=== PATIENT | female | born 1935 | race Caucasian/White ===

== ENCOUNTER → 2017-10-28 11:06 | Outpatient (CLI) | payer MEDICARE, SELFPAY ==
[2017-10-28 13:05] LABS: Anion Gap 12.5 mEq/L (5-15); Blood Urea Nitrogen 23 mg/dL (7-18); Carbon Dioxide 29 mmol/L (21.0-32.0); Chloride 105 mmol/L (98-107); Creatinine,Serum 1.14 mg/dL (0.55-1.02); Estimated Glomerular Filt Rate 46 ml/min (>60); GFR (African American) 55 ML/MIN (>60); Glucose 153 mg/dL (74-106); Potassium 4.5 mmoL/L (3.5-5.1); Sodium 142 mmol/L (136-145)
== END ==
PROVIDERS: Visit Provider Internal Medicine
DX: I25.10 Atherosclerotic heart disease of native coronary artery without angina pectoris (principal); I27.20 Pulmonary hypertension, unspecified
CPT/HCPCS: 36415; 80048

== ENCOUNTER → 2017-11-17 11:21 | Outpatient (CLI) | payer MEDICARE, SELFPAY ==
[2017-11-17 13:46] LABS: Anion Gap 11.2 mEq/L (5-15); Blood Urea Nitrogen 32 mg/dL (7-18); Carbon Dioxide 32 mmol/L (21.0-32.0); Chloride 103 mmol/L (98-107); Creatinine,Serum 1.28 mg/dL (0.55-1.02); Estimated Glomerular Filt Rate 40 ml/min (>60); GFR (African American) 48 ML/MIN (>60); Glucose 107 mg/dL (74-106); Potassium 4.2 mmoL/L (3.5-5.1); Sodium 142 mmol/L (136-145)
== END ==
PROVIDERS: PCP Family Medicine; Visit Provider Internal Medicine Cardiovascular Disease
DX: R06.00 Dyspnea, unspecified (principal); I51.9 Heart disease, unspecified; I11.9 Hypertensive heart disease without heart failure; I27.20 Pulmonary hypertension, unspecified; I25.10 Atherosclerotic heart disease of native coronary artery without angina pectoris
CPT/HCPCS: 80048; 83880

== ENCOUNTER → 2017-12-08 06:19 | Outpatient (CLI) | payer MEDICARE, SELFPAY ==
--- NOTE | 2017-12-08 | CA_ITS ---
NM linda perf SPECT rest str CLINICAL INDICATION: Chest pain and shortness of breath and fatigue, hypertension, diabetes, hypercholesterolemia, positive family history, coronary artery disease ORDERING PHYSICIAN: Dewayne Ramos MD PATIENT AGE: 82 years COMPARISON: 08/18/2017 DOSE: 10.74 mCi technetium Myoview intravenously at rest followed by 32.7 mCi technetium Myoview following the intravenous ministration of 0.4 mg of Lexiscan. Resting blood pressure is 166/66. Stress blood pressure 133/70. FINDINGS: Ejection fraction is calculated to be 66%.. There is dyskinesia involving the inferior wall at the base of the heart consistent with an aneurysm of the left ventricle. SPECT and polar map images reviewed. No fixed defects are evident. There is some decrease activity involving the inferolateral wall towards the apex becomes normal on the delayed images suggesting a small area of ischemia IMPRESSION: 1. Normal ejection fraction of 66%. 2. Dyskinetic segment involving the inferior wall at the base of the heart consistent with an aneurysm of the left ventricle. 3. Reversible region in the inferolateral wall toward the apex consistent with an area of ischemia
--- NOTE | 2017-12-08 08:06 | HMH.ITSHM ---
ATORVASTATIN FISH OIL DIABETIC MED BLOOD PRESSURE MED
--- NOTE | 2017-12-08 08:50 | HMH.ITSHM ---
atorvastatin, fish oil, diabetic med, blood ressure med
== END ==
PROVIDERS: PCP Family Medicine; Visit Provider Internal Medicine
DX: R06.00 Dyspnea, unspecified (principal); R06.01 Orthopnea; R06.02 Shortness of breath
CPT/HCPCS: 78452; 93017; A9502; J2785

== ENCOUNTER → 2017-12-29 12:53 | Outpatient (CLI) | payer MEDICARE, SELFPAY ==
--- NOTE | 2017-12-29 13:00 | MR_ITS ---
MR lumbar spine wo con, MR 3-d myelogram/MRCP HISTORY: Low back pain and lt leg pain x1 year. Pain has been constant in leg for a year. ORDERING PHYSICIAN: Fermín Gamble PATIENT AGE: 82 years COMPARISON: None TECHNIQUE: Standard multiplanar multiecho sequences are performed without contrast. 3-D MIP and myelographic images are also rendered and reviewed FINDINGS: There is mild lumbar scoliosis convex left. There is multilevel degenerative disc disease with bulging disc, endplate hypertrophy, and facet and ligamentum flavum hypertrophy as well as be outlined below. The spinal cord ends at the L1-L2 level. T11-T12: Mild degenerative disc disease. The disc is bulging anteriorly. A hemangioma involves the T12 vertebral body measuring approximately 15 mm. T12-L1: Mild degenerative disc disease with mild facet and ligamentum hypertrophy. L1-L2: Moderate to severe degenerative disc disease with mild bulging disc. Severe facet hypertrophic changes on the right with prominent right-sided marginal osteophytes. There is severe right lateral recess narrowing and severe right-sided foraminal narrowing impinging upon the exiting right L1 nerve root. Transverse narrowing of the canal at 12 mm. L2-L3: Moderate to severe degenerative disc disease with mild bulging disc and prominent right-sided marginal osteophytes along with facet hypertrophic change with moderate to severe right-sided foraminal narrowing and right lateral recess narrowing. There is transverse narrowing of the canal at 10 mm. L3-L4: Severe degenerative disc disease with bulging disc. There is a millimeters left lateral translation of L3 on L4. Small disc protrusion/disc osteophyte complex is present in the left paracentral region impinging upon the left L4 nerve root with severe left lateral recess narrowing and moderate bilateral foraminal narrowing. Transverse narrowing of the canal at 10 mm. L4-5: Moderate to severe degenerative disc disease with a small left paracentral disc protrusion/herniation impinging upon the left L5 nerve root causing left lateral recess narrowing with moderate to severe left-sided foraminal narrowing. L5-S1: 6 mm anterolisthesis of L5 with degenerative disc disease with concentric bulging disc eccentric towards the left along with moderate facet and ligamentum flavum hypertrophy with severe bilateral foraminal narrowing left greater than right. IMPRESSION: Abnormal MRI of the lumbar spine with multilevel degenerative disc disease along with facet and ligamentum hypertrophy and with endplate osteophytes and scoliosis resulting in multilevel spinal canal narrowing with severe lateral recess and foraminal narrowing. Please see above for detailed description age level. Small left paracentral disc osteophyte complex at L3-L4 and small left paracentral disc protrusion versus herniation at L4-L5
[2017-12-29 23:59] LABS: Anion Gap 13.2 mEq/L (5-15); Blood Urea Nitrogen 27 mg/dL (7-18); Carbon Dioxide 29 mmol/L (21.0-32.0); Chloride 105 mmol/L (98-107); Creatinine,Serum 1.29 mg/dL (0.55-1.02); Estimated Glomerular Filt Rate 40 ml/min (>60); GFR (African American) 48 ML/MIN (>60); Glucose 103 mg/dL (74-106); Potassium 4.2 mmoL/L (3.5-5.1); Sodium 143 mmol/L (136-145)
== END ==
PROVIDERS: Internal Medicine Cardiovascular Disease; PCP Family Medicine; Visit Provider Orthopaedic Surgery
DX: E11.9 Type 2 diabetes mellitus without complications (principal); I65.29 Occlusion and stenosis of unspecified carotid artery; R06.02 Shortness of breath; E78.4 Other hyperlipidemia; I11.9 Hypertensive heart disease without heart failure; I25.10 Atherosclerotic heart disease of native coronary artery without angina pectoris; I27.20 Pulmonary hypertension, unspecified; M54.16 Radiculopathy, lumbar region
CPT/HCPCS: 36415; 72148; 76376; 80048

== ENCOUNTER → 2018-07-07 07:44 | Outpatient (CLI) | payer MEDICARE, SELFPAY ==
--- NOTE | 2018-07-07 07:47 | CA_ITS ---
PROCEDURE: 2-D M-mode and color Doppler study INDICATIONS FOR THE TEST: Chest pain COPD Heart Murmur+ Tobacco SmokingEX Palpitations Fatigue+ Syncope Edema+ Hypertension+Diabetes Mellitus+ Rheumatic Fever SOB [place]+Obesity+Hyperlipidemia+ Family History HD+ Additional History CAD, 2 stents PATIENT INFORMATION HEIGHT: 62 WEIGHT: 200 GENDER: Female B/P: 119/67 2-D/M-MODE INTERPRETATION: 2-D MEASUREMENTS OBSERVED VALUES IN CMS Right Ventricular Dimension (RVDd) 2.5 Interventricular Septum (Thickness)(IVsd) 1.0 Left Ventricular Internal Dimensions(LVIDd) 4.3 Left Ventricular Posterior Wall (Thickness)(LVPWd) 1.0 Aortic Root 2.4 Aortic Cusp Separation 1.5 Left Atrial Dimensions (LAD) 3.0 2D 1. Left atrium is mildly enlarged, left ventricle is normal size, mild concentric left ventricular hypertrophy, visually estimated ejection fraction 55% with no regional wall motion abnormality. 2. The right atrium and right ventricle are normal size and contractility. 3. The aortic valve is thickened and calcified leaflet continue to display mobility. 4. The mitral and tricuspid valve leaflets are minimally thickened. 5. The pulmonic valve is poorly visualized. 6. No significant pericardial effusion noted. DOPPLER INTERROGATION: Doppler interrogation of the aortic, mitral and tricuspid valvular presence of mild aortic, mild mitral and tricuspid regurgitation, mean gradient across aortic valve is 9 mmHg represents mild aortic stenosis, there is mild aortic insufficiency present. Calculated right ventricular systolic pressure is 38 mmHg. CONCLUSION: 1. Mildly enlarged left atrium, normal left ventricular size, mild concentric left ventricular hypertrophy, visually estimated ejection fraction 55% with no regional wall motion abnormality, grade 1 diastolic dysfunction seen with tissue Doppler evidence of raised left atrial pressure. 2. Thickened and calcified aortic valve with mean gradient across valve of 9 mmHg is mild aortic stenosis, there is mild aortic insufficiency present. 3. Mild mitral and tricuspid regurgitation, calculated right ventricular systolic pressure is 38 mmHg consistent with mild pulmonary hypertension. 4. No significant pericardial effusion noted.
== END ==
PROVIDERS: PCP Family Medicine; Visit Provider Internal Medicine
DX: R06.02 Shortness of breath (principal)
CPT/HCPCS: 93306

== ENCOUNTER → 2018-07-08 10:58 | Outpatient (CLI) | payer MEDICARE, SELFPAY | PROVIDERS: PCP Family Medicine; Visit Provider Internal Medicine | DX: E11.9 Type 2 diabetes mellitus without complications (principal); E78.5 Hyperlipidemia, unspecified; I25.10 Atherosclerotic heart disease of native coronary artery without angina pectoris; I27.20 Pulmonary hypertension, unspecified; I34.0 Nonrheumatic mitral (valve) insufficiency; I65.29 Occlusion and stenosis of unspecified carotid artery; R00.1 Bradycardia, unspecified; R06.00 Dyspnea, unspecified; R42 Dizziness and giddiness | CPT/HCPCS: 93225 ==

== ENCOUNTER → 2018-10-25 09:54 | Outpatient (CLI) | payer MEDICARE, SELFPAY ==
--- NOTE | 2018-10-25 10:07 | MM_ITS ---
MM Dig screening mamm BI w/CAD ORDERING PHYSICIAN : Dinesh Lopez MD PATIENT AGE: 83 years GENDER: Female COMPARISON: Prior studies not available. The technologist check for prior mammograms but none available INDICATION: ITS.REASON: SCREENING Previous excisional biopsy of both right and left breast. TECHNIQUE: Standard CC and MLO images were obtained. R2 CAD reviewed. FINDINGS: Low-density breast with generalized fatty replacement. No dominant mass nor suspicious densities. In either breast. RIGHT BREAST: Small grouping dash- like linear calcifications deep right breast just slightly towards 3 o'clock position from mid point of breast. By far most Likely benign calcifications but would benefit from additional magnification spot views to better evaluate and provide a baseline. . These are not evident on the December 2016 CT LEFT BREAST: . Minimal vascular calcifications anterior left breast. ---------IMPRESSION: Right breast . A small grouping by far most likely benign calcifications but would benefit from additional magnification views Left breast: . Unremarkable. Follow-up in one year. BI-RADS Category: 0 Need Additional Imaging Evaluation RECOMMENDED FOLLOW-UP: IMM - IMMEDIATE FOLLOW-UP RECOMMENDED Magnification spot views right breast calcifications (A letter has been sent to the patient regarding results of the study.)
== END ==
PROVIDERS: PCP Family Medicine; Visit Provider Family Medicine
DX: Z12.31 Encounter for screening mammogram for malignant neoplasm of breast (principal)
CPT/HCPCS: 77067

== ENCOUNTER → 2018-11-01 11:05 | Outpatient (CLI) | payer MEDICARE, SELFPAY ==
--- NOTE | 2018-11-01 11:10 | XR_ITS ---
XR chest 2V HISTORY: ITS.REASON: CHEST WALL PAIN ORDERING PHYSICIAN: Dinesh Lopez MD PATIENT AGE: 83 years COMPARISON: 12/04/2016 FINDINGS: There is mild cardiomegaly without failure. Coronary artery calcifications are present. No lobar consolidation or collapse. There is mild wedging at T9 which has developed in the interval with loss of height anteriorly of approximately 30%. IMPRESSION: 1. Cardiomegaly with coronary artery calcification or stent. 2. Mild wedging of T9
== END ==
PROVIDERS: PCP Family Medicine; Visit Provider Family Medicine
DX: R07.89 Other chest pain (principal)
CPT/HCPCS: 71046

== ENCOUNTER → 2018-11-07 13:48 | Outpatient (CLI) | payer MEDICARE, SELFPAY ==
--- NOTE | 2018-11-07 13:53 | CT_ITS ---
CT thoracic spine wo con INDICATION: Thoracic back pain ITS.REASON: COLLAPSED [facility] THORAC[facility] ORDERING PHYSICIAN: Dinesh Lopez MD PATIENT AGE: 83 years COMPARISON: . 11/01/2018 CXR. & CT chest 01/11/2017 TECHNIQUE: Axial images obtained with sagittal and coronal reformats. All CT scans at the facility use one or more dose reduction, viz: automated exposure control, ma/kV adjustment per patient size (including targeted exams where dose is matched to indication, i.e. head), or iterative reconstruction technique. FINDINGS: Superior endplate compression fracture at T8. Mild Superior endplate concavity with mild loss of height and mild wedging seen at T8. Just over 20% loss of height mild sclerosis at the superior endplate reflects the recent compression. No significant retropulsion or complicating features. Adequate volume thoracic spinal canal to this region.. . I would note suggestion of some subtle hazy appearance in appearance spinal fat surrounding this superior aspect of T8 which supports that this may indeed be a recent compression fracture. Also there is a slightly abrupt appearance at the superior anterior right corner of the T8 vertebral body on sagittal views which also suspect for acute feature. Otherwise a would note degenerative changes in the thoracic spine.: . Mild disc space narrowing T6/7 noted. .Facet arthropathy and hypertrophy most evident at the lower T-spine... Facet hypertrophy Most evident to the left at T11/12 facet. Mild bilateral facet arthropathy at T10-11. Generous facet hypertrophy arthropathy to the at L 1/2 right facet greater than left also noted At the lower C-spine there is disc space narrowing and spondylosis. Minimal posterior disc/osteophyte at c 6/7 C5/6. Likely slightly indenting anterior aspect of thecal sac. Limited views of the lungs show no prominent findings. A partially calcified granuloma measuring up to 4 mm at the posterior right lower lobe. Calcified hilar nodes. Coronary artery calcification. -----IMPRESSION 1. T8 Compression Fracture.... Favor recent fracture but correlation with onset pain required .... Mild superior endplate compression-with mild superior endplate concavity and mild wedging at T8 . Approximately 20% loss of height .. No complicating features .... Subtle Hazy appearance paraspinal fat about this level in the subtle abrupt contour anterior superior corner T8 support most likely recent... 2. Mild degenerative changes elsewhere T spine as detailed in text.: ... Facet arthropathy/hypertrophy most evident lower T-spine & upper L-spine. ... Lower cervical spine spondylosis
== END ==
PROVIDERS: PCP Family Medicine; Visit Provider Family Medicine
DX: M48.54XA Collapsed vertebra, not elsewhere classified, thoracic region, initial encounter for fracture (principal)
CPT/HCPCS: 72128

== ENCOUNTER → 2018-11-08 13:25 | Outpatient (CLI) | payer MEDICARE, SELFPAY ==
--- NOTE | 2018-11-08 13:28 | MM_ITS ---
MM Dig mamm DX unilat RT CAD INDICATION: Follow-up abnormal mammogram ORDERING PHYSICIAN: Dinesh Lopez MD PATIENT AGE: 83 years COMPARISON: 10/25/2018 TECHNIQUE: Mag views of the right breast FINDINGS: There is a cluster of benign-appearing right like calcifications in the medial aspect of the right breast. These have a benign appearance. No malignant appearing microcalcifications evident IMPRESSION: Benign appearing calcifications noted on spot compression mag views BI-RADS Category: 2 Benign Finding(s) RECOMMENDED FOLLOW-UP: 1YR - 1 YEAR FOLLOW-UP (A letter has been sent to the patient regarding results of the study.)
== END ==
PROVIDERS: PCP Family Medicine; Visit Provider Family Medicine
DX: R92.8 Other abnormal and inconclusive findings on diagnostic imaging of breast (principal)
CPT/HCPCS: 77065

== ENCOUNTER 2019-08-25 15:30 | Inpatient (IN) ==
--- NOTE | 2019-08-25 15:37 | Emergency Department Note ---
ED Disposition Clinical Impression: Fracture dislocation of right ankle Qualifiers: Encounter type: initial encounter Fracture type: closed Qualified Code(s): S82.891A - Other fracture of right lower leg, initial encounter for closed fracture Disposition: Admitted as Observation Condition on Discharge: Fair - Critical Care Critical Care Time: No Attestation: On 08/25/19, the high probability of a clinically significant, sudden or life threatening deterioration of the following system(s) required my full and direct attention, intervention and personal management. The time I documented below is in addition to time spent performing reported procedures but includes the following listed in this critical care notation. Medical Decision Making - Jak Inquiry Pt receiving controlled substance: Yes Jak was queried for this patient: No Reason not queried -: Emergent pt cond-no time Risks and benefits of using a controlled substance: were not discussed with pt by me Vital Signs: 08/25/19 15:31 08/25/19 16:03 08/25/19 16:40 Temperature 97.9 F Temperature Source Oral Pulse Rate [Left Radial] 67 56 L 61 Respiratory Rate 18 18 Blood Pressure [Left Arm] 136/74 136/74 126/54 L Blood Pressure Mean [Left Arm] 94 94 78 Blood Pressure Source [Left Arm] Automatic Cuff Automatic Cuff Blood Pressure Position [Left Arm] Sitting Sitting Sitting 02 Sat by Pulse Oximetry 100 95 95 Oxygen Delivery Method Room Air Room Air Nasal Cannula Oxygen Flow Rate (LPM) 2 08/25/19 16:45 08/25/19 16:50 08/25/19 16:55 Temperature Temperature Source Pulse Rate [Left Radial] 74 75 61 Respiratory Rate 16 16 16 Blood Pressure [Left Arm] 129/74 136/64 136/61 Blood Pressure Mean [Left Arm] 92 88 86 Blood Pressure Source [Left Arm] Blood Pressure Position [Left Arm] Sitting Sitting 02 Sat by Pulse Oximetry 93 L 96 98 Oxygen Delivery Method Nasal Cannula Nasal Cannula Nasal Cannula Oxygen Flow Rate (LPM) 2 3 3 08/25/19 17:00 08/25/19 17:15 08/25/19 18:24 Temperature Temperature Source Pulse Rate [Left Radial] 63 65 63 Respiratory Rate 16 16 16 Blood Pressure [Left Arm] 133/61 131/74 111/73 Blood Pressure Mean [Left Arm] 85 93 85 Blood Pressure Source [Left Arm] Blood Pressure Position [Left Arm] Sitting Sitting Sitting 02 Sat by Pulse Oximetry 98 97 96 Oxygen Delivery Method Nasal Cannula Nasal Cannula Nasal Cannula Oxygen Flow Rate (LPM) 3 3 2 - Lab Data Lab Results 08/25/19 15:55: Sodium 139, Potassium 3.9, Chloride 101, Carbon Dioxide 27, Anion Gap 14.9, BUN 32 H, Creatinine 1.73 H, Estimated Creat Clear 36, Estimated GFR 28 L, Est GFR ( Amer) 34 L, Glucose 147 H, Calcium 9.3, Total Bilirubin 0.4, AST 17, ALT 19, Alkaline Phosphatase 92, Total Protein 6.8, Albumin 3.5, Globulin 3.3 H, Albumin/Globulin Ratio 1.1 08/25/19 16:00: WBC 8.6, RBC 4.50, Hgb 14.2, Hct 42.5, MCV 94.4, MCH 31.5 H, MCHC 33.4, RDW 12.8, Plt Count 220, MPV 10.9 H, Neut % (Auto) 77.8, Lymph % (Auto) 13.5, [place] % (Auto) 6.4, Eos % (Auto) 2.0, Baso % (Auto) 0.3, Neut # (Auto) 6.7, Lymph # (Auto) 1.2, [place] # (Auto) 0.6, Eos # (Auto) 0.2, Baso # (Auto) 0.0 Result diagrams: 08/25/19 16:00 08/25/19 15:55 Orders (Tests/Meds): ED MEDICATIONS Generic Name Dose Route Start Last Admin Trade Name Freq PRN Reason Stop Dose Admin Ketamine HCl 12.5 mg 08/25/19 17:15 08/25/19 16:41 Ketamine 500mg/10ml Vial IV 09/24/19 17:14 12.5 mg TITR HANK Administration Ketamine HCl 12.5 mg 08/25/19 17:15 08/25/19 16:43 Ketamine 500mg/10ml Vial IV 09/24/19 17:14 12.5 mg TITR HANK Administration Ketamine HCl 12.5 mg 08/25/19 17:15 08/25/19 16:46 Ketamine 500mg/10ml Vial IV 09/24/19 17:14 12.5 mg TITR HANK Administration Discontinued Medications Generic Name Dose Route Start Last Admin Trade Name Freq PRN Reason Stop Dose Admin Hydromorphone HCl 0.5 mg 08/25/19 18:21 08/25/19 18:24 Dilaudid 2mg/Ml Syringe IV 08/25/19 18:22 0.5 mg ONCE ONE Administration Morphine Sulfate 2 mg 08/25/19 15:34 08/25/19 15:36 Morphine 2mg/Ml Syringe IV 08/25/19 15:35 2 mg ONCE ONE Administration Ondansetron HCl 4 mg 08/25/19 15:34 08/25/19 15:36 Zofran 4mg/2ml Vial IV 08/25/19 15:35 4 mg ONCE ONE Administration ORDERS Category Date Time Status CT ankle RT wo con Stat Cat Scan 08/25/19 16:56 Stop Req - Radiology Data #1 Image(s): Ankle Image Reviewed: Yes I reviewed the patient's radiology image Trimalleolar fracture dislocation - Physician Consults Physician Consulted: Hilton Time: 16:00 Reason -: Orthopedic Eval/Care Comment/Response: She will come down to see the patient and assist in reduction/splinting Additional Consult: Bobby Time: 17:30 Reason -: Admission Comment/Response: Agrees to admit the patient to the hospital. We discussed the patient's clinical information, including history, exam, laboratory and radiology results and ED course. Per hospital procedure, I will write temporary bridge inpatient orders on the patient. Specific orders requested by the admitting physician: per Dr. Canela. Sliding scale insulin. General Adult HPI - General Chief complaint: Extremity Injury, Lower Stated complaint: Fall, Rt ankle injury Time Seen by Provider: 08/25/19 15:36 - History of Present Illness HPI narrative: Brought in by ambulance. Fell off a porch step at home and injured her right ankle. Could not get back up on it. Has deformity of the ankle. Denies any other injury including head or neck injury, abdominal or chest injury, back injury, or hip injury. Last ate at about 1 PM. - Related Data Home Medications Medication Instructions Recorded Confirmed multivitamin tablet 1 tab PO QAM 11/01/17 06/30/19 nitroglycerin 0.4 mg sublingual 0.4 mg SUBLINGUAL Q5M PRN 11/01/17 06/30/19 tablet omega [id number]-fish oil 1,000 mg cap PO 11/01/17 06/30/19 (120 mg-180 mg) capsule pantoprazole 40 mg tablet,delayed 40 mg PO QAM 11/01/17 06/30/19 release aspirin 81 mg tablet,delayed 81 mg PO DAILY tab 12/16/18 06/30/19 release levothyroxine 88 mcg tablet 88 mcg PO DAILY tab 12/16/18 06/30/19 meclizine 25 mg tablet 25 mg PO DAILY PRN tab 12/16/18 06/30/19 Previous Rx's Medication Instructions Recorded atorvastatin 40 mg tablet 40 mg PO DAILY #30 tab 08/25/18 isosorbide mononitrate ER 30 mg 30 mg PO QAM #30 tab 11/23/18 tablet,extended release 24 hr bisoprolol fumarate 5 mg tablet 2.5 mg PO QDAY #30 tab 02/14/19 furosemide 40 mg tablet 40 mg PO BID #60 tab 02/20/19 spironolactone 50 mg tablet 50 mg PO DAILY #90 tab 03/16/19 losartan 50 mg tablet 50 mg PO QDAY #90 tab 08/04/19 Allergies Allergy/AdvReac Type Severity Reaction Status Date / Time No Known Allergies Allergy Verified 06/30/19 10:19 [facility] History - Hepatitis A Screen Attestation statement:: This patient has been screened for Hepatitis A risk factors. I have reviewed the patient's past medical history: Yes Medical History: Reports:: Congestive Heart Failure, Coronary Artery Disease, Diabetes Mellitus Type 2, Hyperlipidemia, Hypertension Other Medical History: Reports: Hypothyroidism Laterality Cases: Other Surgeries: Yes: Other - Social History Smoking Status: Former smoker Alcohol Intake: never Alcohol Intake Frequency:: other Substance Use Type: denies use Occupational Status: retired Family Hx:: Coronary Artery Disease ROS Obtained: Yes All systems reviewed & no additional complaints - Cardiovascular Cardiovascular: Denies chest pain - Respiratory Respiratory: No dyspnea - Gastrointestinal Gastrointestingal: Denies: abdominal pain, vomiting - Musculoskeletal Musculoskeletal: Reports joint pain (Right ankle), Denies back pain, Denies neck pain - Neurologic Neurologic: Denies headache(s), Denies numbness, Denies weakness Physical Exam - General General appearance: alert, in no apparent distress - Head Head exam: atraumatic, normocephalic - Eye Eye exam: Present: normal appearance, EOMI - ENT ENT exam: Present: mucous membranes moist - Neck Neck exam: Present: normal inspection, full ROM, trachea midline. Absent: tende rness - Chest Chest inspection: Present: normal inspection, symmetric chest wall rise - Respiratory Respiratory exam: Present: normal lung sounds bilaterally. Absent: respiratory distress - Cardiovascular Cardiovascular exam: Present: regular rate, normal rhythm, normal heart sounds - Abdominal Exam Abdominal exam: Present: soft, normal bowel sounds. Absent: distention, tenderness - Extremities Exam Extremities exam: Present: normal capillary refill - Neurological Exam Neurological exam: Present: alert, oriented X3, CN II-XII intact. Absent: motor sensory deficit - Psychiatric Psychiatric exam: Present: normal affect, normal mood - Skin Skin exam: Present: warm, dry - Other Other exam information: Deformity of her right ankle, foot is deviated laterally, apex medial angulation at ankle. Skin is intact. Some mild ecchymosis medially. Normal pedal pulses, capillary refill, warmth, sensation, and movement of toes. Procedures - Procedural Sedation Indication: fracture/dislocation reduction Presedation Evaluation: Right ankle fracture dislocation ASA Class: III Preparation: laboratory monitor applied, pulse oximeter, supplemental O2 applied, suction/airway equipment at bedside, IV secured Ketamine: IV Ketamine dose (mg): 37 Patient Tolerated Procedure: well Complications: none Additional Comments: Reduction and splint performed by Dr. Canela. Postreduction x-ray shows that the dislocation has recurred. She will take the patient to surgery to perform an external fixator.
[2019-08-25 16:10] LABS: Basophils % 0.3 % (0.1-2.0); Eosinophils # 0.2 K/mm3 (0.0-0.4); Hematocrit 42.5 % (37.0-47.0); Hemoglobin 14.2 g/dL (12.2-16.2); Lymphocytes # 1.2 K/mm3 (0.7-4.5); Lymphocytes % 13.5 % (10-50); Mean Corpuscular HGB Conc 33.4 g/dL (31.8-35.4); Mean Corpuscular Volume 94.4 fl (81-99); Mean Platelet Volume 10.9 fl (7.4-10.4); Monocytes # 0.6 K/mm3 (0.1-1.0); Monocytes % 6.4 % (1.7-9.3); Neutrophils # 6.7 K/mm3 (1.8-7.8); Neutrophils % 77.8 % (37.0-80.0); Platelet Count 220 K/mm3 (142-424); Red Cell Distribution Width 12.8 % (11.5-17.5); White Blood Count 8.6 K/mm3 (4.8-10.8)
[2019-08-25 16:24] LABS: Albumin Level 3.5 gm/dL (3.4-5.0); Albumin/Globulin Ratio 1.1 (1.1-1.8); Anion Gap 14.9 mEq/L (5-15); Bilirubin,Total 0.4 mg/dL (0.2-1.0); Calcium 9.3 mg/dL (8.5-10.1); Globulin 3.3 gm/dl (1.3-3.2); Total Protein,Serum 6.8 gm/dL (6.4-8.2)
--- NOTE | 2019-08-25 17:14 | Consult Report ---
*Admission Date: 08/25/19 *Reason for consult:: R ankle fracture *History of present illness: 84yo F s/p fall down the steps at home earlier this afternoon. She missed her step and fell down around 3 stairs, twisting and fracturing the ankle. She was unable to get up so she laid on the ground for around 30 minutes. Denies chest pain, shortness of breath or dizziness prior to the fall. No prior injuries to t he ankle or prior surgeries on the ankle. She is a diabetic and denies prior ulcers, non-healing wounds or infections in the feet. She is unsure what her last A1C was but believes her glucose runs between 100-120 most of the time. She has numbness in the feet as baseline. Medical history is significant for pulmonary HTN, CAD, CHF, hypothyroidism, HTN, HL, JONAH, DM, sinus bradycardia, mitral regurgitation, aortic stenosis. Home medications: mulitvitamin, nitroglycerin, fish oil, pantoprazole, aspirin 81, levothyroxine, meclizine, isosorbide. No known drug allergies, former smoker. She lives at home with her son, who works nights. Review of Systems - Review of Systems Review of systems:: pertinent systems reviewed and negative unless documented below - *Neurologic Denies headache(s), Denies numbness, Denies weakness [facility] History I have reviewed the patient's past medical history: Yes Medical History: Reports:: Congestive Heart Failure, Coronary Artery Disease, Diabetes Mellitus Type 2, Hyperlipidemia, Hypertension *Have you ever received a pneumonia vaccine?: Yes *Have you received a flu vaccine this season?: Yes Other Medical History: Reports: Hypothyroidism Laterality Cases: Bilateral: Carpal Tunnel Release Other Surgeries: Yes: Other - *Social History Smoking Status: Former smoker Tobacco Type: cigarettes Alcohol Intake: never Alcohol Intake Frequency:: other Substance Use Type: denies use *Occupational Status:: retired *Travel in the last 8 weeks: None Family Hx:: Coronary Artery Disease Meds Home Medications Medication Instructions Recorded Confirmed Type multivitamin tablet 1 tab PO QAM 11/01/17 06/30/19 History nitroglycerin 0.4 mg sublingual 0.4 mg SUBLINGUAL Q5M PRN 11/01/17 06/30/19 History tablet omega 6-iat-sph-fish oil 1,000 mg cap PO 11/01/17 06/30/19 History (120 mg-180 mg) capsule pantoprazole 40 mg tablet,delayed 40 mg PO QAM 11/01/17 06/30/19 History release atorvastatin 40 mg tablet 40 mg PO DAILY #30 tab 08/25/18 06/30/19 Rx isosorbide mononitrate ER 30 mg 30 mg PO QAM #30 tab 11/23/18 06/30/19 Rx tablet,extended release 24 hr aspirin 81 mg tablet,delayed 81 mg PO DAILY tab 12/16/18 06/30/19 History release levothyroxine 88 mcg tablet 88 mcg PO DAILY tab 12/16/18 06/30/19 History meclizine 25 mg tablet 25 mg PO DAILY PRN tab 12/16/18 06/30/19 History bisoprolol fumarate 5 mg tablet 2.5 mg PO QDAY #30 tab 02/14/19 06/30/19 Rx furosemide 40 mg tablet 40 mg PO BID #60 tab 02/20/19 06/30/19 Rx spironolactone 50 mg tablet 50 mg PO DAILY #90 tab 03/16/19 06/30/19 Rx losartan 50 mg tablet 50 mg PO QDAY #90 tab 08/04/19 Rx Allergies Allergy/AdvReac Type Severity Reaction Status Date / Time No Known Allergies Allergy Verified 06/30/19 10:19 Exam Vital signs and Labs for Last 24 Hours: Temp Pulse Resp BP Pulse Ox 97.9 F 56 L 18 136/74 95 08/25/19 15:31 08/25/19 16:03 08/25/19 15:31 08/25/19 16:03 08/25/19 16:03 Laboratory Results - last 24 hr 08/25/19 15:55: Sodium 139, Potassium 3.9, Chloride 101, Carbon Dioxide 27, Anion Gap 14.9, BUN 32 H, Creatinine 1.73 H, Estimated Creat Clear 36, Estimated GFR 28 L, Est GFR ( Amer) 34 L, Glucose 147 H, Calcium 9.3, Total Bilirubin 0.4, AST 17, ALT 19, Alkaline Phosphatase 92, Total Protein 6.8, Albumin 3.5, Globulin 3.3 H, Albumin/Globulin Ratio 1.1 08/25/19 16:00: WBC 8.6, RBC 4.50, Hgb 14.2, Hct 42.5, MCV 94.4, MCH 31.5 H, MCHC 33.4, RDW 12.8, Plt Count 220, MPV 10.9 H, Neut % (Auto) 77.8, Lymph % (Auto) 13.5, Edmonson % (Auto) 6.4, Eos % (Auto) 2.0, Baso % (Auto) 0.3, Neut # (Auto) 6.7, Lymph # (Auto) 1.2, Edmonson # (Auto) 0.6, Eos # (Auto) 0.2, Baso # (Auto) 0.0 I & O for Last 24 hours: Intake & Output 08/23/19 08/24/19 08/25/19 08/26/19 11:59 11:59 11:59 11:59 Weight 210 lb - Constitutional no acute distress - *Routine HEENT Exam Head: Present: normocephalic, atraumatic Eye: Present: EOMI ENT: Present: mucous membranes moist - *Routine Neck Exam Present: supple. Absent: tenderness - *Routine Respiratory Exam Present: CTA bilaterally - *Routine Cardiovascular Exam Present: RRR - *Routine Abdominal Exam Present: soft. Absent: tenderness - *Routine Rectal Exam Comments: deferred - *Routine Exam Comments: deferred - *Routine Extremities Exam Comments: R ankle is grossly deformed with medial tenting, mild ecchymosis and erythema, slight blanching able to wiggle toes, cannot dorsiflex or plantar flex R ankle sensation intact to light touch distally RLE in all distributions; monofilament testing deferred palpable DP/PT pulses RLE, foot warm and pink no open wounds, ulcerations, or other skin lesions RLE R lower leg compartments soft, no tenderness above ankle - *Routine Skin Exam Present: intact - *Routine Neurological Exam Present: alert, oriented X3, moving all extremities, normal tone, hearing grossly intact, normal speech. Absent: sensory deficit, motor deficit, altered mental status - Routine Psychiatric Exam Present: normal affect Results - Labs Result Diagrams: 08/25/19 16:00 08/25/19 15:55 Labs: Abnormal lab results 08/25/19 08/25/19 Range/Units 15:55 16:00 MCH 31.5 H (27.0-31.2) pg MPV 10.9 H (7.4-10.4) fl BUN 32 H (7-18) mg/dL Creatinine 1.73 H (0.55-1.02) mg/dL Estimated GFR 28 L (>60) ml/min Est GFR ( Amer) 34 L (>60) ML/MIN Glucose 147 H (74-106) mg/dL Globulin 3.3 H (1.3-3.2) gm/dl H & H 08/25/19 Range/Units 16:00 Hgb 14.2 (12.2-16.2) g/dL Hct 42.5 (37.0-47.0) % All other labs normal. - Diagnostic results Ankle/Foot x-ray: image reviewed (trimalleolar fracture-dislocation R ankle ) Assessment and Plan (1) Diabetes mellitus Current visit: No Status: Chronic Qualifiers: Diabetes mellitus type: type 2 Diabetes mellitus alf insulin use: without alf use Diabetes mellitus complication status: without complication Qualified Code(s): E11.9 - Type 2 diabetes mellitus without complications Category: Medical Code(s): E11.9 - Type 2 diabetes mellitus without complications (2) Fracture dislocation of right ankle Current visit: Yes Status: Acute Qualifiers: Encounter type: initial encounter Fracture type: closed Qualified Code(s): S82.891A - Other fracture of right lower leg, initial encounter for closed fracture Category: Medical Code(s): S82.891A - Other fracture of right lower leg, i nitial encounter for closed fracture - Assessment and plan all Dx Assessment and Plan for all problems:: 84yo F with trimalleolar fracture-dislocation of the R ankle -- closed reduction and splinting attempted in the ER with ketamine sedation by the ER provider. Ankle reduced easily, but could not be maintained with a splint, despite a well-molded plaster posterior splint + stirrup. Seen to re- dislocate on post-reduction XR. -- will take the patient to the OR tonight for closed reduction and external fixator application -- will admit post-operatively for ongoing post-op care, physical therapy, and SNF placement until definitive fixation can be completed. Will consult Dr. Cortez post-operatively, as this is a severe fracture that will be difficult to manage in an elderly patient with limited mobility, what appears to be poor bone quality on XR and a history of DM. -- after surgery will obtain a CT scan of the ankle -- risks of surgery were discussed with the patient and her son/granddaughter, who are at bedside; risks of bleeding, infection, persistent pain/swelling, and risks of anesthesia were discussed. The patient vocalized understanding, informed consent obtained.
--- NOTE | 2019-08-25 20:59 | Progress Note ---
[facility] Anesthesia Record Part II Discharge Time: 21:20 Destination: Medical Surgical Department PACU nurse assessment reviewed?: Yes Patient Condition:: Good Anesthesia Complications:: None Swallowing reflex intact?: Yes Cyanosis?: No
--- NOTE | 2019-08-25 20:59 | Progress Note ---
[facility] Anesthesia Record Part I Intake, IV Amount: 1,200 Estimated blood loss (mL): 5 Urine output (mL): 0 Blood Pressure: 144/74 SaO2: 95 Pulse Rate: 70 Respiratory Rate: 16 Temperature: 98 F Patient is:: Drowsy, Stable Stable to PACU at:: 20:50
--- NOTE | 2019-08-25 20:59 | Progress Note ---
[facility] Anesthesia Checklist - Patient Identification Patient Identification: Arm Band - Structural Data Admitted From: Emergency Dept Planned Operative Procedure/s: closed reduction, application of external fixation device right ankle Consent for Planned Operative Procedure(s) Verified: Yes Verified Documents: Surgical Consent, History and Physical - NPO Status Verified Time NPO: 12:00 - Additional verifications Anesthesia Reactions: No - Airway Assessment C-Spine Mobility Assessed: Yes (mp2) TMJ Mobility Assessed: Yes Dentition: Good Dentition - Neurological Assessment Level of Consciousness: Awake, Alert - Anesthesia Plan Anesthesia Risk discussed: Yes Anesthesia Plan: Verified ASA Class: III (e) Anesthesia Type: General [facility] History I have reviewed the patient's past medical history: Yes Medical History: Reports:: Congestive Heart Failure, Coronary Artery Disease, Diabetes Mellitus Type 2, Hyperlipidemia, Hypertension *Have you ever received a pneumonia vaccine?: Yes *Have you received a flu vaccine this season?: Yes Other Medical History: Reports: Hypothyroidism Anesthesia experience/problems:: nac Laterality Cases: Left: Total Knee Replacement, Bilateral: Carpal Tunnel Release Other Surgeries: Yes: Other - *Social History Smoking Status: Former smoker Tobacco Type: cigarettes Alcohol Intake: never Alcohol Intake Frequency:: other Substance Use Type: denies use *Occupational Status:: retired *Travel in the last 8 weeks: None Family Hx:: Coronary Artery Disease
--- NOTE | 2019-08-25 23:13 | Operative Note ---
Date of procedure: 08/25/19 Pre-op Diagnosis:: R trimalleolar ankle fracture-dislocation Post-op Diagnosis:: R trimalleolar ankle fracture-dislocation Procedure performed:: closed reduction R ankle fracture + external fixator placement RLE Surgeon:: Rosy Canela MD Registered Physical Therapist(s):: Garima Contreras LENS CUTTER:: Tarun Mobley Anesthesia: GETA Estimated blood loss (mL): 5 Clinical Note:: 84yo F s/p fall down the steps at home earlier this afternoon. She missed her step and fell down around 3 stairs, twisting and fracturing the ankle. She was unable to get up so she laid on the ground for around 30 minutes. Denies chest pain, shortness of breath or dizziness prior to the fall. No prior injuries to the ankle or prior surgeries on the ankle. She is a diabetic and denies prior ulcers, non-healing wounds or infections in the feet. She is unsure what her last A1C was but believes her glucose runs between 100-120 most of the time. She has numbness in the feet as baseline. Medical history is significant for pulmonary HTN, CAD, CHF, hypothyroidism, HTN, HL, JONAH, DM, sinus bradycardia, mitral regurgitation, aortic stenosis. Home medications: mulitvitamin, nitroglycerin, fish oil, pantoprazole, aspirin 81, levothyroxine, meclizine, isosorbide. No known drug allergies, former smoker. She lives at home with her son, who works nights. Closed reduction and splinting performed in the ER under IV sedation, but post-reduction x-rays were unsatisfactory. The fracture was too unstable to be held in a splint and as soon as my hands came off the reduction it fell apart, despite application of a well-molded plaster posterior splint + stirrup. I recommended repeat reduction in the OR with external fixator application. With the patient's age, fracture severity, what appears to be poor bone quality on x-ray, and a history of diabetes, I forsee difficulty with fracture fixation and a prolonged recovery period. External fixator application will allow the fracture to remain reduced/stabilize and allow the soft tissues to cool off prior to definitive treatment, at which time I will be seeking consultation from Dr. Cortez regarding fixation or reconstruction options. The risks of ex-fix application were discussed with the patient and her son/granddaughter, who are at bedside; risks of bleeding, infection, persistent pain/swelling, and risks of anesthesia were discussed. The patient vocalized understanding, informed consent obtained. Operative findings:: Devny Liu 2 ex-fix system was used, with the following components: pins: tibia = 5 x 180mm apex pins (2) calcaneus = 5 x 250mm transfix pin (1) 1st metatarsal = 4 x 90mm apex pin (1) bars: 8 x 500mm (2) from tibia to calcaneus 8 x 150mm (1) from 1st metatarsal to tibia Operative note:: The patient was identified in preoperative holding in the right leg signed by myself; the ankle was still splinted from the first closed reduction in the emergency room. I reviewed the consent with the patient and her family and answered all questions. She was then taken to the operating room and placed supine on the OR table. 2 g of Ancef were infused intravenously and general anesthesia induced. Once the patient was asleep, the splint was removed from her right ankle and the right leg prepped and draped in the usual sterile fashion from the upper thigh to the toes. Timeout was performed, identifying the correct patient, correct procedure, and correct site. The procedure was begun by using the C arm to identify the fracture site at the right ankle. Trimalleolar fracture dislocation was confirmed. A Devyn Liu 2 external fixator system was used for this case. The first pin placed was a calcaneus pin, which was a 5 x 250 mm transfix pin, which was centrally threaded. This was held over the skin over the lateral calcaneus until the desired starting point was found, at which time the pin was used to mustafa the skin and placed under power through the center of the calcaneus. Once the pin had been completely fixed with the central threads through the middle of the calcaneus, it was attached from the power source. Next 2 pins were placed in the proximal tibia, each measuring 5 x 180 mm. These were distally threaded apex pins and were placed around 3 to 4 cm apart in the proximal tibia, well distal to the tubercle and far below the capsule so as not to be placed intra- articularly. These were placed under power, also under direct visualization with C arm, and were started just medial to the tibial crest over the anterior tibia. They were placed bicortically. Once both tibial pins have been placed, bars were placed on the frame using pin to bar and bar to bar clamps. Radiolucent bars were placed, both measuring 8 x 500 mm from the tibia to the calcaneus both medially and laterally. Once the bars were clamped into place loosely, close reduction of the ankle was performed under C-arm visualization, until the ankle was well reduced. I held the ankle in a reduced position while my assistant editor tightened all brackets on the ex fix construct. Appropriate reduction of the ankle was confirmed on both AP and lateral fluoroscopy views. To finalize my fixation and also help hold the foot in a plantigrade position so as to avoid an equinus contracture if the frame is left on for a prolonged period of time, I placed one pin in the first metatarsal. This was done under C-arm guidance as well, and this pin was connected to the tibial bar with a separate, smaller radiolucent bar measuring 8 x 150 mm. The pin that was placed in the first metatarsal was a 4 x 90 mm apex pin x1. This completed the delta frame and the ankle fracture was seen to be well reduced and stable in this construct and all bolts were tightened once more in final x-ray views taken. The pin sites were all dressed with sterile Xeroform, 4 x 4's and the entire construct wrapped with Kerlix, web roll and Acsey wraps. The patient was then awoken from anesthesia and transferred to her cart, where she was taken to PACU in good condition. No tourniquet was used during this case and blood loss was minimal, less than 5 cc. The patient tolerated this procedure well with no immediate perioperative complications. Tourniquet time (min): 0 Condition: stable Disposition: PACU Specimens:: none Complications:: none
[2019-08-26 06:34] LABS: Basophils % 0.1 % (0.1-2.0); Eosinophils % 0.1 % (0.1-12.0); Hematocrit 38.4 % (37.0-47.0); Lymphocytes # 0.6 K/mm3 (0.7-4.5); Lymphocytes % 8.1 % (10-50); Mean Corpuscular HGB Conc 31.5 g/dL (31.8-35.4); Mean Corpuscular Volume 98.3 fl (81-99); Mean Platelet Volume 10.6 fl (7.4-10.4); Monocytes # 0.4 K/mm3 (0.1-1.0); Monocytes % 5.6 % (1.7-9.3); Neutrophils # 6.7 K/mm3 (1.8-7.8); Neutrophils % 86.1 % (37.0-80.0); Platelet Count 162 K/mm3 (142-424); White Blood Count 7.8 K/mm3 (4.8-10.8)
[2019-08-26 06:53] LABS: Anion Gap 13.4 mEq/L (5-15); Calcium 8.6 mg/dL (8.5-10.1)
[2019-08-26 07:03] LABS: Hemoglobin 12.2 g/dL (12.2-16.2)
--- NOTE | 2019-08-26 08:26 | History & Physical Report ---
*Admission Date: 08/25/19 *Chief complaint: Right foot and ankle pain *History of present illness: 84-year-old female with uncontrolled diabetes, hypertension, hyperlipidemia, hypothyroidism presented to the emergency department after injury at home that resulted in a trimalleolar fracture of the right ankle. Reduction of the fracture failed in the emergency department and patient was taken to the OR for external fixation. She was admitted postoperatively for observation. Patient reports that she slipped on a frosty step and this resulted in her injury. She denies loss of consciousness, chest pain, shortness of breath prior to her injury. This morning the patient reports mild discomfort in the foot and ankle but otherwise has no complaints. [facility] History I have reviewed the patient's past medical history: Yes Medical History: Reports:: Coronary Artery Disease, Diabetes Mellitus Type 2, Hyperlipidemia, Hypertension *Have you ever received a pneumonia vaccine?: Yes *Have you received a flu vaccine this season?: Yes Other Medical History: Reports: Hypothyroidism Anesthesia experience/problems:: nac Laterality Cases: Left: Total Knee Replacement, Bilateral: Carpal Tunnel Release Other Surgeries: Yes: Other - *Social History Educational Level: Completed High School Smoking Status: Former smoker Tobacco Type: cigarettes Alcohol Intake: never Alcohol Intake Frequency:: other Substance Use Type: denies use *Occupational Status:: retired *Travel in the last 8 weeks: None Family Hx:: Coronary Artery Disease Review of Systems - Constitutional Denies body ache(s), Denies chills, Denies fever(s) - Eyes Denies change in vision - ENT Denies dry mouth, Denies difficulty swallowing - *Cardiovascular Denies chest pain, Denies chest pain at rest, Denies chest pain with activity - *Respiratory Denies change in phlegm color, Denies chest congestion, Denies cough - *Gastrointestinal Denies abdominal pain, Denies belching - *Neurologic Denies headache(s), Denies numbness, Denies weakness Meds Home Medications Medication Instructions Recorded Confirmed Type multivitamin tablet 1 tab PO QAM 11/01/17 06/30/19 History nitroglycerin 0.4 mg sublingual 0.4 mg SUBLINGUAL Q5M PRN 11/01/17 06/30/19 History tablet omega [id number]-fish oil 1,000 mg cap PO 11/01/17 06/30/19 History (120 mg-180 mg) capsule pantoprazole 40 mg tablet,delayed 40 mg PO QAM 11/01/17 06/30/19 History release atorvastatin 40 mg tablet 40 mg PO DAILY #30 tab 08/25/18 06/30/19 Rx isosorbide mononitrate ER 30 mg 30 mg PO QAM #30 tab 11/23/18 06/30/19 Rx tablet,extended release 24 hr aspirin 81 mg tablet,delayed 81 mg PO DAILY tab 12/16/18 06/30/19 History release levothyroxine 88 mcg tablet 88 mcg PO DAILY tab 12/16/18 06/30/19 History meclizine 25 mg tablet 25 mg PO DAILY PRN tab 12/16/18 06/30/19 History bisoprolol fumarate 5 mg tablet 2.5 mg PO QDAY #30 tab 02/14/19 06/30/19 Rx furosemide 40 mg tablet 40 mg PO BID #60 tab 02/20/19 06/30/19 Rx spironolactone 50 mg tablet 50 mg PO DAILY #90 tab 03/16/19 06/30/19 Rx losartan 50 mg tablet 50 mg PO QDAY #90 tab 08/04/19 Rx Allergies Allergy/AdvReac Type Severity Reaction Status Date / Time No Known Allergies Allergy Verified 06/30/19 10:19 Exam Vital signs and Labs for Last 24 Hours: Temp Pulse Resp BP Pulse Ox 98.5 F 63 18 110/55 L 94 L 08/26/19 08:00 08/26/19 08:00 08/26/19 08:03 08/26/19 08:00 08/26/19 08:00 Laboratory Results - last 24 hr 08/25/19 15:55: Sodium 139, Potassium 3.9, Chloride 101, Carbon Dioxide 27, Anion Gap 14.9, BUN 32 H, Creatinine 1.73 H, Estimated Creat Clear 36, Estimated GFR 28 L, Est GFR ( Amer) 34 L, Glucose 147 H, Calcium 9.3, Total Bilirubin 0.4, AST 17, ALT 19, Alkaline Phosphatase 92, Total Protein 6.8, Albumin 3.5, Globulin 3.3 H, Albumin/Globulin Ratio 1.1 08/25/19 16:00: WBC 8.6, RBC 4.50, Hgb 14.2, Hct 42.5, MCV 94.4, MCH 31.5 H, MCHC 33.4, RDW 12.8, Plt Count 220, MPV 10.9 H, Neut % (Auto) 77.8, Lymph % (Auto) 13.5, [place] % (Auto) 6.4, Eos % (Auto) 2.0, Baso % (Auto) 0.3, Neut # (Aut o) 6.7, Lymph # (Auto) 1.2, [place] # (Auto) 0.6, Eos # (Auto) 0.2, Baso # (Auto) 0.0 08/25/19 16:00: Hemoglobin A1c 6.0 08/26/19 06:17: WBC 7.8, RBC 3.90 L, Hgb 12.2 D, Hct 38.4, MCV 98.3, MCH 31.0, MCHC 31.5 L, RDW 13.0, Plt Count 162 D, MPV 10.6 H, Neut % (Auto) 86.1 H, Lymph % (Auto) 8.1 L, [place] % (Auto) 5.6, Eos % (Auto) 0.1, Baso % (Auto) 0.1, Neut # (Auto) 6.7, Lymph # (Auto) 0.6 L, [place] # (Auto) 0.4, Eos # (Auto) 0.0, Baso # (Auto) 0.0 08/26/19 06:17: Sodium 141, Potassium 4.4, Chloride 105, Carbon Dioxide 27, An ion Gap 13.4, BUN 31 H, Creatinine 1.38 H D, Estimated Creat Clear 45, Estimated GFR 36 L, Est GFR ( Amer) 44 L D, Glucose 132 H, Calcium 8.6 I & O for Last 24 hours: Intake & Output 08/23/19 08/24/19 08/25/19 08/26/19 11:59 11:59 11:59 11:59 Intake Total 2270 / 2270 Balance 2270 / 2270 Weight 206 lb 3 oz Narrative: Patient is awake and alert laying in bed. She shows no signs of any distress. Oropharynx is moist. Neck is without lymphadenopathy or jugular venous distention. Lungs are clear to auscultation. Heart has a regular rate and rhythm. Abdomen is soft and obese without rebound or guarding. Right lower leg has an external fixator in place. Patient is neurovascularly intact in the toes. 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 mellitus lead caster helper insulin use: without retirement use Diabetes mellitus complication status: without complication Qualified Code(s): E11.9 - Type 2 diabetes mellitus without complications Category: Medical Code(s): E11.9 - Type 2 diabetes mellitus without complications (3) Pulmonary artery hypertension Current visit: Yes Status: Acute Category: Medical Code(s): I27.21 - Secondary pulmonary arterial hypertension (4) Aortic insufficiency Current visit: No Status: Chronic Qualifiers: Cardiac valve disease etiology: nonrheumatic Qualified Code(s): I35.1 - Nonrheumatic aortic (valve) insufficiency Category: Medical Code(s): I35.1 - Nonrheumatic aortic (valve) insufficiency (5) Carotid artery stenosis Current visit: No Status: Chronic Qualifiers: Laterality: unspecified laterality Qualified Code(s): I65.29 - Occlusion and stenosis of unspecified carotid artery Category: Medical Code(s): I65.29 - Occlusion and stenosis of unspecified carotid artery (6) Coronary arteriosclerosis Current visit: No Status: Chronic Category: Medical Code(s): I25.10 - Atherosclerotic heart disease of [place] coronary artery without angina pectoris (7) Diastolic dysfunction Current visit: No Status: Chronic Category: Medical Code(s): I51.9 - Heart disease, unspecified (8) Dyspnea Current visit: No Status: Chronic Qualifiers: Dyspnea type: dyspnea on exertion Qualified Code(s): R06.09 - Other forms of dyspnea Category: Medical Code(s): R06.00 - Dyspnea, unspecified (9) Hyperlipidemia Current visit: No Status: Chronic Qualifiers: Hyperlipidemia type: other hyperlipidemia Category: Medical Code(s): E78.5 - Hyperlipidemia, unspecified (10) Hypertensive heart disease Current visit: No Status: Chronic Qualifiers: Heart failure presence: without heart failure Qualified Code(s): I11.9 - Hypertensive heart disease without heart failure Category: Medical Code(s): I11.9 - Hypertensive heart disease without heart failure (11) Mitral valve regurgitation Current visit: No Status: Chronic Qualifiers: Cardiac valve disease etiology: nonrheumatic Qualified Code(s): I34.0 - Nonrheumatic mitral (valve) insufficiency Category: Medical Code(s): I34.0 - Nonrheumatic mitral (valve) insufficiency - Assessment and plan all Dx Assessment and Plan for all problems:: 1. Patient will be given home medicines and renal function will be followed 2. Orthopedic management per Dr. Canela Who I am also aware of spoke with Dr. Cortez. Patient tells me plan is for an additional surgery on Wednesday 3. Patient will have PT evaluation and will need short-term shelter
--- NOTE | 2019-08-26 09:58 | Pharmacy Consult Notes ---
[facility] Pharmacy VTE Monitoring - Patient Demographics Admission date: 08/25/19 Report Date: 08/26/19 Time: 09:58 Allergies/Adverse Reactions: Patient Allergies No Known Allergies Allergy (Verified 06/30/19 10:19) Height: 1.65 m Weight: 93.525 kg Patient Problems: Current Active Problems Fracture dislocation of right ankle (Acute) Pulmonary artery hypertension (Acute) - VTE Risk Labs: VTE Related Lab Results Hgb 12.2 g/dL (12.2-16.2) D 08/26/19 06:17 Hct 38.4 % (37.0-47.0) 08/26/19 06:17 Plt Count 162 K/mm3 (142-424) D 08/26/19 06:17 BUN 31 mg/dL (7-18) H 08/26/19 06:17 Creatinine 1.38 mg/dL (0.55-1.02) H D 08/26/19 06:17 Estimated Creat Clear 45 mL/min (50-200) 08/26/19 06:17 VTE Score: 3 VTE Risk Level: Low Risk - Prophylaxis VTE Prophylaxis Ordered?: Yes Types of VTE Prophylaxis: IPCS Thigh High Location of Applied Device: Left Leg
--- NOTE | 2019-08-26 12:06 | Progress Note ---
Subjective Date: 08/26/19 Time: 11:30 Principal diagnosis: R ankle fx Interval history: The patient is doing well this morning, awake and alert, working with PT. She reports pain in the R ankle, but improved from pre-operatively. Vitals have been stable, no fevers/chills. PN: Obj Ex Vital signs: Temp Pulse Resp BP Pulse Ox 98.1 F 65 17 100/48 L 92 L 08/26/19 11:16 08/26/19 11:16 08/26/19 11:16 08/26/19 11:16 08/26/19 11:16 - Constitutional no acute distress - Routine Extremities Exam Comments: RLE external fixator in place, dressings c/d/i w/o strikethrough wiggles toes; unable to DF/PF due to fixator/1st MT pin SILT distally RLE in all distributions palpable pedal pulses RLE, foot warm/pink and appears well-perfused R calf soft, non-tender Progress Note: A&P (1) Fracture dislocation of right ankle Status: Acute Current Visit: Yes (2) Diabetes mellitus Status: Chronic Current Visit: No (3) Pulmonary artery hypertension Status: Acute Current Visit: Yes (4) Aortic insufficiency Status: Chronic Current Visit: No (5) Carotid artery stenosis Status: Chronic Current Visit: No (6) Coronary arteriosclerosis Status: Chronic Current Visit: No (7) Diastolic dysfunction Status: Chronic Current Visit: No (8) Dyspnea Status: Chronic Current Visit: No (9) Hyperlipidemia Status: Chronic Current Visit: No (10) Hypertensive heart disease Status: Chronic Current Visit: No (11) Mitral valve regurgitation Status: Chronic Current Visit: No Assessment and Plan for All Diagnoses:: 84yo F POD 1 s/p closed reduction R trimalleolar ankle fracture with RLE external fixator application -- NWB RLE at all times, elevate ankle on 2 pillows, offload heel -- no pin care over the weekend, just keep fixator elevated -- complete 24hr antibiotic prophy with ancef -- pain management; norco + morphine PRN -- CT scan R ankle completed this morning; will review -- medical management per Dr. Rosales -- DVT prophy with aspirin is fine with me; if anything else started, request that it have a short half life such as lovenox, which can be stopped 12 hours before the next surgery -- definitive treatment will not take place Wednesday; possibly Wednesday-Wednesday at the earliest, but I would like soft tissues to have time to cool off before planning anything. She is fairly swollen with medial-sided ecchymosis; the skin was tented from the dislocation for several hours. -- recommend planning for SNF placement and to start discussing with family and insurance; she will likely need several months of care that she cannot get living at home
[2019-08-26 12:13] LABS: Lymphocytes % 11 % (10-50); Monocytes % 6 % (2-9); Neutrophils % 82 % (42-76); RBC Morphology Normal; Total Cells Counted 100
--- NOTE | 2019-08-26 18:32 | Electrocardiograph Report ---
APPROVED REPORT Exam: Resting ECG HR:69 bpm ECG Measurements Heart Rate 69 AXES AK 166 P 61 QRSd 102 QRS -47 QT 412 T31 QTc 441 <Conclusion> Normal sinus rhythm Left anterior fascicular block Abnormal ECG Electronically signed by : Supa Mariee, 08/26/2019 18:32:19
[2019-08-27 06:43] LABS: Anion Gap 11.2 mEq/L (5-15); Calcium 8.6 mg/dL (8.5-10.1)
--- NOTE | 2019-08-27 08:01 | Progress Note ---
Internal Medicine - PN: Subj *Date: 08/27/19 *Time: 07:59 Interval history: Patient has awoken this morning and began vomiting around 730. She denies abdominal pain. She was feeling well and has been receiving regular pain medication with her last dose being at 6 AM. She reports when breakfast was brought to her the minute she smelled it did made her nauseous and she vomited multiple times. She has been given some IV Zofran. Exam Vital signs and Labs for Last 24 Hours: Temp Pulse Resp BP Pulse Ox 98.5 F 59 L 18 114/54 L 92 L 08/27/19 04:00 08/27/19 04:00 08/27/19 04:00 08/27/19 04:00 08/27/19 04:00 Laboratory Results - last 24 hr 08/25/19 22:24: POC Glucose 133 H 08/26/19 05:46: POC Glucose 128 H 08/26/19 06:17: Total Counted 100, Neutrophils % (Manual) 82 H, Lymphocytes % (Manual) 11, Monocytes % (Manual) 6, Metamyelocytes % 1.0, Platelet Estimate Normal, RBC Morphology Normal 08/26/19 11:42: POC Glucose 97 08/26/19 16:24: POC Glucose 109 08/26/19 20:36: POC Glucose 127 H 08/27/19 06:08: POC Glucose 93 08/27/19 06:21: Sodium 143, Potassium 4.2, Chloride 107, Carbon Dioxide 29, Anion Gap 11.2, BUN 18 D, Creatinine 1.25 H, Estimated Creat Clear 49, Estimated GFR 41 L, Est GFR ( Amer) 49 L, Glucose 102, Calcium 8.6 08/27/19 07:47: POC Glucose 115 H I & O for Last 24 hours: Intake & Output 08/24/19 08/25/19 08/26/19 08/27/19 11:59 11:59 11:59 11:59 Intake Total 0 / 0 5 / 2315 Output Total 400 / 400 Balance 2269 / 0 1914 / 1914 Weight 206 lb 3 oz 206 lb 2.997 oz Narrative: Patient is actively vomiting. Lungs are clear. Heart has a regular rate and rhythm. 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 Diabetes mellitus complication status: without complication Qualified Code(s): E11.9 - Type 2 diabetes mellitus without complications Category: Medical Code(s): E11.9 - Type 2 diabetes mellitus without complications (3) Pulmonary artery hypertension Current visit: Yes Status: Acute Category: Medical Code(s): I27.21 - Secondary pulmonary arterial hypertension (4) Aortic insufficiency Current visit: No Status: Chronic Qualifiers: Cardiac valve disease etiology: nonrheumatic Qualified Code(s): I35.1 - Nonrheumatic aortic (valve) insufficiency Category: Medical Code(s): I35.1 - Nonrheumatic aortic (valve) insufficiency (5) Carotid artery stenosis Current visit: No Status: Chronic Qualifiers: Laterality: unspecified laterality Qualified Code(s): I65.29 - Occlusion and stenosis of unspecified carotid artery Category: Medical Code(s): I65.29 - Occlusion and stenosis of unspecified carotid artery (6) Coronary arteriosclerosis Current visit: No Status: Chronic Category: Medical Code(s): I25.10 - Atherosclerotic heart disease of [place] coronary artery without angina pectoris (7) Diastolic dysfunction Current visit: No Status: Chronic Category: Medical Code(s): I51.9 - Heart disease, unspecified (8) Dyspnea Current visit: No Status: Chronic Qualifiers: Dyspnea type: dyspnea on exertion Qualified Code(s): R06.09 - Other forms of dyspnea Category: Medical Code(s): R06.00 - Dyspnea, unspecified (9) Hyperlipidemia Current visit: No Status: Chronic Qualifiers: Hyperlipidemia type: other hyperlipidemia Category: Medical Code(s): E78.5 - Hyperlipidemia, unspecified (10) Hypertensive heart disease Current visit: No Status: Chronic Qualifiers: Heart failure presence: without heart failure Qualified Code(s): I11.9 - Hypertensive heart disease without heart failure Category: Medical Code(s): I11.9 - Hypertensive heart disease without heart failure (11) Mitral valve regurgitation Current visit: No Status: Chronic Qualifiers: Cardiac valve disease etiology: nonrheumatic Qualified Code(s): I34.0 - Nonrheumatic mitral (valve) insufficiency Category: Medical Code(s): I34.0 - Nonrheumatic mitral (valve) insufficiency (12) Nausea and vomiting Current visit: Yes Status: Acute Category: Medical Code(s): R11.2 - Nausea with vomiting, unspecified - Assessment and plan all Dx Assessment and Plan for all problems:: 1. Continue IV fluids 2. Given Zofran for nausea and vomiting. I suspect it may be related to her pain medication 3. Care management will be working on rehab through correction facility. Based on patient's insurance there will be a precertification required
[2019-08-28 06:08] LABS: Basophils % 0.4 % (0.1-2.0); Eosinophils # 0.2 K/mm3 (0.0-0.4); Eosinophils % 3.4 % (0.1-12.0); Hematocrit 35.2 % (37.0-47.0); Hemoglobin 11.2 g/dL (12.2-16.2); Lymphocytes # 1.8 K/mm3 (0.7-4.5); Lymphocytes % 28.1 % (10-50); Mean Corpuscular HGB Conc 31.9 g/dL (31.8-35.4); Mean Corpuscular Volume 97.8 fl (81-99); Mean Platelet Volume 10.2 fl (7.4-10.4); Monocytes # 0.6 K/mm3 (0.1-1.0); Monocytes % 9.2 % (1.7-9.3); Neutrophils # 3.7 K/mm3 (1.8-7.8); Neutrophils % 58.9 % (37.0-80.0); Platelet Count 153 K/mm3 (142-424); White Blood Count 6.2 K/mm3 (4.8-10.8)
[2019-08-28 06:20] LABS: Calcium 8.4 mg/dL (8.5-10.1)
--- NOTE | 2019-08-28 07:12 | Progress Note ---
Internal Medicine - PN: Subj *Date: 08/28/19 *Time: 07:10 Interval history: Patient has no complaints this morning. Nausea has resolved and seemed to improve when she began taking pain medication along with a little bit of food. Exam Vital signs and Labs for Last 24 Hours: Temp Pulse Resp BP Pulse Ox 98.4 F 63 18 126/56 L 92 L 08/28/19 04:00 08/28/19 04:00 08/28/19 04:00 08/28/19 04:00 08/28/19 04:00 Laboratory Results - last 24 hr 08/27/19 07:47: POC Glucose 115 H 08/27/19 11:35: POC Glucose 143 H 08/27/19 16:24: POC Glucose 125 H 08/27/19 20:24: POC Glucose 122 H 08/28/19 05:35: WBC 6.2, RBC 3.60 L, Hgb 11.2 L, Hct 35.2 L, MCV 97.8, MCH 31.2, MCHC 31.9, RDW 13.0, Plt Count 153, MPV 10.2, Neut % (Auto) 58.9, Lymph % (Auto) 28.1, [place] % (Auto) 9.2, Eos % (Auto) 3.4, Baso % (Auto) 0.4, Neut # (Auto) 3.7, Lymph # (Auto) 1.8, [place] # (Auto) 0.6, Eos # (Auto) 0.2, Baso # (Auto) 0.0 08/28/19 05:35: Sodium 142, Potassium 4.0, Chloride 107, Carbon Dioxide 31, Anion Gap 8.0, BUN 17, Creatinine 1.17 H, Estimated Creat Clear 54, Estimated GFR 44 L, Est GFR ( Amer) 53 L, Glucose 103, Calcium 8.4 L I & O for Last 24 hours: Intake & Output 08/25/19 08/26/19 08/27/19 08/28/19 11:59 11:59 11:59 11:59 Intake Total 2270 / 2270 2315 / 2315 1454 / 1454 Output Total 640 / 640 150 / 150 Balance 2270 / 2270 1675 / 1675 1304 / 1304 Weight 206 lb 3 oz 206 lb 2.997 oz 210 lb 4 oz Narrative: She is laying in bed with right leg elevated and external fixator is in place. Lungs remain clear. Heart has a regular rate and rhythm with a 4 out of 6 systolic murmur heard at the left sternal border. 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 machine long goods helper use Diabetes mellitus complication status: without complication Qualified Code(s): E11.9 - Type 2 diabetes mellitus without complications Category: Medical Code(s): E11.9 - Type 2 diabetes mellitus without complications (3) Pulmonary artery hypertension Current visit: Yes Status: Acute Category: Medical Code(s): I27.21 - Secondary pulmonary arterial hypertension (4) Aortic insufficiency Current visit: No Status: Chronic Qualifiers: Cardiac valve disease etiology: nonrheumatic Qualified Code(s): I35.1 - Nonrheumatic aortic (valve) insufficiency Category: Medical Code(s): I35.1 - Nonrheumatic aortic (valve) insufficiency (5) Carotid artery stenosis Current visit: No Status: Chronic Qualifiers: Laterality: unspecified laterality Qualified Code(s): I65.29 - Occlusion and stenosis of unspecified carotid artery Category: Medical Code(s): I65.29 - Occlusion and stenosis of unspecified carotid artery (6) Coronary arteriosclerosis Current visit: No Status: Chronic Category: Medical Code(s): I25.10 - Atherosclerotic heart disease of [place] coronary artery without angina pectoris (7) Diastolic dysfunction Current visit: No Status: Chronic Category: Medical Code(s): I51.9 - Heart disease, unspecified (8) Dyspnea Current visit: No Status: Chronic Qualifiers: Dyspnea type: dyspnea on exertion Qualified Code(s): R06.09 - Other forms of dyspnea Category: Medical Code(s): R06.00 - Dyspnea, unspecified (9) Hyperlipidemia Current visit: No Status: Chronic Qualifiers: Hyperlipidemia type: other hyperlipidemia Category: Medical Code(s): E78.5 - Hyperlipidemia, unspecified (10) Hypertensive heart disease Current visit: No Status: Chronic Qualifiers: Heart failure presence: without heart failure Qualified Code(s): I11.9 - Hypertensive heart disease without heart failure Category: Medical Code(s): I11.9 - Hypertensive heart disease without heart failure (11) Mitral valve regurgitation Current visit: No Status: Chronic Qualifiers: Cardiac valve disease etiology: nonrheumatic Qualified Code(s): I34.0 - Nonrheumatic mitral (valve) insufficiency Category: Medical Code(s): I34.0 - Nonrheumatic mitral (valve) insufficiency (12) Nausea and vomiting Current visit: Yes Status: Acute Category: Medical Code(s): R11.2 - Nausea with vomiting, unspecified - Assessment and plan all Dx Assessment and Plan for all problems:: DC fluids this morning. Orthopedic service is tentatively planning for ORIF tomorrow. Patient will need [facility] rehab postoperatively
--- NOTE | 2019-08-28 09:49 | Consult Report ---
*Admission Date: 08/25/19 *Reason for consult:: R Trimalleolar Ankle Fracture *History of present illness: 08/25/19: 84yo F s/p fall down the steps at home earlier this afternoon. She missed her step and fell down around 3 stairs, twisting and fracturing the ankle. She was unable to get up so she laid on the ground for around 30 minutes. Denies chest pain, shortness of breath or dizziness prior to the fall. No prior injuries to the ankle or prior surgeries on the ankle. She is a diabetic and denies prior ulcers, non-healing wounds or infections in the feet. She is unsure what her last A1C was but believes her glucose runs between 100-120 most of the time. She has numbness in the feet as baseline. Medical history is significant for pulmonary HTN, CAD, CHF, hypothyroidism, HTN, HL, JONAH, DM, sinus bradyc ardia, mitral regurgitation, aortic stenosis. Home medications: mulitvitamin, nitroglycerin, fish oil, pantoprazole, aspirin 81, levothyroxine, meclizine, isosorbide. No known drug allergies, former smoker. She lives at home with her son, who works nights. Patient had a right ankle closed reduction and application of external fixation device 08/25/19. She was seen and evaluated by myself with Dr. Canela today at bedside. Patient denies pain. She is resting comfortably in bed elevated on pillow. Review of Systems - Review of Systems Review of systems:: pertinent systems reviewed and negative unless documented below - Constitutional Denies chills, Denies fatigue - Eyes Denies blind spots - ENT Denies abnormal hearing - *Cardiovascular Denies chest pain, Denies shortness of breath - *Respiratory Denies shortness of breath - *Gastrointestinal Denies abdominal pain, Denies nausea, Denies vomiting - *Genitourinary Denies abnormal periods - *Musculoskeletal Reports back pain, Reports joint swelling - Integumentary/Breasts Reports dry skin, Denies skin ulcer - *Neurologic Denies headache(s), Denies numbness, Denies weakness - Psychiatric Denies abnormal sleep pattern - Hematologic/Lymphatic Reports easy bruising [facility] History I have reviewed the patient's past medical history: Yes Medical History: Reports:: Congestive Heart Failure, Coronary Artery Disease, Diabetes Mellitus Type 2, Hyperlipidemia, Hypertension *Have you ever received a pneumonia vaccine?: Yes *Have you received a flu vaccine this season?: Yes Other Medical History: Reports: Hypothyroidism Anesthesia experience/problems:: nac Laterality Cases: Left: Total Knee Replacement, Bilateral: Carpal Tunnel Release Other Surgeries: Yes: Other - *Social History Educational Level: Completed High School Smoking Status: Former smoker Tobacco Type: cigarettes Alcohol Intake: never Alcohol Intake Frequency:: other Substance Use Type: denies use *Occupational Status:: retired *Travel in the last 8 weeks: None Family Hx:: Coronary Artery Disease Meds Home Medications Medication Instructions Recorded Confirmed Type multivitamin tablet 1 tab PO DAILY 11/01/17 08/26/19 History nitroglycerin 0.4 mg sublingual 0.4 mg SUBLINGUAL Q5M PRN 11/01/17 08/26/19 History tablet omega 1-bgl-cqk-fish oil 1,000 mg 1 cap PO DAILY 11/01/17 08/26/19 History (120 mg-180 mg) capsule aspirin 81 mg tablet,delayed 81 mg PO DAILY tab 12/16/18 08/26/19 History release levothyroxine 88 mcg tablet 88 mcg PO DAILY tab 12/16/18 08/26/19 History meclizine 25 mg tablet 25 mg PO TID PRN tab 12/16/18 08/26/19 History Atorvastatin Calcium [Atorvastatin 20 mg PO HS 08/26/19 08/26/19 History 20mg Tab] Bisoprolol Fumarate [Zebeta 5mg 2.5 mg PO DAILY #30 tab 08/26/19 08/26/19 Rx tablet] Furosemide [Furosemide 40MG tAB] 40 mg PO BID 08/26/19 08/26/19 History Isosorbide Mononitrate [Imdur 30mg 30 mg PO DAILY 08/26/19 08/26/19 History ER tablet] Losartan Potassium [Cozaar 50mg 50 mg PO DAILY #90 tab 08/26/19 08/26/19 Rx Tablets] Omeprazole 40 mg PO DAILY 08/26/19 08/26/19 History Pioglitazone HCl 15 mg PO DAILY 08/26/19 08/26/19 History Spironolactone [Aldactone 50mg 50 mg PO DAILY 08/26/19 08/26/19 History Tab] Allergies Allergy/AdvReac Type Severity Reaction Status Date / Time No Known Allergies Allergy Verified 06/30/19 10:19 Exam Vital signs and Labs for Last 24 Hours: Temp Pulse Resp BP Pulse Ox 97.9 F 69 17 124/79 95 08/28/19 08:00 08/28/19 08:00 08/28/19 08:00 08/28/19 08:00 08/28/19 08:00 Laboratory Results - last 24 hr 08/27/19 11:35: POC Glucose 143 H 08/27/19 16:24: POC Glucose 125 H 08/27/19 20:24: POC Glucose 122 H 08/28/19 05:35: WBC 6.2, RBC 3.60 L, Hgb 11.2 L, Hct 35.2 L, MCV 97.8, MCH 31.2, MCHC 31.9, RDW 13.0, Plt Count 153, MPV 10.2, Neut % (Auto) 58.9, Lymph % (Auto) 28.1, Cloud % (Auto) 9.2, Eos % (Auto) 3.4, Baso % (Auto) 0.4, Neut # (Auto) 3.7, Lymph # (Auto) 1.8, Cloud # (Auto) 0.6, Eos # (Auto) 0.2, Baso # (Auto) 0.0 08/28/19 05:35: Sodium 142, Potassium 4.0, Chloride 107, Carbon Dioxide 31, Anion Gap 8.0, BUN 17, Creatinine 1.17 H, Estimated Creat Clear 54, Estimated GF R 44 L, Est GFR ( Amer) 53 L, Glucose 103, Calcium 8.4 L I & O for Last 24 hours: Intake & Output 08/25/19 08/26/19 08/27/19 08/28/19 11:59 11:59 11:59 11:59 Intake Total 2270 / 2270 2315 / 2315 1574 / 1574 Output Total 640 / 640 350 / 350 Balance 2270 / 2270 1675 / 1675 1224 / 1224 Weight 206 lb 3 oz 206 lb 2.997 oz 210 lb 4 oz - Constitutional no acute distress, obese - *Routine HEENT Exam Head: Present: normocephalic - *Routine Neck Exam Present: supple - *Routine Respiratory Exam Absent: respiratory distress - *Routine Cardiovascular Exam Present: RRR - *Routine Abdominal Exam Present: soft. Absent: guarding - *Routine Rectal Exam Patient deferred: visual exam - *Routine Exam Patient deferred: external exam - *Routine Extremities Exam Present: edema, pulses intact, normal capillary refill - *Routine Skin Exam Present: dry - *Routine Neurological Exam Present: alert, moving all extremities - Detailed Lower Extremity Exam Leg image: 1 - Right ex fix device (Delta frame) and dressing clean dry and intact to the RLE. Small blister, edema and ecchymosis noted to the medial ankle. CFT wnl. Palpable pedal pulses. No SOI. Results - Labs Result Diagrams: 08/28/19 05:35 08/28/19 05:35 Labs: Abnormal lab results 08/27/19 08/27/19 08/27/19 Range/Units 11:35 16:24 20:24 RBC (4.20-5.40) M/mm3 Hgb (12.2-16.2) g/dL Hct (37.0-47.0) % Creatinine (0.55-1.02) mg/dL Estimated GFR (>60) ml/min Est GFR ( Amer) (>60) ML/MIN POC Glucose 143 H 125 H 122 H (70-110) Calcium (8.5-10.1) mg/dL 08/28/19 08/28/19 Range/Units 05:35 05:35 RBC 3.60 L (4.20-5.40) M/mm3 Hgb 11.2 L (12.2-16.2) g/dL Hct 35.2 L (37.0-47.0) % Creatinine 1.17 H (0.55-1.02) mg/dL Estimated GFR 44 L (>60) ml/min Est GFR ( Amer) 53 L (>60) ML/MIN POC Glucose (70-110) Calcium 8.4 L (8.5-10.1) mg/dL H & H 08/25/19 08/26/19 08/28/19 Range/Units 16:00 06:17 05:35 Hgb 14.2 12.2 D 11.2 L (12.2-16.2) g/dL Hct 42.5 38.4 35.2 L (37.0-47.0) % All other labs normal. 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: without terminal press operator use Diabetes mellitus complication status: without complication Qualified Code(s): E11.9 - Type 2 diabetes mellitus without complications Category: Medical Code(s): E11.9 - Type 2 diabetes mellitus without complications (3) Pulmonary artery hypertension Current visit: Yes Status: Acute Category: Medical Code(s): I27.21 - Secondary pulmonary arterial hypertension (4) Aortic insufficiency Current visit: No Status: Chronic Qualifiers: Cardiac valve disease etiology: nonrheumatic Qualified Code(s): I35.1 - Nonrheumatic aortic (valve) insufficiency Category: Medical Code(s): I35.1 - Nonrheumatic aortic (valve) insufficiency (5) Carotid artery stenosis Current visit: No Status: Chronic Qualifiers: Laterality: unspecified laterality Qualified Code(s): I65.29 - Occlusion and stenosis of unspecified carotid artery Category: Medical Code(s): I65.29 - Occlusion and stenosis of unspecified carotid artery (6) Coronary arteriosclerosis Current visit: No Status: Chronic Category: Medical Code(s): I25.10 - Atherosclerotic heart disease of [place] coronary artery without angina pectoris (7) Diastolic dysfunction Current visit: No Status: Chronic Category: Medical Code(s): I51.9 - Heart disease, unspecified (8) Dyspnea Current visit: No Status: Chronic Qualifiers: Dyspnea type: dyspnea on exertion Qualified Code(s): R06.09 - Other forms of dyspnea Category: Medical Code(s): R06.00 - Dyspnea, unspecified (9) Hyperlipidemia Current visit: No Status: Chronic Qualifiers: Hyperlipidemia type: other hyperlipidemia Qualified Code(s): E78.49 - Other hyperlipidemia; E78.4 - Other hyperlipidemia Category: Medical Code(s): E78.5 - Hyperlipidemia, unspecified (10) Hypertensive heart disease Current visit: No Status: Chronic Qualifiers: Heart failure presence: without heart failure Qualified Code(s): I11.9 - Hypertensive heart disease without heart failure Category: Medical Code(s): I11.9 - Hypertensive heart disease without heart failure (11) Mitral valve regurgitation Current visit: No Status: Chronic Qualifiers: Cardiac valve disease etiology: nonrheumatic Qualified Code(s): I34.0 - Nonrheumatic mitral (valve) insufficiency Category: Medical Code(s): I34.0 - Nonrheumatic mitral (valve) insufficiency (12) Nausea and vomiting Current visit: Yes Status: Acute Category: Medical Code(s): R11.2 - Nausea with vomiting, unspecified (13) Closed right trimalleolar fracture Current visit: Yes Status: Acute Category: Medical Code(s): S82.851A - Displaced trimalleolar fracture of right lower leg, initial encounter for closed fracture - Assessment and plan all Dx Assessment and Plan for all problems:: Right trimalleolar ankle fracture: S/P reduction and application of external fixation device on 08/25/19 POD # [address] X-[address] CT right ankle reviewed by myself. Report noted. Images show a right trimalleolar ankle fracture dislocation. Patient subsequently had reduction with application of external fixation device on Wednesday by Dr. Canela. Patient was admitted for an control as well as evaluation for SNF. She is a 4 years old and lives with her son. Patient does have stairs to get up into the home. Postoperatively patient is a fall risk and will require rehab facility due to her nonweightbearing status. Discussed plan of care with Dr. Canela and Dr. Rosales. Patient's most recent vitamin D 40. Her last hemoglobin A1c was 6.6%, controlled diet diabetic. Conservative treatment discussed but not recommended. DOI: 08/25/19. We discussed surgery. All risks and benefits were discussed including but not limited to: damage to blood vessels and nerves, bleeding, infection, wound complications, delayed, mal or non-union of bone, post-traumatic arthritis, need for further surgery, need for removal of implant, prolonged swelling of the extremity, prolonged pain, CRPS/RSD, DVT, and anesthetic complications. No guarantees were given. All questions fully answered. The patient verbalized understanding and agreed to proceed with surgery. Consent was obtained. Necessary labs and pre-op testing ordered and granted medical clearance per Dr. Rosales. Will plan to assist with case. Plan surgery for Wednesday08/29/19: 1. Right ORIF ankle 2. Possible right ankle arthrodesis 3. Possible right ankle external fixation device application Thank you for allowing me to assist with the care of this patient.
--- NOTE | 2019-08-28 10:28 | Progress Note ---
Subjective Date: 08/28/19 Time: 09:00 Principal diagnosis: R ankle fracture-dislocation Interval history: The patient is doing well this morning, comfortable and tolerating PO intake without vomiting. Pain in R ankle controlled with medication. PN: Obj Ex Vital signs: Temp Pulse Resp BP Pulse Ox 97.9 F 69 17 124/79 95 08/28/19 08:00 08/28/19 08:00 08/28/19 08:00 08/28/19 08:00 08/28/19 08:00 - Constitutional no acute distress - Routine Extremities Exam Comments: RLE external fixator in place, pin sites c/d/i wiggles toes; cannot DF/PF ankle due to fixator SILT distally in all distributions palpable pedal pulses RLE, foot warm medial-sided ecchymosis/erythema improved, mild soft tissue swelling R calf soft, non-tender Progress Note: A&P (1) Fracture dislocation of right ankle Status: Acute Current Visit: Yes (2) Diabetes mellitus Status: Chronic Current Visit: No (3) Pulmonary artery hypertension Status: Acute Current Visit: Yes (4) Aortic insufficiency Status: Chronic Current Visit: No (5) Carotid artery stenosis Status: Chronic Current Visit: No (6) Coronary arteriosclerosis Status: Chronic Current Visit: No (7) Diastolic dysfunction Status: Chronic Current Visit: No (8) Dyspnea Status: Chronic Current Visit: No (9) Hyperlipidemia Status: Chronic Current Visit: No (10) Hypertensive heart disease Status: Chronic Current Visit: No (11) Mitral valve regurgitation Status: Chronic Current Visit: No (12) Nausea and vomiting Status: Acute Current Visit: Yes Assessment and Plan for All Diagnoses:: 84yo F with R trimalleolar ankle fracture-dislocation, POD #3 s/p closed reduction and external fixator application -- will plan on removal of fixator and ORIF tomorrow, possible fusion +/- recon frame application should ORIF not be feasible due to bone quality -- patient's DM appears fairly well-controlled, Hgb A1C is 6. Last vitamin D level was 40 [place] [address] Rosales. No DEXA scan on file. -- will need medical clearance for surgery tomorrow -- NPO after midnight tonight -- patient is ok with the plan for tomorrow, will discuss with her son/granddaughter as well -- the patient was seen with Dr. Cortez, who is on consult and will be co- scrubbing the case tomorrow -- anticipate SNF placement during recovery, may be ready for d/c as early as Wednesday
[2019-08-29 06:23] LABS: Activated Partial Thrombo Time 26.4 seconds (23.6-34.0); Prothrombin Time 10.4 seconds (9.4-11.8)
[2019-08-29 06:28] LABS: Basophils % 0.4 % (0.1-2.0); Eosinophils # 0.2 K/mm3 (0.0-0.4); Eosinophils % 4.1 % (0.1-12.0); Hematocrit 34.9 % (37.0-47.0); Hemoglobin 11.1 g/dL (12.2-16.2); Lymphocytes # 1.2 K/mm3 (0.7-4.5); Lymphocytes % 21.2 % (10-50); Mean Corpuscular HGB Conc 31.9 g/dL (31.8-35.4); Mean Corpuscular Volume 97.7 fl (81-99); Monocytes # 0.5 K/mm3 (0.1-1.0); Monocytes % 8.3 % (1.7-9.3); Neutrophils # 3.8 K/mm3 (1.8-7.8); Platelet Count 166 K/mm3 (142-424); Red Blood Count 3.57 M/mm3 (4.20-5.40); White Blood Count 5.8 K/mm3 (4.8-10.8)
[2019-08-29 07:00] LABS: Anion Gap 7.7 mEq/L (5-15); Calcium 8.2 mg/dL (8.5-10.1)
--- NOTE | 2019-08-29 07:01 | Progress Note ---
Internal Medicine - PN: Subj *Date: 08/29/19 *Time: 07:00 Interval history: Patient has no complaints this morning. She denies nausea, chest pain, vomiting. She is having some discomfort from her right ankle and will be getting some pain medication this morning. She is scheduled for additional surgery today Exam Vital signs and Labs for Last 24 Hours: Temp Pulse Resp BP Pulse Ox 98.5 F 62 17 151/78 H 94 L 08/29/19 04:00 08/29/19 04:00 08/29/19 04:00 08/29/19 04:00 08/29/19 04:00 Laboratory Results - last 24 hr 08/28/19 05:56: POC Glucose 103 08/28/19 11:18: POC Glucose 113 H 08/28/19 16:53: POC Glucose 92 08/28/19 20:01: POC Glucose 135 H 08/29/19 05:59: PT 10.4, INR 1.00, APTT 26.4 08/29/19 06:42: POC Glucose 101 I & O for Last 24 hours: Intake & Output 08/26/19 08/27/19 08/28/19 08/29/19 11:59 11:59 11:59 11:59 Intake Total 2270 / 2270 2315 / 2315 1574 / 1574 1400 / 1400 Output Total 640 / 640 350 / 350 Balance 2270 / 2270 1675 / 1675 1224 / 1224 1400 / 1400 Weight 206 lb 3 oz 206 lb 2.997 oz 210 lb 4.007 oz 215 lb - Constitutional no acute distress - *Routine Respiratory Exam Present: CTA bilaterally - *Routine Cardiovascular Exam Present: RRR, Normal S1, Normal S2, murmur (3 out of 6 left sternal border) 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: without fci use Diabetes mellitus complication status: without complication Qualified Code(s): E11.9 - Type 2 diabetes mellitus without complications Category: Medical Code(s): E11.9 - Type 2 diabetes mellitus without complications (3) Pulmonary artery hypertension Current visit: Yes Status: Acute Category: Medical Code(s): I27.21 - Secondary pulmonary arterial hypertension (4) Aortic insufficiency Current visit: No Status: Chronic Qualifiers: Cardiac valve disease etiology: nonrheumatic Qualified Code(s): I35.1 - Nonrheumatic aortic (valve) insufficiency Category: Medical Code(s): I35.1 - Nonrheumatic aortic (valve) insufficiency (5) Carotid artery stenosis Current visit: No Status: Chronic Qualifiers: Laterality: unspecified laterality Qualified Code(s): I65.29 - Occlusion and stenosis of unspecified carotid artery Category: Medical Code(s): I65.29 - Occlusion and stenosis of unspecified carotid artery (6) Coronary arteriosclerosis Current visit: No Status: Chronic Category: Medical Code(s): I25.10 - Atherosclerotic heart disease of [place] coronary artery without angina pectoris (7) Diastolic dysfunction Current visit: No Status: Chronic Category: Medical Code(s): I51.9 - Heart disease, unspecified (8) Dyspnea Current visit: No Status: Chronic Qualifiers: Dyspnea type: dyspnea on exertion Qualified Code(s): R06.09 - Other forms of dyspnea Category: Medical Code(s): R06.00 - Dyspnea, unspecified (9) Hyperlipidemia Current visit: No Status: Chronic Qualifiers: Hyperlipidemia type: other hyperlipidemia Qualified Code(s): E78.49 - Other hyperlipidemia; E78.4 - Other hyperlipidemia Category: Medical Code(s): E78.5 - Hyperlipidemia, unspecified (10) Hypertensive heart disease Current visit: No Status: Chronic Qualifiers: Heart failure presence: without heart failure Qualified Code(s): I11.9 - Hypertensive heart disease without heart failure Category: Medical Code(s): I11.9 - Hypertensive heart disease without heart failure (11) Mitral valve regurgitation Current visit: No Status: Chronic Qualifiers: Cardiac valve disease etiology: nonrheumatic Qualified Code(s): I34.0 - Nonrheumatic mitral (valve) insufficiency Category: Medical Code(s): I34.0 - Nonrheumatic mitral (valve) insufficiency (12) Nausea and vomiting Current visit: Yes Status: Acute Category: Medical Code(s): R11.2 - Nausea with vomiting, unspecified (13) Closed right trimalleolar fracture Current visit: Yes Status: Acute Category: Medical Code(s): S82.851A - Displaced trimalleolar fracture of right lower leg, initial encounter for closed fracture - Assessment and plan all Dx Assessment and Plan for all problems:: 1. Patient will proceed with surgery today 2. Will need halfway level of care at a facility at discharge
--- NOTE | 2019-08-29 19:46 | Progress Note ---
[facility] Anesthesia Record Part I Intake, IV Amount: 2,300 Estimated blood loss (mL): 25 Urine output (mL): 350 Blood Pressure: 160/81 SaO2: 95 Pulse Rate: 72 Respiratory Rate: 12 Temperature: 97.7 F Patient is:: Awake, Stable Stable to PACU at:: 19:40
--- NOTE | 2019-08-29 19:47 | Progress Note ---
[facility] Anesthesia Record Part II Discharge Time: 20:10 Destination: floor PACU nurse assessment reviewed?: Yes Patient Condition:: Good Anesthesia Complications:: None Swallowing reflex intact?: Yes Cyanosis?: No
--- NOTE | 2019-08-29 23:10 | Operative Note ---
Date of procedure: 08/29/19 Pre-op Diagnosis:: trimalleolar fracture-dislocation R ankle Post-op Diagnosis:: trimalleolar fracture-dislocation R ankle Procedure performed:: removal of external fixator RLE + ORIF R ankle Surgeon:: MD Taylor Jung, DPM Critical Care Physician Assistant(s):: Garima Contreras CRM ARCHITECT:: Yeyo Novak Anesthesia: GETA, local Estimated blood loss (mL): 25 Clinical Note:: 84yo F s/p fall down the steps at home on 08/25/2019. She underwent closed reduction in the ER but the fracture was highly unstable despite a well-molded plaster splint, and soft tissues were both swollen/ecchymotic. Closed reduction was performed in the OR with external fixator application that night. She has been elevating the leg and icing it frequently, and soft tissues have improved to the point where internal fixation is feasible. Hgb A1C is 6, sensation intact to the feet, and the patient has strong palpable pedal pulses. Dr. Cortez evaluated the patient as well and is in agreement that ORIF may be successful, but arthrodesis options were discussed with the patient as well, given her age, suspected bone quality and history of DM. We discussed the recommended surgical plan with the patient and her family, including risks/benefits; we discussed the risk of bleeding, infection, neurovascular damage, Charcot arthropathy, pers istent stiffness/pain, the need for further surgery in the future, and the risks of anesthesia. The patient vocalized understanding and provided informed consent for the procedure. Operative findings:: implants: [facility] distal fibula locking plate + medial tibial plate 3.5mm non-locking syndesmosis screws x2 SynchFix syndesmosis tightrope x1 the remaining screws were all 3.5mm diameter locking screws Operative note:: The patient was identified in preoperative holding and the R ankle signed by myself. She was then taken to the operating room and placed supine on the OR table. IV antibiotics were given and general anesthesia induced. Once the patient was asleep, dressings were removed from the right ankle and external fixator construct removed in its entirety. Nonsterile tourniquet was placed on the right thigh and the ankle prepped and draped in the usual sterile fashion. Timeout was performed, identifying the correct patient, correct procedure, and correct site. The procedure was begun by using the Esmarch to exsanguinate the R lower extremity and elevating the tourniquet to 250 mmHg. C-arm was used to localize the fracture site over the distal fibula. Longitudinal incision was made over the lateral aspect of the ankle, centered over the fibula and extending from the tip of the fibula to around 8 cm proximally. After the skin was incised, subcutaneous tissue was spread bluntly with Metzenbaum scissors until muscle/fascial layer encountered. A new, inside knife was used to cut down directly onto the fibula and periosteum was lifted anteriorly and posteriorly. Fracture site was identified, approximately 3 cm proximal to the tip of the fibula. A [place] was inserted into the fracture site and used to aid with reduction. There was no callus or debris at the fracture site and only a small amount of hematoma, which was removed with a rongeur. Pointed reduction forceps were used to hold fracture reduction and fibular length/alignment confirmed on C arm. The fracture was not amenable to interfragmentary compression with a lag screw, so a locking distal fibula plate was placed over the fibula and the fracture site bridged with locking screws. 4 screws were placed distal to the fracture site, and 2 proximal, with the intervening holes proximal to the fracture site filled with 2 syndesmosis screws and a tightrope. The screws were all 3.5mm in diameter; the shaft screws were locking, syndesmosis screws non- locking. The medial side was then addressed, through a longitudinal incision over the anteromedial ankle centered over the tip of the medial malleolus. Skin was incised and soft tissue bluntly dissected deeper to the incision until the medial malleolus was encountered. Knife was used to sharply dissect tissue off the bone and the fracture site identified. This was reduced and provisionally fixed with a k-wire. A small medial tibial plate was placed over the medial tibia and secured with 3.5mm diameter locking screws. This provided excellent reduction and fixation of the medial malleolus fracture. Tourniquet was then dropped and no active bleeding identified in either incision. Both incisions were then copiously irrigated with sterile saline and closed in a layered fashion starting with 2-0 Vicryl deeper to cover for the plates with soft tissue and to close the subcutaneous tissue. The skin was then closed with 3-0 nylon. Prior to splinting, the posterior malleolus was examined under fluoroscopy and there was seen to be a small posterior malleolus fracture, less than 25% of the tibial width. The decision was made to treat this nonoperatively. Incisions were infiltrated with a total of 30cc 0.5% marcaine and 2cc Viaflow. Incisions were covered with Xeroform and dressed with 4 x 4's, sterile webril and splinted with 5" plaster in a posterior splint. The patient was then extubated and transferred to PACU in good condition. She incurred no complications during t his case. Tourniquet time (min): 120 Condition: stable Disposition: PACU Specimens:: none external fixator was removed in its entirety Complications:: none
--- NOTE | 2019-08-30 07:04 | Progress Note ---
Internal Medicine - PN: Subj *Date: 08/30/19 *Time: 07:02 Interval history: Patient has no complaints this morning. She reports pins and needle sensation in her right foot and ankle but denies pain at present. She denies nausea. Nursing staff reports patient did well after surgery although urine output has been low. Exam Vital signs and Labs for Last 24 Hours: Temp Pulse Resp BP Pulse Ox 97.5 F L 60 20 172/63 H 97 08/30/19 03:45 08/30/19 03:45 08/30/19 03:45 08/30/19 03:45 08/30/19 03:45 Laboratory Results - last 24 hr 08/29/19 05:59: WBC 5.8, RBC 3.57 L, Hgb 11.1 L, Hct 34.9 L, MCV 97.7, MCH 31.2, MCHC 31.9, RDW 13.0, Plt Count 166, MPV 11.0 H, Neut % (Auto) 66.0, Lymph % (Auto) 21.2, [place] % (Auto) 8.3, Eos % (Auto) 4.1, Baso % (Auto) 0.4, Neut # (Auto) 3.8, Lymph # (Auto) 1.2, [place] # (Auto) 0.5, Eos # (Auto) 0.2, Baso # (Auto) 0.0 08/29/19 05:59: Sodium 142, Potassium 3.7, Chloride 109 H, Carbon Dioxide 29, Anion Gap 7.7, BUN 15, Creatinine 1.03 H, Estimated Creat Clear 63, Estimated GFR 51 L, Est GFR ( Amer) 62, Glucose 107 H, Calcium 8.2 L 08/29/19 11:30: POC Glucose 99 08/29/19 15:55: Urine Color Yellow, Urine Appearance Clear, Urine pH 6.5, Ur Specific [place] 1.010, Urine Protein Negative, Urine Glucose (UA) Negative, Urine Ketones Negative, Urine Blood Negative, Urine Nitrate Negative, Urine Bilirubin Negative, Urine Urobilinogen 0.2, Ur Leukocyte Esterase Negative, Urine WBC Occasional, Urine Bacteria Trace 08/29/19 20:51: POC Glucose 121 H 08/30/19 06:20: POC Glucose 135 H I & O for Last 24 hours: Intake & Output 11/08/0508/28/19 08/29/19 08/30/19 11:59 11:59 11:59 11:59 Intake Total 2315 / 2315 1574 / 1574 1400 / 1400 2400 / 2400 Output Total 640 / 640 350 / 350 650 / 650 Balance 1675 / 1675 1224 / 1224 1400 / 1400 1750 / 1750 Weight 206 lb 2.997 oz 210 lb 4.007 oz 215 lb - Constitutional no acute distress - *Routine Respiratory Exam Present: CTA bilaterally - *Routine Cardiovascular Exam Present: RRR, Normal S1, Normal S2, murmur - *Routine Extremities Exam Comments: Patient is neurovascularly intact in the distal foot 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 mellitus salvage determiner insulin use: without salvage determiner use Diabetes mellitus complication status: without complication Qualified Code(s): E11.9 - Type 2 diabetes mellitus without complications Category: Medical Code(s): E11.9 - Type 2 diabetes mellitus without complications (3) Pulmonary artery hypertension Current visit: Yes Status: Acute Category: Medical Code(s): I27.21 - Secondary pulmonary arterial hypertension (4) Aortic insufficiency Current visit: No Status: Chronic Qualifiers: Cardiac valve disease etiology: nonrheumatic Qualified Code(s): I35.1 - Nonrheumatic aortic (valve) insufficiency Category: Medical Code(s): I35.1 - Nonrheumatic aortic (valve) insufficiency (5) Carotid artery stenosis Current visit: No Status: Chronic Qualifiers: Laterality: unspecified laterality Qualified Code(s): I65.29 - Occlusion and stenosis of unspecified carotid artery Category: Medical Code(s): I65.29 - Occlusion and stenosis of unspecified carotid artery (6) Coronary arteriosclerosis Current visit: No Status: Chronic Category: Medical Code(s): I25.10 - Atherosclerotic heart disease of [place] coronary artery without angina pectoris (7) Diastolic dysfunction Current visit: No Status: Chronic Category: Medical Code(s): I51.9 - Heart disease, unspecified (8) Dyspnea Current visit: No Status: Chronic Qualifiers: Dyspnea type: dyspnea on exertion Qualified Code(s): R06.09 - Other forms of dyspnea Category: Medical Code(s): R06.00 - Dyspnea, unspecified (9) Hyperlipidemia Current visit: No Status: Chronic Qualifiers: Hyperlipidemia type: other hyperlipidemia Qualified Code(s): E78.49 - Other hyperlipidemia; E78.4 - Other hyperlipidemia Category: Medical Code(s): E78.5 - Hyperlipidemia, unspecified (10) Hypertensive heart disease Current visit: No Status: Chronic Qualifiers: Heart failure presence: without heart failure Qualified Code(s): I11.9 - Hypertensive heart disease without heart failure Category: Medical Code(s): I11.9 - Hypertensive heart disease without heart failure (11) Mitral valve regurgitation Current visit: No Status: Chronic Qualifiers: Cardiac valve disease etiology: nonrheumatic Qualified Code(s): I34.0 - Nonrheumatic mitral (valve) insufficiency Category: Medical Code(s): I34.0 - Nonrheumatic mitral (valve) insufficiency (12) Nausea and vomiting Current visit: Yes Status: Acute Category: Medical Code(s): R11.2 - Nausea with vomiting, unspecified (13) Closed right trimalleolar fracture Current visit: Yes Status: Acute Category: Medical Code(s): S82.851A - Displaced trimalleolar fracture of right lower leg, initial encounter for closed fracture - Assessment and plan all Dx Assessment and Plan for all problems:: 1. Check BMP and CBC this morning. As long as renal function is stable the Bernal catheter could be discontinued. 2. PT consult has been ordered. Patient is already had this wants but nursing facility is requiring a new PT eval for precertification with insurance for longterm
[2019-08-30 08:57] LABS: Basophils % 0.1 % (0.1-2.0); Eosinophils # 0.1 K/mm3 (0.0-0.4); Eosinophils % 0.6 % (0.1-12.0); Hematocrit 35.9 % (37.0-47.0); Hemoglobin 11.5 g/dL (12.2-16.2); Lymphocytes # 0.6 K/mm3 (0.7-4.5); Lymphocytes % 7.1 % (10-50); Mean Corpuscular HGB Conc 31.9 g/dL (31.8-35.4); Mean Corpuscular Volume 97.7 fl (81-99); Mean Platelet Volume 10.9 fl (7.4-10.4); Monocytes # 0.4 K/mm3 (0.1-1.0); Monocytes % 4.9 % (1.7-9.3); Neutrophils # 7.6 K/mm3 (1.8-7.8); Neutrophils % 87.3 % (37.0-80.0); Platelet Count 179 K/mm3 (142-424); Red Blood Count 3.67 M/mm3 (4.20-5.40); Red Cell Distribution Width 13.2 % (11.5-17.5); White Blood Count 8.6 K/mm3 (4.8-10.8)
[2019-08-30 09:06] LABS: Anion Gap 12.6 mEq/L (5-15); Calcium 8.4 mg/dL (8.5-10.1)
[2019-08-30 10:36] LABS: Lymphocytes % 7 % (10-50); Monocytes % 2 % (2-9); Neutrophils % 90 % (42-76); Total Cells Counted 100
[2019-08-30 10:38] LABS: RBC Morphology Normal
--- NOTE | 2019-08-30 12:59 | Progress Note ---
Subjective Date: 08/30/19 Time: 11:45 Principal diagnosis: R ankle fracture-dislocation Interval history: Patient is status post ORIF right ankle post op day #1. Patient is sitting out in the chair. Says is doing well and reports no problems. Patient has minimal pain and says it's well-controlled with medication. No history of any nausea or vomiting. No history of any cough, chest pain, shortness of breath or palpitations. Patient says she is eating and drinking well. No history of any distal tingling or numbness. PN: Obj Ex Vital signs: Temp Pulse Resp BP Pulse Ox 99.1 F 61 16 126/62 98 08/30/19 12:00 08/30/19 12:00 08/30/19 12:00 08/30/19 12:00 08/30/19 12:00 Narrative: Laboratory Results - last 24 hr 08/29/19 15:55: Urine Color Yellow, Urine Appearance Clear, Urine pH 6.5, Ur Specific [place] 1.010, Urine Protein Negative, Urine Glucose (UA) Negative, Urine Ketones Negative, Urine Blood Negative, Urine Nitrate Negative, Urine Bilirubin Negative, Urine Urobilinogen 0.2, Ur Leukocyte Esterase Negative, Urine WBC Occasional, Urine Bacteria Trace 08/29/19 20:51: POC Glucose 121 H 08/30/19 06:20: POC Glucose 135 H 08/30/19 08:50: WBC 8.6 D, RBC 3.67 L, Hgb 11.5 L, Hct 35.9 L, MCV 97.7, MCH 31.2, MCHC 31.9, RDW 13.2, Plt Count 179, MPV 10.9 H, Neut % (Auto) 87.3 H, Lymph % (Auto) 7.1 L, [place] % (Auto) 4.9, Eos % (Auto) 0.6, Baso % (Auto) 0.1, Neut # (Auto) 7.6, Lymph # (Auto) 0.6 L, [place] # (Auto) 0.4, Eos # (Auto) 0.1, Baso # (Auto) 0.0, Total Counted 100, Neutrophils % (Manual) 90 H, Lymphocytes % (Manual) 7 L, Atypical Lymphs % 1.0, Monocytes % (Manual) 2, Platelet Estimate Normal, RBC Morphology Normal 08/30/19 08:50: Sodium 141, Potassium 3.6, Chloride 106, Carbon Dioxide 26, Anion Gap 12.6, BUN 18, Creatinine 1.28 H D, Estimated Creat Clear 49, Estimated GFR 40 L, Est GFR ( Amer) 48 L D, Glucose 202 H, Calcium 8.4 L 08/30/19 11:34: POC Glucose 119 H Exam General appearance: alert, active, awake, no acute distress Cardiovascular: regular rate & rhythm, normal peripheral pulses Respiratory: No respiratory distress noted, speaks in full sentences ABD: soft and non tender Neuro: alert, awake, oriented x 3 Psych: normal mood and affect Genitourinary: Catheter in situ. On examination of the lower extremities the limb lengths are equal. Thigh and calf are soft and nontender. On examination of the right ankle, the splint/dressings are clean, dry and intact. No soakage or strikethrough noted. Toes are warm and capillary refill is brisk. Distal sensation is intact to light touch throughout. She is actively wiggling the toes. - Urinary Catheter Management Bernal Cath placed during this visit: no Progress Note: A&P (1) Fracture dislocation of right ankle Status: Acute Current Visit: Yes (2) Diabetes mellitus Status: Chronic Current Visit: No (3) Pulmonary artery hypertension Status: Acute Current Visit: Yes (4) Aortic insufficiency Status: Chronic Current Visit: No (5) Carotid artery stenosis Status: Chronic Current Visit: No (6) Coronary arteriosclerosis Status: Chronic Current Visit: No (7) Diastolic dysfunction Status: Chronic Current Visit: No (8) Dyspnea Status: Chronic Current Visit: No (9) Hyperlipidemia Status: Chronic Current Visit: No (10) Hypertensive heart disease Status: Chronic Current Visit: No (11) Mitral valve regurgitation Status: Chronic Current Visit: No (12) Nausea and vomiting Status: Acute Current Visit: Yes (13) Closed right trimalleolar fracture Status: Acute Current Visit: Yes Assessment and Plan for All Diagnoses:: I have reviewed the clinical findings and progress with the patient and family. Patient is doing well and reports no problems. Patient is mobilizing well with help of physical therapy using a walker and I have advised her to continue nonweightbearing mobilization on the right side. Continue DVT prophylaxis. Discontinue IV fluids and discontinue the urinary catheter. Care management looking into discharge planning. Continue medical management as per Dr. Rosales.
[2019-08-31 06:14] LABS: Basophils % 0.3 % (0.1-2.0); Eosinophils # 0.3 K/mm3 (0.0-0.4); Eosinophils % 3.1 % (0.1-12.0); Hematocrit 32.7 % (37.0-47.0); Hemoglobin 10.5 g/dL (12.2-16.2); Lymphocytes # 1.5 K/mm3 (0.7-4.5); Lymphocytes % 19.1 % (10-50); Mean Corpuscular HGB Conc 31.9 g/dL (31.8-35.4); Mean Corpuscular Volume 96.5 fl (81-99); Mean Platelet Volume 10.3 fl (7.4-10.4); Monocytes # 0.7 K/mm3 (0.1-1.0); Monocytes % 8.2 % (1.7-9.3); Neutrophils # 5.5 K/mm3 (1.8-7.8); Neutrophils % 69.3 % (37.0-80.0); Platelet Count 179 K/mm3 (142-424); Red Blood Count 3.39 M/mm3 (4.20-5.40); Red Cell Distribution Width 13.4 % (11.5-17.5); White Blood Count 7.9 K/mm3 (4.8-10.8)
[2019-08-31 06:19] LABS: Anion Gap 8.6 mEq/L (5-15); Calcium 8.4 mg/dL (8.5-10.1)
--- NOTE | 2019-08-31 07:11 | Progress Note ---
Internal Medicine - PN: Subj *Date: 08/31/19 *Time: 07:09 Interval history: Patient reports a good day yesterday but a rough night. Patient claims that she had watery loose stools every 1/2 hour overnight. I spoke with patient's night nurse who reports patient had 3 soft formed bowel movements overnight. Patient participated with therapy yesterday. She also reports pain from the ankle overnight which interfered with sleep Exam Vital signs and Labs for Last 24 Hours: Temp Pulse Resp BP Pulse Ox 98.0 F 64 17 115/68 98 08/31/19 04:00 08/31/19 04:00 08/31/19 04:00 08/31/19 04:00 08/31/19 04:00 Laboratory Results - last 24 hr 08/30/19 08:50: WBC 8.6 D, RBC 3.67 L, Hgb 11.5 L, Hct 35.9 L, MCV 97.7, MCH 31.2, MCHC 31.9, RDW 13.2, Plt Count 179, MPV 10.9 H, Neut % (Auto) 87.3 H, Lymph % (Auto) 7.1 L, [place] % (Auto) 4.9, Eos % (Auto) 0.6, Baso % (Auto) 0.1, Neut # (Auto) 7.6, Lymph # (Auto) 0.6 L, [place] # (Auto) 0.4, Eos # (Auto) 0.1, Baso # (Auto) 0.0, Total Counted 100, Neutrophils % (Manual) 90 H, Lymphocytes % (Manual) 7 L, Atypical Lymphs % 1.0, Monocytes % (Manual) 2, Platelet Estimate Normal, RBC Morphology Normal 08/30/19 08:50: Sodium 141, Potassium 3.6, Chloride 106, Carbon Dioxide 26, Anion Gap 12.6, BUN 18, Creatinine 1.28 H D, Estimated Creat Clear 49, Estimated GFR 40 L, Est GFR ( Amer) 48 L D, Glucose 202 H, Calcium 8.4 L 08/30/19 11:34: POC Glucose 119 H 08/30/19 16:15: POC Glucose 137 H 08/31/19 06:01: WBC 7.9, RBC 3.39 L, Hgb 10.5 L, Hct 32.7 L, MCV 96.5, MCH 30.8, MCHC 31.9, RDW 13.4, Plt Count 179, MPV 10.3, Neut % (Auto) 69.3, Lymph % (Auto) 19.1, [place] % (Auto) 8.2, Eos % (Auto) 3.1, Baso % (Auto) 0.3, Neut # (Auto) 5.5, Lymph # (Auto) 1.5, [place] # (Auto) 0.7, Eos # (Auto) 0.3, Baso # (Auto) 0.0 08/31/19 06:01: Sodium 144, Potassium 3.6, Chloride 110 H, Carbon Dioxide 29, Anion Gap 8.6, BUN 15, Creatinine 1.10 H, Estimated Creat Clear 57, Estimated GFR 47 L, Est GFR ( Amer) 57 L, Glucose 111 H D, Calcium 8.4 L I & O for Last 24 hours: Intake & Output 08/28/19 08/29/19 08/30/19 08/31/19 11:59 11:59 11:59 11:59 Intake Total 1574 / 1574 1400 / 1400 2640 / 2640 1045 / 1045 Output Total 350 / 350 650 / 650 Balance 1224 / 1224 1400 / 1400 1989 / 1989 1045 / 1045 Weight 210 lb 4.007 oz 215 lb 210 lb 9.439 oz 210 lb 9.439 oz Narrative: Patient is awake and alert. Lungs remain clear. Heart has a regular rate and rhythm with systolic murmur. Abdomen is soft, nontender with active bowel sounds. The right foot is neurovascularly intact 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 mellitus halfway insulin use: without halfway use Diabetes mellitus complication status: without complication Qualified Code(s): E11.9 - Type 2 diabetes mellitus without complications Category: Medical Code(s): E11.9 - Type 2 diabetes mellitus without complications (3) Pulmonary artery hypertension Current visit: Yes Status: Acute Category: Medical Code(s): I27.21 - Secondary pulmonary arterial hypertension (4) Aortic insufficiency Current visit: No Status: Chronic Qualifiers: Cardiac valve disease etiology: nonrheumatic Qualified Code(s): I35.1 - Nonrheumatic aortic (valve) insufficiency Category: Medical Code(s): I35.1 - Nonrheumatic aortic (valve) insufficiency (5) Carotid artery stenosis Current visit: No Status: Chronic Qualifiers: Laterality: unspecified laterality Qualified Code(s): I65.29 - Occlusion and stenosis of unspecified carotid artery Category: Medical Code(s): I65.29 - Occlusion and stenosis of unspecified car otid artery (6) Coronary arteriosclerosis Current visit: No Status: Chronic Category: Medical Code(s): I25.10 - Atherosclerotic heart disease of [place] coronary artery without angina pectoris (7) Diastolic dysfunction Current visit: No Status: Chronic Category: Medical Code(s): I51.9 - Heart disease, unspecified (8) Dyspnea Current visit: No Status: Chronic Qualifiers: Dyspnea type: dyspnea on exertion Qualified Code(s): R06.09 - Other forms of dyspnea Category: Medical Code(s): R06.00 - Dyspnea, unspecified (9) Hyperlipidemia Current visit: No Status: Chronic Qualifiers: Hyperlipidemia type: other hyperlipidemia Qualified Code(s): E78.49 - Other hyperlipidemia; E78.4 - Other hyperlipidemia Category: Medical Code(s): E78.5 - Hyperlipidemia, unspecified (10) Hypertensive heart disease Current visit: No Status: Chronic Qualifiers: Heart failure presence: without heart failure Qualified Code(s): I11.9 - Hypertensive heart disease without heart failure Category: Medical Code(s): I11.9 - Hypertensive heart disease without heart failure (11) Mitral valve regurgitation Current visit: No Status: Chronic Qualifiers: Cardiac valve disease etiology: nonrheumatic Qualified Code(s): I34.0 - Nonrheumatic mitral (valve) insufficiency Category: Medical Code(s): I34.0 - Nonrheumatic mitral (valve) insufficiency (12) Nausea and vomiting Current visit: Yes Status: Acute Category: Medical Code(s): R11.2 - Nausea with vomiting, unspecified (13) Closed right trimalleolar fracture Current visit: Yes Status: Acute Category: Medical Code(s): S82.851A - Displaced trimalleolar fracture of right lower leg, initial encounter for closed fracture - Assessment and plan all Dx Assessment and Plan for all problems:: Patient is medically appropriate for discharge to [facility] facility once precertification process has been completed.
--- NOTE | 2019-08-31 07:14 | Discharge Summary ---
General - General Admission date:: 08/25/19 Discharge date: 08/31/19 HPI HPI: 84-year-old female with uncontrolled diabetes, hypertension, hyperlipidemia, hypothyroidism presented to the emergency department after injury at home that resulted in a trimalleolar fracture of the right ankle. Reduction of the fracture failed in the emergency department and patient was taken to the OR for external fixation. She was admitted postoperatively for observation. Patient reports that she slipped on a frosty step and this resulted in her injury. She denies loss of consciousness, chest pain, shortness of breath prior to her injury. This morning the patient reports mild discomfort in the foot and ankle but otherwise has no complaints. Hospital Course Hospital Course: Patient was admitted on the evening of August 25 and taken to the OR for closed reduction and external fixation of her right trimalleolar fracture. Surgery was performed by Dr. Canela area postoperatively on the the patient had PT evaluation to begin rehabilitation process that she is nonweightbearing to the right lower extremity. Orthopedic plan was for open reduction and internal fixation of her fracture at a later date once swelling had improved in the right lower extremity. Decision was made to proceed with this on August 29. On August 29 patient underwent ORIF of her right trimalleolar fracture by Dr. An. Postoperatively on the patient underwent additional PT evaluation and was appropriate for alf facility rehabilitation. Precertification process was initiated once patient was accepted she was transferred to [facility] to continue her rehab process. Patient has a history of hypertensive heart disease, diabetes, chronic kidney disease, hypothyroidism and was maintained on her home medications while hospitalized. Objective Vital signs: Temp Pulse Resp BP Pulse Ox 98.0 F 64 17 115/68 98 08/31/19 04:00 08/31/19 04:00 08/31/19 04:00 08/31/19 04:00 08/31/19 04:00 Results Labs on day of discharge: Labs from last 24 hours 08/31/19 08/31/19 08/30/19 06:01 06:01 16:15 WBC 7.9 RBC 3.39 L Hgb 10.5 L Hct 32.7 L MCV 96.5 MCH 30.8 MCHC 31.9 RDW 13.4 Plt Count 179 MPV 10.3 Neut % (Auto) 69.3 Lymph % (Auto) 19.1 [place] % (Auto) 8.2 Eos % (Auto) 3.1 Baso % (Auto) 0.3 Neut # (Auto) 5.5 Lymph # (Auto) 1.5 [place] # (Auto) 0.7 Eos # (Auto) 0.3 Baso # (Auto) 0.0 Total Counted Neutrophils % (Manual) Lymphocytes % (Manual) Atypical Lymphs % Monocytes % (Manual) Platelet Estimate RBC Morphology Sodium 144 Potassium 3.6 Chloride 110 H Carbon Dioxide 29 Anion Gap 8.6 BUN 15 Creatinine 1.10 H Estimated Creat Clear 57 Estimated GFR 47 L Est GFR ( Amer) 57 L Glucose 111 H D POC Glucose 137 H Calcium 8.4 L 08/30/19 08/30/19 08/30/19 11:34 08:50 08:50 WBC 8.6 D RBC 3.67 L Hgb 11.5 L Hct 35.9 L MCV 97.7 MCH 31.2 MCHC 31.9 RDW 13.2 Plt Count 179 MPV 10.9 H Neut % (Auto) 87.3 H Lymph % (Auto) 7.1 L [place] % (Auto) 4.9 Eos % (Auto) 0.6 Baso % (Auto) 0.1 Neut # (Auto) 7.6 Lymph # (Auto) 0.6 L [place] # (Auto) 0.4 Eos # (Auto) 0.1 Baso # (Auto) 0.0 Total Counted 100 Neutrophils % (Manual) 90 H Lymphocytes % (Manual) 7 L Atypical Lymphs % 1.0 Monocytes % (Manual) 2 Platelet Estimate Normal RBC Morphology Normal Sodium 141 Potassium 3.6 Chloride 106 Carbon Dioxide 26 Anion Gap 12.6 BUN 18 Creatinine 1.28 H D Estimated Creat Clear 49 Estimated GFR 40 L Est GFR ( Amer) 48 L D Glucose 202 H POC Glucose 119 H Calcium 8.4 L DS: Diagnosis - Discharge Diagnosis (1) Fracture dislocation of right ankle Status: Acute (2) Diabetes mellitus Status: Chronic (3) Pulmonary artery hypertension Status: Acute (4) Aortic insufficiency Status: Chronic (5) Carotid artery stenosis Status: Chronic (6) Coronary arteriosclerosis Status: Chronic (7) Diastolic dysfunction Status: Chronic (8) Dyspnea Status: Chronic (9) Hyperlipidemia Status: Chronic (10) Hypertensive heart disease Status: Chronic (11) Mitral valve regurgitation Status: Chronic (12) Nausea and vomiting Status: Acute (13) Closed right trimalleolar fracture Status: Acute Discharge Plan - Patient Discharge Instructions ACTIVITY: Continue current activity DIET: continue same diet Patient Instructions: Ankle Fracture, DI for Ankle Fracture, DI for Surgical Site Infection, DI for Moderate Sedation - Follow up Plan Follow up with: Rosy Canela MD [Physician] - Disposition: [facility] ([place]) Home Medications: Home Medications Medication Instructions Recorded Confirmed Type multivitamin tablet 1 tab PO DAILY 11/01/17 08/26/19 History nitroglycerin 0.4 mg sublingual 0.4 mg SUBLINGUAL Q5M PRN 11/01/17 08/26/19 History tablet omega 4-ujd-eat-fish oil 1,000 mg 1 cap PO DAILY 11/01/17 08/26/19 History (120 mg-180 mg) capsule aspirin 81 mg tablet,delayed 81 mg PO DAILY tab 12/16/18 08/26/19 History release levothyroxine 88 mcg tablet 88 mcg PO DAILY tab 12/16/18 08/26/19 History meclizine 25 mg tablet 25 mg PO TID PRN tab 12/16/18 08/26/19 History Atorvastatin Calcium [Atorvastatin 20 mg PO HS 08/26/19 08/26/19 History 20mg Tab] Bisoprolol Fumarate [Zebeta 5mg 2.5 mg PO DAILY #30 tab 08/26/19 08/26/19 Rx tablet] Furosemide [Furosemide 40MG tAB] 40 mg PO BID 08/26/19 08/26/19 History Isosorbide Mononitrate [Imdur 30mg 30 mg PO DAILY 08/26/19 08/26/19 History ER tablet] Losartan Potassium [Cozaar 50mg 50 mg PO DAILY #90 tab 08/26/19 08/26/19 Rx Tablets] Omeprazole 40 mg PO DAILY 08/26/19 08/26/19 History Pioglitazone HCl 15 mg PO DAILY 08/26/19 08/26/19 History Spironolactone [Aldactone 50mg 50 mg PO DAILY 08/26/19 08/26/19 History Tab] Aspirin [Aspirin 325mg Tab] 325 mg PO DAILY #30 tab 08/31/19 Rx Hydrocod/Acet 5/325 mg [[place] 1 - 2 tab PO Q4HP PRN #120 tab 08/31/19 Rx 5/325mg tablet] Prescriptions/Medication Reconciliation: New Hydrocod/Acet 5/325 mg [[place] 5/325mg tablet] 1 - 2 tab PO Q4HP PRN #120 tab PRN Reason: Moderate To Severe Pain Aspirin [Aspirin 325mg Tab] 325 mg PO DAILY #30 tab Continued nitroglycerin 0.4 mg sublingual tablet 0.4 mg SUBLINGUAL Q5M PRN PRN Reason: Chest Pain omega 5-zqq-ekf-fish oil 1,000 mg (120 mg-180 mg) capsule 1 cap PO DAILY multivitamin tablet 1 tab PO DAILY levothyroxine 88 mcg tablet 88 mcg PO DAILY tab meclizine 25 mg tablet 25 mg PO TID PRN tab PRN Reason: Dizziness aspirin 81 mg tablet,delayed release 81 mg PO DAILY tab Bisoprolol Fumarate [Zebeta 5mg tablet] 2.5 mg PO DAILY #30 tab Isosorbide Mononitrate [Imdur 30mg ER tablet] 30 mg PO DAILY Omeprazole 40 mg PO DAILY Pioglitazone HCl 15 mg PO DAILY Atorvastatin Calcium [Atorvastatin 20mg Tab] 20 mg PO HS Furosemide [Furosemide 40MG tAB] 40 mg PO BID Losartan Potassium [Cozaar 50mg Tablets] 50 mg PO DAILY #90 tab Spironolactone [Aldactone 50mg Tab] 50 mg PO DAILY - Problem Reconciliation Problems Reviewed?: Yes
--- NOTE | 2019-08-31 12:04 | Progress Note ---
Subjective Date: 08/31/19 Time: 09:00 Principal diagnosis: R ankle fracture-dislocation Interval history: The patient is doing well this morning. She reports some pain in the right ankle, but medication appears to be controlling this. Mild numbness reported in toes, but no other complaints regarding the ankle. She has had several episodes of water stool, which has been sampled and sent for studies. PN: Obj Ex Vital signs: Temp Pulse Resp BP Pulse Ox 98.3 F 59 L 17 118/53 L 94 L 08/31/19 11:33 08/31/19 11:33 08/31/19 11:33 08/31/19 11:33 08/31/19 11:33 - Constitutional no acute distress - Routine HEENT Exam Head: Present: normocephalic Eye: Present: EOMI ENT: Present: mucous membranes moist - Routine Abdominal Exam Present: soft. Absent: tenderness - Routine Extremities Exam Comments: R ankle splint intact, well-padded and fitting well wiggles toes, sensation intact to light touch; diminished sensation at baseline due to DM neuropathy; have not performed monofilament testing toes warm and pink RLE palpable popliteal pulse RLE - Urinary Catheter Management Bernal Cath placed during this visit: no Progress Note: A&P (1) Fracture dislocation of right ankle Status: Acute Current Visit: Yes (2) Diabetes mellitus Status: Chronic Current Visit: No (3) Pulmonary artery hypertension Status: Acute Current Visit: Yes (4) Aortic insufficiency Status: Chronic Current Visit: No (5) Carotid artery stenosis Status: Chronic Current Visit: No (6) Coronary arteriosclerosis Status: Chronic Current Visit: No (7) Diastolic dysfunction Status: Chronic Current Visit: No (8) Dyspnea Status: Chronic Current Visit: No (9) Hyperlipidemia Status: Chronic Current Visit: No (10) Hypertensive heart disease Status: Chronic Current Visit: No (11) Mitral valve regurgitation Status: Chronic Current Visit: No (12) Nausea and vomiting Status: Acute Current Visit: Yes (13) Closed right trimalleolar fracture Status: Acute Current Visit: Yes Assessment and Plan for All Diagnoses:: 84yo F POD #2 s/p external fixator removal with ORIF R ankle fracture (fixation of bimalleolar fracture; posterior malleolus fx treated non-op) -- continue NWB RLE -- continue PT/OT -- elevate RLE on 2 pillows, may ice PRN -- ok to d/c to SNF from ortho standpoint, f/u with me 1 week
== END 2019-08-31 15:12 | DRG 493 ==
LOC: 2ND 15:30 → ER 15:30 → OBSVTOIN 18:49 → 2ND 18:49
PROVIDERS: ADMIT Family Medicine; ATTEND Family Medicine
CPT/HCPCS: 36415; 73600; 73610; 73700; 76000; 80048; 80053; 81001; 82962; 83036; 85007; 85025; 85610; 85730; 93005; 96365; 96375; 97110; 97161; 97530; 99285; C1713; C1762; C1776; J2405

== ENCOUNTER → 2019-09-08 10:06 | Outpatient (CLI) | payer MEDICARE, SELFPAY ==
--- NOTE | 2019-09-08 10:15 | XR_ITS ---
PROCEDURE: XR ANKLE RT MIN 3V CLINICAL INDICATION: Post op ORIF rt ankle COMPARISON: XR ANKLE RT 2V from 08/29/2019 FINDINGS: There is metallic side plate along the distal tibia medially fixated by several threaded screws and reducing the medial malleolar fracture in near anatomic alignment. There is a similar but longer metallic plate distal fibula reducing the spiral oblique fracture in anatomic alignment. There is minor cortical irregularity of the articular cortex of the medial malleolar fracture. Otherwise the overall ankle mortise appears normal. A posterior splint is seen in place. IMPRESSION: Postop ORIF fractures medial malleolus and distal fibula Dictated by: Dr. Salvador Willis MD 09/08/2019 11:[address] Salvador Willis MD in [place] 09/08/2019 11:11
== END ==
PROVIDERS: PCP Family Medicine; Visit Provider Orthopaedic Surgery
DX: S82.891A Other fracture of right lower leg, initial encounter for closed fracture (principal)
CPT/HCPCS: 73610

== ENCOUNTER → 2019-09-28 12:41 | Outpatient (CLI) | payer MEDICARE, SELFPAY ==
--- NOTE | 2019-09-28 12:45 | XR_ITS ---
PROCEDURE: XR ANKLE RT MIN 3V CLINICAL INDICATION: Rt ankle FX Fu Follow-up fracture COMPARISON: XR ANKLE RT 2V from 08/25/2019 XR ANKLE RT MIN 3V from 08/25/2019 XR ANKLE RT MIN 3V from 09/08/2019 FINDINGS: Status post ORIF trimalleolar fracture with a lateral bone plate at the distal fibula and medial bone plate at the distal tibia with good alignment. There are 2 screws transverse through both the distal tibia and fibula. Fracture lines are somewhat less apparent suggesting healing. A bony fragment is present along the anterior aspect of the distal tibia. Lucency is present in the calcaneal region which may be due to a prior external fixator. IMPRESSION: Good alignment status post ORIF distal tib fib Dictated by: Oziel Fernández MD 09/28/2019 16:02 Electronically signed by Oziel Fernández MD in [place] 09/28/2019 16:02
== END ==
PROVIDERS: PCP Family Medicine; Visit Provider Orthopaedic Surgery
DX: S82.851A Displaced trimalleolar fracture of right lower leg, initial encounter for closed fracture (principal)
CPT/HCPCS: 73610

== ENCOUNTER 2019-09-28 15:30 | Outpatient (RCR) | payer MEDICARE, SELFPAY | END 2019-09-28 15:45 | disposition home or self-care (01) | LOC: PT 15:30 | PROVIDERS: Visit Provider Orthopaedic Surgery | DX: S82.851A Displaced trimalleolar fracture of right lower leg, initial encounter for closed fracture (principal) | CPT/HCPCS: 97760 ==

== ENCOUNTER → 2019-11-03 12:23 | Outpatient (CLI) | payer MEDICARE, SELFPAY ==
--- NOTE | 2019-11-03 12:30 | XR_ITS ---
PROCEDURE: XR ANKLE RT MIN 3V CLINICAL INDICATION: ankle Fx Follow-up fracture COMPARISON: XR ANKLE RT 2V from 08/25/2019 XR ANKLE RT MIN 3V from 08/25/2019 XR ANKLE RT MIN 3V from 09/08/2019 XR ANKLE RT MIN 3V from 09/28/2019 FINDINGS: Mediolateral bone plates remain in place with translucent fixator at distal tib fib with good alignment the fracture fragments. There is preservation of the ankle mortise. Calcification at the anterior ankle joint once again noted. IMPRESSION: . No change good alignment status post ORIF distal tib fib Dictated by: Oziel Fernández MD 11/03/2019 14:12 Electronically signed by Oziel Fernández MD in [place] 11/03/2019 14:12
== END ==
PROVIDERS: PCP Family Medicine; Visit Provider Orthopaedic Surgery
DX: S82.851A Displaced trimalleolar fracture of right lower leg, initial encounter for closed fracture (principal)
CPT/HCPCS: 73610

== ENCOUNTER → 2019-12-04 12:00 | Outpatient (CLI) | payer MEDICARE, SELFPAY ==
--- NOTE | 2019-12-04 12:06 | XR_ITS ---
PROCEDURE: XR ANKLE RT MIN 3V CLINICAL INDICATION: ankle fracture COMPARISON: XR ANKLE RT 2V from 08/25/2019 XR ANKLE RT MIN 3V from 09/08/2019 XR ANKLE RT MIN 3V from 09/28/2019 FINDINGS: Postsurgical changes are again noted with metallic fixation plates and reduction screws involving distal tibia and fibula. There is anatomical positioning. 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 No acute findings are evident. IMPRESSION: No change in overall alignment and positioning of bony elements status post ORIF. No acute findings. Dictated by: Bryon Estrella 12/04/2019 15:21 Electronically signed by Bryon Estrella in [place] 12/04/2019 15:21
== END ==
PROVIDERS: PCP Family Medicine; Visit Provider Orthopaedic Surgery
DX: S82.891A Other fracture of right lower leg, initial encounter for closed fracture (principal)
CPT/HCPCS: 73610

== ENCOUNTER 2019-12-04 13:37 | Outpatient (RCR) | payer MEDICARE, SELFPAY | END 2019-12-04 14:00 | disposition home or self-care (01) | LOC: PT 13:37 | PROVIDERS: Visit Provider Orthopaedic Surgery | DX: S82.891A Other fracture of right lower leg, initial encounter for closed fracture (principal) | CPT/HCPCS: 97760 ==

== ENCOUNTER → 2020-01-01 12:47 | Outpatient (CLI) | payer MEDICARE, SELFPAY ==
--- NOTE | 2020-01-01 12:57 | XR_ITS ---
PROCEDURE: XR ANKLE WT BEARING RT MIN 3V CLINICAL INDICATION: ankle fracture Follow-up fracture/ORIF COMPARISON: XR ANKLE RT MIN 3V from 12/04/2019 FINDINGS: Good alignment status post ORIF distal tib fib with lateral and medial bone plate with 2 transverse screws extending through the bone plate of the fibula into the distal tibia with 1 translucent fixator also noted at this area. The there are degenerative changes at the ankle joint and in the midfoot with pes planus. The ankle mortise is preserved IMPRESSION: Good alignment status post ORIF distal tib fib Dictated by: Oziel Fernández MD 01/01/2020 13:22 Electronically signed by Oziel Fernández MD in [place] 01/01/2020 13:22
== END ==
PROVIDERS: PCP Family Medicine; Visit Provider Orthopaedic Surgery
DX: S82.891A Other fracture of right lower leg, initial encounter for closed fracture (principal)
CPT/HCPCS: 73610

== ENCOUNTER → 2020-12-24 08:25 | Outpatient (CLI) | payer MEDICARE, SELFPAY ==
[2020-12-24 08:58] LABS: Basophils % 0.5 % (0.1-2.0); Eosinophils # 0.2 K/mm3 (0.0-0.4); Eosinophils % 6.1 % (0.1-12.0); Hematocrit 39.8 % (37.0-47.0); Hemoglobin 12.5 g/dL (12.2-16.2); Lymphocytes # 1.8 K/mm3 (0.7-4.5); Lymphocytes % 45.5 % (10-50); Mean Corpuscular HGB Conc 31.4 g/dL (31.8-35.4); Mean Corpuscular Hemoglobin 30.7 pg (27.0-31.2); Mean Corpuscular Volume 97.8 fl (81-99); Mean Platelet Volume 10.1 fl (7.4-10.4); Monocytes # 0.4 K/mm3 (0.1-1.0); Monocytes % 9.5 % (1.7-9.3); Neutrophils # 1.5 K/mm3 (1.8-7.8); Neutrophils % 38.4 % (37.0-80.0); Platelet Count 196 K/mm3 (142-424); Red Blood Count 4.07 M/mm3 (4.20-5.40); Red Cell Distribution Width 13.9 % (11.5-17.5)
[2020-12-24 09:22] LABS: Chloride 106 mmol/L (98-107)
[2020-12-24 09:23] LABS: Sodium 142 mmol/L (136-145)
[2020-12-24 09:25] LABS: Blood Urea Nitrogen 35 mg/dl (7-17); Estimated Glomerular Filt Rate 33 ml/min (>60); GFR (African American) 40 ML/MIN (>60)
[2020-12-24 09:26] LABS: Calcium 9.5 mg/dl (8.4-10.2); Carbon Dioxide 28 mmol/L (22.0-30.0); Glucose 109 mg/dl (74-100)
[2020-12-24 09:39] LABS: Coronavirus 19 IgG Antibody Negative (Negative); Coronavirus 19 IgM Antibody Negative (Negative)
== END ==
PROVIDERS: Visit Provider Internal Medicine Cardiovascular Disease
DX: Z01.818 Encounter for other preprocedural examination; Z11.52 Encounter for screening for COVID-19; R06.09 Other forms of dyspnea; E11.9 Type 2 diabetes mellitus without complications; E78.49 Other hyperlipidemia; I11.9 Hypertensive heart disease without heart failure; I20.0 Unstable angina; I27.20 Pulmonary hypertension, unspecified; I34.0 Nonrheumatic mitral (valve) insufficiency; I35.0 Nonrheumatic aortic (valve) stenosis; I35.1 Nonrheumatic aortic (valve) insufficiency; I65.29 Occlusion and stenosis of unspecified carotid artery
CPT/HCPCS: 36415; 80048; 85025; 86328

== ENCOUNTER 2020-12-26 08:38 | Day surgery (SDC) | payer MEDICARE, SELFPAY ==
[2020-12-26] VITALS (13 sets, daily range): BP systolic 105–144; BP diastolic 53–68; PULSE 47–63; RESP 13–18; TEMP 36.6–36.8; O2SAT 92–98; BMI 34.4
--- NOTE | 2020-12-26 07:01 | IR_ITS ---
APPROVED REPORT Patient Location: Outpatient [facility]: YASMINE Nolasco RT (R) PROCEDURES Left heart catheterization Left ventriculogram Selective coronary angiogram INDICATION Crescendo angina pectoris, Coronary artery disease with history of coronary stenting Informed consent was obtained prior to the procedure. COMPLICATIONS None Estimated Blood Loss: Less than 10 mls TECHNIQUE One percent lidocaine used to anesthetize the right anterior aspect of the wrist. The right radial artery was accessed via the Seldinger technique. A 6 [place] sheath was placed in the right radial artery. 2.5 mg of verapamil, 800 mcg of nitroglycerin, 1mg Lidocaine and 5000 U Heparin were given through the arterial sheath. The trap catheter was also used to perform left heart catheterization, left ventriculogram and selective coronary angiogram. At the end of the procedure the sheath was removed good hemostasis was achieved using Traclet band, patient was transferred to the postop holding area in stable condition. ANGIOGRAPHIC RESULTS The left main artery Normal The left anterior descending artery Is proximally normal with a widely patent mid vessel stent with minimal in-stent restenosis and excellent proximal and distal transitioning The circumflex artery Is nondominant yet still large caliber vessel with mild 10% luminal irregularities The right coronary artery Is a large dominant vessel with mild luminal irregularities 10% The FLORES ventriculogram reveals Normal 65% The left ventricular end-diastolic pressure 25 mmHg IMPRESSION Widely patent coronary arteries as described above Normal ejection fraction Moderately elevated LVEDP which is the likely etiology for patient's angina PLAN 1. Treatment of diastolic dysfunction Electronically signed by : Dewayne Ramos, 12/26/2020 10:14:41
== END 2020-12-26 13:32 | disposition home or self-care (01) ==
LOC: CATHLAB 08:40
PROVIDERS: PCP Family Medicine; Visit Provider Internal Medicine
DX: E11.9 Type 2 diabetes mellitus without complications (principal); E78.49 Other hyperlipidemia; I11.0 Hypertensive heart disease with heart failure; I27.20 Pulmonary hypertension, unspecified; I34.0 Nonrheumatic mitral (valve) insufficiency; I35.0 Nonrheumatic aortic (valve) stenosis; I35.1 Nonrheumatic aortic (valve) insufficiency; I65.29 Occlusion and stenosis of unspecified carotid artery; R06.09 Other forms of dyspnea; I25.110 Atherosclerotic heart disease of native coronary artery with unstable angina pectoris; Z95.5 Presence of coronary angioplasty implant and graft; I50.30 Unspecified diastolic (congestive) heart failure; Z79.899 Other long term (current) drug therapy; E03.9 Hypothyroidism, unspecified; Z79.84 Long term (current) use of oral hypoglycemic drugs
CPT/HCPCS: 93458; 99152; C1725; C1769; J1644; Q9967

== ENCOUNTER → 2021-01-13 09:15 | Outpatient (CLI) | payer MEDICARE, MEDICAID, SELFPAY ==
--- NOTE | 2021-01-13 | CA_ITS ---
APPROVED REPORT EXAM: Comprehensive 2D, Doppler, and color-flow Echocardiogram Booster Operator: Taniya France, RT(R) Ht: 5 ft 4 in Wt: 198lbs BSA: 1.95 BP: 146/57 mmHg Indications: ex smoker, edema, HTN, DM, SOB, hyperlipidemia, DD, , CAD, PHTN, CHF 2D Dimensions LVOT 1.99 cm (M/F) 1.5-2.5 M-Mode Dimensions RVDd 2.36 cm (0.9-2.6) LA Diam 2.78 cm (1.9-4.0) LVDd 5.21 cm (3.5-5.7) Ao Diam 2.17 cm (2.0-3.7) LVDs 3.31 cm (3.5-5.7) IVSd 0.84 cm (0.6-1.1) PWd 0.72 cm (0.6-1.1) EF (Teich) 65.80% FS 36.50% EDV (Teich) 130.10 mL ESV (Teich) 44.50 mL LV Diastology E Decel Time 180.00 (160-240 msec) E/A Ratio 0.9 MED E' 6.40 (< 7 cm/sec) E'/MED E' Ratio 13.61 (>14) LAT E' 7.40 (<10 cm/sec) E/LAT E' Ratio 11.77 (>14) Aortic Valve LVOT Max 135.00 (70-110 cm/s) LVOT VTI 36.35 cm AoV Peak [place]. 261.00 (50-130 cm/s) AI PHT 875.00 ms AO Peak GR. 27.40 mmHg AO Mean GR. 13.40 (<5 mmHg) AO VTI 64.56 (18-25 cm) KANE (VTI) 1.75 (2.5-4.5 cm2) Mitral Valve MV E Max [place]. 87.00 (40-130 cm/s) MV A Velocity 96.00 (40-130 cm/s) E/A Ratio 0.91 MV Decel. Time 180.00 (160-240 ms) MV PHT 53.00 ms Tricuspid Valve TR P. Velocity 233.00 cm/s RAP Estimate 15.00 mmHg RVSP 36.80 mmHg Left Ventricle Left atrium is mildly enlarged, left ventricle is normal size, mild concentric left ventricular hypertrophy, visually estimated ejection fraction 55% with no regional wall motion abnormality, grade 1 diastolic dysfunction seen without tissue Doppler evidence of raise left atrial pressure. Right Ventricle Right atrium and right ventricle are normal size and contractility. Aortic Valve Aortic valve is thickened and calcified, mean gradient across valve is 16 mmHg valve area 1.5 cm??? represents mild aortic stenosis, there is mild aortic insufficiency. Mitral Valve Mitral valve leaflets are minimally thickened, there is mild mitral regurgitation. Tricuspid Valve Tricuspid valve grossly normal, there is mild tricuspid regurgitation, calculated right ventricular systolic pressure is 37 mmHg. Pulmonic Valve Pulmonic valve is poorly visualized. Great Vessels Aortic root is normal size. Pericardium No significant pericardial effusion noted. Conclusion 1. Biatrial enlargement, normal left ventricular size, mild concentric left ventricular hypertrophy, visually estimated ejection fraction 55% with no regional wall motion abnormality, grade 2 diastolic dysfunction seen without tissue Doppler evidence of raise left atrial pressure. 2. Thickened and calcified aortic valve with mild aortic stenosis, valve area is 1.5 cm???, there is mild aortic insufficiency. 3. Mild mitral and tricuspid regurgitation, calculated right ventricular systolic pressure is 37 mmHg. 4. No significant pericardial effusion noted. Electronically signed by : Lukas Samuel, 01/13/2021 20:28:35
== END ==
PROVIDERS: PCP Family Medicine; Visit Provider Physician Assistant
DX: R06.02 Shortness of breath (principal)
CPT/HCPCS: 93306

== ENCOUNTER 2023-08-08 19:13 | Emergency (ER) | payer MEDICARE, MEDICAID, SELFPAY ==
[2023-08-08 19:15] VITALS: BP 167/90; PULSE 67; RESP 16; TEMP 36.7; O2SAT 98; BMI 39.0
--- NOTE | 2023-08-08 19:24 | CT_ITS ---
PROCEDURE INFORMATION: Exam: CT Pelvis Without Contrast; Skeletal Exam date and time: 08/08/2023 7:35 PM Age: 88 years old Clinical indication: Hip pain; Left hip; Additional info: Left hip pelvis pain; Diff walking TECHNIQUE: Imaging protocol: Computed tomography of the pelvis without contrast. Exam focused on the skeleton. Radiation optimization: All CT scans at this facility use at least one of these dose optimization techniques: automated exposure control; mA and/or kV adjustment per patient size (includes targeted exams where dose is matched to clinical indication); or iterative reconstruction. REPORTING DATA: Count of CT and Cardiac NM exams in prior 12 months: This patient has received 0 known CTs and 0 known cardiac nuclear medicine studies in the 12 months prior to the current study. COMPARISON: SPLUMBWO MR lumbar spine wo con 12/29/2017 1:06 PM FINDINGS: Stomach and bowel: There are scattered colonic diverticula without evidence for active diverticulitis. Urinary bladder: There is mild bladder wall thickening, possibly due to under distention and a nonspecific finding. Vasculature: Scattered atherosclerotic disease of the arterial vasculature. Multiple pelvic phleboliths are present. Bones/joints: There is diffuse osseous demineralization. 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 Scattered degenerative disease of the visualized articular spaces. Soft tissues: There is a fat containing right inguinal hernia. IMPRESSION: Scattered degenerative change and osseous demineralization without evidence for acute osseous injury.
--- NOTE | 2023-08-08 19:25 | PC.NURSE ---
Doctor in the room at approximately 1920
--- NOTE | 2023-08-08 19:26 | HMH.EDGENADL ---
Discharge Plan Disposition Patient Disposition: Home, Self-Care Prescriptions Prescriptions: No Action furosemide 40 mg tablet 20 mg PO DAILY Qty: 30 5RF omeprazole 40 mg capsule,delayed release(DR/EC) 40 mg PO DAILY nitroglycerin 0.4 mg tablet, sublingual 0.4 mg SUBLINGUAL Q5M PRN (Reason: Chest Pain) multivitamin tablet 1 tab PO DAILY aspirin [Adult Low Dose Aspirin] 81 mg tablet,delayed release (DR/EC) 81 mg PO DAILY levothyroxine [Synthroid] 88 mcg tablet 88 mcg PO DAILY meclizine 25 mg tablet 25 mg PO TID PRN (Reason: Dizziness) rosuvastatin 5 mg tablet See Rx Instructions .ROUTE .COMPLEX Qty: 90 1RF Dose Instruction: TAKE ONE TABLET BY MOUTH EVERY DAY Rx Instructions: TAKE ONE TABLET BY MOUTH EVERY DAY spironolactone 50 mg tablet 25 mg PO DAILY Qty: 60 5RF isosorbide mononitrate 30 mg tablet extended release 24 hr See Rx Instructions .ROUTE .COMPLEX Qty: 90 3RF Dose Instruction: TAKE ONE TABLET BY MOUTH EVERY DAY FOR HEART/BLOOD PRESSURE Rx Instructions: TAKE ONE TABLET BY MOUTH EVERY DAY FOR HEART/BLOOD PRESSURE bisoprolol fumarate 5 mg tablet See Rx Instructions .ROUTE .COMPLEX Qty: 90 3RF Dose Instruction: TAKE 1/2 TABLET BY MOUTH EVERY DAY FOR HIGH BLOOD PRESSURE Rx Instructions: TAKE 1/2 TABLET BY MOUTH EVERY DAY FOR HIGH BLOOD PRESSURE losartan 50 mg tablet See Rx Instructions .ROUTE .COMPLEX Qty: 90 1RF Dose Instruction: TAKE ONE TABLET BY MOUTH EVERY DAY FOR HIGH BLOOD PRESSURE Rx Instructions: TAKE ONE TABLET BY MOUTH EVERY DAY FOR HIGH BLOOD PRESSURE pioglitazone 15 mg tablet 30 mg PO DAILY Referrals Follow up/Referrals: Dinesh Lopez MD [Primary Care Provider] - See instructions Og Arriaga DO [Staff Physician] - See instructions (to discuss treatment options regarding your chronic hip pain and arthritis ) Clinical Impressions Clinical Impression: Hip pain, left, Difficulty walking, Hip osteoarthritis Discharge ED Provider: Maria Luz Parrish General Adult HPI General Chief complaint: PAIN Stated complaint: LT hip pain Time Seen by Provider: 08/08/23 19:18 History of Present Illness HPI narrative: Patient is an 88-year-old female presents today with left hip and pelvis pain with difficulty walking over the last 4 days. States that she has had chronic pain in her joints for decades but is never been diagnosed with osteoarthritis or been told she needs hip replacements in the past. She states that this acutely worsened 4 days ago without any specific inciting event. No fevers or chills. She is having significant pain to the point of having nausea and vomiting associated with it. She believes she took some pain medicine at home but is not sure exactly what she took other than Tylenol. No history of cancer or malignancy that she is aware of. No specific trauma. Related Data Home Medications Medication Instructions Recorded Confirmed multivitamin 1 tab PO DAILY Supplement 11/01/17 09/02/21 nitroglycerin 0.4 mg sublingual 0.4 mg sublingual Q5M PRN Chest 11/01/17 09/02/21 tablet Pain aspirin 81 mg tablet,delayed 81 mg PO DAILY HEART HEALTH 12/16/18 09/02/21 release (Adult Low Dose Aspirin) levothyroxine 88 mcg tablet 88 mcg PO DAILY THYROID 12/16/18 09/02/21 (Synthroid) meclizine 25 mg tablet 25 mg PO TID PRN Dizziness 12/16/18 09/02/21 pioglitazone 15 mg tablet 30 mg PO DAILY Diabetes 12/12/20 09/02/21 omeprazole 40 mg capsule,delayed 40 mg PO DAILY 09/02/22 09/02/22 release Previous Rx's Medication Instructions Recorded rosuvastatin 5 mg tablet See Rx Instructions .Route 07/07/21 .COMPLEX #90 tabs furosemide 40 mg tablet 20 mg PO DAILY #30 tabs 09/02/21 spironolactone 50 mg tablet 25 mg PO DAILY #60 tabs 08/06/22 isosorbide mononitrate 30 mg See Rx Instructions .Route 10/26/22 tablet,extended release 24 hr .COMPLEX #90 tabs bisoprolol chani
--- NOTE | 2023-08-08 19:36 | PC.NURSE ---
patient back in room at this time from rad.
[2023-08-08 20:04] LABS: Basophils % 0.2 % (0.1-2.0); Eosinophils # 0.1 K/mm3 (0.0-0.4); Eosinophils % 0.8 % (0.1-12.0); Hematocrit 43.9 % (37.0-47.0); Hemoglobin 14.5 g/dL (12.2-16.2); Lymphocytes # 1.3 K/mm3 (0.7-4.5); Lymphocytes % 15.9 % (10-50); Mean Corpuscular HGB Conc 33.1 g/dL (31.8-35.4); Mean Corpuscular Hemoglobin 31.4 pg (27.0-31.2); Mean Corpuscular Volume 94.9 fl (81-99); Mean Platelet Volume 10.5 fl (7.4-10.4); Monocytes # 0.6 K/mm3 (0.1-1.0); Monocytes % 6.9 % (1.7-9.3); Neutrophils # 6.4 K/mm3 (1.8-7.8); Neutrophils % 76.3 % (37.0-80.0); Platelet Count 186 K/mm3 (142-424); Red Blood Count 4.62 M/mm3 (4.20-5.40); Red Cell Distribution Width 13.5 % (11.5-17.5); White Blood Count 8.3 K/mm3 (4.8-10.8)
[2023-08-08 20:06] LABS: Chloride 105 mmol/L (98-107); Potassium 3.9 mmoL/L (3.5-5.1); Sodium 139 mmol/L (136-145)
[2023-08-08 20:09] LABS: Alanine Aminotransferase 27 U/L (12-78); Albumin Level 4.4 g/dl (3.5-5.0); Albumin/Globulin Ratio 1.5 (1.1-1.8); Alkaline Phosphatase 114 U/L (38-126); Anion Gap 11.9 mEq/L (5-15); Aspartate Amino Transferase 36 U/L (14-36); Bilirubin,Total 0.5 mg/dl (0.2-1.3); Blood Urea Nitrogen 21 mg/dl (7-17); Calcium 9.4 mg/dl (8.4-10.2); Carbon Dioxide 26 mmol/L (22.0-30.0); Creatine Kinase 51 U/L (30-135); Creatinine Clearance Estimated 40 mL/min (50-200); Estimated Glomerular Filt Rate 35 ml/min (>60); GFR (African American) 43 ML/MIN (>60); Globulin 2.9 g/dL (1.3-3.2); Glucose 136 mg/dl (74-100); Total Protein,Serum 7.3 g/dl (6.3-8.2)
[2023-08-08 20:15] LABS: C-Reactive Protein 3.8 mg/L (0-4)
[2023-08-08 20:37] LABS: Erythrocyte Sedimentation Rate 62 mm/hr (0-30)
[2023-08-08 21:05] VITALS: BP 136/80; PULSE 70; RESP 16; TEMP 36.7
== END 2023-08-08 21:07 | disposition home or self-care (01) ==
PROVIDERS: Emergency Provider Student in an Organized Health Care Education/Training Program; PCP Family Medicine
DX: M25.552 Pain in left hip (principal); M16.9 Osteoarthritis of hip, unspecified
CPT/HCPCS: 72192; 80053; 82550; 85025; 85651; 86140; 96374; 96375; 99285; J2405

== ENCOUNTER 2023-11-26 12:41 | Outpatient (CLI) | payer MEDICARE, MEDICAID, SELFPAY ==
--- NOTE | 2023-11-26 12:46 | XR_ITS ---
FINAL REPORT CLINICAL HISTORY: Foot Pain FINDINGS: Left foot Three views were obtained. There is no acute fracture or dislocation. 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 There are mild degenerative changes. Note is made of calcaneal spurs. IMPRESSION: Degenerative changes as above. Reviewed, Interpreted and Dictated by Lucho Bruno III, MD Transcribed by Nilda Sofia Authenticated and [facility]
--- NOTE | 2023-11-26 12:46 | XR_ITS ---
FINAL REPORT CLINICAL HISTORY: Ankle Pain FINDINGS: Right ankle Three views were obtained. There are postoperative changes of the distal tibia and fibula. There is a broken screw at the level of the distal tibia. IMPRESSION: Postsurgical changes as above with a broken screw at the level of the distal tibia. Reviewed, Interpreted and Dictated by Lucho Bruno III, MD Transcribed by Nilda Sofia Authenticated and [facility]
--- NOTE | 2023-11-26 12:46 | XR_ITS ---
FINAL REPORT CLINICAL HISTORY: Foot Pain FINDINGS: Right foot Three views were obtained. There is no acute fracture or dislocation. There are mild degenerative changes. 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 Note is made of calcaneal spurs. There are postoperative changes in the distal tibia and fibula. IMPRESSION: Degenerative and postoperative changes as detailed above. Reviewed, Interpreted and Dictated by Lucho Bruno III, MD Transcribed by Nilda Sofia Authenticated and . [facility]
--- NOTE | 2023-11-26 12:46 | XR_ITS ---
FINAL REPORT CLINICAL HISTORY: Ankle Pain FINDINGS: Left ankle Three views were obtained. There is no acute fracture or dislocation. There are mild degenerative changes. Calcaneal spurs are identified. No soft tissue abnormality is identified. IMPRESSION: Mild degenerative changes. Reviewed, Interpreted and Dictated by Lucho Bruno III, MD Transcribed by Nilda Sofia Authenticated and [facility]
== END 2023-11-26 23:59 ==
LOC: RAD 12:42
PROVIDERS: PCP Family Medicine; Visit Provider Nurse Practitioner
DX: M79.671 Pain in right foot; M25.571 Pain in right ankle and joints of right foot; M79.672 Pain in left foot; M25.572 Pain in left ankle and joints of left foot
CPT/HCPCS: 73610; 73630

== ENCOUNTER 2023-12-13 13:50 | Outpatient (CLI) | payer MEDICARE, SELFPAY ==
[2023-12-13 14:30] LABS: Basophils % 0.2 % (0.1-2.0); Eosinophils # 0.1 K/mm3 (0.0-0.4); Eosinophils % 1.6 % (0.1-12.0); Hematocrit 43.2 % (37.0-47.0); Hemoglobin 13.8 g/dL (12.2-16.2); Lymphocytes # 1.7 K/mm3 (0.7-4.5); Lymphocytes % 27.9 % (10-50); Mean Corpuscular HGB Conc 31.8 g/dL (31.8-35.4); Mean Corpuscular Hemoglobin 32.1 pg (27.0-31.2); Mean Corpuscular Volume 100.9 fl (81-99); Mean Platelet Volume 10.6 fl (7.4-10.4); Monocytes # 0.4 K/mm3 (0.1-1.0); Monocytes % 7.4 % (1.7-9.3); Neutrophils # 3.8 K/mm3 (1.8-7.8); Platelet Count 163 K/mm3 (142-424); Red Blood Count 4.28 M/mm3 (4.20-5.40); Red Cell Distribution Width 14.2 % (11.5-17.5)
[2023-12-13 14:35] LABS: Chloride 107 mmol/L (98-107)
[2023-12-13 14:36] LABS: Potassium 4.4 mmoL/L (3.5-5.1); Sodium 139 mmol/L (136-145)
[2023-12-13 14:38] LABS: Alanine Aminotransferase 21 U/L (12-78); Alkaline Phosphatase 76 U/L (38-126); Anion Gap 7.4 mEq/L (5-15); Aspartate Amino Transferase 31 U/L (14-36); Bilirubin,Direct 0.3 mg/dl (0.0-0.4); Bilirubin,Indirect 0.2 mg/dL (0.0-0.9); Bilirubin,Total 0.5 mg/dl (0.2-1.3); Bilirubin,Unconjugated 0.3 mg/dL (0.0-1.1); Blood Urea Nitrogen 33 mg/dl (7-17); Carbon Dioxide 29 mmol/L (22.0-30.0); Cholesterol 215 mg/dl (140-200); Estimated Glomerular Filt Rate 30 ml/min (>60); GFR (African American) 37 ML/MIN (>60); Triglycerides 185 mg/dl (30-150); VLDL Cholesterol 37 mg/dL (0-40)
[2023-12-13 14:39] LABS: Albumin Level 4.2 g/dl (3.5-5.0); Calcium 9.6 mg/dl (8.4-10.2); Chol/HDL Ratio 4.4 (1-3.5); Glucose 111 mg/dl (74-100); HDL Cholesterol 49 mg/dl (40-60)
[2023-12-13 14:49] LABS: Direct LDL Cholesterol 46.78 mg/dL (100-129)
[2023-12-13 14:51] LABS: Troponin I < 0.01 ng/ml (0.00-0.034)
[2023-12-13 15:03] LABS: Free T4 (Free Thyroxine) 1.64 ng/dl (0.78-2.19)
[2023-12-13 15:10] LABS: Thyroid Stimulating Hormone 0.38 uIU/mL (0.465-4.68)
== END 2023-12-13 23:59 ==
LOC: LAB 13:51
PROVIDERS: PCP Family Medicine; Visit Provider Nurse Practitioner Family
DX: E11.9 Type 2 diabetes mellitus without complications (principal); E78.5 Hyperlipidemia, unspecified; I11.9 Hypertensive heart disease without heart failure; I25.10 Atherosclerotic heart disease of native coronary artery without angina pectoris; I27.20 Pulmonary hypertension, unspecified; I34.0 Nonrheumatic mitral (valve) insufficiency; I35.0 Nonrheumatic aortic (valve) stenosis; I35.1 Nonrheumatic aortic (valve) insufficiency; R00.1 Bradycardia, unspecified; R06.00 Dyspnea, unspecified; R07.89 Other chest pain; R42 Dizziness and giddiness; K21.9 Gastro-esophageal reflux disease without esophagitis; R60.9 Edema, unspecified
CPT/HCPCS: 36415; 80048; 80061; 80076; 84439; 84443; 84484; 85025; 93225

== ENCOUNTER 2023-12-15 15:00 | Outpatient (CLI) | payer MEDICARE, SELFPAY | END 2023-12-15 23:59 | LOC: RT 15:00 | PROVIDERS: PCP Family Medicine; Visit Provider Nurse Practitioner Family | DX: R00.1 Bradycardia, unspecified (principal) | CPT/HCPCS: 93270 ==

== ENCOUNTER 2023-12-21 11:09 | Outpatient (CLI) | payer MEDICARE, SELFPAY ==
--- NOTE | 2023-12-21 11:10 | NM_ITS ---
APPROVED REPORT Exam: Nuclear Stress Test Indication: Chest pain, SOB, HTN, DM, High cholesterol, Family history, CAD Patient Location: Outpatient Stress Tech: Марина Schneider NM Tech:Nadya Duron, ARRT, RT (R)(N) Ht: 5 ft 3 in Wt: 192 lbs Bra Size: 36C HR: 63 bpm BP: 152/68 mmHg BSA: 1.90 m2 TID: 1.29 BMI: 34.0 History: Chest pain, SOB, HTN, DM, High cholesterol, Family history, CAD. Patient unable to lay in prone position for those images. These were not performed. Procedure: Patient received 0.4 mg of intravenous Lexiscan, resting heart rate 63 bpm, resting blood pressure 152/68 mmHg, with Lexiscan maximum heart rate achieved was 114 bpm which is % of the maximum predicted heart rate and blood pressure was 162/72 mmHg. With Lexiscan, patient denied any complaint of chest pain. Cardiac Stress and Resting SPECT Images: Cardiac Stress and Resting SPECT images were obtained using technetium 99m Myoview 31.4 mCi stress and 10.68 mCi at rest. The patient could not lie on her abdomen. Therefore, prone stress imaging could not be performed. This may affect the diagnostic interpretation of the study findings. Resting and stress imaging in supine positions demonstrate no evidence of focal fixed or reversible perfusion defects. There is increased transient ischemic dilatation ratio (TID 1.29), suggestive of possible multivessel disease or balanced ischemia. Gated imaging could not be performed due to frequent ectopy during image acquisition. Conclusion: No evidence of focal fixed or reversible perfusion defects. There is increased transient ischemic dilatation ratio (TID 1.29), suggestive of possible multivessel disease or balanced ischemia. Gated imaging could not be performed due to frequent ectopy during image acquisition. Of note, the patient developed had frequent PACs at baseline and following Lexiscan administration. Electronically signed by : Trixie Haji MD 12/24/2023 22:29:10
--- NOTE | 2023-12-21 12:27 | CA_ITS ---
APPROVED REPORT EXAM: Comprehensive 2D, Doppler, and color-flow Echocardiogram Entry Level Management: Colleen Headley, RCS, RVS Ht: 5 ft 0 in Wt: 195lbs BSA: 1.85 BP: 136/111 mmHg Indications: Dyspnea, , Bradycardia, PHTN, Cardiac arrythmia, DM,Edema, HTN, HLD 2D Dimensions Left Atrium 3.56 cm LVEF ([place]'s) 47.60 % LV Volume 63.20 mL LA Volume 91.30 mL LA Volume Index 48.30 mL/m2 (M/F) 16-34 EF AP4 49.50 % EF AP2 43.0 % EF BP 47.6 % GL Strain -11.1 % M-Mode Dimensions RVDd 3.39 cm (0.9-2.6) LA Diam 4.08 cm (1.9-4.0) LVDd 4.76 cm (3.5-5.7) LVDs 3.07 cm (3.5-5.7) IVSd 1.05 cm (0.6-1.1) PWd 0.89 cm (0.6-1.1) EF (Teich) 64.90% EPSs 0.97 cm FS 35.50% EDV (Teich) 105.40 mL TAPSE 2.26 (<1.7) ESV (Teich) 37.00 mL LV Diastology E Decel Time 163 (160-240 msec) E/A Ratio 1.23 MED A' 8.40 cm/s LAT A' 10.60 cm/s Aortic Valve KANE Index 0.48 cm2/m2 AoV Peak Israel. 299.0 (50-130 cm/s) AI PHT 604.00 ms AO Peak GR. 35.90 mmHg AO Mean GR. 21.30 (<5 mmHg) AO VTI 85.0 (18-25 cm) KANE (VTI) 0.91 (2.5-4.5 cm2) Mitral Valve MV A Velocity 103.0 (40-130 cm/s) E/A Ratio 1.23 MV Mean Gr. 2.10 (<2mmHg) Pulmonary Valve PV Peak Velocity 119.0 (50-150 cm/s) AR End VMAX 161.0 cm/s Tricuspid Valve TR P. Velocity 309.00 cm/s RAP Estimate 10.00 mmHg RVSP 48.10 mmHg Left Ventricle The left ventricle is normal size. The left ventricular systolic function is normal. The left ventricular ejection fraction is within the normal range. There is increased LV wall thickness. There is normal LV segmental wall motion. Diastolic function is indeterminate. LVEF is 55%. Right Ventricle The right ventricle is normal size. The right ventricular systolic function is normal. Atria Left atrium is moderately dilated. Right atrium is moderately dilated. There is no Doppler evidence of interatrial shunt. Aortic Valve The aortic valve is moderately thickened. Moderate aortic stenosis. KAEN by continuity equation is 1.1 cm???. Peak velocity 3.2 m/s. Mean AV gradient 23 mmHg. Max AV gradient 41 mmHg. Moderate aortic regurgitation. Mitral Valve The mitral valve leaflets are mildly thickened. No evidence of mitral valve stenosis. Mild to moderate mitral regurgitation. Tricuspid Valve The tricuspid valve leaflets are thin and pliable. Moderate tricuspid regurgitation. RVSP is 40-45 mmHg. Pulmonic Valve The pulmonary valve is normal in structure. Mild pulmonic regurgitation. Great Vessels The aortic root is normal in size. The ascending aorta is normal in size. IVC is normal in size and collapses >50% with inspiration. Pericardium Trivial circumferential pericardial effusion. No acute indications of tamponade. Other Information Study Quality: Fair Conclusion Normal biventricular systolic function. Moderate (KANE by continuity equation is 1.1 cm???. Peak velocity 3.2 m/s. Mean AV gradient 23 mmHg. Max AV gradient 41 mmHg). Moderate AI. Mild to moderate MR. Moderate TR. Mild AR. Elevated RVSP 40-45 mmHg. Trivial pericardial effusion. Compared to prior TTE from 2020, the severity of , as well as AI, MR, and TR, are now worse. Serial TTEs are recommended. Electronically signed by : Trixie Haji MD 12/24/2023 22:04:58
[2023-12-21] MEDS: SODIUM CHLORIDE 0.9% 10ML SYR (RAD ONLY) 10 ML IV ×2 (13:25)
[2023-12-21] MEDS: ISOTOPE MYOVIEW (PER STUDY) 1 DOSE IV (13:25)
[2023-12-21] MEDS: REGADENOSON 0.4MG/5ML SYRINGE 0.400000000000000022 MG IV (13:25)
--- NOTE | 2023-12-21 14:58 | CA_ITS ---
APPROVED REPORT Exam: Pharmacologic Technologist: Maria L Pichardo Ht: 5 ft 3 in Wt: 192 lbs BSA: 1.90 m2 HR: 61 bpm BP: 152/68 mmHg Rhythm: NSR Medical History Medications: Omeprazole,,,,, Aspirin,,,,, Losartan,,,,, Pioglitazone,,,,, Tramadol,,,,, Meclizine,,,,, Nitroglycerin,,,,, RoSUVASTATIN,,,,, Multivitamin,,,,, SpirOnALACTONE,,,,, Isosorbide Monoitrate ER,,,,, Furosemide,,,,, Stress Test Details Test: LEXISCAN HR Resting HR: 63 bpm Max Heart Rate (APMHR): 132 bpm Max HR Achieved: 114 bpm Target HR (85% APMHR): 112 bpm % of APMHR: 86 Recovery HR: 75 bpm BP Resting BP: 152.0/68.0 mmHg Max BP: 162.0/72.0 mmHg Recovery BP: 137.0/82.0 mmHg ECG Resting ECG: Normal sinus rhythm, frequent PACs Stress ECG: No significant changes Arrhythmia: PACs Clinical Exercise duration: 04:10 min Highest Stage Achieved: Exercise capacity: 1.0 METs Stress ECG Conclusion Symptoms: Dizziness Arrhythmias/Ectopy: Frequent PACs ST-T Changes: No significant ST changes Conclusion: Unremarkable Lexiscan stress test. Frequent PACs are noted. Myoview images are reported separately. Test Summary REST 02:48 . . 63 . 152/ 68 . . Stage 1 . . . . . . . Myoview Injected Stage 1 01:00 . . 82 . . . . Stage 2 01:00 . . 96 . 162/ 72 . . Stage 3 01:00 . . 79 . 146/ 76 . . Stage 4 01:00 . . 78 . 153/ 61 . . Stage 4 01:10 . . 74 . 153/ 67 . Stop exercise at 04:10 RECOVERY 01:00 . . 82 . . . . RECOVERY 02:00 . . 70 . 141/ 75 . . RECOVERY 02:51 . . 75 . 137/ 82 . . Electronically signed by : Trixie Haji MD 12/24/2023 22:26:18
== END 2023-12-21 23:59 ==
LOC: RAD 11:10
PROVIDERS: PCP Family Medicine; Visit Provider Nurse Practitioner Family
DX: R06.02 Shortness of breath (principal); E11.9 Type 2 diabetes mellitus without complications; E78.5 Hyperlipidemia, unspecified; I11.9 Hypertensive heart disease without heart failure; I25.10 Atherosclerotic heart disease of native coronary artery without angina pectoris; I27.20 Pulmonary hypertension, unspecified; I34.0 Nonrheumatic mitral (valve) insufficiency; I35.0 Nonrheumatic aortic (valve) stenosis; I35.1 Nonrheumatic aortic (valve) insufficiency; R00.1 Bradycardia, unspecified; R07.89 Other chest pain; R42 Dizziness and giddiness; R60.9 Edema, unspecified
CPT/HCPCS: 78452; 93017; 93018; 93306; A9502; J2785

== ENCOUNTER 2024-01-11 08:04 | Day surgery (SDC) | payer MEDICARE, SELFPAY ==
[2024-01-11] VITALS (11 sets, daily range): BP systolic 128–156; BP diastolic 57–91; PULSE 49–57; RESP 15–18; TEMP 36.6; O2SAT 94–96; BMI 38.8
--- NOTE | 2024-01-11 07:15 | IR_ITS ---
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 COMPLICATIONS None Estimated Blood Loss: Less than 10 mls TECHNIQUE One percent lidocaine used to anesthetize the right anterior aspect of the wrist. The right radial artery was accessed via the Seldinger technique. A 6 Sami sheath was placed in the right radial artery. 2.5 mg of Verapamil, 800 mcg of nitroglycerin, 1mg Lidocaine and 5000 U Heparin were given through the arterial sheath. The papa catheter was also used to perform selective coronary angiogram as well as nonselective bilateral renal angiography at the end of the procedure the sheath was removed good hemostasis was achieved using Traclet band, patient was transferred to the postop holding area in stable condition. ANGIOGRAPHIC RESULTS The left main artery Normal The left anterior descending artery Proximally normal with a mid vessel stent which is widely patent free of in-stent restenosis with excellent proximal distal transitioning The circumflex artery Nondominant with mild 10% luminal irregularities The right coronary artery Dominant with a proximal concentric 20 to 30% stenosis The FLORES ventriculogram reveals Not performed The left ventricular end-diastolic pressure Not measured Bilaterally patent renal arteries IMPRESSION Coronary disease as described above Normal renal arteries PLAN 1. Continue medical management Electronically signed by : Dewayne Ramos MD 01/11/2024 09:13:34
[2024-01-11 08:44] LABS: Basophils % 0.9 % (0.1-2.0); Eosinophils # 0.2 K/mm3 (0.0-0.4); Eosinophils % 3.3 % (0.1-12.0); Hematocrit 43.4 % (37.0-47.0); Hemoglobin 13.9 g/dL (12.2-16.2); Lymphocytes % 40.9 % (10-50); Mean Corpuscular HGB Conc 32.1 g/dL (31.8-35.4); Mean Corpuscular Hemoglobin 32.4 pg (27.0-31.2); Mean Corpuscular Volume 100.8 fl (81-99); Mean Platelet Volume 10.5 fl (7.4-10.4); Monocytes # 0.4 K/mm3 (0.1-1.0); Monocytes % 8.8 % (1.7-9.3); Neutrophils # 2.2 K/mm3 (1.8-7.8); Neutrophils % 46.1 % (37.0-80.0); Platelet Count 166 K/mm3 (142-424); Red Blood Count 4.31 M/mm3 (4.20-5.40); Red Cell Distribution Width 14.2 % (11.5-17.5); White Blood Count 4.8 K/mm3 (4.8-10.8)
[2024-01-11] MEDS: 0.9 % SODIUM CHLORIDE 500 ML 25 ML IV (08:48)
[2024-01-11] MEDS: NITROGLYCERIN 800MCG/8ML SYR (CATH LAB) 800 MCG IA (08:48)
[2024-01-11] MEDS: HEPARIN 1,000 UNITS/500ML NS (CATH LAB) 3000 UNIT IV (08:48)
[2024-01-11] MEDS: diphenhydrAMINE 50MG/ML VIAL 50 MG IV (08:48)
[2024-01-11] MEDS: HEPARIN 1,000 UNITS/ML 10ML VIAL (CATH LAB) 10000 UNIT IV (08:49)
[2024-01-11] MEDS: LIDOCAINE 1% 10ML MDV 20 ML IJ (08:49)
[2024-01-11] MEDS: VERAPAMIL 2.5MG/ML 2ML VIAL 2.5 MG IV (08:49)
[2024-01-11 09:08] LABS: Anion Gap 10.1 mEq/L (5-15); Blood Urea Nitrogen 26 mg/dl (7-17); Calcium 9.5 mg/dl (8.4-10.2); Carbon Dioxide 25 mmol/L (22.0-30.0); Chloride 107 mmol/L (98-107); Creatinine Clearance Estimated 40 mL/min (50-200); Estimated Glomerular Filt Rate 35 ml/min (>60); GFR (African American) 43 ML/MIN (>60); Glucose 110 mg/dl (74-100); Potassium 4.1 mmoL/L (3.5-5.1); Sodium 138 mmol/L (136-145)
[2024-01-11] MEDS: MIDAZOLAM HCL 1MG/1ML 5ML VIAL 1 MG IV (09:12)
[2024-01-11] MEDS: FENTANYL 100MCG/2ML VIAL 50 MCG IV (09:13)
[2024-01-11] MEDS: IOPAMIDOL-370 (76%);100ML BOTTLE 25 ML IV (11:29)
== END 2024-01-11 12:31 | disposition home or self-care (01) ==
PROVIDERS: PCP Family Medicine; Visit Provider Internal Medicine
DX: R94.39 Abnormal result of other cardiovascular function study (principal); I48.0 Paroxysmal atrial fibrillation; I35.0 Nonrheumatic aortic (valve) stenosis; R00.1 Bradycardia, unspecified; R60.0 Localized edema; R06.09 Other forms of dyspnea; I27.20 Pulmonary hypertension, unspecified; I51.9 Heart disease, unspecified; I11.9 Hypertensive heart disease without heart failure; E78.49 Other hyperlipidemia; E11.9 Type 2 diabetes mellitus without complications; I25.118 Atherosclerotic heart disease of native coronary artery with other forms of angina pectoris; I70.1 Atherosclerosis of renal artery; Z79.899 Other long term (current) drug therapy; Z87.891 Personal history of nicotine dependence; I34.0 Nonrheumatic mitral (valve) insufficiency
CPT/HCPCS: 36252; 80048; 85025; 93454; 99152; C1725; C1769; J1644; Q9967

== ENCOUNTER 2024-03-16 12:07 | Outpatient (CLI) | payer MEDICARE, SELFPAY ==
[2024-03-16 12:54] LABS: Basophils % 0.6 % (0.1-2.0); Eosinophils # 0.1 K/mm3 (0.0-0.4); Eosinophils % 1.7 % (0.1-12.0); Hematocrit 40.6 % (37.0-47.0); Lymphocytes # 1.3 K/mm3 (0.7-4.5); Lymphocytes % 26.7 % (10-50); Mean Corpuscular HGB Conc 32.1 g/dL (31.8-35.4); Mean Corpuscular Hemoglobin 32.1 pg (27.0-31.2); Mean Corpuscular Volume 100.1 fl (81-99); Mean Platelet Volume 10.2 fl (7.4-10.4); Monocytes # 0.5 K/mm3 (0.1-1.0); Neutrophils # 3.1 K/mm3 (1.8-7.8); Neutrophils % 61.9 % (37.0-80.0); Platelet Count 158 K/mm3 (142-424); Red Blood Count 4.06 M/mm3 (4.20-5.40); Red Cell Distribution Width 13.9 % (11.5-17.5)
[2024-03-16 13:42] LABS: Chloride 107 mmol/L (98-107)
[2024-03-16 13:43] LABS: Potassium 4.5 mmoL/L (3.5-5.1); Sodium 139 mmol/L (136-145)
[2024-03-16 13:45] LABS: Alanine Aminotransferase 17 U/L (12-78); Anion Gap 10.5 mEq/L (5-15); Aspartate Amino Transferase 29 U/L (14-36); Bilirubin,Unconjugated 0.3 mg/dL (0.0-1.1); Blood Urea Nitrogen 21 mg/dl (7-17); Carbon Dioxide 26 mmol/L (22.0-30.0); Cholesterol 218 mg/dl (140-200); Estimated Glomerular Filt Rate 42 ml/min (>60); GFR (African American) 51 ML/MIN (>60); Triglycerides 153 mg/dl (30-150); VLDL Cholesterol 31 mg/dL (0-40)
[2024-03-16 13:46] LABS: Albumin Level 3.7 g/dl (3.5-5.0); Alkaline Phosphatase 69 U/L (38-126); Bilirubin,Direct 0.2 mg/dl (0.0-0.4); Bilirubin,Indirect 0.3 mg/dL (0.0-0.9); Bilirubin,Total 0.5 mg/dl (0.2-1.3); Calcium 9.4 mg/dl (8.4-10.2); Chol/HDL Ratio 3.5 (1-3.5); Glucose 107 mg/dl (74-100); HDL Cholesterol 63 mg/dl (40-60); Total Protein,Serum 6.1 g/dl (6.3-8.2)
[2024-03-16 13:58] LABS: Direct LDL Cholesterol 51.98 mg/dL (100-129)
[2024-03-16 14:05] LABS: Free T4 (Free Thyroxine) 1.38 ng/dl (0.78-2.19)
[2024-03-16 14:19] LABS: Thyroid Stimulating Hormone 1.03 uIU/mL (0.465-4.68)
== END 2024-03-16 23:59 | disposition home or self-care (01) ==
LOC: LAB 12:08
PROVIDERS: PCP Family Medicine; Visit Provider Physician Assistant
DX: I48.0 Paroxysmal atrial fibrillation (principal); I35.1 Nonrheumatic aortic (valve) insufficiency; I35.0 Nonrheumatic aortic (valve) stenosis; I34.0 Nonrheumatic mitral (valve) insufficiency; R00.1 Bradycardia, unspecified; E11.9 Type 2 diabetes mellitus without complications; E78.49 Other hyperlipidemia; I11.9 Hypertensive heart disease without heart failure; I25.10 Atherosclerotic heart disease of native coronary artery without angina pectoris; I27.20 Pulmonary hypertension, unspecified
CPT/HCPCS: 36415; 80048; 80061; 80076; 83735; 84439; 84443; 85025

== ENCOUNTER 2024-06-15 12:58 | Outpatient (CLI) | payer MEDICARE, SELFPAY ==
--- NOTE | 2024-06-15 13:02 | CA_ITS ---
APPROVED REPORT EXAM: Comprehensive 2D, Doppler, and color-flow Echocardiogram Sterile Proc Tech: Colleen Headley, RCS, RVS Ht: 5 ft 0 in Wt: 196lbs BSA: 1.85 BP: 127/70 mmHg Rhythm: Atrial Fibrillation Indications: posterior pericardial space, , AI, Dyspnea, Dizziness, DD, Pulonary HTN, Moderate MR, BUNNY, Moderate TR, Fatigue 2D Dimensions Aortic Root 2.74 cm F: 2.7 - 3.3 LVEF ([place]'s) 51.80 % F: 54 - 74 Left Atrium 3.65 cm F: 2.7 - 3.8 LV Volume 77.20 mL F: 46 - 106 RVID Base (AP4) 3.97 cm (M/F) 2.5-4.1 LV Volume Index 41.297895 mL/m2 F: 29 - 61 LVOT 1.87 cm (M/F) 1.5-2.5 LA Volume 82.50 mL LA Volume Index 44.009812 mL/m2 (M/F) 16-34 EF AP4 50.30 % EF AP2 53.1 % EF BP 51.8 % GL Strain -19.0 % M-Mode Dimensions RVDd 2.71 cm (0.9-2.6) LVDd 4.96 cm (3.5-5.7) Ao Diam 2.63 cm (2.0-3.7) LVDs 3.45 cm (3.5-5.7) IVSd 1.07 cm (0.6-1.1) PWd 0.80 cm (0.6-1.1) EF (Teich) 61.20% EPSs 0.61 cm FS 33.00% EDV (Teich) 126.60 mL TAPSE 1.76 (<1.7) ESV (Teich) 49.10 mL LV Diastology E Decel Time 131 (160-240 msec) E/A Ratio 1.30 MED E' 4.8 (>= 7 cm/sec) MED A' 6.80 cm/s E'/MED E' Ratio 25.85 (<= 14) LAT E' 11.7 (>= 10 cm/sec) LAT A' 9.40 cm/s E/LAT E' Ratio 10.61 (<= 14) Pulm Vein s 72.00 cm/sec PV S/D Ratio 3.69 Pulm Vein d 19.00 cm/sec Ar-A Duration 92.00 msec Aortic Valve LVOT Max 120.0 (70-110 cm/s) KANE Index 0.46 cm2/m2 LVOT VTI 31.64 cm AoV Peak Israel. 355.0 (50-130 cm/s) AI PHT 572.00 ms AO Mean GR. 32.70 (<5 mmHg) AO VTI 101.8 (18-25 cm) KANE (VTI) 0.85 (2.5-4.5 cm2) Mitral Valve MV E Max Israel. 124.0 (40-130 cm/s) MV A Velocity 95.0 (40-130 cm/s) E/A Ratio 1.30 MV Decel. Time 131 (160-240 ms) MV Mean Gr. 2.60 (<2mmHg) Pulmonary Valve WA End VMAX 195.0 cm/s Tricuspid Valve TR P. Velocity 270.00 cm/s RAP Estimate 10.00 mmHg RVSP 39.10 mmHg Left Ventricle The left ventricle is normal size. The left ventricular systolic function is low normal. There is increased LV wall thickness. There is normal LV segmental wall motion. Grade 2 diastolic dysfunction is present. LVEF is 50%. Right Ventricle Right ventricle is mildly dilated. The right ventricular systolic function is normal. Atria Left atrium is moderately dilated. Right atrium is moderately dilated. There is no Doppler evidence of interatrial shunt. Aortic Valve The aortic valve is moderately thickened. Moderate aortic stenosis. KANE by continuity equation is 1.0 cm???. Mean AV gradient 35 mmHg. Max AV gradient 55 mmHg. Peak velocity 3.7 m/s. SVi=50 ml/m2. DI=0.30. Moderate aortic regurgitation. Mitral Valve The mitral valve leaflets are mildly thickened. No evidence of mitral valve stenosis. Moderate mitral regurgitation. Tricuspid Valve The tricuspid valve leaflets are thin and pliable. Moderate tricuspid regurgitation. RVSP is 30-35 mmHg. Pulmonic Valve The pulmonary valve is normal in structure. Mild pulmonic regurgitation. Great Vessels The aortic root is normal in size. The ascending aorta is borderline dilated, measuring 3.7 cm in diameter. IVC is normal in size and collapses >50% with inspiration. Pericardium Small sized, circumferential pericardial effusion is present. The largest pocket is noted posteriorly and measuring 0.5 cm in diastole. No echo indications of tamponade. Other Information Study Quality: Fair Conclusion Low normal LV systolic function (LVEF 50%). Grade 2 diastolic dysfunction. Mild RV dilation with normal RV function. Biatrial dilation. Moderate (KANE by continuity equation is 1.0 cm???. Mean AV gradient 35 mmHg. Max AV gradient 55 mmHg. Peak velocity 3.7 m/s. SVi=50 ml/m2. DI=0.30). Moderate MR, moderate TR, moderate AI. Mild PI. RVSP 30-35 mmHg. Small sized, circumferential pericardial effusion is present. The largest pocket is noted posteriorly and measuring 0.5 cm in diastole. No echo indications of tamponade. In the setting of moderate , but approaching severe class, serial TTE evaluation is suggested. Clinical correlation is required. Also, serial limited TTE evaluations for pericardial effusion is suggested to evaluate for progression vs. resolution Electronically signed by : Trixie Haji MD 06/21/2024 10:33:39
== END 2024-06-15 23:59 | disposition home or self-care (01) ==
LOC: RT 13:00
PROVIDERS: PCP Family Medicine; Visit Provider Physician Assistant
DX: I34.0 Nonrheumatic mitral (valve) insufficiency (principal); I36.1 Nonrheumatic tricuspid (valve) insufficiency; R06.09 Other forms of dyspnea; R94.39 Abnormal result of other cardiovascular function study
CPT/HCPCS: 93306

== ENCOUNTER 2024-07-26 08:40 | Outpatient (CLI) | payer MEDICARE, SELFPAY ==
--- NOTE | 2024-07-26 08:44 | CA_ITS ---
APPROVED REPORT EXAM: Limited 2D Echocardiogram Mixer Lever Operator: Colleen Headley, RCS, RVS Ht: 5 ft 0 in Wt: 196lbs BSA: 1.85 BP: 127/70 mmHg Indications: Persistent pericardial effusion 2D Dimensions IVSd 0.90 cm F: 0.6-1.0 LVEF (Visual) 55.00 % PWd 1.20 cm F: 0.6 - 1.0 LA Volume 77.30 mL LVDd 5.10 cm LA Volume Index 41.78 mL/m2 (M/F) 16-34 LVDs 3.20 cm F: 2.2 - 3.5 M-Mode Dimensions LA Diam 4.00 cm (1.9-4.0) EPSs 0.68 cm Other Information Study Quality: Fair Conclusion This is a limited TTE to evaluate for pericardial effusion. Limited windows were obtained. There is a small sized, posterior pericardial effusion present. The largest pocket measures approximately 0.5 cm in diastole. No echo indications of tamponade. No evidence of chamber collapse. No echo indications of tamponade. When compared to prior study from 05/2024, the size and location of the pericardial effusion is unchanged. Electronically signed by : Trixie Haji MD 07/27/2024 01:22:25
== END 2024-07-26 23:59 | disposition home or self-care (01) ==
LOC: RT 08:41
PROVIDERS: PCP Family Medicine; Visit Provider Physician Assistant
DX: I31.39 Other pericardial effusion (noninflammatory) (principal)
CPT/HCPCS: 93308

== ENCOUNTER 2025-04-29 23:40 | Emergency (ER) | payer MEDICARE, SELFPAY ==
--- OUTSIDE RECORDS SUMMARY | 2025-04-02 12:30 | XMS_ITS | Encounter Summary ---
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 Role Phone Pcp, No Primary Care Provider Unavailabl e Reason for Referral * Consultation (Routine) - Closed Specialty Diagnoses / Procedures Referred By Kirstin weller Referred To Contact Cardiothoracic Surgery Diagnoses Nonrheumatic aortic valve stenosis Beckie Marshall PA [address] [place] [address] Phone: tel: fax: [facility] [address], [address] [place] [address] Phone: tel: fax: Referral ID Status Reason Start Date Expiration Date V isits Requested Visits Authorized [id number] Closed Specialty Services Required 04/02/2025 10/02/2026 1 1 * Imaging (Routine) - Closed Specialty Diagnoses / Procedures Referred By Kirstin weller Referred To Contact Radiology Diagnoses Nonrheumatic aortic valve stenosis Procedures CT Angio Chest Beckie Marshall PA [address] [place] [address] Phone: tel: fax: Referral ID Status Reason Start Date Expiration Date Visits Re quested Visits Authorized [id number] Closed 04/02/2025 10/02/2026 1 1 * Imaging (Routine) - Closed Specialty Diagnoses / Procedures Referred By Kirstin weller Referred To Contact Radiology Diagnoses Nonrheumatic aortic valve stenosis Procedures CT Angio Abdomen Pelvis Beckie Marshall PA [address] [place] [address] Phone: tel: fax: Referral ID Status Reason Start Date Expiration Date Visits Re quested Visits Authorized [id number] Closed 04/02/2025 10/02/2026 1 1 Reason for Visit * Reason Comments Consult * Consultation (Routine) - Closed Specialty Diagnoses / Procedures Referred By Kirstin weller Referred To Contact Cardiology Diagnoses Aortic valve stenosis, etiology of cardiac valve disease unspecified Luciano Soto MD [address] [facility] [address] [place] [address] Phone: tel: fax: Herminio Kendrick MD [address] [place] [address] Phone: tel: fax: Referral ID Status Reason Start Date Expiration Date V isits Requested Visits Authorized [id number] Closed Specialty Services Required 02/23/2025 08/25/2026 1 1 Encounter Details Date Type Department Care Team (Late st Contact Info) Description 04/02/2025 12:30 PM EDT Office Visit [facility] [place] [address] [facility] [place] [address] Herminio Kendrick MD [address] [place] [address] Nonrheumatic aortic valve stenosis (Primary Dx) Social History Tobacco Use Types Packs/Day Years Used Date Smoking Tobacco: Never Assessed PHQ-2 Answer Date Recorded Patient Health Questionnaire-2 Score 0 04/02/2025 Comments Unknown Sex and Gender Information Value Date Recorded Sex Assigned at Not on file Legal Sex Female 8:50 PM EDT Gender Identity Not on file Sexual Orientation Not on file documented as of this encounter Last Filed Vital Signs Vital Sign Reading Time Taken Comments Blood Pressure 127/75 04/02/2025 12:38 PM EDT Pulse 57 04/02/2025 12:38 PM EDT Temperature - - Respiratory Rate - - Oxygen Saturation 97% 04/02/2025 12:38 PM EDT Inhaled Oxygen Concentration - - Weight 84.2 kg (185 lb 10 oz) 04/02/2025 12:38 P M EDT Height 157.5 cm (5' 2 ) 04/02/2025 12:38 PM EDT Body Mass Index 33.95 04/02/2025 12:38 PM EDT documented in this encounter Functional Status * Over the past 2 weeks, how often have you been bothered by any of the following problems? Question Answer Date of Assessment Author Little interest or pleasure in doing things Not at all 04/02/2025 12:26 PM EDT Carlene Hunter Feeling down, depressed, or hopeless Not at all 04/02/2025 12:26 PM EDT Carlene Hunter Patient Health Questionnaire -2 Score 0 04/02/2025 12:26 PM EDT Carlene Hunter * Question Answer Date of Assessment Author Trouble falling or staying asleep, or sleeping too much Not at all 04/02/2025 12:26 PM EDT Lisy Hunter Feeling tired or having everardo le energy Not at all 04/02/2025 12:26 PM EDT Carlene Hunter Poor appetite or overeating Not at all 04/02/2025 12 :26 PM EDT Lisy Hunter Feeling bad about yourself - or that you are a failure or have let yourself or your family down Not at all 04/02/2025 12:26 PM EDT Lisy James Trouble concentrating on thi ngs, such as reading the newspaper or watching television Not at all 04/02/2025 12:26 PM EDT Carlene Hunter Moving or speaking so slowly that other people could have noticed? Or the opposite - being so fidgety or restless that you have been moving around a lot more than usual. Not at all 04/02/2025 12:26 PM EDT Carlene Hunter * If you checked off any problems on this questionnaire so far, Question Answer Date of Assessment Author How difficult have these problems made it for you to do your work, take care of things at home, or get along with other people? Not difficult at all 04/02/2025 12:26 PM EDT Armani Hunter documented as of this encounter Miscellaneous Notes * Progress Notes - Herminio Kendrick MD - 04/02/2025 12:30 PM EDT TAVR Eval (Abualayem) Problem List: 1) TTE 5-2-25 EF 60-65% Moderate-severe Peak 52/mean 38 KANE 0.98 DI 0.31 2) CAD PCI 10 years ago 3) Hypertension 4) Dyslipidemia Patient comes in today for TAVR eval. She complains of no energy . She has dizziness and has to sit down with room worker like changing the bed and sweeping. She is not happy with her quality of life. Her family corroborates her decline in functional status. Review of symptoms Constitutional: Negative for decreased appetite and weight gain. Cardiovascular: Negative for chest pain, leg swelling, near-syncope, orthopnea, palpitations, paroxysmal nocturnal dyspnea and syncope. Respiratory: Negative for cough, shortness of breath and sleep disturbances due to breathing. Gastrointestinal: Negative for bloating. 14 Point ROS reviewed and is otherwise negative except as per HPI. Other Past Medical History Past Medical History[1] Other Surgical History Surgical History[2] Family History family history includes Diabetes type II in her father and mother; Heart disease in her father and mother. Social History has no history on file for tobacco use, alcohol use, and drug use. Medications Current Medications[3] Physical Exam Constitutional: Appearance: Normal appearance. Cardiovascular: Rate and Rhythm: Normal rate and regular rhythm. Heart sounds: Normal heart sounds. Pulmonary: Effort: Pulmonary effort is normal. Breath sounds: Normal breath sounds. Abdominal: General: Abdomen is flat. Palpations: Abdomen is soft. Skin: General: Skin is warm and dry. Neurological: General: No focal deficit present. Mental Status: She is alert and oriented to person, place, and time. Psychiatric: Mood and Affect: Mood normal. Behavior: Behavior normal. Visit Vitals BP 127/75 Pulse 57 Ht 1.575 m (5' 2 ) Wt 84.2 kg (185 lb 10 oz) SpO2 97% BMI 33.95 kg/m?? Labs No results found for: HGB , HCT , PLT , CHOL , TRIG , HDL , LDLDIRECT , LDLCALC , ALT , AST , NA , K , CREATININE , BUN , CO2 , TSH , INR , GLU , HGBA1C Assessment and Plan Problem List[4] 89F with moderate-severe presenting with decreased energy, exercise intolerance, and shortness of air. TTE shows borderline severe . Given the patient's convincing symptoms, I think she should have further work-up. CT surgery consultation CT to look at anatomical considerations for TAVR as well as aortic valve calcium score Will discuss at valve conference afterwards A total time of 40 minutes was spent by MD addressing the current illness, reviewing records (priorimaging, lab work, etc), and formulating a plan. The patient is agreeable to the plan and all pertinent questions were answered. Herminio Kendrick MD [1] No past medical history on file. [2] No past surgical history on file. [3] Current Outpatient Medications Medication Sig Dispense Refill apixaban (Eliquis) 2.5 MG tablet Take 1 tablet by mouth 2 times a day. bisoprolol (Zebeta) 5 MG tablet Take 1 tablet by mouth daily. levothyroxine (Synthroid, Levoxyl) 88 MCG tablet Take 1 tablet by mouth daily before breakfast. losartan-hydroCHLOROthiazide (Hyzaar) 50-12.5 MG tablet Take 1 tablet by mouth daily. meclizine (Antivert) 25 MG tablet Take 1 tablet by mouth 2 times a day. omeprazole (PriLOSEC) [address] capsule Take 1 capsule by mouth. Do not crush or chew. pioglitazone (Actos) 15 MG tablet Take 1 tablet by mouth daily. rosuvastatin (Crestor) 20 MG tablet Take 1 tablet by mouth nightly. spironolactone (Aldactone) 50 MG tablet Take 1 tablet by mouth daily. traMADol (Ultram) 50 MG tablet Take 1 tablet by mouth every 6 hours as needed for severe pain. No current facility-administered medications for this visit. [4] Patient Active Problem List Diagnosis Aortic stenosis Essential hypertension Dyslipidemia CAD (coronary artery disease) Fatigue Leg edema Bilateral carotid artery disease (CMS/HCC) documented in this encounter Plan of Treatment Upcoming Encounters Date Type Department Care Team (Late st Contact Info) Description 06/27/2025 9:00 AM EDT Appointment Medical Office Building Cardiac Diagnostic Testing Medical Office Building Echo Lab [address], [address] [place] [address] 06/27/2025 10:30 AM EDT Office Visit [facility] [place] [address], [address] [place] [phone] Beckie Marshall PA [address] [place] [address] 05/01/2026 1:30 PM EDT Appointment Medical Office Building Cardiac Diagnostic Testing Medical Office Building Echo Lab [address], [address] [place] [phone] 05/01/2026 3:00 PM EDT Office Visit [facility] [place] [place] [address], [address] [place] [address] Beckie Marshall PA [address] [place] [address] Scheduled Referrals Name Type Priority Associated Diagnoses Order Schedule Ambulatory referral to Cardiac Surgery Outpatient Referral Routine Nonrheumatic aortic valve stenosis 1 Occurrences starting 04/02/2025 until 10/04/2026 documented as of this encounter Results * CT Angio Chest (04/11/2025 9:00 AM EDT) Anatomical Region Laterality Modality Chest Computed Tomogra phy Impressions 04/11/2025 6:33 PM EDT TAVR measurements as detailed above. Medium volume coronary artery calcifications, most severe in the LAD; consider additional evaluation. Bilateral internal and external carotid arteries are located at the midline posterior to the hypopharynx in the superiormost visualized neck. Dilated mid ascending thoracic aorta, 40 mm in caliber. Dilated main pulmonary artery, 37 mm in caliber, which may represent pulmonary hypertension. 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 Diffusely hypodense liver suggestive of hepatic steatosis. CRITICAL RESULT: No. COMMUNICATION: Per this written report. By electronically signing this report, I, the attending physician, attest that I have personally reviewed the images/data for the above examination(s) and agree with the final edited report. Drafted by Cristhian Chin DO on 04/11/2025 11:50 AM Final report signed by Bisi Turcios MD on 04/11/2025 6:33 PM Narrative 04/11/2025 6:33 PM EDT CLINICAL INDICATION: Aortic stenosis; Preoperative planning for potential transcatheter aortic valve replacement (TAVR) procedure. COMPARISON: None. TECHNIQUE: ECG synchronized CT of the aortic root, followed immediately by CT angiography of the thorax, abdominal and pelvic aorta, extending from the root of the neck to the inferior margins of the lesser trochanters of the femurs, was performed. Axial images were reconstructed from the source data at 0.5 mm slice thickness with a 0.25 mm reconstruction interval. Multiplanar, curved planar, and 3D images were rendered using advanced processing software and reviewed to further define anatomy and possible pathology. A total of 125 mL of Omnipaque 350 intravenous contrast media was utilized in these examinations. TOTAL DLP (Dose-Length Product): 2104.82 mGy.cm (accession [id number]), 2104.82 mGy.cm (accession [id number]). Please note: The reported value represents the total of one or more individual components during the CT acquisition on this date and at this time, and as such, the same value may appear in more than one CT report depending on the interpreting/reporting physicians. FINDINGS: Quantification of Aortic Valve Calcium Score: 1395 Volume: 1123 Aortic Root Measurements 3-Cusp view: IRAQI 34 degrees; CAU 1 degrees Annulus area: 3.26 cm Annulus maximum diameter: 21.8 mm Annulus minimum diameter: 18.9 mm Annulus area based average diameter: 20.4 mm Annulus perimeter: 64.9 mm Sinus: L 27 mm, R 28 mm, N 29 mm Sinotubular junction: 29 mm Mid ascending aorta: 40 mm Annulus to sinotubular junction distance: 20 mm Left coronary height: 11 mm Right coronary height: 11 mm Medium volume multivessel coronary artery atherosclerotic calcifications, most severe in the LAD. Dilated main pulmonary artery measuring up to 37 mm (series 6 image 77). Thoracic aorta is normal in course. Mid ascending thoracic aorta is dilated, 40 mm. Left-sided four-vessel arch, with common ostium of the innominate and left common carotid arteries and with left vertebral artery originating from the arch just proximal to the left subclavian artery ostium. Small calcified plaque and minimal to mild narrowing of the carotid arteries at the bifurcation. The carotids are very tortuous in course with bilateral internal and external carotid arteries located at the midline ( kissing carotids ) posterior to the hypopharynx in the superiormost image (series 11, image 1). Small calcified plaque and minimal narrowing at the bilateral subclavian artery ostia. Abdominal aorta is normal in course. Infrarenal abdominal aorta demonstrates a mildly dilated segment approximately 30 mm in length, measuring 21 mm in maximum diameter. Medium volume atherosclerotic calcifications of the infrarenal aorta. Celiac artery: Mild Stenosis at the ostium. Distal trunk is dilated, 11 mm in caliber. Normal celiac trunk branching pattern. SMA: Patent. Renal arteries: Duplicated right renal arteries. Solitary left renal artery. Patent. ALANA: Patent. Right Iliofemoral Arteries: Common iliac artery: Minimum luminal diameter: 8 mm Calcification: Moderate Tortuosity: None External iliac artery: Minimum luminal diameter: 5 mm Calcification: None Tortuosity: Moderate Common femoral artery: Minimum luminal diameter: 6 mm Calcification: None Left Iliofemoral Arteries: Common iliac artery: Minimum luminal diameter: 9 mm Calcification: Moderate Tortuosity: Mild External iliac artery: Minimum luminal diameter: 6 mm Calcification: None Tortuosity: Severe Common femoral artery: Minimum luminal diameter: 7 mm Calcification: None Ancillary Findings: Chest: Enlarged heart; most conspicuously, the atria are enlarged. Small volume mitral annulus calcifications. Some calcifications within the papillary muscles the left ventricle also. Focal fat in the mid septal wall of the left ventricle (series 2, image 29). Trace pericardial effusion. No mediastinal, hilar or axillary adenopathy. No consolidation. No suspicious pulmonary nodule. No pneumothorax. No pleural effusion. Small hiatal hernia. Abdomen and Pelvis: Homogenous enhancement of the liver without suspicious focal lesion. Diffusely hypodense liver suggestive of hepatic steatosis. Prior cholecystectomy. No significant intrahepatic or extra hepatic biliary ductal dilation. Normal adrenal glands. Subcentimeter hypodensities within the spleen which are too small to characterize on this study but favored to represent cysts. Moderate pancreatic atrophy. No pancreatic ductal dilation or suspicious pancreatic lesion. Symmetric nephrogram bilaterally. Multiple subcentimeter hypodense right-sided renal lesions that are too small to be characterized on this study but statistically likely to represent cysts. 25 mm simple renal cyst involving the superior pole the left kidney. No hydronephrosis. Normal caliber large and small bowel. No lymphadenopathy within the abdomen/pelvis. No suspicious pelvic mass. Musculoskeletal and body wall: No acute fracture. No suspicious lytic or sclerotic osseous lesion. Left lateral listhesis of L3 on L4. Grade 2 anterolisthesis of L5 on S1 with bilateral pars defects at L5. Multilevel degenerative change also minimal in the lower lumbar spine. Procedure Note Bisi Turcios MD - 04/11/2025 CLINICAL INDICATION: Aortic stenosis; Preoperative planning for potential transcatheter aorticvalve replacement (TAVR) procedure. COMPARISON: None. TECHNIQUE: ECG synchronized CT of the aortic root, followed immediately by CTangiography of the thorax, abdominal and pelvic aorta, extending from theroot of the neck to the inferior margins of the lesser trochanters of thefemurs, was performed. Axial images were reconstructed from the sourcedata at 0.5 mm slice thickness with a 0.25 mm reconstruction interval.Multiplanar, curved planar, and 3D images were rendered using advancedprocessing software and reviewed to further define anatomy and possiblepathology. A total of 125 mL of Omnipaque 350 intravenous contrast mediawas utilized in these examinations. TOTAL DLP (Dose-Length Product): 2104.82 mGy.cm (accession [id number]),2104.82 mGy.cm (accession [id number]). Please note: The reported valuerepresents the total of one or more individual components during the CTacquisition on this date and at this time, and as such, the same value mayappear in more than one CT report depending on the interpreting/reportingphysicians. FINDINGS: Quantification of Aortic Valve Calcium Score: 1395 Volume: 1123 Aortic Root Measurements 3-Cusp view:IRAQI 34 degrees; CAU 1 degrees Annulus area: 3.26 cm Annulus maximum diameter: 21.8 mm Annulus minimum diameter: 18.9 mm Annulus area based average diameter: 20.4 mm Annulus perimeter: 64.9 mm Sinus: L 27 mm, R 28 mm, N 29 mm Sinotubular junction: 29 mm Mid ascending aorta: 40 mm Annulus to sinotubular junction distance: 20 mm Left coronary height: 11 mm Right coronary height: 11 mm Medium volume multivessel coronary artery atherosclerotic calcifications,most severe in the LAD. Dilated main pulmonary artery measuring up to 37 mm (series 6 image 77). Thoracic aorta is normal in course. Mid ascending thoracic aorta isdilated, 40 mm. Left-sided four-vessel arch, with common ostium of theinnominate and left common carotid arteries and with left vertebral arteryoriginating from the arch just proximal to the left subclavian arteryostium. Small calcified plaque and minimal to mild narrowing of thecarotid arteries at the bifurcation. The carotids are very tortuous incourse with bilateral internal and external carotid arteries located atthe midline ( kissing carotids ) posterior to the hypopharynx in thesuperiormost image (series 11, image 1). Small calcified plaque andminimal narrowing at the bilateral subclavian artery ostia. Abdominal aorta is normal in course. Infrarenal abdominal aortademonstrates a mildly dilated segment approximately 30 mm in length,measuring 21 mm in maximum diameter. Medium volume atheroscleroticcalcifications of the infrarenal aorta. Celiac artery: Mild Stenosis at the ostium. Distal trunk is dilated, 11 mmin caliber. Normal celiac trunk branching pattern. SMA: Patent. Renal arteries: Duplicated right renal arteries. Solitary left renalartery. Patent. ALANA: Patent. Right Iliofemoral Arteries: Common iliac artery: Minimum luminal diameter: 8 mm Calcification: Moderate Tortuosity: None External iliac artery: Minimum luminal diameter: 5 mm Calcification: None Tortuosity: Moderate Common femoral artery: Minimum luminal diameter: 6 mm Calcification: None Left Iliofemoral Arteries: Common iliac artery: Minimum luminal diameter: 9 mm Calcification: Moderate Tortuosity: Mild External iliac artery: Minimum luminal diameter: 6 mm Calcification: None Tortuosity: Severe Common femoral artery: Minimum luminal diameter: 7 mm Calcification: None Ancillary Findings: Chest: Enlarged heart; most conspicuously, the atria are enlarged. Smallvolume mitral annulus calcifications. Some calcifications within thepapillary muscles the left ventricle also. Focal fat in the mid septalwall of the left ventricle (series 2, image 29). Trace pericardialeffusion. No mediastinal, hilar or axillary adenopathy. No consolidation.No suspicious pulmonary nodule. No pneumothorax. No pleural effusion.Small hiatal hernia. Abdomen and Pelvis: Homogenous enhancement of the liver without suspiciousfocal lesion. Diffusely hypodense liver suggestive of hepatic steatosis.Prior cholecystectomy. No significant intrahepatic or extra hepaticbiliary ductal dilation. Normal adrenal glands. Subcentimeterhypodensities within the spleen which are too small to characterize onthis study but favored to represent cysts. Moderate pancreatic atrophy. Nopancreatic ductal dilation or suspicious pancreatic lesion. Symmetricnephrogram bilaterally. Multiple subcentimeter hypodense right-sided renallesions that are too small to be characterized on this study butstatistically likely to represent cysts. 25 mm simple renal cyst involvingthe superior pole the left kidney. No hydronephrosis. Normal caliber largeand small bowel. No lymphadenopathy within the abdomen/pelvis. Nosuspicious pelvic mass. Musculoskeletal and body wall: No acute fracture. No suspicious lytic orsclerotic osseous lesion. Left lateral listhesis of L3 on L4. Grade 2anterolisthesis of L5 on S1 with bilateral pars defects at L5. Multileveldegenerative change also minimal in the lower lumbar spine. IMPRESSION: TAVR measurements as detailed above. Medium volume coronary artery calcifications, most severe in the LAD;consider additional evaluation. Bilateral internal and external carotid arteries are located at themidline posterior to the hypopharynx in the superiormost visualizedneck. Dilated mid ascending thoracic aorta, 40 mm in caliber. Dilated main pulmonary artery, 37 mm in caliber, which may representpulmonary hypertension. 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 Diffusely hypodense liver suggestive of hepatic steatosis. CRITICAL RESULT: No. COMMUNICATION: Per this written report. By electronically signing this report, I, the attending physician, attestthat I have personally reviewed the images/data for the aboveexamination(s) and agree with the final edited report. Drafted by Cristhian Chin DO on 04/11/2025 11:50 AM Final report signed by Bisi Turcios MD on 04/11/2025 6:33 PM us Beckie ADKINS IMG CT PROCEDURES Final Result * CT Angio Abdomen Pelvis (04/11/2025 9:00 AM EDT) Anatomical Region Laterality Modality Abdomen, Pelvis Computed Tomogra phy Impressions 04/11/2025 6:33 PM EDT TAVR measurements as detailed above. Medium volume coronary artery calcifications, most severe in the LAD; consider additional evaluation. Bilateral internal and external carotid arteries are located at the midline posterior to the hypopharynx in the superiormost visualized neck. Dilated mid ascending thoracic aorta, 40 mm in caliber. Dilated main pulmonary artery, 37 mm in caliber, which may represent pulmonary hypertension. 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 Diffusely hypodense liver suggestive of hepatic steatosis. CRITICAL RESULT: No. COMMUNICATION: Per this written report. By electronically signing this report, I, the attending physician, attest that I have personally reviewed the images/data for the above examination(s) and agree with the final edited report. Drafted by Cristhian Chin DO on 04/11/2025 11:50 AM Final report signed by Bisi Turcios MD on 04/11/2025 6:33 PM Narrative 04/11/2025 6:33 PM EDT CLINICAL INDICATION: Aortic stenosis; Preoperative planning for potential transcatheter aortic valve replacement (TAVR) procedure. COMPARISON: None. TECHNIQUE: ECG synchronized CT of the aortic root, followed immediately by CT angiography of the thorax, abdominal and pelvic aorta, extending from the root of the neck to the inferior margins of the lesser trochanters of the femurs, was performed. Axial images were reconstructed from the source data at 0.5 mm slice thickness with a 0.25 mm reconstruction interval. Multiplanar, curved planar, and 3D images were rendered using advanced processing software and reviewed to further define anatomy and possible pathology. A total of 125 mL of Omnipaque 350 intravenous contrast media was utilized in these examinations. TOTAL DLP (Dose-Length Product): 2104.82 mGy.cm (accession [id number]), 2104.82 mGy.cm (accession [id number]). Please note: The reported value represents the total of one or more individual components during the CT acquisition on this date and at this time, and as such, the same value may appear in more than one CT report depending on the interpreting/reporting physicians. FINDINGS: Quantification of Aortic Valve Calcium Score: 1395 Volume: 1123 Aortic Root Measurements 3-Cusp view: IRAQI 34 degrees; CAU 1 degrees Annulus area: 3.26 cm Annulus maximum diameter: 21.8 mm Annulus minimum diameter: 18.9 mm Annulus area based average diameter: 20.4 mm Annulus perimeter: 64.9 mm Sinus: L 27 mm, R 28 mm, N 29 mm Sinotubular junction: 29 mm Mid ascending aorta: 40 mm Annulus to sinotubular junction distance: 20 mm Left coronary height: 11 mm Right coronary height: 11 mm Medium volume multivessel coronary artery atherosclerotic calcifications, most severe in the LAD. Dilated main pulmonary artery measuring up to 37 mm (series 6 image 77). Thoracic aorta is normal in course. Mid ascending thoracic aorta is dilated, 40 mm. Left-sided four-vessel arch, with common ostium of the innominate and left common carotid arteries and with left vertebral artery originating from the arch just proximal to the left subclavian artery ostium. Small calcified plaque and minimal to mild narrowing of the carotid arteries at the bifurcation. The carotids are very tortuous in course with bilateral internal and external carotid arteries located at the midline ( kissing carotids ) posterior to the hypopharynx in the superiormost image (series 11, image 1). Small calcified plaque and minimal narrowing at the bilateral subclavian artery ostia. Abdominal aorta is normal in course. Infrarenal abdominal aorta demonstrates a mildly dilated segment approximately 30 mm in length, measuring 21 mm in maximum diameter. Medium volume atherosclerotic calcifications of the infrarenal aorta. Celiac artery: Mild Stenosis at the ostium. Distal trunk is dilated, 11 mm in caliber. Normal celiac trunk branching pattern. SMA: Patent. Renal arteries: Duplicated right renal arteries. Solitary left renal artery. Patent. ALANA: Patent. Right Iliofemoral Arteries: Common iliac artery: Minimum luminal diameter: 8 mm Calcification: Moderate Tortuosity: None External iliac artery: Minimum luminal diameter: 5 mm Calcification: None Tortuosity: Moderate Common femoral artery: Minimum luminal diameter: 6 mm Calcification: None Left Iliofemoral Arteries: Common iliac artery: Minimum luminal diameter: 9 mm Calcification: Moderate Tortuosity: Mild External iliac artery: Minimum luminal diameter: 6 mm Calcification: None Tortuosity: Severe Common femoral artery: Minimum luminal diameter: 7 mm Calcification: None Ancillary Findings: Chest: Enlarged heart; most conspicuously, the atria are enlarged. Small volume mitral annulus calcifications. Some calcifications within the papillary muscles the left ventricle also. Focal fat in the mid septal wall of the left ventricle (series 2, image 29). Trace pericardial effusion. No mediastinal, hilar or axillary adenopathy. No consolidation. No suspicious pulmonary nodule. No pneumothorax. No pleural effusion. Small hiatal hernia. Abdomen and Pelvis: Homogenous enhancement of the liver without suspicious focal lesion. Diffusely hypodense liver suggestive of hepatic steatosis. Prior cholecystectomy. No significant intrahepatic or extra hepatic biliary ductal dilation. Normal adrenal glands. Subcentimeter hypodensities within the spleen which are too small to characterize on this study but favored to represent cysts. Moderate pancreatic atrophy. No pancreatic ductal dilation or suspicious pancreatic lesion. Symmetric nephrogram bilaterally. Multiple subcentimeter hypodense right-sided renal lesions that are too small to be characterized on this study but statistically likely to represent cysts. 25 mm simple renal cyst involving the superior pole the left kidney. No hydronephrosis. Normal caliber large and small bowel. No lymphadenopathy within the abdomen/pelvis. No suspicious pelvic mass. Musculoskeletal and body wall: No acute fracture. No suspicious lytic or sclerotic osseous lesion. Left lateral listhesis of L3 on L4. Grade 2 anterolisthesis of L5 on S1 with bilateral pars defects at L5. Multilevel degenerative change also minimal in the lower lumbar spine. Procedure Note Bisi Turcios MD - 04/11/2025 CLINICAL INDICATION: Aortic stenosis; Preoperative planning for potential transcatheter aorticvalve replacement (TAVR) procedure. COMPARISON: None. TECHNIQUE: ECG synchronized CT of the aortic root, followed immediately by CTangiography of the thorax, abdominal and pelvic aorta, extending from theroot of the neck to the inferior margins of the lesser trochanters of thefemurs, was performed. Axial images were reconstructed from the sourcedata at 0.5 mm slice thickness with a 0.25 mm reconstruction interval.Multiplanar, curved planar, and 3D images were rendered using advancedprocessing software and reviewed to further define anatomy and possiblepathology. A total of 125 mL of Omnipaque 350 intravenous contrast mediawas utilized in these examinations. TOTAL DLP (Dose-Length Product): 2104.82 mGy.cm (accession [id number]),2104.82 mGy.cm (accession [id number]). Please note: The reported valuerepresents the total of one or more individual components during the CTacquisition on this date and at this time, and as such, the same value mayappear in more than one CT report depending on the interpreting/reportingphysicians. FINDINGS: Quantification of Aortic Valve Calcium Score: 1395 Volume: 1123 Aortic Root Measurements 3-Cusp view:IRAQI 34 degrees; CAU 1 degrees Annulus area: 3.26 cm Annulus maximum diameter: 21.8 mm Annulus minimum diameter: 18.9 mm Annulus area based average diameter: 20.4 mm Annulus perimeter: 64.9 mm Sinus: L 27 mm, R 28 mm, N 29 mm Sinotubular junction: 29 mm Mid ascending aorta: 40 mm Annulus to sinotubular junction distance: 20 mm Left coronary height: 11 mm Right coronary height: 11 mm Medium volume multivessel coronary artery atherosclerotic calcifications,most severe in the LAD. Dilated main pulmonary artery measuring up to 37 mm (series 6 image 77). Thoracic aorta is normal in course. Mid ascending thoracic aorta isdilated, 40 mm. Left-sided four-vessel arch, with common ostium of theinnominate and left common carotid arteries and with left vertebral arteryoriginating from the arch just proximal to the left subclavian arteryostium. Small calcified plaque and minimal to mild narrowing of thecarotid arteries at the bifurcation. The carotids are very tortuous incourse with bilateral internal and external carotid arteries located atthe midline ( kissing carotids ) posterior to the hypopharynx in thesuperiormost image (series 11, image 1). Small calcified plaque andminimal narrowing at the bilateral subclavian artery ostia. Abdominal aorta is normal in course. Infrarenal abdominal aortademonstrates a mildly dilated segment approximately 30 mm in length,measuring 21 mm in maximum diameter. Medium volume atheroscleroticcalcifications of the infrarenal aorta. Celiac artery: Mild Stenosis at the ostium. Distal trunk is dilated, 11 mmin caliber. Normal celiac trunk branching pattern. SMA: Patent. Renal arteries: Duplicated right renal arteries. Solitary left renalartery. Patent. ALANA: Patent. Right Iliofemoral Arteries: Common iliac artery: Minimum luminal diameter: 8 mm Calcification: Moderate Tortuosity: None External iliac artery: Minimum luminal diameter: 5 mm Calcification: None Tortuosity: Moderate Common femoral artery: Minimum luminal diameter: 6 mm Calcification: None Left Iliofemoral Arteries: Common iliac artery: Minimum luminal diameter: 9 mm Calcification: Moderate Tortuosity: Mild External iliac artery: Minimum luminal diameter: 6 mm Calcification: None Tortuosity: Severe Common femoral artery: Minimum luminal diameter: 7 mm Calcification: None Ancillary Findings: Chest: Enlarged heart; most conspicuously, the atria are enlarged. Smallvolume mitral annulus calcifications. Some calcifications within thepapillary muscles the left ventricle also. Focal fat in the mid septalwall of the left ventricle (series 2, image 29). Trace pericardialeffusion. No mediastinal, hilar or axillary adenopathy. No consolidation.No suspicious pulmonary nodule. No pneumothorax. No pleural effusion.Small hiatal hernia. Abdomen and Pelvis: Homogenous enhancement of the liver without suspiciousfocal lesion. Diffusely hypodense liver suggestive of hepatic steatosis.Prior cholecystectomy. No significant intrahepatic or extra hepaticbiliary ductal dilation. Normal adrenal glands. Subcentimeterhypodensities within the spleen which are too small to characterize onthis study but favored to represent cysts. Moderate pancreatic atrophy. Nopancreatic ductal dilation or suspicious pancreatic lesion. Symmetricnephrogram bilaterally. Multiple subcentimeter hypodense right-sided renallesions that are too small to be characterized on this study butstatistically likely to represent cysts. 25 mm simple renal cyst involvingthe superior pole the left kidney. No hydronephrosis. Normal caliber largeand small bowel. No lymphadenopathy within the abdomen/pelvis. Nosuspicious pelvic mass. Musculoskeletal and body wall: No acute fracture. No suspicious lytic orsclerotic osseous lesion. Left lateral listhesis of L3 on L4. Grade 2anterolisthesis of L5 on S1 with bilateral pars defects at L5. Multileveldegenerative change also minimal in the lower lumbar spine. IMPRESSION: TAVR measurements as detailed above. Medium volume coronary artery calcifications, most severe in the LAD;consider additional evaluation. Bilateral internal and external carotid arteries are located at themidline posterior to the hypopharynx in the superiormost visualizedneck. Dilated mid ascending thoracic aorta, 40 mm in caliber. Dilated main pulmonary artery, 37 mm in caliber, which may representpulmonary hypertension. 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 Diffusely hypodense liver suggestive of hepatic steatosis. CRITICAL RESULT: No. COMMUNICATION: Per this written report. By electronically signing this report, I, the attending physician, javad I have personally reviewed the images/data for the aboveexamination(s) and agree with the final edited report. 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
--- OUTSIDE RECORDS SUMMARY | 2025-04-11 08:16 | XMS_ITS | Encounter Summary ---
Author Organization [facility] Address [address] [id number] Care Team Providers Care [employer] Maintainer Name Role Phone Jim Lopez MD Primary Care Provider [phone] Reason for Referral * Imaging (Routine) - Closed Specialty Diagnoses / Procedures Referred By Contac t Referred To Contact Radiology Diagnoses Nonrheumatic aortic valve stenosis Procedures CT Angio Chest Beckie Marshall PA [address] [place] [address] Phone: tel: fax: Referral ID Status Reason Start Date Expiration Date Visits Re quested Visits Authorized [id number] Closed 04/02/2025 10/02/2026 1 1 * Imaging (Routine) - Closed Specialty Diagnoses / Procedures Referred By Contac t Referred To Contact Radiology Diagnoses Nonrheumatic aortic valve stenosis Procedures CT Angio Abdomen Pelvis Beckie Marshall PA [address] [place] [address] Phone: tel: fax: Referral ID Status Reason Start Date Expiration Date Visits Re quested Visits Authorized [id number] Closed 04/02/2025 10/02/2026 1 1 Reason for Visit * Imaging (Routine) - Closed Specialty Diagnoses / Procedures Referred By Contac t Referred To Contact Radiology Diagnoses Nonrheumatic aortic valve stenosis Procedures CT Angio Abdomen Pelvis Beckie Marshall PA [address] [place] [address] Phone: tel: fax: Referral ID Status Reason Start Date Expiration Date Visits Re quested Visits Authorized [id number] Closed 04/02/2025 10/02/2026 1 1 Encounter Details Date Type Department Care Team (Latest Contact Info) Description 04/11/2025 8:16 AM EDT - 04/11/2025 11:59 PM EDT Hospital Encounter [facility] [address] [place] [address] Nonrheumatic aortic valve stenosis Discharge Disposition: Home or Self Care Social History Tobacco Use Types Packs/Day Years Used Date Smoking Tobacco: Former Cigarettes Smokeless Tobacco: Never Alcohol Use Standard Drinks/Week Comments Never 0 (1 standard drink = 0.6 oz pur e alcohol) PHQ-2 Answer Date Recorded Patient Health Questionnaire-2 Score 0 04/11/2025 AUDIT-C Answer Date Recorded Q1: How often do you have a drink containing alcohol? Never 04/11/2025 Q2: How many drinks containi ng alcohol do you have on a typical day when you are drinking? Patient does not drink Q3: How often do you have si x or more drinks on one occasion? Never 04/11/2025 Comments Unknown Sex and Gender Information Value Date Recorded Sex Assigned at Not on file Legal Sex Female 8:50 PM EDT Gender Identity Not on file Sexual Orientation Not on file documented as of this encounter Functional Status * AUDIT-C Score Answer Date of Assessment Author 0 04/11/2025 9:58 AM Rosy Carr * Question Answer Date of Assessment Author Q1: How often do you have a drink containing alcohol? Never 04/11/2025 9:58 AM Rosy Carr Q2: How many drinks containing alcohol do you have on a typical day when you are drinking? Patient does not drink 04/11/2025 9:58 AM Rosy Carr Q3: How often do you have six or more drinks on one occasion? Never 04/11/2025 9:58 AM Rosy Carr * Over the past 2 weeks, how often have you been bothered by any of the following problems? Question Answer Date of Assessment Author Little interest or pleasure in doing things Not at all 04/11/2025 9:59 AM Rosy Carr Feeling down, depressed, or hopeless Not at all 04/11/2025 9:59 AM Rosy Carr Patient Health Questionnaire -2 Score 0 04/11/2025 9:59 AM Rosy Carr documented as of this encounter Medications at Time of Discharge levothyroxine (Synthroid, Levoxyl) 88 MCG tablet Take 1 tablet by mouth daily before breakfast. losartan-hydroCHL OROthiazide (Hyzaar) 50-12.5 MG tablet Take 1 tablet by mouth daily. meclizine (Antivert) 25 MG tablet Take 1 tablet by mouth daily as needed for dizziness. omeprazole (PriLOSEC) [address] capsule Take 1 capsule by mouth. Do not crush or chew. pioglitazone (Actos) 15 MG tablet Take 1 tablet by mouth daily. rosuvastatin (Crestor) 20 MG tablet Take 1 tablet by mouth nightly. spironolactone (Aldactone) 50 MG tablet Take 0.5 tablets by mouth daily. traMADol (Ultram) 50 MG tablet Take 1 tablet by mouth every 6 hours as needed for severe pain. bisoprolol (Zebeta) 5 MG tablet Take 0.5 tablets by mouth daily. 04/27/2025 apixaban (Eliquis) 2.5 MG tablet Take 1 tablet by mouth 2 times a day. 04/27/2025 documented as of this encounter Miscellaneous Notes * Nelson Cruz - 04/11/2025 8:17 AM EDT Images from the original note were not included. 3259 Caring for Yourself after Contrast Imaging If you had ORAL contrast: ? You can go back to your normal diet and activities as tolerated. ? Drink plenty of fluids, unless told otherwise. If you had IV contrast: ? You can go back to your normal diet and activities as tolerated. ? Drink plenty of fluids, unless told otherwise. ? Leave a bandage on the site for 30 minutes (where the IV was inserted or blood was drawn). If you had Intravesical (bladder) contrast: ? Return to normal diet and activity. What you need to know about delayed reaction to IV contrast What is IV Contrast? ? Contrast is a dye that is put into your body through an IV. ? It is used for imaging scans such as CT scans and MRIs. ? The contrast makes blood vessels, organs and other parts of your body show up better on the scan. What do I need to do after IV contrast? ? Drink lots of fluids. This will help flush the contrast out of your system. ? Drink 2-3 extra glasses or bottles of water within 4 hours of your scan. What is a contrast reaction? ? A contrast reaction is a bad side effect from the contrast dye. ? It is rare but it does happen. ? They can be mild - such as sneezing, itching, or hives. ? They can be severe - such as trouble breathing, throat swelling, and irregular heart beat. When do these reactions happen? ? They often happen right after the contrast is injected. ? Some happen hours after going home. Go to the nearest Emergency Department right away if you have any of these symptoms after you leavethe clinic or hospital. ? Sneezing ? Itching in your mouth, throat, eyes, ears, or skin ? Rash or hives ? Throwing up or stomach sickness ? High heart rate or ?racing? of your heart ? Feeling dizzy or woozy ? Feeling short of breath or like you can?t take a deep breath ? Feeling very anxious for no other reason It is very important that these reactions be treated. Tell the doctor or nurse that you are having a reaction to IV contrast dye. Do not ignore any sign of a reaction! All reactions must be assessed by a doctor. Call 911 if you are alone and your reaction is more than mild sneezing or itching. If you have a mild reaction, call to speak with a Radiologist, explain that you havehad a contrast reaction, as this needs to be added to your medical record. documented in this encounter Plan of Treatment Upcoming Encounters Date Type Department Care Team (Late st Contact Info) Description 06/27/2025 9:00 AM EDT Appointment Medical Office Building Cardiac Diagnostic Testing Medical Office Building Echo Lab [address], [address] [place] [address] 06/27/2025 10:30 AM EDT Office Visit [facility] [address], [address] [place] [phone] Beckie Marshall PA [address] [place] [address] 05/01/2026 1:30 PM EDT Appointment Medical Office Building Cardiac Diagnostic Testing Medical Office Building Echo Lab [address], [address] [place] [phone] 05/01/2026 3:00 PM EDT Office Visit [facility] [address], [address] [place] [phone] Beckie Marshall PA [address] [place] [address] documented as of this encounter Procedures Procedure Name Priority Date/Time Associated Diagnosis Comments CT ANGIO ABDOMEN PELVIS Routine 04/11/2025 9:00 AM EDT Nonrheumatic aortic valve stenosis CT ANGIO CHEST Routine 04/11/2025 9:00 AM EDT Nonrheumatic aortic valve stenosis documented in this encounter Results * CT Angio Chest [...] TOTAL DLP (Dose-Length Product): 2104.82 mGy.cm (accession [id number]), 2104.82 mGy.cm (accession [id number]). Please note: The reported value represents the total of one or more individual components during the CT acquisition on this date and at this time, and as such, the same value may appear in more than one CT report depending on the interpreting/reporting physicians. FINDINGS: Quantification of Aortic Valve Calcium Score: 1395 Volume: 1123 Aortic Root Measurements 3-Cusp view: SYRIAN 34 degrees; CAU 1 degrees Annulus area: [...] TOTAL DLP (Dose-Length Product): 2104.82 mGy.cm (accession [id number]),2104.82 mGy.cm (accession [id number]). Please note: The reported valuerepresents the total of one or more individual components during the CTacquisition on this date and at this time, and as such, the same value mayappear in more than one CT report depending on the interpreting/reportingphysicians. FINDINGS: Quantification of Aortic Valve Calcium Score: 1395 Volume: 1123 Aortic Root Measurements 3-Cusp view:SYRIAN 34 degrees; CAU 1 degrees Annulus area: [...] TOTAL DLP (Dose-Length Product): 2104.82 mGy.cm (accession [id number]), 2104.82 mGy.cm (accession [id number]). Please note: The reported value represents the total of one or more individual components during the CT acquisition on this date and at this time, and as such, the same value may appear in more than one CT report depending on the interpreting/reporting physicians. FINDINGS: Quantification of Aortic Valve Calcium Score: 1395 Volume: 1123 Aortic Root Measurements 3-Cusp view: SYRIAN 34 degrees; CAU 1 degrees Annulus area: [...] TOTAL DLP (Dose-Length Product): 2104.82 mGy.cm (accession [id number]),2104.82 mGy.cm (accession [id number]). Please note: The reported valuerepresents the total of one or more individual components during the CTacquisition on this date and at this time, and as such, the same value mayappear in more than one CT report depending on the interpreting/reportingphysicians. FINDINGS: Quantification of Aortic Valve Calcium Score: 1395 Volume: 1123 Aortic Root Measurements 3-Cusp view:SYRIAN 34 degrees; CAU 1 degrees Annulus area: [...] MD on 04/11/2025 6:33 PM Beckie ADKINS IMG CT PROCEDURES Final Result documented in this encounter Visit Diagnoses Diagnosis Nonrheumatic aortic valve stenosis documented in this encounter Administered Medications Inactive Administered Medications - up to 3 most recent administrations Medication Order MAR Action Action Date Dose Rate Site iohexol (OMNIPaque) 350 MG/ML injection 150 mL 150 mL, Intravenous, Once in imaging, 1 dose, Starting on Wed04/11/25 at 0817, Until Wed04/11/25 at 0900, Routine, Imaging Protocol Orders Given 04/11/2025 9:00 AM EDT 125 mL documented in this encounter Additional Health Concerns Assessment Noted Time A fall risk assessment has been complete d for the patient 04/11/2025 9:59 AM EDT A Body Mass Index follow-up plan has been documented for the patient 04/11/2025 12:25 PM EDT documented as of this encounter Care Teams [employer] Maintainer Relationship Specialty Start Date End Date Jim Lopez MD [address] [place] [address] PCP - General 04/11/25 documented as of this encounter
--- OUTSIDE RECORDS SUMMARY | 2025-04-11 10:00 | XMS_ITS | Encounter Summary ---
Author Organization [facility] Address [address] [place] [address] Care Team Providers Care Primer And Powder Canning Leader Name Role Phone Jim Lopez MD Primary Care Provider [phone] Reason for Visit * Consultation (Routine) - Closed Specialty Diagnoses / Procedures Referred By Kirstin weller Referred To Contact Cardiothoracic Surgery Diagnoses Nonrheumatic aortic valve stenosis Beckie Marshall PA [address] [place] [address] Phone: tel: fax: [facility] Cardiothoracic [address], [address] [place] [address] Phone: tel: fax: Referral ID Status Reason Start Date Expiration Date V isits Requested Visits Authorized [id number] Closed Specialty Services Required 04/02/2025 10/02/2026 1 1 Encounter Details Date Type Department Care Team (Late st Contact Info) Description 04/11/2025 10:00 AM EDT Consult [facility] Cardiothoracic [address], [address] [place] [address] Fouzia Tillman MD [address] [facility] [address] [place] [phone] Nonrheumatic aortic valve stenosis (Primary Dx) Social History Tobacco Use Types Packs/Day Years Used Date Smoking Tobacco: Former Cigarettes Smokeless Tobacco: Never Tobacco Cessation:Counseling Given: Not Answered Alcohol Use Standard Drinks/Week Comments Never 0 [...] Sign Reading Time Taken Comments Blood Pressure 146/68 04/11/2025 10:00 AM EDT Pulse 63 04/11/2025 9:51 AM EDT Temperature - - Respiratory Rate - - Oxygen Saturation 98% 04/11/2025 9:51 AM EDT Inhaled Oxygen Concentration - - Weight 83.5 kg (184 lb 1.4 oz) 04/11/2025 9:51 A M EDT Height 157.5 cm (5' 2 ) 04/11/2025 9:51 AM EDT Body Mass Index 33.67 04/11/2025 9:51 AM EDT documented in this encounter Functional Status * AUDIT-C Score Answer Date of Assessment Author 0 04/11/2025 9:58 AM JEFFT Rosy Bishop * Question Answer Date of Assessment Author [...] hopeless Not at all 04/11/2025 9:59 AM EDT Rosy Bishop Patient Health Questionnaire -2 Score 0 04/11/2025 9:59 AM EDT Rosy Bishop documented as of this encounter Miscellaneous Notes * Progress Notes - Fouzia Tillman MD - 04/11/2025 10:00 AM EDT Reason for visit / Chief Complaint: Decreased energy History of present illness: Marleny Covarrubias is a 89 y.o. female referred to us in consultation by Dr. Perez in regards toaortic stenosis. The patient reports experiencing dizziness when doing her daily activities, the family have observed significant decline in her functional status. She denies chest pain, and she denies shortness of breath. Her chronic comorbid conditions that impact our treatment planning include: Hypertension, coronary artery disease, cerebrovascular disease, frailty. NYHA Classification: Class II: Mild symptoms with ordinary activity. Active Problems: Patient Active Problem List Diagnosis Date Noted BMI 33.0-33.9,adult 04/11/2025 Aortic stenosis 03/29/2025 Essential hypertension 03/29/2025 Dyslipidemia 03/29/2025 CAD (coronary artery disease) 03/29/2025 Fatigue 03/29/2025 Leg edema 03/29/2025 Bilateral carotid artery disease (CMS/HCC) 03/29/2025 Medical History: BMI 33.0-33.9,adult 04/11/2025 Aortic stenosis 03/29/2025 Essential hypertension 03/29/2025 Dyslipidemia 03/29/2025 CAD (coronary artery disease) 03/29/2025 Fatigue 03/29/2025 Leg edema 03/29/2025 Bilateral carotid artery disease (CMS/HCC) 03/29/2025 Surgical History: Surgical History[1] Social History: Tobacco: Tobacco Use: Medium Risk (04/11/2025) Patient History Smoking Tobacco Use: Former Smokeless Tobacco Use: Never Passive Exposure: Not on file Alcohol: Alcohol Use: Not At Risk (04/11/2025) AUDIT-C Frequency of Alcohol Consumption: Never Average Number of Drinks: Patient does not drink Frequency of Binge Drinking: Never Illicit drug use: Social History Substance and Sexual Activity Drug Use Never Family History: family history includes Diabetes type II in her father and mother; Heart disease in her father and mother. Allergies: Allergies[2] Medications: Prior to Admission medications Medication Sig Start Date End Date Taking? Authorizing Provider apixaban (Eliquis) 2.5 MG tablet Take 1 tablet by mouth 2 times a day. Yes Lukasz Landis MD bisoprolol (Zebeta) 5 MG tablet Take 1 tablet by mouth daily. Yes Lukasz Landis MD levothyroxine (Synthroid, Levoxyl) 88 MCG tablet Take 1 tablet by mouth daily before breakfast. YesLukasz Landis MD losartan-hydroCHLOROthiazide (Hyzaar) 50-12.5 MG tablet Take 1 tablet by mouth daily. Yes Lukasz Landis MD meclizine (Antivert) 25 MG tablet Take 1 tablet by mouth 2 times a day. Yes Lukasz Landis MD omeprazole (PriLOSEC) [address] capsule Take 1 capsule by mouth. Do not crush or chew. Yes Lukasz Landis MD pioglitazone (Actos) 15 MG tablet Take 1 tablet by mouth daily. Yes Lukasz Landis MD rosuvastatin (Crestor) 20 MG tablet Take 1 tablet by mouth nightly. Yes Lukasz Landis MD spironolactone (Aldactone) 50 MG tablet Take 1 tablet by mouth daily. Yes Lukasz Landis MD traMADol (Ultram) 50 MG tablet Take 1 tablet by mouth every 6 hours as needed for severe pain. Yes Lukasz Landis MD Physical exam: Visit Vitals BP (!) 146/68 Pulse 63 SpO2 98% Frail looking 89-year-old in no acute distress. Constitutional: Appearance: Normal appearance. Cardiovascular: Rate and [...] and Affect: Mood normal. Behavior: Behavior normal. Imaging: TTE 02-16-25 EF 60-65% Moderate-severe Peak 52/mean 38 KANE 0.98 DI 0.31 Impression: 89-year-old with aortic stenosis and significant degrees in functional status. We will review the case in the valve conference and if the patient meets criteria for severity and her anatomy is suitable for TAVR then it is reasonable to offer the procedure. Benefits and risks of transcatheter aortic valve replacement were explained to the patient and her family. [1] Past Surgical History: Procedure Laterality Date ANKLE SURGERY CARDIAC STENT CARPAL TUNNEL RELEASE both wrists CHOLECYSTECTOMY COLONOSCOPY TOTAL KNEE ARTHROPLASTY [2] No Known Allergies documented in this encounter Plan of Treatment Upcoming Encounters Date Type Department Care Team (Late st Contact Info) Description 06/27/2025 9:00 AM EDT Appointment Medical Office Building Cardiac Diagnostic Testing Medical Office Building Echo Lab [address] [facility], [address] [place] [phone] 06/27/2025 10:30 AM EDT Office Visit [facility] [place] [facility] [address] [facility], [address] [place] [phone] Beckie Marshall PA [address] [place] [address] 05/01/2026 1:30 PM EDT Appointment Medical Office Building Cardiac Diagnostic Testing Medical Office Building Echo Lab [address] [facility], [address] [place] [phone] 05/01/2026 3:00 PM EDT Office Visit [facility] [address] [facility], [address] [place] [address] Beckie Marshall PA [address] [place] [phone] documented as of this encounter Visit Diagnoses Diagnosis Nonrheumatic aortic valve stenosis- Primary documented in this encounter Additional Health Concerns Assessment Noted Time A fall risk assessment has been complete d for the patient 04/11/2025 9:59 AM EDT A Body Mass Index follow-up plan has been documented for the patient 04/11/2025 12:25 PM EDT documented as of this encounter Care Teams Primer And Powder Canning Leader Relationship Specialty Start Date End Date Jim Lopez MD [address] [place] [address] PCP - General 04/11/25 documented as of this encounter
--- OUTSIDE RECORDS SUMMARY | 2025-04-19 13:00 | XMS_ITS | Encounter Summary ---
Author Organization [facility] Address [address] [place] [address] Care Team Providers Care Eyelet Machine Operator Name Role Phone Jim Lopez MD Primary Care Provider [phone] Reason for Referral * Imaging (Routine) - Closed Specialty Diagnoses / Procedures Referred By Kirstin weller Referred To Contact Cardiology Diagnoses Nonrheumatic aortic valve stenosis Procedures Echo, Adult Transthoracic Complete Beckie Marshall PA [address] [place] [address] Phone: tel: fax: Referral ID Status Reason Start Date Expiration Date V isits Requested Visits Authorized [id number] Closed Perform Procedure 04/12/2025 10/12/2026 1 1 Reason for Visit * Imaging (Routine) - Closed Specialty Diagnoses / Procedures Referred By Kirstin weller Referred To Contact Cardiology Diagnoses Nonrheumatic aortic valve stenosis Procedures Echo, Adult Transthoracic Complete Beckie Marshall PA [address] [place] [address] Phone: tel: fax: Referral ID Status Reason Start Date Expiration Date V isits Requested Visits Authorized [id number] Closed Perform Procedure 04/12/2025 10/12/2026 1 1 Encounter Details Date Type Department Care Team (Latest Contact Info) Description 04/19/2025 1:00 PM EDT - 04/19/2025 11:59 PM EDT Hospital Encounter Cardiac Imaging [address] [place] [phone] Nonrheumatic aortic valve stenosis Discharge Disposition: Home [...] more drinks on one occasion? Never 04/11/2025 Hunger Vital Sign Answer Date Recorded Within the past 12 months, y ou worried that your food would run out before you got the money to buy more. Never true 04/26/20 Within the past 12 months, t he food you bought just didn't last and you didn't have money to get more. Never true 04/26/2025 PRAPARE - Transportation Answer Date Re corded In the past 12 months, has l ack of transportation kept you from medical appointments or from getting medications? No 04/17 In the past 12 months, has l ack of transportation kept you from meetings, work, or from getting things needed for daily living? No 04/26/2025 Housing Stability Vital Sign Answer Fredy e Recorded In the last 12 months, was t here a time when you were not able to pay the mortgage or rent on time? No 04/26/2025 Number of Times Moved in the Last Year Not on fi le 04/26/2025 At any time in the past 12 m [facility], were you homeless or living in a long term (including now)? No 04/26/2025 Utilities Answer Date Recorded In the past 12 months has th e electric, gas, oil, or water company threatened to shut off services in your home? No 04/26/2025 Comments Unknown Sex and Gender Information Value Date Recorded Sex Assigned at Not on file Legal Sex Female 8:50 PM EDT Gender Identity Not on file Sexual Orientation Not on file documented as of this encounter Last Filed Vital Signs Vital Sign Reading Time Taken Comments Blood Pressure 151/77 04/19/2025 1:27 PM EDT Pulse 59 04/19/2025 1:27 PM EDT Temperature - - Respiratory Rate - - Oxygen Saturation - - Inhaled Oxygen Concentration - - Weight - - Height - - Body Mass Index - - documented in this encounter Functional Status * Calculated C-SSRS Risk Score (Lifetime/Recent) Answer Date of Assessment Author No Risk Indicated 04/25/2025 8:15 PM EDT Osmar Lacey RN * Question Answer Date of Assessment Author 1. Wish to be (Past 1 Month) No 025 8:15 PM EDT Osmar Bryan RN 2. Non-Specific Active Suici shelton Thoughts (Past 1 Month) No 04/25/2025 8:15 PM EDT Sa jeanmarie Bryan RN 6. Suicidal Behavior (Lifetime) No 8:15 PM EDT Osmar Bryan RN documented as of this encounter Medications at [...] day. 04/27/2025 documented as of this encounter Plan of Treatment Upcoming Encounters Date Type Department Care Team (Late st Contact Info) Description 06/27/2025 9:00 AM EDT Appointment Medical Office Building Cardiac Diagnostic Testing Medical Office Building Echo Lab [address] [facility], [address] [place] [phone] 06/27/2025 10:30 AM EDT Office Visit [facility] [address] [facility], [address] [place] [address] Beckie Marshall PA [address] [place] [address] 05/01/2026 1:30 PM EDT Appointment Medical Office Building Cardiac Diagnostic Testing Medical Office Building Echo Lab [address] [facility], [address] [place] [address] 05/01/2026 3:00 PM EDT Office Visit [facility] [address] [facility], [address] [place] [address] Beckie Marshall PA [address] [place] [address] documented as of this encounter Procedures Procedure Name Priority Date/Time Associated Diagnosis Comments ECHO, ADULT TRANSTHORACIC COMPLETE Routine 04/19/2025 2:24 PM EDT Nonrheumatic aortic valve stenosis documented in this encounter Results * ECHO, ADULT TRANSTHORACIC COMPLETE (04/19/2025 2:24 PM EDT) Height 157.5 JESUS ISCV Weight 83.5 JESUS ISCV BSA 1.84 m2 JESUS ISCV LV V1 VTI 44.9 cm JESUS ISCV TR Vmax 292.0 cm/s JESUS ISCV TR Max PG 34 mmHG JESUS ISCV AI Vmax 481.5 cm/s JESUS ISCV AI max PG 93 mmHg JESUS ISCV AI dec slope 271 cm/s2 JESUS ISCV AI dec time 540 msec JESUS ISCV AI P1/2t 157 msec JESUS ISCV LV V1 Vmax 175.0 cm/s JESUS ISCV LV mean PG 7.0 mmHG JESUS ISCV LV V1 mean 118.0 cm/sec JESUS ISCV LV max PG 12.3 mmHg JESUS ISCV IVSd 8 mm JESUS ISCV LVIDd 48 mm JESUS ISCV LVPWd 11 mm JESUS ISCV LV MASS(C)D 158 g JESUS ISCV [facility] CV ECHO LV MASS INDEX 86 g/m2 JESUS ISCV LV RWT 0.40 mm JESUS ISCV LVIDs 28 mm JESUS ISCV LA dimension 38 mm JESUS ISCV Asc Ao Diam 36 mm JESUS ISCV MPA diam 24 mm JESUS ISCV MPA area 4.5 cm2 JESUS ISCV Ao Root Diam 25 mm JESUS ISCV RV s' [place] 15.0 cm/s JESUS ISCV TAPSE 26 mm JESUS ISCV LAV(MOD-2ch) 50 mL JESUS ISCV Ao V2 VTI 102.5 cm JESUS ISCV Ao mean PG 36 mmHg JESUS ISCV Ao V2 Vmax 407.4 cm/s EJSUS ISCV Ao max PG 66 mmHg JESUS ISCV AV VTI Index 0.44 JESUS ISCV Ao V2 mean 282.9 cm/s JESUS ISCV RA MOD 4Ch 54 mL JESUS ISCV CARISSA 29 mL/m2 JESUS ISCV RV base 36 mm JESUS ISCV RV Mid 29 mm JESUS ISCV LVOT diam 19 mm JESUS ISCV LVOT AREA 2.8 cm2 JESUS ISCV SV(LVOT) 127 mL JESUS ISCV KANE(I,D) 1.2 cm2 JESUS ISCV KANE(VTI)/BSA_ph l 0.7 cm2/m2 JESUS ISCV LAV(MOD-bp) Indexed 27 mL/m2 JESUS ISCV LAV(MOD-4ch) 49 mL JESUS ISCV RVSP 37 mmHg JESUS ISCV RAP systole 3 mmHg JESUS ISCV LV EDV(MOD-4ch) 119 mL JESUS ISCV LV ESV(MOD4ch) 53 mL JESUS ISCV EF(MOD-sp4) 55 % JESUS ISCV LV EDV(MOD-2ch) 84 mL JESUS ISCV EDV(MOD-bp) 102 mL JESUS ISCV LV ESV(MOD2ch) 40 mL JESUS ISCV EF(MOD-sp2) 52 % JESUS ISCV ESV(MOD-bp) 47 mL JESUS ISCV EF(MOD-bp) 54 % JESUS ISCV LVLs ap2 6.3 mm JESUS ISCV MV E Vmax 58.7 cm/s JESUS ISCV MV A Vmax 62.9 cm/s JESUS ISCV MV E/A 0.9 cm/s JESUS ISCV LV Lat e' Velocity 5.4 cm/s JESUS ISCV LV Sept e' [place] 3.8 cm/s JESUS ISCV Lat E/e' 10.9 JESUS ISCV Sep E/e' 15.4 JESUS ISCV Avg E/e' 13.2 JESUS ISCV Anatomical Region Laterality Modality Echocardiography Narrative 04/19/2025 3:35 PM EDT Left Ventricle: The left ventricle is normal size. There is normal left ventricular myocardial thickness and mass. The LVEF as measured by biplane volume is 54%. The diastolic function is abnormal. There is grade I (mild) diastolic dysfunction. The left ventricular filling pressure is indeterminate. The left ventricular wall motion is normal. Right Ventricle: The right ventricle is normal in size. The right ventricular systolic function is normal. The estimated right ventricular systolic pressure is 37 mmHg. Right ventricular systolic pressure is mildly elevated (35-50mmHg). Aortic Valve: The aortic valve appears to be trileaflet. There is calcification of the aortic valve leaflets. There is mild aortic valve regurgitation. There is moderate aortic stenosis. The peak gradient is 66 mmHg. The mean gradient is 36 mmHg. The estimated aortic valve area by the continuity equation is 1.2 cm2. Pulmonic Valve: There is moderate pulmonic regurgitation. Pericardium: There is a trace localized pericardial effusion around the left ventricle. There is no echocardiographic evidence of cardiac tamponade. There is no recent study available for direct [id number] comparison. Left Ventricle The left ventricle is normal size. There is normal left ventricular myocardial thickness and mass. The LVEF as measured by biplane volume is 54%. The diastolic function is abnormal. There is grade I (mild) diastolic dysfunction. The left ventricular filling pressure is indeterminate. The left ventricular wall motion is normal. Right Ventricle The right ventricle is normal in size. The right ventricular systolic function is normal. The estimated right ventricular systolic pressure is 37 mmHg. Right ventricular systolic pressure is mildly elevated (35-50mmHg). Left Atrium The left atrial size is normal with an indexed volume of 16-34 mL/m2. The interatrial septum is intact with no evidence for an atrial septal defect. Right Atrium The right atrial volume index is normal (18-32mL/m2). IVC/SVC Based on the IVC size and respiratory variation, the estimated right atrial pressure is 3mmHg. Mitral Valve The mitral valve chordae are thickened and/or calcified. There is mild mitral regurgitation. There is no mitral stenosis. Tricuspid Valve The tricuspid valve is normal in appearance. There is mild tricuspid regurgitation. There is no tricuspid stenosis. Aortic Valve The aortic valve appears to be trileaflet. There is calcification of the aortic valve leaflets. There is mild aortic valve regurgitation. There is moderate aortic stenosis. The peak gradient is 66 mmHg. The mean gradient is 36 mmHg. The estimated aortic valve area by the continuity equation is 1.2 cm2. Pulmonic Valve The pulmonic valve is normal in appearance. There is moderate pulmonic regurgitation. There is no pulmonic stenosis. Pericardium There is a trace localized pericardial effusion around the left ventricle. There is no echocardiographic evidence of cardiac tamponade. Great Vessels The aortic root is normal in size. In the maximally visualized portion, the ascending aorta appears normal in size. There is effacement of the sinotubular junction. The main pulmonary artery is normal in size. Study Details A complete transthoracic echocardiogram using two-dimensional (2D), m-mode, color and spectral flow Doppler imaging was performed. During the study the apical, parasternal, subcostal and suprasternal view was captured. Overall the study quality was adequate. Heart rate was normal. Height: 157.5 cm. Weight: 83.5 kg. BSA: 1.84 m2. The heart rhythm during this exam was most suggestive of a sinus rhythm. Study Recommendation There is no recent study available for direct [id number] comparison. Beckie ADKINS CV ECHO PROCEDURES Kerry l Result documented in this encounter Visit Diagnoses Diagnosis Nonrheumatic aortic valve stenosis documented in this encounter Additional Health Concerns Assessment Noted Time A fall risk assessment has been complete d for the patient 04/11/2025 9:59 AM EDT A Body Mass Index follow-up plan has been documented for the patient 04/11/2025 12:25 PM EDT documented as of this encounter Care Teams Eyelet Machine Operator Relationship Specialty Start Date End Date Jim Lopez MD [address] [place] [id number] PCP - General 04/11/25 documented as of this encounter
--- OUTSIDE RECORDS SUMMARY | 2025-04-25 09:48 | XMS_ITS | Encounter Summary ---
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 [I35.0] Procedures [place] REPLACE AORTIC VALVE PERQ FEMORAL ARTRY APPROACH TAVR IMPLANTATION, AORTIC VALVE, TRANSCATHETER Herminio Kendrick MD [address] [place] [address] Phone: tel: fax: [facility] [employer] [address] [place] [address] Phone: tel: Referral ID Status Reason Start Date Expiration Date Visits Re quested Visits Authorized [id number] 1 1 Encounter Details Date Type Department Care Team (Latest Contact Info) Description 04/25/2025 9:48 AM EDT - 04/27/2025 3:10 PM EDT Hospital Encounter PAV H Inpatient [address] [place] [address] Herminio Kendrick MD [address] [place] [address] Severe aortic stenosis (Primary Dx); Nonrheumatic aortic valve stenosis Discharge Disposition: Home [...] any time in the past 12 m [facility], were you homeless or living in a intermediate (including now)? No 04/26/2025 Utilities Answer Date Recorded In the past 12 months has th e [employer], gas, oil, or water company threatened to shut off services in your home? No 04/26/2025 Comments Unknown Sex and Gender Information Value Date Recorded Sex Assigned at Not on file Legal Sex Female 8:50 PM EDT Gender Identity Not on file Sexual Orientation Not on file documented as of this encounter Last Filed Vital Signs Vital Sign Reading Time Taken Comments Blood Pressure 121/75 04/27/2025 11:14 AM EDT Pulse 68 04/27/2025 1:45 PM EDT Temperature 36.6 C (97.8 F) 04/27/2025 11:14 AM EDT Respiratory Rate 20 04/27/2025 1:45 PM EDT Oxygen Saturation 94% 04/27/2025 1:45 PM EDT Inhaled Oxygen Concentration - - Weight 89.2 kg (196 lb 10.4 oz) 04/27/2025 5:03 AM EDT Height 152.4 cm (5') 04/25/2025 10:16 AM EDT Body Mass Index 38.41 04/25/2025 10:16 AM EDT documented in this encounter Functional Status * Calculated C-SSRS Risk Score (Lifetime/Recent) Answer Date of Assessment Author No Risk Indicated 04/27/2025 8:00 AM EDT Rea Gallegos RN * Question Answer Date of Assessment Author 1. Wish to be (Past 1 Month) No 025 8:00 AM EDT Rea Gallegos RN 2. Non-Specific Active Suici shelton Thoughts (Past 1 Month) No 04/27/2025 8:00 AM EDT Bhavna Gallegos RN 6. Suicidal Behavior (Lifetime) No 8:00 AM EDT Rea Gallegos RN documented as of this encounter Discharge Instructions * Discharge Instructions* Briseyda Osei, CAR RENTAL CLERK - 04/26/2025 8:21 AM EDT TAVR Discharge Instructions Discharge Instructions/Restrictions: Activity & Incision Instructions: For 1 weeks, do not lift anything heavier than 10 pounds (about the weight of a gallon of milk). Do not drive for 24 hours after procedure. You can shower within the next 24 hours. Do not submerge your incision in water. No tub baths, hot tubs or swimming pools for 7-10 days. If your incision has a dressing over it, you may remove those later today and shower. You do NOT need to place a new dressing over it. It will heal from the inside out. Every day, check the area around your incision site for signs of infection or problems. If bleeding from groin site occurs, hold pressure and contact the [facility] at [phone]. If after hours, call [phone]. For emergencies, call 911. Medication Instruction: STOP Bisoprolol - This is a medication that slows your heart rate down and we want to avoid that right now. RESUME YOUR ELIQUIS ON Wednesday04/27/25 PM. You should be taking this medication 2x/day. New script was sent to your home pharmacy to reflect this. Antibiotics are required prior to all dental visits. See details below. Take Medication exactly as instructed in your discharge packet. Do not take any medications that have not been ordered for you. This means do not take other people's medication, illegal drugs or substances. Follow up: You will have an echocardiogram and follow-up with the Structural Team in 1 month. If you have not received a follow up appointment at the time of discharge, they will be in contact with you in the next few days via phone or mail reminder. If you do not hear from someone within 3-5 days, call the [facility] at [phone] for more information. Please call Evgeny Brower RN, with any other questions. You will wear an external monitor for 30 days. Follow the instructions provided on how to send the monitor back in for further evaluation. documented in this encounter Medications at Time of Discharge apixaban (Eliquis) 2.5 MG tablet Take 1 tablet by mouth 2 times a day. 60 tablet 3 04/27/2025 08/25/2025 levothyroxine (Synthroid, Levoxyl) 88 MCG tablet Take 1 tablet by mouth daily before breakfast. losartan-hydroCHL OROthiazide (Hyzaar) 50-12.5 MG tablet Take 1 tablet by mouth daily. meclizine (Antivert) 25 MG tablet Take 1 tablet by mouth daily as needed for dizziness. nitroglycerin (Nitrostat) 0.[address] 1 tablet under the tongue every 5 minutes as needed for chest pain. omeprazole (PriLOSEC) [address] capsule Take [...] 6 hours as needed for severe pain. documented as of this encounter Miscellaneous Notes * Progress Notes - Pedro De La Cruz RN - 04/27/2025 1:45 PM EDT Case Management Discharge Note Marleny Covarrubias 89 y.o. female CSN: [id number] Admission: 04/25/2025 9:48 AM Primary Problem: Aortic stenosis Primary City Route Driver: Primary Caregiver: Self Assistance Available at Discharge: Current Outpatient/Agency/Support Group: clinic(s), DME Availability of Care Givers (#Hours): 24 hours Family/City Route Driver(s) Willingness Assessed to care for patient at home: Yes Family/City Route Driver(s) Readiness Assessed to care for patient at home: Yes Housing Circumstances-Z Codes: Housing Circumstances (select all that apply): None Applicable Discharge Facility/Level of Care Needs: Discharge Facility/Level of Care Needs: 1-Home or Self Care Patient/Family Anticipated Services at Transition: Patient/Family Anticipated Services at Transition: none DME/Equipment Needed after Discharge: Equipment Currently Used at Home: cane, straight, walker, rolling Equipment Needed After Discharge: none Readmission Within the Last 30 Days: Readmission Within the Last 30 Days: no previous admission in last 30 days Follow-up: No follow-up provider specified. Discharge Transportation: Transportation Anticipated: family or friend will provide Transportation Home at Discharge: Family/Friend will Provide Has discharge transport been arranged?: No Follow Up Transport: Transportation Needed to Follow up Appoinments: Family/Friend will Provide Additional Comments: Possible discharge today per first call provider this am if medically ready. Cm spoke to patient and they are agreeable with discharge plan. Patient is independent and lives with family. Patient has no therapy recs or cm discharge needs at this time Family states they are agreeable and able to provide support if needed. Family will transport when medically ready for discharge. No RN/SW CM discharge needs noted at this time. Any additional needs after cm dept hours please page evening/weekend cm at [phone]. Pedro De La Cruz RN * Care Plan - Rea Gallegos RN - 04/27/2025 11:39 AM EDT Problem: Adult Inpatient Plan of Care Goal: Plan of Care Review Outcome: Ongoing, Progressing Flowsheets Taken 04/27/2025 0357 by Osmar Bryan RN Outcome Evaluation: Pt continues to verbalize understanding of improved QOL. Plan of Care Reviewed With: patient Taken 04/26/2025 1007 by Patricia Wallace Progress: improving Goal: Patient-Specific Goal (Individualized) Outcome: Ongoing, Progressing Flowsheets (Taken 04/26/2025 193 by Osmar Bryan, RN) Patient/Family-Specific Goals (Include Timeframe): Pt will remain free from falls during shift Individualized Care Needs: safety Anxieties, Fears or Concerns: none expressed Goal: Absence of Hospital-Acquired Illness or Injury Outcome: Ongoing, Progressing Intervention: Identify and Manage Fall Risk Flowsheets (Taken 04/27/2025 0800) Safety Promotion/Fall Prevention: activity supervised assistive device/personal items within reach clutter-free environment maintained fall prevention program maintained lighting adjusted mobility aid in reach nonskid shoes/slippers when out of bed room organization consistent safety round/check completed toileting scheduled Intervention: Prevent Skin Injury Flowsheets Taken 04/27/2025 0600 by Osmar Bryan, RN Body Position: weight shifting Taken 04/26/2025 0514 by sOmar Bryan, RN Skin Protection: pulse oximeter probe site changed transparent dressing maintained incontinence pads utilized Intervention: Prevent and Manage VTE (Venous Thromboembolism) Risk Flowsheets (Taken 04/27/2025 0800) VTE Prevention/Management: bilateral SCDs (sequential compression devices) off medication Intervention: Prevent Infection Flowsheets (Taken 04/26/2025 0514 by Osmar Bryan, RN) Infection Prevention: hand hygiene promoted single patient room provided environmental surveillance performed rest/sleep promoted Goal: Optimal Comfort and Wellbeing Outcome: Ongoing, Progressing Intervention: Monitor Pain and Promote Comfort Flowsheets (Taken 04/26/20252106 by Osmar Bryan, RN) Pain Management Interventions: medication (see MAR) Intervention: Provide Person-Centered Care Flowsheets (Taken 04/26/2025 0514 by Osmar Bryan, RN) Trust Relationship/Rapport: care explained emotional support provided questions answered questions encouraged thoughts/feelings acknowledged Goal: Readiness for Transition of Care Outcome: Ongoing, Progressing Intervention: Mutually Develop Transition Plan Flowsheets Taken 04/27/2025 035 by Osmar Bryan RN Current Outpatient/Agency/Support Group: clinic(s) DME Taken 04/26/2025 1512 by Pedro De La Cruz field crew chief Facility/Level of Care Needs: 1-Home or Self Care Equipment Needed After Discharge: none Equipment Currently Used at Home: cane, straight walker, rolling Anticipated Changes Related to Illness: none Transportation Anticipated: family or friend will provide Transportation Concerns: none Concerns to be Addressed: no discharge needs identified denies needs/concerns at this time Readmission Within the Last 30 Days: no previous admission in last 30 days Patient/Family Anticipated Services at Transition: none Patient/Family Anticipates Transition to: home with family Problem: Heart Failure Goal: Stable Heart Rate and Rhythm Outcome: Ongoing, Progressing Intervention: Monitor and Manage Cardiac Rhythm Effect Flowsheets (Taken 04/27/2025 035 by Osmar Bryan, RN) Dysrhythmia Management: other (see comments) Goal: Optimal Functional Ability Outcome: Ongoing, Progressing Intervention: Optimize Functional Ability Flowsheets Taken 04/26/20251929 by Osmar Bryan RN Activity Management: activity adjusted per tolerance activity encouraged Taken 04/26/2025 0534 by Osmar Bryan RN Self-Care Promotion: independence encouraged BADL personal objects within reach BADL personal routines maintained Goal: Effective Oxygenation and Ventilation Outcome: Ongoing, Progressing Intervention: Promote Airway Secretion Clearance Flowsheets Taken 04/27/2025 035 by Osmar Bryan RN Breathing Techniques/Airway Clearance: deep/controlled cough encouraged airway clearance techniques utilized Taken 04/26/20251929 by Osmar Bryan, RN Activity Management: activity adjusted per tolerance activity encouraged Cough And Deep Breathing: done with encouragement Intervention: Optimize Oxygenation and Ventilation Flowsheets Taken 04/27/2025 0400 by Osmar Bryan RN Head of Bed (HOB) Positioning: HOB elevated Taken 04/26/2025 0534 by Osmar Bryan RN Airway/Ventilation Management: position adjusted Problem: Fall Injury Risk Goal: Absence of Fall and Fall-Related Injury Outcome: Ongoing, Progressing Intervention: Identify and Manage Contributors Flowsheets Taken 04/27/2025 0357 by Osmar Bryan, transport rn Review/Management: medications reviewed Taken 04/26/2025 0534 by Osmar Bryan, RN Self-Care Promotion: independence encouraged BADL personal objects within reach BADL personal routines maintained Intervention: Promote Injury-Free Environment Flowsheets (Taken 04/27/2025 0800) Safety Promotion/Fall Prevention: activity supervised assistive device/personal items within reach clutter-free environment maintained fall prevention program maintained lighting adjusted mobility aid in reach nonskid shoes/slippers when out of bed room organization consistent safety round/check completed toileting scheduled * Query Clarification Note - Briseyda Osei APRN - 04/27/2025 8:43 AM EDT Please review the following and provide your response below. Height: 5' Weight: 89.2 kg (196 lb 10.4 oz) BMI: 38.41 kg/m?? 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 * Query Clarification Note - Briseyda Osei APRN - 04/27/2025 8:42 AM EDT Please review the following and provide your response below. After further review, please choose ALL appropriate diagnoses that support the clinical indicators and any additional evaluation, monitoring, and/or treatment provided: []Thrombocytopenia, POA [x]Acute blood loss anemia []Other (please specify) This documentation will become part of the patient's medical record. * Care Plan - Osmar Bryan RN - 04/27/2025 4:02 AM EDT Problem: Adult Inpatient Plan of Care Goal: Plan of Care Review Outcome: Ongoing, Progressing Flowsheets Taken 04/27/2025356 by Osmar Bryan, RN Outcome Evaluation: Pt continues to verbalize understanding of improved QOL. Plan of Care Reviewed With: patient Taken 04/26/2025 1007 by Patricia Wallace Progress: improving Goal: Patient-Specific Goal (Individualized) Outcome: Ongoing, Progressing Flowsheets (Taken 04/26/20251929) Patient/Family-Specific Goals (Include Timeframe): Pt will remain free from falls during shift Individualized Care Needs: safety Anxieties, Fears or Concerns: none expressed Note: Goal met: pt remained free from falls during shift Goal: Absence of Hospital-Acquired Illness or Injury Outcome: Ongoing, Progressing Intervention: Identify and Manage Fall Risk Flowsheets (Taken 04/26/20251929) Safety Promotion/Fall Prevention: activity supervised assistive device/personal items within reach clutter-free environment maintained fall prevention program maintained lighting adjusted mobility aid in reach nonskid shoes/slippers when out of bed room organization consistent safety round/check completed toileting scheduled Intervention: Prevent Skin Injury Flowsheets Taken 04/27/2025 0200 Body Position: weight shifting Taken 04/26/2025 0514 Skin Protection: pulse oximeter probe site changed transparent dressing maintained incontinence pads utilized Intervention: Prevent and Manage VTE (Venous Thromboembolism) Risk Flowsheets (Taken 04/27/2025 0357) VTE Prevention/Management: other (see comments) Note: ambulating Intervention: Prevent Infection Flowsheets (Taken 04/26/2025 0514) Infection Prevention: hand hygiene promoted single patient room provided environmental surveillance performed rest/sleep promoted Goal: Optimal Comfort and Wellbeing Outcome: Ongoing, Progressing Intervention: Provide Person-Centered Care Flowsheets (Taken 04/26/2025513) Trust Relationship/Rapport: care explained emotional support provided questions answered questions encouraged thoughts/feelings acknowledged Goal: Readiness for Transition of Care Outcome: Ongoing, Progressing Intervention: Mutually Develop Transition Plan Flowsheets Taken 04/27/2025356 by Osmar Bryan RN Current Outpatient/Agency/Support Group: clinic(s) DME Taken 04/26/2025 1512 by Pedro De La Cruz field crew chief Facility/Level of Care Needs: 1-Home or Self Care Equipment Needed After Discharge: none Equipment Currently Used at Home: cane, straight walker, rolling Anticipated Changes Related to Illness: none Transportation Anticipated: family or friend will provide Transportation Concerns: none Concerns to be Addressed: no discharge needs identified denies needs/concerns at this time Readmission Within the Last 30 Days: no previous admission in last 30 days Patient/Family Anticipated Services at Transition: none Patient/Family Anticipates Transition to: home with family Problem: Heart Failure Goal: Stable Heart Rate and Rhythm Outcome: Ongoing, Progressing Intervention: Monitor and Manage Cardiac Rhythm Effect Flowsheets (Taken 04/27/2025356) Dysrhythmia Management: other (see comments) Note: Cardiac function being monitored via telemetry Goal: Optimal Functional Ability Outcome: Ongoing, Progressing Intervention: Optimize Functional Ability Flowsheets Taken 04/26/20251929 Activity Management: activity adjusted per tolerance activity encouraged Taken 04/26/2025533 Self-Care Promotion: independence encouraged BADL personal objects within reach BADL personal routines maintained Goal: Effective Oxygenation and Ventilation Outcome: Ongoing, Progressing Intervention: Promote Airway Secretion Clearance Flowsheets Taken 04/27/2025356 Breathing Techniques/Airway Clearance: deep/controlled cough encouraged airway clearance techniques utilized Taken 04/26/20251929 Activity Management: activity adjusted per tolerance activity encouraged Cough And Deep Breathing: done with encouragement Intervention: Optimize Oxygenation and Ventilation Flowsheets Taken 04/26/20251929 Head of Bed (HOB) Positioning: HOB elevated Taken 04/26/2025533 Airway/Ventilation Management: position adjusted Problem: Fall Injury Risk Goal: Absence of Fall and Fall-Related Injury Outcome: Ongoing, Progressing Intervention: Identify and Manage Contributors Flowsheets Taken 04/27/2025356 Medication Review/Management: medications reviewed Taken 04/26/2025533 Self-Care Promotion: independence encouraged BADL personal objects within reach BADL personal routines maintained Intervention: Promote Injury-Free Environment Flowsheets (Taken 04/26/20251929) Safety Promotion/Fall Prevention: activity supervised assistive device/personal items within reach clutter-free environment maintained fall prevention program maintained lighting adjusted mobility aid in reach nonskid shoes/slippers when out of bed room organization consistent safety round/check completed toileting scheduled * Consults - Jose Bran DO - 04/26/2025 3:24 PM EDTAssociated Order(s): IP CONSULT TO CARDIOLOGY Images from the original note were not included. Electrophysiology New Consult Note Consult Reason: ECG changes post TAVR Requesting Service: CA7 service Subjective Pertinent History CAD s/p PCI to LAD in 2000 Moderate-severe aortic stenosis HTN HLD History of present illness: Marleny Covarrubias is a 89 y.o. female that presented for elevated TAVR repair. Her procedure was without acute complications however post operatively found to have new RBBB and concern for bifascicular block. Ms. Covarrubias is resting in bed without acute concerns and feels well this morning. Review of Systems: 14 point ROS reviewed and is negative unless mentioned above. Family and Social History: Reviewed and non-significant unless otherwise stated in HPI. Allergies Patient has no known allergies. Past Medical History[1] Surgical History[2] Objective and Exam Blood pressure 109/67, pulse 61, temperature 36.8 ??C (98.3 ??F), resp. rate 17, height 1.524 m (5'), weight 91.3 kg (201 lb 4.5 oz), SpO2 93%. General: elderly appearing, no acute distress Neck: No appreciable JVD. Cardiac: Regular rate, regular rhythm, no murmur. Pulmonary: No wheezes, no increased work of breathing. Extremity: Warm, no LE edema. Pertinent Telemetry Sinus rhythm with a rate of 60 bpm EKG 04/25/2025 - pre TAVR - Sinus bradycardia with left axis deviation and LVH. Poor R wave progression. 04/26/2025 - post TAVR - Sinus rhythm at 60 bpm. Left axis deviation. LVH. RBBB. Poor R wave progression. Lab Results Component Value Date K 5.0 (H) 04/26/2025 MG 2.0 04/26/2025 CREATININE 1.32 (H) 04/26/2025 Assessment and Recommendations Severe aortic stenosis s/p TAVR 04/25/2025 Post operative acute RBBB and first degree AV block CAD s/p PCI to LAD 2000 Mr. Covarrubias is an 89 y/o person living with a history of CAD s/p PCI and severe aortic stenosis who presented for elective TAVR repair. Post operatively she was found to have a new RBBB on ECG. Prior ECG with evidence of left axis deviation and LVH. 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 Her new RBBB is likely traumatic from catheter placement. She has evidence of an acutefirst degree AV block but no evidence of high degree AV block or high risk features on telemetry and do not believe she currently requires an emergent/urgent pacemaker. She has remained hemodynamicall y stable. With that, recommend 30 day event monitor at discharge. Recommendations Would prescribe 30 day event monitor at discharge Avoid AV ian blocking agents All recommendations should be considered preliminary until this note is co- signed by the attending physician. Please page the on-call vineyard worker with any further questions. I spent 60 minutes performing the following components of the encounter (on the day of the encounter): reviewing history, examining the patient, reviewing imaging and/or labs, independently interpreting echocardiogram, ECG and/or other imaging results, counseling the patient and family/caregiver, communicating with other health special needs child caregiver, and entering clinical information in the EHR. Less than 50% of the time spent on the encounter was face to face providing direct patient care, counseling for the patient/caregiver, and care coordination. Moiz Bran DO General Liner Man PGY-4 [1] No past medical history on file. [2] Past Surgical History: Procedure Laterality Date ANKLE SURGERY CARDIAC STENT CARPAL TUNNEL RELEASE both wrists CHOLECYSTECTOMY COLONOSCOPY TOTAL KNEE ARTHROPLASTY Cosigned by Temi Castillo MD at 04/27/2025 8:36 PM EDT Associated attestation - Temi Castillo MD - 04/27/2025 8:36 PM EDT Signature only. * Progress Notes - Pedro De La Cruz RN - 04/26/2025 3:16 PM EDT Case Management Adult Initial Progress Note Marleny Covarrubias 89 y.o. female CSN: [id number] Admission: 04/25/2025 9:48 AM Primary Problem: Aortic stenosis Insert Cutter reviewed chart and spoke with patient to complete this Initial Case Management Assessment. PCP: Jim Lopez MD Emergency Contact: Extended Emergency Contact Information Primary Emergency Contact: Junaid Covarrubias Mobile Relation: Son Insurance: Primary Visit Coverage Payer Plan Sponsor Code Group Number Group Name [employer] MEDICARE [employer] MED[employer] [id number] [place] [employer] Primary Visit Coverage Subscriber Subscriber ID Subscriber Name Subscriber SSN Subscriber Address [id number] Marleny Covarrubias [id number] [place] [address] Patient information: Primary Caregiver: Self Support System: Immediate family, Extended family Daily Living Activities: Functional Status: Minimum assistance Living Arrangements: Children Type of Residence: Private residence [address] [place] [address] Current DME: Equipment Currently Used at Home: cane, straight, walker, rolling Income Information: Income Source: Retired Income/Expense Information: Income meets expenses Current Resources Utilized: None Housing Circumstances-Z Codes: Housing Circumstances (select all that apply): None Applicable Anticipated Discharge Date: TBD Patient's Discharge Goal: Patient/Family Anticipates Transition to: home with family Assistance Available at Discharge: Current Outpatient/Agency/Support Group: clinic(s), DME Availability of Care Givers (#Hours): 24 hours Discharge Transport: Transportation Anticipated: family or friend will provide Follow Up Transport: Transportation Needed to Follow up Appoinments: Family/Friend will Provide Living Will/Advance Directive/Power of Sand Mill Operator Facing Sand /Guardian: Have you reviewed your Advance Directive and is it valid for this stay?: No Advance Directive: Not applicable Information Provided on Healthcare Directives: No Pre-existing DNR/DNI Order: No Patient Requests Assistance: No Additional Comments: Cm spoke to patient at bedside about Cm role in discharge planning. Cm verified patient emergency contact and the Patient address is [address] [place] [address] in [place], [place]. Patient is independent with ADLs prior to admission. Patient denies use of any HH, DME other than a cane and rollingwalker, dialysis or home oxygen prior to admission. Patient has Medicare A and B insurance and has prescription coverage. Patient PCP is Jim Lopez MD. Patient pharmacy is [facility] in [place], [place]. Patient lives with family and they are agreeable and able to provide support if needed. Family will transport at discharge when medically ready. Cm will follow. No RN CM/SW needs identified. Will continue to follow and assist. Patient was agreeable to answer SDOH questions and no help is needed at this time. Pedro De La Cruz, RN * Progress Notes - Marleni Estrella, CAR RENTAL CLERK - 04/26/2025 11:38 AM EDT Images from the original note were not included. Cardiology Daily Progress Note Past 24 Hours/HPI: Patient sitting up in bed. Feels great. No complaints. ECG with new LFB, RBBB. EP consulted. No PPM indicated. Recommend 30 day monitor on discharge. Will continue to monitor patient on tele for additional 24 hours and obtain ecg in AM. ROS: General - no constitutional symptoms, fever, chills, weight loss or sleep difficulty. Eyes - no recent change in vision, diplopia, or eye pain ENT - no change in voice, rhinorrhea or oral pain CV - no recent chest pain, palpitations, syncope, orthopnea or PND Pulmonary - no dyspnea, hemoptysis, wheezing, cough or sputum production GI - no jaundice, abdominal pain, diarrhea, N/V, dysphagia, GI bleeding - no hematuria, dysuria, urinary hesitancy Endocrine - no heat or cold intolerance Lymphatic - no enlarged nodes noted Neurologic - no focal weakness, seizure, aphasia, dysarthria, sensory disturbance or gait/movement disorder Dermatologic - no recent rash, nodule or worrisome nevus Hematologic - no excessive bleeding or bruising Allergic - no runny nose or itchy/teary eyes; food, medication or environmental allergies Objective: All Laboratory and vital signs data personally reviewed unless otherwise noted. VITALS Visit Vitals BP 109/67 Pulse 61 Temp 36.8 ??C (98.3 ??F) Ht 1.524 m (5') Wt 91.3 kg (201 lb 4.5 oz) SpO2 93% BMI 39.31 kg/m?? I & O SUMMARY I/O last 3 completed shifts: In: 1075 (11.8 mL/kg) [I.V.:825 (9 mL/kg); IV Piggyback:250] Out: 300 (3.3 mL/kg) [Urine:300 (0.1 mL/kg/hr)] Weight: 91.3 kg I/O this shift: In: 260 [P.O.:260] Out: - MEDICATIONS Current Scheduled Medications[1] Current Continuous Medications[2] Current PRN Medications[3] LABS (PAST 18Labs in last 18 hours CBC WBC 7.24 Hb 10.0 (L) Plt 97 (L) Hct 31.4 (L) ANC ?? INR ??, PTT ??, Anti-Xa ?? BMP Na 138 Cl 110 (H) BUN 27 (H) Glu 91 K 5.0 (H) Co2 19 (L) Cr 1.32 (H) Ca 8.6 (L) iCa ?? Mg 2.0, Phos ?? Lactate ?? LFT AST ?? AlkPhos ?? T Prot ?? ALK ?? Bili ?? Alb ?? D.Bili ?? HOURS) Physical Exam: GENERAL: Well nourished. Well developed. Resting comfortably in NAD HEAD: Atraumatic & normocephalic EYES: PERRLA. No scleral icterus or conjunctivitis. EARS: Normal hearing NOSE: Nares patent. THROAT/MOUTH: Moist mucous membranes NECK: Supple. Nontender. No JVD. The trachea appears midline. LUNGS/CHEST: Breath sounds clear throughout. Bilateral chest excursion noted. No retractions. CARDIAC: RRR, S1S2. No murmur, rubs, or gallop. VASCULAR: Capillary refill <2 seconds. Palpable radial pulses noted bilaterally. Palpable DP andPT pulses noted bilaterally. Extremities: No edema. No cyanosis or clubbing. GI: Abdomen soft, nontender, nondistended. Bowel sounds noted in all 4 quadrants. No organomegaly or masses appreciated. SKIN: No rash, sores, lesions or subcutaneous nodules. Bilateral groin access sites without bleeding or evidence of hematoma. NEURO: Awake and oriented x3. Moves all extremities with purpose. PSYCH: Cooperative with care. Mood & affect congruent and appropriate to situation. Radiographics/Diagnostics: Encounter Date: 04/25/25 ECG Adult Result Value EKG DIAGNOSIS CLASS Abnormal Ventricular Rate 58 Atrial Rate 58 [place] Interval 216 QRSD Interval 134 QT Interval 446 QTC Interval 437 P [place] 74 R [place] -46 T Wave [place] 0 Diagnosis Sinus bradycardia with 1st degree AV block Diagnosis Right bundle branch block Diagnosis Left anterior fascicular block Diagnosis Bifascicular block Diagnosis Abnormal ECG *Note: Due to a large number of results and/or encounters for the requested time period, some results have not been displayed. A complete set of results can be found in Results Review. Echo, Adult Transthoracic (TTE) Limited Result Date: 04/26/2025 Aortic Valve: There is a transcatheter bioprosthetic valve (23 mm Evolut). There is no valvular regurgitation. There is trace paravalvular leak. The peak gradient is 34 mmHg. The mean gradient is 19 mmHg. The gradient is normal for this prosthetic valve. Left Ventricle: The left ventricular systolic function is normal. The LVEF is visually estimated at 55 - 60%. Pericardium: There is a trace localized pericardial effusion around the left ventricle. There is no echocardiographic evidence of cardiac tamponade. Compared to the most recently available prior study, and allowing for differences in image quality and technique, there is no significant interval change noted. Echo, Adult Transthoracic (TTE) Limited Result Date: 04/25/2025 The left ventricle is normal size. There is concentric remodeling. The LVEF is visually estimated at 55 - 60%. Pre-TAVR aortic valve evaluation: Trileaflet valve with severe leaflet calcification. Mild aortic valve regurgitation. Severe stenosis (Peak velocity 3.9 m/sec, peak gradient 61 mmHg, meangradient 40 mmHg, and a calculated aortic valve area of 1.0 cm??. Interval placement of appropriately positioned transcatheter bioprosthetic valve (23 mm Evolut). The peak gradient is 24 mmHg. The mean gradient is 10 mmHg. The estimated aortic valve area by the continuity equation is 1.8 cm2. DVI 0.7. EOAi 1 cm2/m2. The gradient is normal for this prosthetic valve. No pericardial effusion. Echo, Adult Transthoracic Complete Result Date: 04/19/2025 Left Ventricle: The left ventricle is normal [...] pressure is mildly elevated (35-50mmHg). Aortic Valve: Theaortic valve appears to be trileaflet. There is calcification of the aortic valve leaflets. There is mild aortic valve regurgitation. There is moderate aortic stenosis. The peak gradient is 66 mmHg. The mean gradient is 36 mmHg. The estimated aortic valve area by the continuity equation is 1.2 cm2.Pulmonic Valve: There is moderate pulmonic regurgitation. Pericardium: There is a trace localized pe ricardial effusion around the left ventricle. There is no echocardiographic evidence of cardiac tamponade. There is no recent study available for direct xjlb-ci-ipaw comparison. === 04/25/25 === XR CHEST 1 VIEW - Narrative - CLINICAL INDICATION: S/P TAVR TECHNIQUE: XR CHEST 1 VIEW COMPARISON: April 11, 2025. FINDINGS: Postoperative changes of aortic valve replacement. Enlarged cardiac mediastinal silhouette with mild vascular congestion. No pneumothorax. - Impression - Expected postprocedure changes. Cardiomegaly. CRITICAL RESULT: No. COMMUNICATION: Per this written report. Drafted by Gus Hawkins MD on 04/26/2025 7:24 AM Final report signed by Gus Hawkins MD on 04/26/2025 7:37 AM Problem List: Principal Problem: Aortic stenosis Active Problems: Nonrheumatic aortic valve stenosis Assessment & Plan: Marleny Covarrubias is an 89 year old female who presents for an elective transcatheter aortic valve replacement (TAVR) per Dr. Kendrick. 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 - Symptoms: dizziness with daily activities and easy fatigue - Diagnostics as above. - Home medications: Bisoprolol 5 mg daily, Losartan/hydrochlorothiazide 50-12.5 mg daily, rosuvastatin 20 mg daily, and Eliquis 2.5 mg BID -ECG as above Plan: - s/p Successful transfemoral transcatheter aortic valve replacement with a 23 mm Evolut Pro+ with Dr. Kendrick. - Routine pre and post-op care. - Pre-op antimicrobial: Cefazolin & Vanco - Admit to inpatient cardiology post-op. - Limited echo post-op to evaluate valve and for pericardial effusion: trace paravalvular leak noted. - CXR, ECG, and labs in AM-reviewed -EP consulted POD 1 due to new RBBB, LFB-no PPM indicated, recommend 30 day die reamer on discharge-ordered and device clinic notified. - Resume eliquis 2.5mg po BID POD 2 (04/27 PM) - Continuous tele, repeat ECG in AM - AM labs. - [facility] 1 month with echo. #Hyperkalemia -K 4.4 on admit - 5.1 > 5 -Held regina today, resume in AM if K normalized #PAF -Chadsvasc 6 -Continue eliquis 2.5mg po BID #HTN -continue home losartan and hydrochlorothiazide #DM -SS insulin while inpatient -resume oral DM meds on dc HLD -Continue home statin Hypothyroidism -Continue levothyroxine FEN -oral -electrolyte replacement as indicated -regular, cardiac, 2 gram sodium diet PPX: eliquis to be resumed on POD 2, SCDs, PPI Code Status: Full Dispo: Home 04/27-son will transport home. Needs 30 day monitor prior to discharge. Plan of Care developed with Dr. Kendrick, Cardiology Attending Marleni Estrella APRN [phone] [1] insulin lispro, 0-5 Units, Subcutaneous, TID with meals insulin lispro, 0-3 Units, Subcutaneous, Twice at night levothyroxine, 88 mcg, Oral, Daily before breakfast [START ON 04/27/2025] losartan, 50 mg, Oral, Daily pantoprazole, 40 mg, Oral, Daily before breakfast rosuvastatin, 20 mg, Oral, Nightly [2] [3] PRN medications: acetaminophen, glucose OR dextrose 10 % OR dextrose 10 % OR glucagon (human recombinant), traMADol * Care Plan - Patricia Wallace - 04/26/2025 10:09 AM EDT Problem: Adult Inpatient Plan of Care Goal: Plan of Care Review Outcome: Ongoing, Progressing Flowsheets (Taken 04/26/2025 1007) Progress: improving Plan of Care Reviewed With: patient child Note: Pt and pt son will verbalize understanding of new plan of care with possible PPM placement Goal: Patient-Specific Goal (Individualized) Outcome: Ongoing, Progressing Flowsheets (Taken 04/26/2025 0809) Patient/Family-Specific Goals (Include Timeframe): Patient will remain free from falls during shift. Individualized Care Needs: safety Anxieties, Fears or Concerns: none expressed Problem: Heart Failure Goal: Effective Oxygenation and Ventilation Intervention: Promote Airway Secretion Clearance Flowsheets (Taken 04/26/2025 1007) Activity Management: activity encouraged Breathing Techniques/Airway Clearance: deep/controlled cough encouraged Intervention: Optimize Oxygenation and Ventilation Flowsheets (Taken 04/26/2025 1007) Head of Bed (HOB) Positioning: HOB elevated Problem: Fall Injury Risk Goal: Absence of Fall and Fall-Related Injury Intervention: Promote Injury-Free Environment Flowsheets (Taken 04/26/2025 1007) Safety Promotion/Fall Prevention: activity supervised lighting adjusted nonskid shoes/slippers when out of bed * Care Plan - Osmar Bryan RN - 04/26/2025 5:38 AM EDT Problem: Adult Inpatient Plan of Care Goal: Plan of Care Review 04/26/2025513 by Osmar Bryan RN Outcome: Ongoing, Progressing Flowsheets Taken 04/26/2025513 Outcome Evaluation: Pt will be able to verbalize understanding of how her surgical procedure will improve her quality of life. Taken 04/26/2025408 Progress: improving Plan of Care Reviewed With: patient Note: Goal met. Pt verbalizes that she will start to have fewer episodes of SOA and more energy as she recovers from her TAVR. 04/26/2025513 by Osmar Bryan, RN Outcome: Ongoing, Progressing 04/26/2025408 by Osmar Bryan RN Outcome: Ongoing, Progressing Flowsheets (Taken 04/26/2025408) Progress: improving Plan of Care Reviewed With: patient Goal: Patient-Specific Goal (Individualized) 04/26/2025513 by Osmar Bryan RN Outcome: Ongoing, Progressing Flowsheets Taken 04/26/2025513 Patient/Family-Specific Goals (Include Timeframe): Goal met: pt remained free from falls during shift. Taken 04/25/20252014 Individualized Care Needs: safety Anxieties, Fears or Concerns: none expressed 04/26/2025513 by Osmar Bryan RN Outcome: Ongoing, Progressing 04/26/2025408 by Osmar Bryan RN Outcome: Ongoing, Progressing Goal: Absence of Hospital-Acquired Illness or Injury 04/26/2025513 by Osmar Bryan RN Outcome: Ongoing, Progressing 04/26/2025513 by Osmar Bryan RN Outcome: Ongoing, Progressing 04/26/2025408 by Osmar Bryan RN Outcome: Ongoing, Progressing Intervention: Identify and Manage Fall Risk Flowsheets (Taken 04/26/2025513) Safety Promotion/Fall Prevention: activity supervised assistive device/personal items within [facility] fall prevention program maintained nonskid shoes/slippers when out of bed toileting scheduled lighting adjusted clutter-free environment maintained mobility aid in [facility] room organization consistent safety round/check completed Intervention: Prevent Skin Injury Flowsheets Taken 04/26/2025513 Skin Protection: pulse oximeter probe site changed transparent dressing maintained incontinence pads utilized Taken 04/26/2025399 Body Position: weight shifting Intervention: Prevent and Manage VTE (Venous Thromboembolism) Risk Flowsheets (Taken 04/26/2025399) VTE Prevention/Management: SCDs (sequential compression devices) off Intervention: Prevent Infection Flowsheets (Taken 04/26/2025513) Infection Prevention: hand hygiene promoted single patient room provided environmental surveillance performed rest/sleep promoted Goal: Optimal Comfort and Wellbeing 04/26/2025513 by Osmar Bryan RN Outcome: Ongoing, Progressing 04/26/2025513 by Osmar Bryan RN Outcome: Ongoing, Progressing 04/26/2025408 by Osmar Bryan RN Outcome: Ongoing, Progressing Intervention: Provide Person-Centered Care Flowsheets (Taken 04/26/2025513) Trust Relationship/Rapport: care explained emotional support provided questions answered questions encouraged thoughts/feelings acknowledged Goal: Readiness for Transition of Care 04/26/2025513 by Osmar Bryan RN Outcome: Ongoing, Progressing 04/26/2025513 by Osmar Bryan RN Outcome: Ongoing, Progressing 04/26/2025408 by Osamr Bryan RN Outcome: Ongoing, Progressing Intervention: Mutually Develop Transition Plan Flowsheets (Taken 04/26/2025513) Current Outpatient/Agency/Support Group: clinic(s) DME Problem: Heart Failure Goal: Stable Heart Rate and Rhythm Outcome: Ongoing, Progressing Intervention: Monitor and Manage Cardiac Rhythm Effect Flowsheets (Taken 04/26/2025533) Dysrhythmia Management: other (see comments) Note: Cardiac status monitored Goal: Optimal Functional Ability Outcome: Ongoing, Progressing Intervention: Optimize Functional Ability Flowsheets Taken 04/26/2025533 by Osmar Bryan RN Self-Care Promotion: independence encouraged BADL personal objects within reach BADL personal routines maintained Taken 04/26/2025399 by James Goldberg II Activity Management: activity adjusted per tolerance Goal: Effective Oxygenation and Ventilation Outcome: Ongoing, Progressing Intervention: Promote Airway Secretion Clearance Flowsheets Taken 04/26/2025399 by James Goldberg II Activity Management: activity adjusted per tolerance Taken 04/25/20252014 by Osmar Bryan RN Cough And Deep Breathing: done with encouragement Intervention: Optimize Oxygenation and Ventilation Flowsheets Taken 04/26/2025533 by Osmar Bryan RN Airway/Ventilation Management: position adjusted Taken 04/26/2025199 by James Goldberg II Head of Bed (HOB) Positioning: HOB elevated * Care Plan - Osmar Bryan RN - 04/26/2025 5:23 AM EDT Problem: Adult Inpatient Plan of Care Goal: Plan of Care Review 04/26/2025513 by Osmar Bryan RN Outcome: Ongoing, Progressing Flowsheets Taken 04/26/2025513 Outcome Evaluation: Pt will be able to verbalize understanding of how her surgical procedure will improve her quality of life. Taken 04/26/2025408 Progress: improving Plan of Care Reviewed With: patient Note: Goal met. Pt verbalizes that she will start to have fewer episodes of SOA and more energy as she recovers from her TAVR. 04/26/2025513 by Osmar Bryan RN Outcome: Ongoing, Progressing 04/26/2025408 by Osmar Bryan RN Outcome: Ongoing, Progressing Flowsheets (Taken 04/26/2025408) Progress: improving Plan of Care Reviewed With: patient Goal: Patient-Specific Goal (Individualized) 04/26/2025513 by Osmar Bryan RN Outcome: Ongoing, Progressing Flowsheets Taken 04/26/2025513 Patient/Family-Specific Goals (Include Timeframe): Goal met: pt remained free from falls during shift. Taken 04/25/20252014 Individualized Care Needs: safety Anxieties, Fears or Concerns: none expressed 04/26/2025513 by Osmar Bryan RN Outcome: Ongoing, Progressing 04/26/2025408 by Osmar Bryan RN Outcome: Ongoing, Progressing Goal: Absence of Hospital-Acquired Illness or Injury 04/26/2025513 by Osmar Bryan RN Outcome: Ongoing, Progressing 04/26/2025513 by Osmar Bryan RN Outcome: Ongoing, Progressing 04/26/2025408 by Osmar Bryan RN Outcome: Ongoing, Progressing Intervention: Identify and Manage Fall Risk Flowsheets (Taken 04/26/2025513) Safety Promotion/Fall Prevention: activity supervised assistive device/personal items within reach fall prevention program maintained nonskid shoes/slippers when out of bed toileting scheduled lighting adjusted clutter-free environment maintained mobility aid in reach room organization consistent safety round/check completed Intervention: Prevent Skin Injury Flowsheets Taken 04/26/2025513 Skin Protection: pulse oximeter probe site changed transparent dressing maintained incontinence pads utilized Taken 04/26/2025 0400 Body Position: weight shifting Intervention: Prevent and Manage VTE (Venous Thromboembolism) Risk Flowsheets (Taken 04/26/2025 0400) VTE Prevention/Management: SCDs (sequential compression devices) off Intervention: Prevent Infection Flowsheets (Taken 04/26/2025 05) Infection Prevention: hand hygiene promoted single patient room provided environmental surveillance performed rest/sleep promoted Goal: Optimal Comfort and Wellbeing 04/26/2025513 by Osmar Bryan RN Outcome: Ongoing, Progressing 04/26/2025513 by Osmar Bryan RN Outcome: Ongoing, Progressing 04/26/2025408 by Osmar Bryan RN Outcome: Ongoing, Progressing Intervention: Provide Person-Centered Care Flowsheets (Taken 04/26/2025513) Trust Relationship/Rapport: care explained emotional support provided questions answered questions encouraged thoughts/feelings acknowledged Goal: Readiness for Transition of Care 04/26/2025513 by Osmar Bryan RN Outcome: Ongoing, Progressing 04/26/2025513 by Osmar Bryan RN Outcome: Ongoing, Progressing 04/26/2025408 by Osmar Bryan RN Outcome: Ongoing, Progressing Intervention: Mutually Develop Transition Plan Flowsheets (Taken 04/26/2025513) Current Outpatient/Agency/Support Group: clinic(s) DME * Nursing Note - Lynnette Pulliam RN - 04/25/2025 6:49 PM EDT Report called to Chuyita FRY on 6N. VSS and NAD noted. Bilateral groin access sites CDI and soft topalpation. Pt GCS of 15. IV access in place. Pt transported on stretcher, on monitor by Barrera FRY and Innocent RN. * Op Note - Jillian Dickson MD - 04/25/2025 1:36 PM EDT Operative note TAVR : Date: 04/25/2025 Location: [facility] Name: Marleny Covarrubias, : 1935, Pre-operative Diagnosis: Problem List[1] Post-operative Diagnosis: Problem List[2] Surgeons: This procedure was performed jointly by Cardiothoracic Surgery physicians and Interventional Cardiology. The primary Cardiothoracic Surgery booster station operator was Dr. Jillian Dickson. The primary Interventional Cardiology booster station operator was Dr Herminio Perez Operation: Transcatheter aortic valve replacement (TAVR) with Evolut valve Size 23 mm. Indication : Severe, symptomatic aortic stenosis. Brief History: The patient is an 89 y.o. -year-old female with the above-mentioned medical history, who was referred to our valve program for management of severe symptomatic aortic stenosis. Given his comorbidity our team recommended transcatheter aortic valve replacement. The patient and family understood the be nefits and risks and agreed to proceed with the procedure. Procedure Description: The patient was taken to the operating room, placed on the operating table in supine position. Local anesthesia and sedation was used for this procedure. The patient was prepped and draped in usual surgical fashion. Using Seldinger technique and under fluoroscopy and ultrasound guidance we accessedthe right femoral artery and right femoral vein and right radial artery. Then, using the left femoral artery we placed a pigtail catheter into the area of the non- coronary cusp and we obtained a rootangiography verifying our working angles. Then through the right femoral vein we placed a temporarypacing wire into the right ventricle and we verified capture. The patient received heparin, then we placed an introducer sheath through the right femoral artery, then we crossed the lumbee aortic valve with J-wire exchanged over pigtail into extra small Safari wire. The Evolute pro plus valve Size 23 mm valve and its delivery system which were checked under fluoroscopy and were brought to the field and introduced to the Patient thru the right femoral access siteafter removing the introducer sheath. Once we reached the aortic valve level, we released the valve gradually from its sheath under fluoroscopy while obtaining multiple root angiographies until full release. Transthoracic echo showed good functioning valve with a mean of 10 mmHg and no evidence of paravalvular leak. Root angiography showed valve in good position. The patient tolerated the procedure. The access catheter removed and hemostasis was obtained with Perclose system on the right femoral artery and wrist band on the right radial artery and pressure on the right femoral vein. The patient was taken to the recovery room and was hemodynamically stable and in sinus rhythm. [1] Patient Active Problem List Diagnosis Aortic stenosis Essential hypertension Dyslipidemia CAD (coronary artery disease) Fatigue Leg edema Bilateral carotid artery disease (CMS/HCC) BMI 33.0-33.9,adult Nonrheumatic aortic valve stenosis [2] Patient Active Problem List Diagnosis Aortic stenosis Essential hypertension Dyslipidemia CAD (coronary artery disease) Fatigue Leg edema Bilateral carotid artery disease (CMS/HCC) BMI 33.0-33.9,adult Nonrheumatic aortic valve stenosis * H&P - Marleni Estrella APRN - 04/25/2025 10:29 AM EDT Images from the original note were not included. Cardiology History and Physical History of Present Illness Marleny Covarrubias is an 89 year old female who presents for an elective transcatheter aortic valve replacement (TAVR) per Dr. Kendrick. Past medical history significant for Aortic Stenosis, HTN, CAD s/p PCI (10 years ago), HLD and Cerebrovascular disease. The patient reports decline in functional status and dizziness with everyday activities. She reports dissatisfaction with current quality of life. She was seen in our Cardiology clinic as well as CT surgery clinic for further evaluation of TAVR. Patient's repeat echo and CT scan was reviewed on 04/19/2025 during valve conference and it was determined by our multidisciplinary team that patient aortic stenosis had progressed to severe Vmax 4.0 m/s, mean grad 40 mmHg, KANE 0.8.and she would benefit with a TAVR. On encounter this morning patient feels well. No complaints. She reports only taking her eliquis 2.5mg po daily and stopped it after Wednesday AM dose. She reports a history of AF? No documentation in OSH records of this available today. Will continue to inquire and obtain necessary records. Patient meets criteria for TAVR, Transcatheter Aortic Valve Replacement, according to the CMS National Coverage Decision.?Case data will be extracted and entered into the [facility] [facility] Clinical Registry/[facility] Research as required by the National Coverage Decision.? NCT Identifier [id number]. Cardiac Diagnostics: Echo - 04/19/2025: LVEF 54%, Grade I DD, no RWMA, moderate peak gradient 66 mmHg, mean gradient 36 mmHg, and KANE 1.2 cm2 Past Medical History Past Medical History[1] Surgical History Surgical History[2] Family History Reviewed and non-contributory. Social History Tobacco use: Former Alcohol use: Denies any significant recent usage. Other: Denies any recent illicit drug use. Allergies: Allergies[3] Home Medications: Prior to Admission medications Medication Sig Start Date End Date Taking? Authorizing Provider bisoprolol (Zebeta) 5 MG tablet Take 1 tablet by mouth daily. Yes Lukasz Landis MD levothyroxine (Synthroid, Levoxyl) 88 MCG tablet Take 1 tablet by mouth daily before breakfast. YesviLukasz qureshi MD losartan-hydroCHLOROthiazide (Hyzaar) 50-12.5 MG tablet Take 1 tablet by mouth daily. Yes Lukasz Landis MD meclizine (Antivert) 25 MG tablet Take 1 tablet by mouth daily as needed for dizziness. Yes Lukasz Landis MD nitroglycerin (Nitrostat) 0.[address] 1 tablet under the tongue every 5 minutes as needed for chest pain. Yes Lukasz Landis MD omeprazole (PriLOSEC) [address] capsule Take 1 capsule by mouth. Do not crush or chew. Yes Lukasz Landis MD pioglitazone (Actos) 15 MG tablet Take 1 tablet by mouth daily. Yes Lukasz Landis MD rosuvastatin (Crestor) 20 MG tablet Take 1 tablet by mouth nightly. Yes Lukasz Landis MD traMADol (Ultram) 50 MG tablet Take 1 tablet by mouth every 6 hours as needed for severe pain. Yes Lukasz Landis MD apixaban (Eliquis) 2.5 MG tablet Take 1 tablet by mouth daily. Lukasz Landis MD spironolactone (Aldactone) 50 MG tablet Take 1 tablet by mouth daily. Patient not taking: Reported on 04/25/2025 ProviderLukasz MD Review of Systems: A complete 14 point ROS were reviewed and all were negative except what is detailed above. Objective: All Laboratory and vital signs data personally reviewed unless otherwise noted. VITALS Visit Vitals BP (!) 155/65 Pulse 58 Temp 36.6 ??C (97.8 ??F) (Oral) Ht 1.524 m (5') Wt 82.9 kg (182 lb 12.2 oz) SpO2 95% BMI 35.69 kg/m?? MEDICATIONS Current Scheduled Medications[4] Current Continuous Medications[5] Current PRN Medications[6] LABS (PAST 18Labs in last 18 hours CBC WBC ?? Hb ?? Plt ?? Hct ?? ANC ?? INR ??, PTT ??, Anti-Xa ?? BMP Na ?? Cl ?? BUN ?? Glu ?? K ?? Co2 ?? Cr ?? Ca ?? iCa ?? Mg ??, Phos ?? Lactate ?? LFT AST ?? AlkPhos ?? T Prot ?? ALK ?? Bili ?? Alb ?? D.Bili ?? HOURS) The ASCVD Risk score (Becky COY, et al., 2019) failed to calculate for the following reasons: The 2019 ASCVD risk score is only valid for ages 40 to 79 ECG: No electrocardiogram results found for the past 3 days. CXR: No results found for this or any previous visit. Echo: Echo, Adult Transthoracic Complete Result Date: 04/19/2025 Left Ventricle: The left ventricle is normal [...] pressure is mildly elevated (35-50mmHg). Aortic Valve: Theaortic valve appears to be trileaflet. There is calcification of the aortic valve leaflets. There is mild aortic valve regurgitation. There is moderate aortic stenosis. The peak gradient is 66 mmHg. The mean gradient is 36 mmHg. The estimated aortic valve area by the continuity equation is 1.2 cm2.Pulmonic Valve: There is moderate pulmonic regurgitation. Pericardium: There is a trace localized pe ricardial effusion around the left ventricle. There is no echocardiographic evidence of cardiac tamponade. There is no recent study available for direct [id number] comparison. Physical Exam GENERAL: Well nourished. Well developed. Resting comfortably in NAD HEAD: Atraumatic & normocephalic EYES: PERRLA. No scleral icterus or conjunctivitis. EARS: Normal hearing NOSE: Nares patent. THROAT/MOUTH: Moist mucous membranes NECK: Supple. Nontender. No JVD. The trachea appears midline. LUNGS/CHEST: Breath sounds clear throughout. Bilateral chest excursion noted. No retractions. CARDIAC: bradycardia, S1S2. +murmur, rubs, or gallop. VASCULAR: Capillary refill <2 seconds. Palpable radial pulses noted bilaterally. Palpable DP andPT pulses noted bilaterally. Extremities: No edema. No cyanosis or clubbing. GI: Abdomen soft, nontender, nondistended. Bowel sounds noted in all 4 quadrants. No organomegaly or masses appreciated. SKIN: No rash, sores, lesions or subcutaneous nodules. NEURO: Awake and oriented x3. Moves all extremities with purpose. PSYCH: Cooperative with care. Mood & affect congruent and appropriate to situation. Assessment and Plan Marleny Covarrubias is an 89 year old female who presents for an elective transcatheter aortic valve replacement (TAVR) per Dr. Kendrick. # Aortic Valve Stenosis (POA) - NYHA functional class II. - Symptoms: dizziness with daily activities and easy fatigue - Diagnostics as above. - Home medications: Bisoprolol 5 mg daily, Losartan/hydrochlorothiazide 50-12.5 mg daily, rosuvastatin 20 mg daily, and Eliquis 2.5 mg BID Plan: - NPO for TAVR with Dr. Kendrick. - Routine pre and post-op care. - Pre-op antimicrobial: Cefazolin & Vanco - Admit to inpatient cardiology post-op. - Limited echo post-op to evaluate valve and for pericardial effusion. - CXR, ECG, and labs in AM. - Antiplatelet plan pending. - [facility] 1 month with echo. Code Status: Full Dispo: Home 04/26. Plan of Care developed with Dr. Kendrick, Cardiology Attending Marleni Estrella, CAR RENTAL CLERK [phone] [1] No past medical history on file. [2] Past Surgical History: Procedure Laterality Date ANKLE SURGERY CARDIAC STENT CARPAL TUNNEL RELEASE both wrists CHOLECYSTECTOMY COLONOSCOPY TOTAL KNEE ARTHROPLASTY [3] No Known Allergies [4] aspirin, 81 mg, Oral, Once ceFAZolin, 2 g, Intravenous, Once sodium chloride, 10 mL, Intravenous, q12h sodium chloride, 10 mL, Intravenous, q12h vancomycin, 15 mg/kg (Order-Specific), Intravenous, Once [5] [6] PRN medications: Insert peripheral IV AND Saline lock IV AND sodium chloride AND sodium chloride, Insert peripheral IV AND Saline lock IV AND sodium chloride AND sodium chloride * Hospital Course - Briseyda Osei APRN - 04/23/2025 4:46 PM EDT Marleny Covarrubias is an 89 year old female who presents for an elective transcatheter aortic valve replacement (TAVR) per Dr. Kendrick. Past medical history significant for Aortic Stenosis, HTN, CAD s/p PCI (10 years ago), HLD and Cerebrovascular disease. The patient reports decline in functional status and dizziness with everyday activities. She reports dissatisfaction with current quality of life. She was seen in our Cardiology clinic as well as CT surgery clinic for further evaluation of TAVR. Patient's repeat echo and CT scan was reviewed on 04/19/2025 during valve conference and it was determined by our multidisciplinary team that patient aortic stenosis had progressed to severe Vmax 4.0 m/s, mean grad 40 mmHg, KANE 0.8.and she would benefit with a TAVR. On encounter this morning patient feels well. No complaints. She reports only taking her eliquis 2.5mg po daily and stopped it after Wednesday AM dose. She reports a history of AF? No documentation in OSH records of this available today. Will continue to inquire and obtain necessary records. Patient meets criteria for TAVR, Transcatheter Aortic Valve Replacement, according to the CMS National Coverage Decision.?Case data will be extracted and entered into the [facility] Clinical Registry/[facility] Research as required by the National Coverage Decision.? NCT Identifier [id number]. Cardiac Diagnostics: Echo - 04/19/2025: LVEF 54%, Grade I DD, no RWMA, moderate peak gradient 66 mmHg, mean gradient 36 mmHg, and KANE 1.2 cm2 #Severe Aortic Valve Stenosis (POA) - NYHA functional class II. - Symptoms: dizziness with daily activities and easy fatigue - Diagnostics as above. - Home medications: Bisoprolol 2.5 mg daily, Losartan/hydrochlorothiazide 50- 12.5 mg daily, rosuvastatin 20 mg daily, and Eliquis 2.5 mg BID - Pre-op antimicrobial: Cefazolin & Vanco Plan: - s/p Successful transfemoral transcatheter aortic valve replacement with a 23 mm Evolut Pro+ (04/25/25, Dr. Kendrick, [facility]) - Routine pre and post-op care. Bilateral groin sites stable without hematoma. - Gentle IV hydration post op with 100ml/hr NS x 12 hours - Limited echo post-op: LVEF 55-60%, trace localized pericardial effusion around the LV without evidence of tamponade, trace paravalvular leak noted. The peak gradient is 34 mmHg. The mean gradient is 19 mmHg - Resume eliquis 2.5mg po BID POD 2 (04/27 PM) - Abx prior to dental procedures for life - [facility] in 1 month with echo. 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 QRS range 130-150 since valve. Continues to be SB-NSR with 1st AV block and RBBBbut no evidence of progression over 48 hours of tele monitoring. - EP consulted POD 1 No PPM indicated at this time Recommend 30 day die reamer on discharge-ordered STOP bisoprolol. Avoid any AV ian agents #Hyperkalemia -K 4.4 on admit -5.1 > 5 > 4.0 -Held regina post op, Will resume at discharge now that K normalized #CKD - Baseline SrCr on admit 1.6 - s/p gentle IV hydration post op - SrCr 1.4 at discharge - Stable #Acute blood loss anemia -Hgb trend: 12.4 > 10.7> 10 > 9.7 -In the setting of procedure and hydration -No signs of bleeding, HD stable -No intervention needed, continue to monitor #PAF -Chadsvasc 6 -Resume eliquis 2.5mg BID on POD2 (04/27) as noted above #HTN -continue home losartan and hydrochlorothiazide #DM -SS insulin while inpatient -resume oral DM meds on dc HLD -Continue home statin Hypothyroidism -Continue levothyroxine #Obesity - BMI 38.1 - Complicates all aspects of care documented in this encounter Plan of Treatment Upcoming Encounters Date Type Department Care Team (Late st Contact Info) Description 06/27/2025 9:00 AM EDT Appointment Medical Office Building Cardiac Diagnostic Testing Medical Office Building Echo Lab [address] [place] [address] 06/27/2025 10:30 AM EDT Office Visit [facility] [address], [address] [place] [address] Beckie Marshall PA [address] [place] [address] 05/01/2026 1:30 PM EDT Appointment Medical Office Building Cardiac Diagnostic Testing Medical Office Building Echo Lab [address] [facility], [address] [place] [address] 05/01/2026 3:00 PM EDT Office Visit [facility] [address] [facility] [address] [facility], [address] [place] [address] Beckie Marshall PA [address] [place] [address] Pending Results Name Type Priority Associated Diagnoses Date /Time Cardiac event monitor Cardiac Services Routine 04/26/2025 1:59 PM EDT Scheduled Orders Name Type Priority Associated Diagnoses Orde r Schedule Cardiac event monitor Cardiac Services Routine Once for 1 Occurrences starting 04/26/2025 until 04/26/2025 documented as of this encounter Procedures Procedure Name Priority Date/Time Associated Diagnosis Comments POCT GLUCOSE METER UNSOLICITED RESULTS Routine 04/27/2025 11:15 AM EDT POCT GLUCOSE METER UNSOLICITED RESULTS Routine 04/27/2025 7:53 AM EDT ECG ADULT Routine 04/27/2025 6:12 AM EDT CBC W/O DIFFERENTIAL Routine 04/27/2025 5:03 AM EDT MAGNESIUM, PLASMA Routine 04/27/2025 5:0 3 AM EDT BASIC METABOLIC PANEL, PLASMA Routine 04/27/2025 5:03 AM EDT POCT GLUCOSE METER UNSOLICITED RESULTS Routine 04/26/2025 7:28 PM EDT POCT GLUCOSE METER UNSOLICITED RESULTS Routine 04/26/2025 5:30 PM EDT POCT GLUCOSE METER UNSOLICITED RESULTS Routine 04/26/2025 12:19 PM EDT POCT GLUCOSE METER UNSOLICITED RESULTS Routine 04/26/2025 7:52 AM EDT ECHO, ADULT TRANSTHORACIC LIMITED W/ COLOR AND DOPPLER Routine 04/26/2025 7:39 AM EDT ECG ADULT STAT 04/26/2025 6:25 AM EDT XR CHEST 1 VIEW Routine 04/26/2025 1:34 AM EDT CBC W/O DIFFERENTIAL Routine 04/26/2025 12:50 AM EDT MAGNESIUM, PLASMA Routine 04/26/2025 12: 50 AM EDT BASIC METABOLIC PANEL, PLASMA Routine 04/26/2025 12:50 AM EDT ECG ADULT STAT 04/25/2025 10:06 PM EDT POCT GLUCOSE METER UNSOLICITED RESULTS Routine 04/25/2025 8:11 PM EDT POCT GLUCOSE Routine 04/25/2025 5:24 PM EDT POCT GLUCOSE METER UNSOLICITED RESULTS Routine 04/25/2025 5:23 PM EDT CBC W/O DIFFERENTIAL STAT 04/25/2025 5:09 PM EDT BASIC METABOLIC PANEL, PLASMA STAT 04/25/2025 5:09 PM EDT ECG ADULT Routine 04/25/2025 3:58 PM EDT ECHO, ADULT TRANSTHORACIC LIMITED Routine 04/25/2025 2:53 PM EDT Severe aortic stenosis TAVR Routine 04/25/2025 2:45 PM EDT Nonrheumatic aortic valve stenosis IMPLANTATION, AORTIC VALVE, TRANSCATHETER 04/25/2025 1:21 PM EDT Nonrheumatic aortic valve stenosis POCT CREATININE ISTAT UNSOLICITED RESULTS Routine 04/25/2025 10:29 AM EDT TYPE AND SCREEN Routine 04/25/2025 10:26 AM EDT N-TERMINAL PROBNP, PLASMA STAT 04/25/2025 10:24 AM EDT CBC W/O DIFFERENTIAL STAT 04/25/2025 10:24 AM EDT BASIC METABOLIC PANEL, PLASMA STAT 04/25/2025 10:24 AM EDT ECG ADULT Routine 04/25/2025 10:07 AM EDT documented in this encounter Results * (ABNORMAL) POCT glucose meter (04/27/2025 11:15 AM EDT) [facility] [address] POCT Glucose 136(H) 74 - 99 mg/dL 04/27/2025 11:16 AM EDT [facility] Comment:Accuracy of a glucos e result obtained from a capillary whole blood specimen relies upon adequate, non-compromised capillary blood flow. If the capillary glucose result is not consistent with the patient's clinical signs and symptoms, glucose testing should be repeated with either an arterial or venous sample on the glucometer or sent to the main labortory for testing. Comment 04/27/2025 11:16 AM EDT [facility] Sewing Machine Bobbin Winder ID FREDY Tapia 04/27/2025 11:16 AM EDT [facility] Device ID [id number] 04/27/2025 11:16 AM EDT [facility]ARE [facility] Specimen Type POC Capillary 04/27/2025 11:16 AM EDT [facility] Blood Capillary blood specimen / Unknown 04/27/2025 11:15 AM EDT 04/27/2025 11:16 AM EDT Herminio Kendrick MD LAB POINT OF CARE TEST DOCKED DEVICE UNSOLICITED RESULTS Final Result Performing Organization Address City/State/[facility] Co de Phone Number [facility] [address] [place] [address] * (ABNORMAL) POCT glucose meter (04/27/2025 7:53 AM EDT) [facility] [address] POCT Glucose 114(H) 74 - 99 mg/dL 04/27/2025 7:55 AM EDT [facility] Comment:Accuracy of a glucos e result obtained from a capillary whole blood specimen relies upon adequate, non-compromised capillary blood flow. If the capillary glucose result is not consistent with the patient's clinical signs and symptoms, glucose testing should be repeated with either an arterial or venous sample on the glucometer or sent to the main labortory for testing. Comment 04/27/2025 7:55 AM EDT [facility]ARE [facility] Sewing Machine Bobbin Winder ID FREDY Tapia 04/27/2025 7:55 AM EDT [facility]ALTH[facility]ARE [facility] Device ID [id number] 04/27/2025 7:55 AM EDT [facility]ARE LAB Specimen Type POC Capillary 04/27/2025 7:55 AM EDT [facility] Blood Capillary blood specimen / Unknown 04/27/2025 7:53 AM EDT 04/27/2025 7:55 AM EDT Herminio Kendrick MD LAB POINT OF CARE TEST DOCKED DEVICE UNSOLICITED RESULTS Final Result [facility] [address] [place] [address] * ECG Adult (04/27/2025 6:12 AM EDT) EKG DIAGNOSIS CLASS Abnormal MUSE ECG Ventricular Rate 68 BPM MUSE ECG Atrial Rate 68 BPM MUSE ECG [place] Interval 268 ms MUSE ECG QRSD Interval 150 ms MUSE ECG QT Interval 426 ms MUSE ECG QTC Interval 452 ms MUSE ECG P [place] 64 degrees MUSE ECG R [place] -43 degrees MUSE ECG T Wave [place] 0 degrees MUSE ECG Diagnosis Sinus rhythm with 1st degree AV block MUSE ECG Diagnosis Left axis deviation MUSE ECG Diagnosis Right bundle branch block MUSE ECG Diagnosis Abnormal ECG MUSE ECG Diagnosis MUSE ECG Diagnosis Confirmed by Codey Multani ([id number]) on 04/27/2025 4:01:21 PM MUSE ECG 04/27/2025 6:12 AM EDT 04/27/2025 4:01 PM EDT Marleni Estrella APRN ECG ORDERABLES Final Result MUSE ECG * Magnesium, Plasma (04/27/2025 5:03 AM EDT) Magnesium, Plasma 2.0 1.9 - 2.4 mg/dL 04/27/2025 6:16 AM EDT [facility] Blood Venous blood specimen / Unknown Venipuncture / Unknown 04/27/2025 5:03 AM EDT 04/27/2025 5:44 AM EDT Marleni Estrella APRN LAB BLOOD ORDERABLES Final R esult [facility] [address] [place] [address] * (ABNORMAL) Basic Metabolic Panel, Plasma (04/27/2025 5:03 AM EDT) Glucose, Plasma 107(H) 74 - 99 mg/dL 04/27/2025 6:16 AM EDT [facility] BUN, Plasma 24(H) 8 - 23 mg/dL 04/27/2025 6:16 AM EDT [facility] Creatinine, Plasma 1.39(H) 0.60 - 1.10 mg/dL 04/27/2025 6:16 AM EDT [facility] BUN/Creatinine Ratio 17 04/27/2025 6:16 AM EDT [facility] Sodium, Plasma 139 136 - 145 mmol/L 04/27/2025 6:16 AM EDT [facility] Potassium, Plasma 4.0 3.6 - 4.9 mmol/L 04/27/2025 6:16 AM EDT [facility] Chloride, Plasma 109(H) 97 - 107 mmol/L 04/27/2025 6:16 AM EDT [facility] CO2, Plasma 19(L) 22 - 29 mmol/L 04/27/2025 6:16 AM EDT [facility] Anion Gap 11 6 - 16 mmol/L 04/27/2025 6:16 AM EDT [facility] Total Calcium, Plasma 8.6(L) 8.9 - 10.2 mg/dL 04/27/2025 6:16 AM EDT [facility] eGFRcr 36.3 mL/min/1.7 3m*2 04/27/2025 6:16 AM EDT [facility] Comment:Reported eGFRcr in m L/min/1.73m2 is based the CKD-EPI 2020 equation that does not use a race coefficient. Blood Venous blood specimen / Unknown Venipuncture / Unknown 04/27/2025 5:03 AM EDT 04/27/2025 5:44 AM EDT us Marleni Estrella APRN LAB BLOOD ORDERABLES Final R esult [facility] [address] [place] [address] * (ABNORMAL) CBC W/O Differential (04/27/2025 5:03 AM EDT) WBC Count 6.68 3.70 - 10.30 10*3/uL LAB HEMATOLOGY METHOD 04/27/2025 5:55 AM EDT [facility] RBC Count 2.99(L) 3.90 - 5.20 10*6/uL LAB HEMATOLOGY METHOD 04/27/2025 5:55 AM EDT [facility] HGB 9.7(L) 11.2 - 15.7 g/dL LAB HEMATOLOGY METHOD 04/27/2025 5:55 AM EDT [facility] HCT 29.9(L) 34.0 - 45.0 % LAB HEMATOLOGY METHOD 04/27/2025 5:55 AM EDT [facility] Platelet Count 95(L) 155 - 369 10*3/uL LAB HEMATOLOGY METHOD 04/27/2025 5:55 AM EDT [facility] MCV 100(H) 79 - 98 fL LAB HEMATOLOGY METHOD 04/27/2025 5:55 AM EDT [facility] MCH 32.4(H) 26.0 - 32.0 pg LAB HEMATOLOGY METHOD 04/27/2025 5:55 AM EDT [facility] MCHC 32.4 30.7 - 35.5 g/dL LAB HEMATOLOGY METHOD 04/27/2025 5:55 AM EDT [facility] RDW 15.0(H) 11.5 - 14.5 % LAB HEMATOLOGY METHOD 04/27/2025 5:55 AM EDT [facility] MPV 12.2 8.8 - 12.5 fL LAB HEMATOLOGY METHOD 04/27/2025 5:55 AM EDT [facility] nRBC 0.0 <=0.0 per 100 WBCs LAB HEMATOLOGY METHOD 04/27/2025 5:55 AM EDT [facility] Blood Venous blood specimen / Unknown Venipuncture / Unknown 04/27/2025 5:03 AM EDT 04/27/2025 5:44 AM EDT us Marleni Estrella APRN LAB BLOOD ORDERABLES Final R esult Performing Organization Address City/[facility]/ZIP Co de Phone Number [facility] [address] [place] [address] * (ABNORMAL) POCT glucose meter (04/26/2025 7:28 PM EDT) POCT Glucose 170(H) 74 - 99 mg/dL 04/26/2025 7:30 PM EDT [facility] Comment:Accuracy of a glucos e result obtained from a capillary whole blood specimen relies upon adequate, non-compromised capillary blood flow. If the capillary glucose result is not consistent with the patient's clinical signs and symptoms, glucose testing should be repeated with either an arterial or venous sample on the glucometer or sent to the main labortory for testing. Comment 04/26/2025 7:30 PM EDT [facility] Sewing Machine Bobbin Winder ID Selvin Munson 04/26/2025 7:30 PM EDT [facility] Device ID [id number] 04/26/2025 7:30 PM EDT [facility] Specimen Type POC Capillary 04/26/2025 7:30 PM EDT [facility] Blood Capillary blood specimen / Unknown 04/26/2025 7:28 PM EDT 04/26/2025 7:30 PM EDT us Herminio Kendrick MD LAB POINT OF CARE TEST DOCKED DEVICE UNSOLICITED RESULTS Final Result Performing Organization Address City/[facility] Co de Phone Number [facility] [address] [place] [address] * POCT glucose meter (04/26/2025 5:30 PM EDT) POCT Glucose 91 74 - 99 mg/dL 04/26/2025 5:32 PM EDT [facility] Comment:Accuracy of a glucos e result obtained from a capillary whole blood specimen relies upon adequate, non-compromised capillary blood flow. If the capillary glucose result is not consistent with the patient's clinical signs and symptoms, glucose testing should be repeated with either an arterial or venous sample on the glucometer or sent to the main labortory for testing. Comment 04/26/2025 5:32 PM EDT [facility] Sewing Machine Bobbin Winder ID Diana Villarreal 04/26/2025 5:32 PM EDT [facility] LAB Device ID [id number] 04/26/2025 5:32 PM EDT [facility] Specimen Type POC Capillary 04/26/2025 5:32 PM EDT [facility] Blood Capillary blood specimen / Unknown 04/26/2025 5:30 PM EDT 04/26/2025 5:32 PM EDT Herminio Kendrick MD LAB POINT OF CARE TEST DOCKED DEVICE UNSOLICITED RESULTS Final Result Performing Organization Address City/[facility] Co de Phone Number [facility] [address] [place] [address] * (ABNORMAL) POCT glucose meter (04/26/2025 12:19 PM EDT) [facility] [address] POCT Glucose 101(H) 74 - 99 mg/dL 04/26/2025 12:21 PM EDT [facility] Comment:Accuracy of a glucos e result obtained from a capillary whole blood specimen relies upon adequate, non-compromised capillary blood flow. If the capillary glucose result is not consistent with the patient's clinical signs and symptoms, glucose testing should be repeated with either an arterial or venous sample on the glucometer or sent to the main labortory for testing. Comment 04/26/2025 12:21 PM EDT [facility] Sewing Machine Bobbin Winder ID Diana Villarreal 04/26/2025 12:21 PM EDT [facility] LAB Device ID [id number] 04/26/2025 12:21 PM EDT [facility] Specimen Type POC Capillary 04/26/2025 12:21 PM EDT [facility] Blood Capillary blood specimen / Unknown 04/26/2025 12:19 PM EDT 04/26/2025 12:21 PM EDT Herminio Kendrick MD LAB POINT OF CARE TEST DOCKED DEVICE UNSOLICITED RESULTS Final Result Performing Organization Address City/[facility]/ZIP Co de Phone Number [facility] [address] [place] [address] * (ABNORMAL) POCT glucose meter (04/26/2025 7:52 AM EDT) [facility] [address] POCT Glucose 106(H) 74 - 99 mg/dL 04/26/2025 7:55 AM EDT [facility] Comment:Accuracy of a glucos e result obtained from a capillary whole blood specimen relies upon adequate, non-compromised capillary blood flow. If the capillary glucose result is not consistent with the patient's clinical signs and symptoms, glucose testing should be repeated with either an arterial or venous sample on the glucometer or sent to the main labortory for testing. Comment 04/26/2025 7:55 AM EDT [facility] Sewing Machine Bobbin Winder ID Diana Villarreal 04/26/2025 7:55 AM EDT [facility] LAB Device ID [id number] 04/26/2025 7:55 AM EDT [facility] Specimen Type POC Capillary 04/26/2025 7:55 AM EDT [facility] Blood Capillary blood specimen / Unknown 04/26/2025 7:52 AM EDT 04/26/2025 7:55 AM EDT us Herminio Kendrick MD LAB POINT OF CARE TEST DOCKED DEVICE UNSOLICITED RESULTS Final Result [facility] [address] [place] [address] * ECHO, ADULT TRANSTHORACIC LIMITED W/ COLOR AND DOPPLER (04/26/2025 7:39 AM EDT) [facility] [address] BSA 1.87 m2 JESUS ISCV Height 152.4 JESUS ISCV Weight 91.2 JESUS ISCV Ao V2 VTI 62.2 cm JESUS ISCV Ao mean PG 19 mmHg JESUS ISCV Ao V2 Vmax 293.6 cm/s JESUS ISCV Ao max PG 34 mmHg JESUS ISCV Ao V2 mean 200.8 cm/s JESUS ISCV LV V1 VTI 27.3 cm JESUS ISCV LV V1 Vmax 116.9 cm/s JESUS ISCV AV VTI Index 0.44 JESUS ISCV LV mean PG 3.6 mmHG JESUS ISCV LV V1 mean 91.1 cm/sec JESUS ISCV LV max PG 5.5 mmHg JESUS ISCV LVOT diam 19 mm JESUS ISCV LVOT AREA 2.8 cm2 JESUS ISCV SV(LVOT) 77 mL JESUS ISCV KANE(I,D) 1.2 cm2 JESUS ISCV KANE(VTI)/BSA_ph l 0.7 cm2/m2 JESUS ISCV LVIDd 51 mm JESUS ISCV IVSd 10 mm JESUS ISCV LVPWd 10 mm JESUS ISCV LV MASS(C)D 187 g JESUS ISCV [facility] CV ECHO LV MASS INDEX 100 g/m2 JESUS ISCV LV RWT 0.39 mm JESUS ISCV LVIDs 29 mm JESUS ISCV Anatomical Region Laterality Modality Echocardiography Narrative 04/26/2025 8:19 AM EDT Aortic Valve: There is a transcatheter bioprosthetic valve (23 mm Evolut). There is no valvular regurgitation. There is trace paravalvular leak. The peak gradient is 34 mmHg. The mean gradient is 19 mmHg. The gradient is normal for this prosthetic valve. Left Ventricle: The left ventricular systolic function is normal. The LVEF is visually estimated at 55 - 60%. Pericardium: There is a trace localized pericardial effusion around the left ventricle. There is no echocardiographic evidence of cardiac tamponade. Compared to the most recently available prior study, and allowing for differences in image quality and technique, there is no significant interval change noted. Left Ventricle Based on the linear dimension and/or 2D volumes, the left ventricle is normal in size. There is normal left ventricular myocardial thickness and mass. The left ventricular systolic function is normal. The LVEF is visually estimated at 55 - 60%. Mitral Valve The mitral valve leaflets are normal in appearance with no evidence of mitral valve prolapse. There is trace mitral regurgitation. There is no mitral stenosis. Aortic Valve There is a transcatheter bioprosthetic valve (23 mm Evolut). There is no valvular regurgitation. There is trace paravalvular leak. The peak gradient is 34 mmHg. The mean gradient is 19 mmHg. The gradient is normal for this prosthetic valve. Pericardium There is a trace localized pericardial effusion around the left ventricle. There is no echocardiographic evidence of cardiac tamponade. Study Details A limited transthoracic echocardiogram using limited 2D, color flow Doppler and limited spectral Doppler imaging was performed. During the study the apical, parasternal and subcostal view was captured. Overall the study quality was adequate. Heart rate was normal. Height: 152.4 cm. Weight: 91.2 kg. BSA: 1.87 m2. The heart rhythm during this exam was most suggestive of a sinus rhythm. Study Recommendation Compared to the most recently available prior study, and allowing for differences in image quality and technique, there is no significant interval change noted. us Marleni Estrella CAR RENTAL CLERK CV ECHO PROCEDURES Final Res ult * ECG Adult (04/26/2025 6:25 AM EDT) EKG DIAGNOSIS CLASS Abnormal MUSE ECG Ventricular Rate 58 BPM MUSE ECG Atrial Rate 58 BPM MUSE ECG NY Interval 216 ms MUSE ECG QRSD Interval 134 ms MUSE ECG QT Interval 446 ms MUSE ECG QTC Interval 437 ms MUSE ECG P [place] 74 degrees MUSE ECG R [place] -46 degrees MUSE ECG T Wave [place] 0 degrees MUSE ECG Diagnosis Sinus bradycardia with 1st degree AV block MUSE ECG Diagnosis Right bundle branch block MUSE ECG Diagnosis Left anterior fascicular block MUSE ECG Diagnosis Bifascicular block MUSE ECG Diagnosis Abnormal ECG MUSE ECG Diagnosis MUSE ECG Diagnosis Confirmed by Ricardo Santana ([id number]) on 04/26/2025 11:52:51 AM MUSE ECG 04/26/2025 6:25 AM EDT 04/26/2025 11:52 AM EDT Herminio Kendrick MD ECG ORDERABLES Final Resu lt MUSE ECG * XR Chest 1 View (04/26/2025 1:34 AM EDT) Anatomical Region Laterality Modality Chest Digital Radiogra phy Impressions 04/26/2025 7:37 AM EDT Expected postprocedure changes. Cardiomegaly. CRITICAL RESULT: No. COMMUNICATION: Per this written report. Drafted by Gus Hawkins MD on 04/26/2025 7:24 AM Final report signed by Gus Hawkins MD on 04/26/2025 7:37 AM Narrative 04/26/2025 7:37 AM EDT CLINICAL INDICATION: S/P TAVR TECHNIQUE: XR CHEST 1 VIEW COMPARISON: April 11, 2025. FINDINGS: Postoperative changes of aortic valve replacement. Enlarged cardiac mediastinal silhouette with mild vascular congestion. No pneumothorax. Procedure Note Gus Hawkins MD - 04/26/2025 CLINICAL INDICATION: S/P TAVR TECHNIQUE: XR CHEST 1 VIEW COMPARISON: April 11, 2025. FINDINGS: Postoperative changes of aortic valve replacement. Enlarged cardiacmediastinal silhouette with mild vascular congestion. No pneumothorax. IMPRESSION: Expected postprocedure changes. Cardiomegaly. CRITICAL RESULT: No. COMMUNICATION: Per this written report. Drafted by Gus Hawkins MD on 04/26/2025 7:24 AM Final report signed by Gus Hawkins MD on 04/26/2025 7:37 AM Marleni Estrella CAR RENTAL CLERK IMG XR PROCEDURES Final Resu lt * Magnesium (04/26/2025 12:50 AM EDT) Magnesium, Plasma 2.0 1.9 - 2.4 mg/dL 04/26/2025 1:55 AM EDT [facility] Blood Venous blood specimen / Unknown Venipuncture / Unknown 04/26/2025 12:50 AM EDT 04/26/2025 1:27 AM EDT Marleni Estrella CAR RENTAL CLERK LAB BLOOD ORDERABLES Final R esult [facility] [address] [place] [address] * (ABNORMAL) Basic metabolic panel (04/26/2025 12:50 AM EDT) Glucose, Plasma 91 74 - 99 mg/dL 04/26/2025 1:55 AM EDT [facility] BUN, Plasma 27(H) 8 - 23 mg/dL 04/26/2025 1:55 AM EDT [facility] Creatinine, Plasma 1.32(H) 0.60 - 1.10 mg/dL 04/26/2025 1:55 AM EDT [facility] BUN/Creatinine Ratio 20 04/26/2025 1:55 AM EDT [facility] Sodium, Plasma 138 136 - 145 mmol/L 04/26/2025 1:55 AM EDT [facility] Potassium, Plasma 5.0(H) 3.6 - 4.9 mmol/L 04/26/2025 1:55 AM EDT [facility] Chloride, Plasma 110(H) 97 - 107 mmol/L 04/26/2025 1:55 AM EDT [facility] CO2, Plasma 19(L) 22 - 29 mmol/L 04/26/2025 1:55 AM EDT [facility] Anion Gap 9 6 - 16 mmol/L 04/26/2025 1:55 AM EDT [facility] Total Calcium, Plasma 8.6(L) 8.9 - 10.2 mg/dL 04/26/2025 1:55 AM EDT [facility] eGFRcr 38.7 mL/min/1.7 3m*2 04/26/2025 1:55 AM EDT [facility] Comment:Reported eGFRcr in m L/min/1.73m2 is based the CKD-EPI 2020 equation that does not use a race coefficient. Blood Venous blood specimen / Unknown Venipuncture / Unknown 04/26/2025 12:50 AM EDT 04/26/2025 1:27 AM EDT us Marleni Estrella APRN LAB BLOOD ORDERABLES Final R esult [facility] [address] [place] [address] * (ABNORMAL) CBC (04/26/2025 12:50 AM EDT) WBC Count 7.24 3.70 - 10.30 10*3/uL LAB HEMATOLOGY METHOD 04/26/2025 2:06 AM EDT [facility] RBC Count 3.10(L) 3.90 - 5.20 10*6/uL LAB HEMATOLOGY METHOD 04/26/2025 2:06 AM EDT [facility] HGB 10.0(L) 11.2 - 15.7 g/dL LAB HEMATOLOGY METHOD 04/26/2025 2:06 AM EDT [facility] HCT 31.4(L) 34.0 - 45.0 % LAB HEMATOLOGY METHOD 04/26/2025 2:06 AM EDT [facility] Platelet Count 97(L) 155 - 369 10*3/uL LAB HEMATOLOGY METHOD 04/26/2025 2:06 AM EDT [facility] MCV 101(H) 79 - 98 fL LAB HEMATOLOGY METHOD 04/26/2025 2:06 AM EDT [facility] MCH 32.3(H) 26.0 - 32.0 pg LAB HEMATOLOGY METHOD 04/26/2025 2:06 AM EDT [facility] MCHC 31.8 30.7 - 35.5 g/dL LAB HEMATOLOGY METHOD 04/26/2025 2:06 AM EDT [facility] RDW 15.1(H) 11.5 - 14.5 % LAB HEMATOLOGY METHOD 04/26/2025 2:06 AM EDT [facility] MPV 12.3 8.8 - 12.5 fL LAB HEMATOLOGY METHOD 04/26/2025 2:06 AM EDT [facility] nRBC 0.0 <=0.0 per 100 WBCs LAB HEMATOLOGY METHOD 04/26/2025 2:06 AM EDT [facility] Blood Venous blood specimen / Unknown Venipuncture / Unknown 04/26/2025 12:50 AM EDT 04/26/2025 1:26 AM EDT us Marleni Estrella APRN LAB BLOOD ORDERABLES Final R esult [facility] [address] [place] [address] * ECG Adult (04/25/2025 10:06 PM EDT) EKG DIAGNOSIS CLASS Abnormal MUSE ECG Ventricular Rate 56 BPM MUSE ECG Atrial Rate 56 BPM MUSE ECG NY Interval 186 ms MUSE ECG QRSD Interval 112 ms MUSE ECG QT Interval 462 ms MUSE ECG QTC Interval 445 ms MUSE ECG P [place] 66 degrees MUSE ECG R [place] -47 degrees MUSE ECG T Wave [place] 8 degrees MUSE ECG Diagnosis Sinus bradycardia MUSE ECG Diagnosis Left anterior fascicular block MUSE ECG Diagnosis Abnormal ECG MUSE ECG Diagnosis MUSE ECG Diagnosis Confirmed by Ricardo Santana ([id number]) on 04/26/2025 11:17:18 AM MUSE ECG 04/25/2025 10:0 6 PM EDT 04/26/2025 11:17 AM EDT Herminio Kendrick MD ECG ORDERABLES Final Resu lt Performing Organization Address City/[facility] Co de Phone Number MUSE ECG * (ABNORMAL) POCT glucose meter (04/25/2025 8:11 PM EDT) POCT Glucose 103(H) 74 - 99 mg/dL 04/25/2025 8:13 PM EDT [facility] Comment:Accuracy of a glucos e result obtained from a capillary whole blood specimen relies upon adequate, non-compromised capillary blood flow. If the capillary glucose result is not consistent with the patient's clinical signs and symptoms, glucose testing should be repeated with either an arterial or venous sample on the glucometer or sent to the main labortory for testing. Comment 04/25/2025 8:13 PM EDT [facility] Sewing Machine Bobbin Winder ID Ashlyn SOLIS James 04/25/2025 8:13 PM EDT [facility] Device ID [id number] 04/25/2025 8:13 PM EDT [facility] Specimen Type POC Capillary 04/25/2025 8:13 PM EDT [facility] Blood Capillary blood specimen / Unknown 04/25/2025 8:11 PM EDT 04/25/2025 8:13 PM EDT Herminio Kendrick MD LAB POINT OF CARE TEST DOCKED DEVICE UNSOLICITED RESULTS Final Result Performing Organization Address City/[facility] Co de Phone Number [facility] [address] [place] [address] * (ABNORMAL) POCT Glucose (if patient NPO, on TPN or continuous nutrition) (04/25/2025 5:24 PM EDT) POCT Glucose 140(A) 74 - 99 mg/dL [facility] Blood Venous blood specimen / Unknown 04/25/2025 5:24 PM EDT Marleni Estrella CAR RENTAL CLERK POINT OF CARE TEST ENTER/SALUD T ORDERABLES Final Result Performing Organization Address [facility]/ZIP Co de Phone Number [facility] [address] [place] [address] * (ABNORMAL) POCT glucose meter (04/25/2025 5:23 PM EDT) POCT Glucose 140(H) 74 - 99 mg/dL 04/25/2025 5:24 PM EDT [facility] Comment:Accuracy of a glucos e result obtained from a capillary whole blood specimen relies upon adequate, non-compromised capillary blood flow. If the capillary glucose result is not consistent with the patient's clinical signs and symptoms, glucose testing should be repeated with either an arterial or venous sample on the glucometer or sent to the main labortory for testing. Comment 04/25/2025 5:24 PM EDT [facility] Sewing Machine Bobbin Winder ID Lynnette Pulliam 04/25/2025 5:24 PM EDT [facility] Device ID [id number] 04/25/2025 5:24 PM EDT [facility] Specimen Type POC Capillary 04/25/2025 5:24 PM EDT [facility] Blood Capillary blood specimen / Unknown 04/25/2025 5:23 PM EDT 04/25/2025 5:24 PM EDT Herminio Kendrick MD LAB POINT OF CARE TEST DOCKED DEVICE UNSOLICITED RESULTS Final Result Performing Organization Address City/[facility] Co de Phone Number [facility] [address] [place] [address] * (ABNORMAL) Basic metabolic panel (04/25/2025 5:09 PM EDT) Glucose, Plasma 149(H) 74 - 99 mg/dL 04/25/2025 5:47 PM EDT [facility] BUN, Plasma 31(H) 8 - 23 mg/dL 04/25/2025 5:47 PM EDT [facility] Creatinine, Plasma 1.35(H) 0.60 - 1.10 mg/dL 04/25/2025 5:47 PM EDT [facility] BUN/Creatinine Ratio 23 04/25/2025 5:47 PM EDT [facility] Sodium, Plasma 138 136 - 145 mmol/L 04/25/2025 5:47 PM EDT [facility] Potassium, Plasma 5.1(H) 3.6 - 4.9 mmol/L 04/25/2025 5:47 PM EDT [facility] Chloride, Plasma 108(H) 97 - 107 mmol/L 04/25/2025 5:47 PM EDT [facility] CO2, Plasma 21(L) 22 - 29 mmol/L 04/25/2025 5:47 PM EDT [facility] Anion Gap 9 6 - 16 mmol/L 04/25/2025 5:47 PM EDT [facility] Total Calcium, Plasma 8.9 8.9 - 10.2 mg/dL 04/25/2025 5:47 PM EDT [facility] eGFRcr 37.6 mL/min/1.7 3m*2 04/25/2025 5:47 PM EDT [facility] Comment:Reported eGFRcr in m L/min/1.73m2 is based the CKD-EPI 2020 equation that does not use a race coefficient. Blood Venous blood specimen / Unknown Venipuncture / Unknown 04/25/2025 5:09 PM EDT 04/25/2025 5:16 PM EDT us Marleni Estrella APRN LAB BLOOD ORDERABLES Final R esult [facility] [address] [place] [address] * (ABNORMAL) CBC (04/25/2025 5:09 PM EDT) WBC Count 7.20 3.70 - 10.30 10*3/uL LAB HEMATOLOGY METHOD 04/25/2025 5:26 PM EDT [facility] RBC Count 3.34(L) 3.90 - 5.20 10*6/uL LAB HEMATOLOGY METHOD 04/25/2025 5:26 PM EDT [facility] HGB 10.7(L) 11.2 - 15.7 g/dL LAB HEMATOLOGY METHOD 04/25/2025 5:26 PM EDT [facility] HCT 33.2(L) 34.0 - 45.0 % LAB HEMATOLOGY METHOD 04/25/2025 5:26 PM EDT [facility] Platelet Count 102(L) 155 - 369 10*3/uL LAB HEMATOLOGY METHOD 04/25/2025 5:26 PM EDT [facility] MCV 99(H) 79 - 98 fL LAB HEMATOLOGY METHOD 04/25/2025 5:26 PM EDT [facility] MCH 32.0 26.0 - 32.0 pg LAB HEMATOLOGY METHOD 04/25/2025 5:26 PM EDT [facility] MCHC 32.2 30.7 - 35.5 g/dL LAB HEMATOLOGY METHOD 04/25/2025 5:26 PM EDT [facility] RDW 14.9(H) 11.5 - 14.5 % LAB HEMATOLOGY METHOD 04/25/2025 5:26 PM EDT [facility] MPV 11.9 8.8 - 12.5 fL LAB HEMATOLOGY METHOD 04/25/2025 5:26 PM EDT [facility] nRBC 0.0 <=0.0 per 100 WBCs LAB HEMATOLOGY METHOD 04/25/2025 5:26 PM EDT [facility] Blood Venous blood specimen / Unknown Venipuncture / Unknown 04/25/2025 5:09 PM EDT 04/25/2025 5:17 PM EDT us Marleni Estrella CAR RENTAL CLERK LAB BLOOD ORDERABLES Final R esult Performing Organization Address City/State/[facility] Co de Phone Number [facility] [address] [place] [address] * ECG Adult (04/25/2025 3:58 PM EDT) EKG DIAGNOSIS CLASS Abnormal MUSE ECG Ventricular Rate 59 BPM MUSE ECG Atrial Rate 59 BPM MUSE ECG NY Interval 250 ms MUSE ECG QRSD Interval 150 ms MUSE ECG QT Interval 462 ms MUSE ECG QTC Interval 457 ms MUSE ECG P [place] 76 degrees MUSE ECG R [place] -51 degrees MUSE ECG T Wave [place] 13 degrees MUSE ECG Diagnosis Sinus bradycardia with 1st degree AV block MUSE ECG Diagnosis Right bundle branch block MUSE ECG Diagnosis Left anterior fascicular block MUSE ECG Diagnosis Bifascicular block MUSE ECG Diagnosis Abnormal ECG MUSE ECG Diagnosis MUSE ECG Diagnosis Confirmed by Andrew, Peter ([id number]) on 04/25/2025 4:28:48 PM MUSE ECG 04/25/2025 3:58 PM EDT 04/25/2025 4:28 PM EDT us Herminio Kendrick MD ECG ORDERABLES Final Resu lt MUSE ECG * ECHO, ADULT TRANSTHORACIC LIMITED (04/25/2025 2:53 PM EDT) BSA 1.79 m2 JESUS ISCV Height 152.4 JESUS ISCV Weight 82.6 JESUS ISCV LV V1 VTI 37.9 cm JESUS ISCV LV V1 Vmax 160.5 cm/s JESUS ISCV Ao V2 VTI 54.5 cm JESUS ISCV Ao mean PG 10 mmHg JESUS ISCV Ao V2 Vmax 245.7 cm/s JESUS ISCV Ao max PG 24 mmHg JESUS ISCV AV VTI Index 0.70 JESUS ISCV LV mean PG 5.0 mmHG JESUS ISCV LV V1 mean 107.0 cm/sec JESUS ISCV LV max PG 10.3 mmHg JESUS ISCV AV-pr VR 0.6 JESUS ISCV Ao V2 mean 137.0 cm/s JESUS ISCV LVOT diam 18 mm JESUS ISCV LVOT AREA 2.5 cm2 JEUSS ISCV SV(LVOT) 96 mL JESUS ISCV KANE(I,D) 1.8 cm2 JESUS ISCV KANE(VTI)/BSA_ph l 1.0 cm2/m2 JESUS ISCV LVIDd 46 mm JESUS ISCV IVSd 10 mm JESUS ISCV LVPWd 11 mm JESUS ISCV LV MASS(C)D 169 g JESUS ISCV [facility] CV ECHO LV MASS INDEX 95 g/m2 JESUS ISCV LV RWT 0.46 mm JESUS ISCV Anatomical Region Laterality Modality Echocardiography Narrative 04/25/2025 3:36 PM EDT The left ventricle is normal size. There is concentric remodeling. The LVEF is visually estimated at 55 - 60%. Pre-TAVR aortic valve evaluation: Trileaflet valve with severe leaflet calcification. Mild aortic valve regurgitation. Severe stenosis (Peak velocity 3.9 m/sec, peak gradient 61 mmHg, mean gradient 40 mmHg, and a calculated aortic valve area of 1.0 cm . Interval placement of appropriately positioned transcatheter bioprosthetic valve (23 mm Evolut). The peak gradient is 24 mmHg. The mean gradient is 10 mmHg. The estimated aortic valve area by the continuity equation is 1.8 cm2. DVI 0.7. EOAi 1 cm2/m2. The gradient is normal for this prosthetic valve. No pericardial effusion. Left Ventricle The left ventricle is normal size. There is concentric remodeling. The LVEF is visually estimated at 55 - 60%. Aortic Valve Interval placement of appropriately positioned transcatheter bioprosthetic valve (23 mm Evolut). There is no valvular regurgitation. The peak gradient is 24 mmHg. The mean gradient is 10 mmHg. The estimated aortic valve area by the continuity equation is 1.8 cm2. DVI 0.7. EOAi 1 cm2/m2. The gradient is normal for this prosthetic valve. Pericardium No pericardial effusion. Study Details A complete transthoracic echocardiogram using two-dimensional (2D), m-mode, color and spectral flow Doppler imaging was performed. During the study the apical, parasternal, subcostal and suprasternal view was captured. Height: 152.4 cm. Weight: 82.6 kg. BSA: 1.79 m2. us Herminio Kendrick MD CV ECHO PROCEDURES Final R esult * TAVR (04/25/2025 2:45 PM EDT) Anatomical Region Laterality Modality Other Narrative 04/25/2025 3:15 PM EDT Successful transfemoral transcatheter aortic valve replacement with a 23 mm Evolut Pro+ 1) Admit to the Inpatient Cardiology [facility] Team for at least overnight observation on telemetry. 2) Resume oral anticoagulation post-procedure day #2. 3) Antibiotics prior to dental procedures for life. 4) Repeat echocardiogram post-procedure day #1. 5) Complete blood count and basic metabolic panel 2 hours post-procedure 6) Follow-up in Structural [facility] clinic in 4 weeks with echocardiogram and EKG 7) Hydrate with 100 ml NS per hour for 12 hours We, Drs. Herminio Kendrick and Jillian Dickson, were present for the entire procedure. Procedure Details Background Information: The patient is an 89-year-old woman with hypertension, coronary artery disease status post PCI ~2014, dyslipidemia, and severe aortic stenosis. She presented with functional decline and dizziness. Echocardiogram showed severe aortic stenosis with a mean gradient of 40 mm Hg. She was, therefore, referred for transcatheter aortic valve replacement. Procedures Performed: 1. Ultrasound-guided vascular access 2. Temporary pacemaker wire insertion 3. Aortography 4. Transfemoral transcatheter aortic valve replacement with a 23 mm Evolute Pro+ Procedure In Detail: After written, informed consent was obtained, the patient was transported to the hybrid operating room in the fasting state. A Time Out was performed to verify the correct patient, procedure, and access sites. The bilateral groins and right wrist were prepped and draped in the usual sterile fashion. The anesthesia team administered intravenous conscious sedation. Using ultrasound guidance and the modified Seldinger technique, the following vascular access was obtained: 1) Left common femoral artery: 7-[place]er short Terumo sheath 2) Right common femoral vein: 8-[place] short Terumo sheath 3) Right common femoral artery: 6-[place] short Terumo sheath The 6-[place]er right common femoral arterial sheath was upsized to an 8-[place] sheath after 2 Preclose sutures were deployed. The 8-[place] sheath was then upsized to a 14-[place]er x 33 cm Baudette Dry Seal Flex sheath over a Safari wire. Heparin was given for a goal ACT>250. Antibiotics were given. A temporary pacemaker wire was advanced from the venous sheath to the right ventricular apex. Thresholds were tested and confirmed to be adequate. A 6-[place]er angled pigtail catheter was inserted from the left common femoral arterial sheath to the non-coronary cusp. An aortogram was performed to confirm the correct coplanar angle. The aortic valve was crossed from the femoral arterial sheath using an exchange-length J-tip wire and a 6-[place]er AL1 diagnostic catheter. The AL1 catheter was removed and a 6-[place] angled pigtail catheter was advanced over the wire to the left ventricular apex. The pigtail catheter was then removed over an extra-small Safari wire. The 23 mm Evolute Pro+ was then prepeed in the usual fashion on the back table. Correct valve orientation was confirmed by the team members. The system was advanced over the Safari wire until the valve was in the correct position in relation to the annulus. Aortography confirmed the correct position. During pacing at 120 bpm, the valve was unsheathed and deployed. Post-deployment, the patient's blood pressure and heart rate returned to normal. Post-deployment echocardiography showed no pericardial effusion and no significant aortic regurgitation. Post-deployment aortography showed no significant aortic regurgitation. Vascular hemostasis was obtained as follows: 1) Right common femoral artery: The 2 Preclose sutures were tightented. A 3rd Perclose was added. 2) Left common femoral artery: Perclose 3) Right common femoral vein: Manual pressure Protamine was given. The patient was transported back to the Post-Anesthesia Care Unit (PACU) in good condition. No immediate intraprocedural complications were observed. Study Details Severe Hemodynamic Data Pressures Phase: Resting Aortic AO: 157/83 (116) mmHg us Herminio Kendrick MD CV CARDIAC CATH PROCEDURES Final Result * (ABNORMAL) POCT creatinine (04/25/2025 10:29 AM EDT) [facility] [address] Creatinine, Point of Care 1.7(H) 0.6 - 1.1 mg/dL 04/25/2025 10:32 AM EDT [facility]ALTH[facility] LAB POCT eGFR 28 mL/min/1. 73m*2 04/25/2025 10:32 AM EDT [facility] Sewing Machine Bobbin Winder ID Stanley Rahman 04/25/2025 10:32 AM EDT [facility] Device ID [id number] 04/25/2025 10:32 AM EDT [facility] Comment 04/25/2025 10:32 AM EDT [facility] Comment:Testing performed on i-STAT at the point of care. Reported eGFRcr in mL/min/1.73m2 is based the CKD-EPI 2020 equation that does not use a race coefficient. Blood Venous blood specimen / Unknown 04/25/2025 10:29 AM EDT 04/25/2025 10:32 AM EDT us Herminio Kendrick MD LAB POINT OF CARE TEST DOCKED DEVICE UNSOLICITED RESULTS Final Result [facility] [address] [place], [address] LAB [address] [place] [address] * Type and Screen (04/25/2025 10:26 AM EDT) ABO/Rh A Positive 04/25/2025 10:26 AM EDT BLOOD BANK Antibody Screen Negative 04/25/2025 10:26 AM EDT BLOOD BANK Specimen Expiration 04/28/2025 23:59 04/25/2025 10:26 AM EDT BLOOD BANK Blood Venous blood specimen / Unknown Venipuncture / Unknown 04/25/2025 10:26 AM EDT 04/25/2025 10:30 AM EDT Herminio Kendrick MD LAB BLOOD BANK TEST ORDERA BLES Final Result BLOOD BANK [address] * N-Terminal Probnp (04/25/2025 10:24 AM EDT) Pathologist [facility] N-Terminal, PROBNP, Plasma 1,693 0 - 1,799 pg/mL 04/25/2025 11:11 AM EDT [facility] Blood Venous blood specimen / Unknown Venipuncture / Unknown 04/25/2025 10:24 AM EDT 04/25/2025 10:41 AM EDT Kirstie Mora APRN LAB BLOOD ORDERABLES Kerry l Result [facility] [address] [place] [address] * (ABNORMAL) Basic metabolic panel (04/25/2025 10:24 AM EDT) Glucose, Plasma 124(H) 74 - 99 mg/dL 04/25/2025 11:11 AM EDT [facility] BUN, Plasma 36(H) 8 - 23 mg/dL 04/25/2025 11:11 AM EDT [facility] Creatinine, Plasma 1.60(H) 0.60 - 1.10 mg/dL 04/25/2025 11:11 AM EDT [facility] BUN/Creatinine Ratio 23 04/25/2025 11:11 AM EDT [facility] [facility] Sodium, Plasma 138 136 - 145 mmol/L 04/25/2025 11:11 AM EDT [facility] Potassium, Plasma 4.4 3.6 - 4.9 mmol/L 04/25/2025 11:11 AM EDT [facility] Chloride, Plasma 105 97 - 107 mmol/L 04/25/2025 11:11 AM EDT [facility] CO2, Plasma 20(L) 22 - 29 mmol/L 04/25/2025 11:11 AM EDT [facility] Anion Gap 13 6 - 16 mmol/L 04/25/2025 11:11 AM EDT [facility] Total Calcium, Plasma 10.0 8.9 - 10.2 mg/dL 04/25/2025 11:11 AM EDT [facility] eGFRcr 30.7 mL/min/1.7 3m*2 04/25/2025 11:11 AM EDT [facility] Comment:Reported eGFRcr in m L/min/1.73m2 is based the CKD-EPI 2020 equation that does not use a race coefficient. Blood Venous blood specimen / Unknown Venipuncture / Unknown 04/25/2025 10:24 AM EDT 04/25/2025 10:41 AM EDT us Kirstie Mora APRN LAB BLOOD ORDERABLES Kerry l Result [facility] [address] [place] [address] * (ABNORMAL) Hemogram (CBC) (04/25/2025 10:24 AM EDT) WBC Count 6.51 3.70 - 10.30 10*3/uL LAB HEMATOLOGY METHOD 04/25/2025 10:52 AM EDT [facility] RBC Count 3.86(L) 3.90 - 5.20 10*6/uL LAB HEMATOLOGY METHOD 04/25/2025 10:52 AM EDT [facility] HGB 12.4 11.2 - 15.7 g/dL LAB HEMATOLOGY METHOD 04/25/2025 10:52 AM EDT [facility] HCT 38.2 34.0 - 45.0 % LAB HEMATOLOGY METHOD 04/25/2025 10:52 AM EDT [facility] Platelet Count 120(L) 155 - 369 10*3/uL LAB HEMATOLOGY METHOD 04/25/2025 10:52 AM EDT [facility] MCV 99(H) 79 - 98 fL LAB HEMATOLOGY METHOD 04/25/2025 10:52 AM EDT [facility] MCH 32.1(H) 26.0 - 32.0 pg LAB HEMATOLOGY METHOD 04/25/2025 10:52 AM EDT [facility] MCHC 32.5 30.7 - 35.5 g/dL LAB HEMATOLOGY METHOD 04/25/2025 10:52 AM EDT [facility] RDW 14.8(H) 11.5 - 14.5 % LAB HEMATOLOGY METHOD 04/25/2025 10:52 AM EDT [facility] MPV 11.7 8.8 - 12.5 fL LAB HEMATOLOGY METHOD 04/25/2025 10:52 AM EDT [facility] nRBC 0.0 <=0.0 per 100 WBCs LAB HEMATOLOGY METHOD 04/25/2025 10:52 AM EDT [facility] Blood Venous blood specimen / Unknown Venipuncture / Unknown 04/25/2025 10:24 AM EDT 04/25/2025 10:36 AM EDT us iKrstie Mora APRN LAB BLOOD ORDERABLES Kerry l Result [facility] [address] [place] [address] * ECG Adult (04/25/2025 10:07 AM EDT) EKG DIAGNOSIS CLASS Abnormal MUSE ECG Ventricular Rate 56 BPM MUSE ECG Atrial Rate 56 BPM MUSE ECG [place] Interval 190 ms MUSE ECG QRSD Interval 116 ms MUSE ECG QT Interval 422 ms MUSE ECG QTC Interval 407 ms MUSE ECG P [place] 68 degrees MUSE ECG R [place] -39 degrees MUSE ECG T Wave [place] 22 degrees MUSE ECG Diagnosis Sinus bradycardia MUSE ECG Diagnosis Left axis deviation MUSE ECG Diagnosis Left ventricular hypertrophy with QRS widening ( R in aVL , Dennis product ) MUSE ECG Diagnosis Abnormal ECG MUSE ECG Diagnosis MUSE ECG Diagnosis Confirmed by Alistair Morales ([id number]) on 04/25/2025 12:13:36 PM MUSE ECG 04/25/2025 10:0 7 AM EDT 04/25/2025 12:13 PM EDT us Kirstie Mora [employer]ENT[employer] CLERK ECG ORDERABLES Final Res ult MUSE ECG documented in this encounter Visit Diagnoses Diagnosis Aortic stenosis- Primary Aortic valve disorders Nonrheumatic aortic valve stenosis Severe aortic stenosis Aortic valve disorders S/P TAVR (transcatheter aortic valve replacement) 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 CKD (chronic kidney disease) Chronic kidney disease, unspecified Nonrheumatic aortic valve stenosis documented in this encounter Admitting Diagnoses Diagnosis Aortic stenosis Aortic valve disorders Nonrheumatic aortic valve stenosis documented in this encounter Administered Medications Inactive Administered Medications - up to 3 most recent administrations Medication Order MAR Action Action Date Dose Rate Site acetaminophen (Tylenol) tablet 650 mg 650 mg, Oral, Every 4 hours PRN, Starting on Wed04/25/25 at 1523, Until Wed04/27/25 at 1710, Routine, Recovery(Phase II-Outpatient)/On Unit(Inpatient), fever, >38.5 C Given 04/26/2025 9:07 PM EDT 650 mg Given 04/26/2025 8:09 AM EDT 650 mg aspirin chewable tablet 324 mg 324 mg, Oral, Once, 1 dose, On Wed04/25/25 at 1145, Routine Given 04/25/2025 11:05 AM EDT 324 mg dextrose 10 % (D10W) bolus 125 mL 125 mL, Intravenous, Every 15 min PRN, Starting on Wed04/25/25 at 1714, Until Wed04/27/25 at 1710, Administer over 15 Minutes, Routine, low blood sugar BG 51-89 mg/dL dextrose 10 % (D10W) bolus 250 mL 250 mL, Intravenous, Every 15 min PRN, Starting on Wed04/25/25 at 1714, Until Wed04/27/25 at 1710, Administer over 15 Minutes, Routine, PRN low blood sugar BG =/<50 mg/dL glucagon (human recombinant) injection 1 mg 1 mg, Intramuscular, Every 15 min PRN, Starting on Wed04/25/25 at 1714, Until Wed04/27/25 at 1710, Routine, low blood sugar per Hypoglycemia Prevention and Treatment protocol glucose (Glutose) 40 % oral gel 15-30 grams of glucose 15-30 grams of glucose, Sublingual, Every 15 min PRN, Starting on Wed04/25/25 at 1714, Until Wed04/27/25 at 1710, Routine, low blood sugar, per Hypoglycemia Prevention and Treatment protocol hydroCHLOROthiazide (HYDRODiuril) tablet 12.5 mg 12.5 mg, Oral, Daily, First dose on Wed04/26/25 at 0900, Until Discontinued, Routine Given 04/26/2025 8:09 AM EDT 12.5 mg levothyroxine (Synthroid, Levoxyl) tablet 88 mcg 88 mcg, Oral, Daily before breakfast, First dose on Wed04/26/25 at 0730, Until Discontinued, Routine Given 04/27/2025 9:02 AM EDT 88 mcg Given 04/26/2025 8:09 AM EDT 88 mcg losartan (Cozaar) tablet 50 mg 50 mg, Oral, Daily, First dose on Wed04/26/25 at 0900, Until Discontinued, Routine Given 04/26/2025 8:12 AM EDT 50 mg losartan (Cozaar) tablet 50 mg 50 mg, Oral, Daily, First dose (after last modification) on Wed04/27/25 at 0900, Until Discontinued, Routine Given 04/27/2025 9:02 AM EDT 50 mg pantoprazole (Protonix) EC tablet 40 mg 40 mg, Oral, Daily before breakfast, First dose on Wed04/26/25 at 0730, Until Discontinued Given 04/27/2025 9:02 AM EDT 40 mg Given 04/26/2025 8:09 AM EDT 40 mg rosuvastatin (Crestor) tablet 20 mg 20 mg, Oral, Nightly, First dose on Wed04/25/25 at 2100, Until Discontinued, Routine Given 04/26/2025 9:03 PM EDT 20 mg Given 04/25/2025 8:40 PM EDT 20 mg sodium chloride 0.9 % flush 10 mL 10 mL, Intravenous, Every 12 hours, First dose on Wed04/25/25 at 1100, Until Discontinued, Routine, Holding - Preprocedure Given 04/25/2025 12:58 PM EDT 10 mL sodium chloride 0.9 % flush 10 mL 10 mL, Intravenous, Every 12 hours, First dose on Wed04/25/25 at 1100, Until Discontinued, Routine, Holding - Preprocedure Given 04/25/2025 12:58 PM EDT 10 mL sodium chloride 0.9 % infusion 100 mL/hr, Intravenous, Continuous, Starting on Wed04/25/25 at 1615, Until Wed04/26/25 at 0344, Routine Rate/Dose Verify 04/26/2025 12:00 AM EDT 100 mL/hr 100 mL/hr Rate/Dose Verify 04/25/2025 8:00 PM EDT 100 mL/hr 100 mL/ hr New Bag 04/25/2025 3:45 PM EDT 100 mL/hr 100 mL/hr spironolactone (Aldactone) tablet 25 mg 25 mg, Oral, Daily, First dose on Wed04/27/25 at 0900, Until Discontinued, Routine Given 04/27/2025 9:02 AM EDT 25 mg traMADol (Ultram) tablet 50 mg 50 mg, Oral, Every 12 hours PRN, Starting on Wed04/25/25 at 1713, Until Wed04/27/25 at 1710, Routine, severe pain, moderate pain Given 04/27/2025 4:54 AM EDT 50 mg Given 04/25/2025 8:41 PM EDT 50 mg vancomycin in NS (Vancocin) IVPB 1,250 mg 1,250 mg (rounded from 1,258.5 mg = 15 mg/kg 83.9 kg Order-specific weight), Intravenous, Once, 1 dose, On Wed04/25/25 at 1100, at 200 mL/hr, STAT Bolus 04/25/2025 1:36 PM EDT 1.25 g New Bag 04/25/2025 12:58 PM EDT 1,250 mg 200 mL/hr documented in this encounter Active and Recently Administered Medications Times are shown in EDT. Scheduled Medication Order 04/25/2025 04/26/2025 04/27/2025 aspirin chewable tablet 324 mg (COMPLETED) 324 mg, Oral, Once, 1 dose, On Wed04/25/25 at 1145, Routine 1105 (Given - Provider: Lynnette Pulliam RN) ceFAZolin (Ancef) injection 2 g (COMPLETED) 2 g, Intravenous, Once, 1 dose, On Wed04/25/25 at 1100, Routine, Holding - Preprocedure 1359 (Given - Provider: Goldy Paige MD) hydroCHLOROthiazide (HYDRODiuril) tablet 12.5 mg (CANCELED) 12.5 mg, Oral, Daily, First dose on Wed04/26/25 at 0900, Until Discontinued, Routine 08 (Given - Provider: Patricia Wallace) insulin lispro (Admelog) 100 units/mL injection - Correction - Standard Dose 0-5 Units, Subcutaneous, 3 times daily with meals, First dose on Wed04/26/25 at 0830, Until Discontinued, Routine 08 (Not Given - Provider: Patricia Wallace - Reason: Order parameters not met)1235 (Not Given - Provider: Patricia Wallace - Reason: Order parameters not met)1746 (Not Given - Provider: Patricia Wallace - Reason: Order parameters not met) 0823 (Not Given - Provider: Rea Gallegos RN - Reason: Order parameters not met)1213 (Not Given - Provider: Rea Gallegos RN - Reason: Order parameters not met) insulin lispro (Admelog) injection - Correction - Nighttime Dose 0-3 Units, Subcutaneous, 2 times nightly (2100 & 0300), First dose on Wed04/25/25 at 2100, Until Discontinued, Routine 2033 (Not Given - Provider: Osmar Bryan RN - Reason: Order parameters not met) 0235 (Not Given - Provider: Osmar Bryan RN - Reason: Order parameters not met)2044 (Not Given - Provider: Osmar Bryan RN - Reason: Order parameters not met) 0245 (Not Given - Provider: Osmar Bryan RN - Reason: Order parameters not met) levothyroxine (Synthroid, Levoxyl) tablet 88 mcg 88 mcg, Oral, Daily before breakfast, First dose on Wed04/26/25 at 0730, Until Discontinued, Routine 808 (Given - Provider: Patricia Wallace) 901 (Given - Provider: Rea Gallegos, LISANDRA) losartan (Cozaar) tablet 50 mg (CANCELED) 50 mg, Oral, Daily, First dose on Wed04/26/25 at 0900, Until Discontinued, Routine 811 (Given - Provider: Patricia Wallace - Comment: marli [facility] of [facility], ordered to give) losartan (Cozaar) tablet 50 mg 50 mg, Oral, Daily, First dose (after last modification) on Wed04/27/25 at 0900, Until Discontinued, Routine 901 (Given - Provider: Rea Gallegos, LISANDRA) pantoprazole (Protonix) EC tablet 40 mg 40 mg, Oral, Daily before breakfast, First dose on Wed04/26/25 at 0730, Until Discontinued 808 (Given - Provider: Patricia Wallace) 901 (Given - Provider: Rea Gallegos, LISANDRA) rosuvastatin (Crestor) tablet 20 mg 20 mg, Oral, Nightly, First dose on Wed04/25/25 at 2100, Until Discontinued, Routine 2039 (Given - Provider: Osmar Bryan RN) 2102 (Given - Provider: Osmar Bryan RN) sodium chloride 0.9 % flush 10 mL (CANCELED)(Linked Group 1) 10 mL, Intravenous, Every 12 hours, First dose on Wed04/25/25 at 1100, Until Discontinued, Routine, Holding - Preprocedure 1258 (Given - Provider: Lynnette Pulliam RN) sodium chloride 0.9 % flush 10 mL (CANCELED)(Linked Group 2) 10 mL, Intravenous, Every 12 hours, First dose on Wed04/25/25 at 1100, Until Discontinued, Routine, Holding - Preprocedure 1258 (Given - Provider: Lynnette Pulliam, LISANDRA) spironolactone (Aldactone) tablet 25 mg 25 mg, Oral, Daily, First dose on Wed04/27/25 at 0900, Until Discontinued, Routine 901 (Given - Provider: Rea Gallegos, LISANDRA) vancomycin in NS (Vancocin) IVPB 1,250 mg (COMPLETED) 1,250 mg (rounded from 1,258.5 mg = 15 mg/kg 83.9 kg Order-specific weight), Intravenous, Once, 1 dose, On Wed04/25/25 at 1100, at 200 mL/hr, STAT 1258 (New Bag - Provider: Lynnette Pulliam, LISANDRA)1336 (Bolus - Provider: Goldy Paige MD)1536 (Stopped - Provider: Lynnette Pulliam RN) Continuous Medication Order 04/25/2025 04/26/2025 04/27/2025 sodium chloride 0.9 % infusion () 100 mL/hr, Intravenous, Continuous, Starting on Wed04/25/25 at 1615, Until Wed04/26/25 at 0344, Routine 1545 (New Bag - Provider: Lynnette Pulliam RN)2000 (Rate/Dose Verify - Provider: Osmar Bryan RN) 0000 (Rate/Dose Verify - Provider: Osmar Bryan RN)0400 (Canceled Entry - Provider: Osmar Bryan RN) PRN Medication Order 04/25/2025 04/26/2025 04/27/2025 acetaminophen (Tylenol) tablet 650 mg 650 mg, Oral, Every 4 hours PRN, Starting on Wed04/25/25 at 1523, Until Wed04/27/25 at 1710, Routine, Recovery(Phase II-Outpatient)/On Unit(Inpatient), fever, >38.5 C 0809 (Given - Provider: Patricia Wallace)2107 (Given - Provider: Osmar Bryan, LISANDRA) dextrose 10 % (D10W) bolus 125 mL(Linked Group 3) 125 mL, Intravenous, Every 15 min PRN, Starting on Wed04/25/25 at 1714, Until Wed04/27/25 at 1710, Administer over 15 Minutes, Routine, low blood sugar BG 51-89 mg/dL dextrose 10 % (D10W) bolus 250 mL(Linked Group 3) 250 mL, Intravenous, Every 15 min PRN, Starting on Wed04/25/25 at 1714, Until Wed04/27/25 at 1710, Administer over 15 Minutes, Routine, PRN low blood sugar BG =/<50 mg/dL glucagon (human recombinant) injection 1 mg(Linked Group 3) 1 mg, Intramuscular, Every 15 min PRN, Starting on Wed04/25/25 at 1714, Until Wed04/27/25 at 1710, Routine, low blood sugar per Hypoglycemia Prevention and Treatment protocol glucose (Glutose) 40 % oral gel 15-30 grams of glucose(Linked Group 3) 15-30 grams of glucose, Sublingual, Every 15 min PRN, Starting on Wed04/25/25 at 1714, Until Wed04/27/25 at 1710, Routine, low blood sugar, per Hypoglycemia Prevention and Treatment protocol lidocaine (Xylocaine) 2 % injection (CANCELED) As needed, Starting on Wed04/25/25 at 1400, Until Wed04/25/25 at 1513, Routine, Intraprocedure 1400 (Given - Provider: Herminio Kendrick MD)1406 (Given - Provider: Herminio Kendrick MD) traMADol (Ultram) tablet 50 mg 50 mg, Oral, Every 12 hours PRN, Starting on Wed04/25/25 at 1713, Until Wed04/27/25 at 1710, Routine, severe pain, moderate pain 2041 (Given - Provider: Osmar Bryan, LISANDRA) 0454 (Given - Provider: Osmar Bryan, LISANDRA) Linked Groups Order Group 1: Insert peripheral IV (CANCELED) Once, On Wed04/25/25 at 1001, For 1 occurrence, Holding - Preprocedure And Saline lock IV (CANCELED) Once, On Wed04/25/25 at 1001, For 1 occurrence, Holding - Preprocedure And sodium chloride 0.9 % flush 10 mL (CANCELED)Jump to med 10 mL, Intravenous, Every 12 hours, First dose on Wed04/25/25 at 1100, Until Discontinued, Routine, Holding - Preprocedure And sodium chloride 0.9 % flush 10 mL (CANCELED) 10 mL, Intravenous, As needed, Starting on Wed04/25/25 at 1000, Until Wed04/25/25 at 1858, Routine, Holding - Preprocedure, line care Group 2: Insert peripheral IV (CANCELED) Once, On Wed04/25/25 at 1001, For 1 occurrence, If a device procedure must have two IV lines with one in the left., Holding - Preprocedure And Saline lock IV (CANCELED) Once, On Wed04/25/25 at 1001, For 1 occurrence, Holding - Preprocedure And sodium chloride 0.9 % flush 10 mL (CANCELED)Jump to med 10 mL, Intravenous, Every 12 hours, First dose on Wed04/25/25 at 1100, Until Discontinued, Routine, Holding - Preprocedure And sodium chloride 0.9 % flush 10 mL (CANCELED) 10 mL, Intravenous, As needed, Starting on Wed04/25/25 at 1000, Until Wed04/25/25 at 1858, Routine, Holding - Preprocedure, line care Group 3: glucose (Glutose) 40 % oral gel 15-30 grams of glucoseJump to med 15-30 grams of glucose, Sublingual, Every 15 min PRN, Starting on Wed04/25/25 at 1714, Until Wed04/27/25 at 1710, Routine, low blood sugar, per Hypoglycemia Prevention and Treatment protocol Or dextrose 10 % (D10W) bolus 125 mLJump to med 125 mL, Intravenous, Every 15 min PRN, Starting on Wed04/25/25 at 1714, Until Wed04/27/25 at 1710, Administer over 15 Minutes, Routine, low blood sugar BG 51-89 mg/dL Or dextrose 10 % (D10W) bolus 250 mLJump to med 250 mL, Intravenous, Every 15 min PRN, Starting on Wed04/25/25 at 1714, Until Wed04/27/25 at 1710, Administer over 15 Minutes, Routine, PRN low blood sugar BG =/<50 mg/dL Or glucagon (human recombinant) injection 1 mgJump to med 1 mg, Intramuscular, Every 15 min PRN, Starting on Wed04/25/25 at 1714, Until Wed04/27/25 at 1710, Routine, low blood sugar per Hypoglycemia Prevention and Treatment protocol documented in this encounter Additional Health Concerns Assessment Noted Time A fall risk assessment has been complete d for the patient 04/11/2025 9:59 AM EDT A Body Mass Index follow-up plan has been documented for the patient 04/27/2025 1:18 PM EDT documented as of this encounter Care Teams General Machine Operator Relationship Specialty Start Date End Date Lopez, Jim C, MD [address] [place] [address] [address] [place] [id number] PCP - General 04/11/25 documented as of this encounter
--- OUTSIDE RECORDS SUMMARY | 2025-04-25 10:05 | XMS_ITS | Encounter Summary ---
Author Organization [facility] Address [address] 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 [I35.0] Procedures WV REPLACE AORTIC VALVE PERQ FEMORAL ARTRY APPROACH TAVR IMPLANTATION, AORTIC VALVE, TRANSCATHETER Herminio Kendrick MD [address] [place] [address] Phone: tel: fax: Cardiac Blister [facility] [address] [place] [address] Phone: tel: Referral ID Status Reason Start Date Expiration Date Visits Re quested Visits Authorized [id number] 1 1 Encounter Details Date Type Department Care Team (Late st Contact Info) Description 04/25/2025 10:05 AM EDT - 04/25/2025 12:35 PM EDT Surgery Cardiac Blister [facility] Eradicator [address] [place] [address] Herminio Kendrick MD [address] [place] [address] TAVR [[id number] (CPT )] Surgery Details Date/Time Status Location OR Service Patient Class Case Class Case Type Trauma Case? 04/25/2025 10:05 AM Posted DAT [facility] 03 Cardiovascular Surgery Admit E-Electi ve Panel 1 Procedure LRB Anes Op Region Wound Class Comments TAVR N/A Panel 2 Procedure LRB Anes Op Region Wound Class Comments IMPLANTATION, AORTIC VALVE, TRANSCATHETER N/A Surgeon Surgeon Role Service Panel Herminio Kendrick MD Primary Cardiovascular 1 Jillian Dickson MD Primary Cardiothoracic Surger y 2 documented in this encounter Social History Tobacco Use Types Packs/Day Years [...] money to buy more. Never true 04/26/20 25 Within the past 12 months, t he [...] any time in the past 12 m [facility], were you homeless or living in a prison (including now)? No 04/26/2025 Utilities Answer Date [...] Sign Reading Time Taken Comments Blood Pressure 155/65 04/25/2025 10:16 AM EDT Pulse 58 04/25/2025 10:16 AM EDT Temperature 36.6 C (97.8 F) 04/25/2025 10:16 AM EDT Respiratory Rate 20 04/25/2025 10:1 6 AM EDT Oxygen Saturation 95% 04/25/2025 10: 16 AM EDT Inhaled Oxygen Concentration - - Weight 82.9 kg (182 lb 12.2 oz) 025 10:16 AM EDT Height 152.4 cm (5') 04/25/2025 10:16 AM EDT Body Mass Index 38.41 04/25/2025 10:16 AM EDT documented in this encounter Discharge Instructions * Discharge Instructions* Briseyda Osei APRN - 04/26/2025 8:21 AM EDT TAVR Discharge [...] and contact the [facility] at [phone]. If after hours, call [phone]. For emergencies, call [phone]. Medication Instruction: STOP Bisoprolol - This is [...] from someone within 3-5 days, call the [facility] at [phone] for more information. Please call Evgeny Brower [...] Note Marleny Covarrubias 89 y.o. female CSN: [id number] Admission: 04/25/2025 9:48 AM Primary Problem: Aortic stenosis Primary Cash Applications Coordinator: Primary Caregiver: Self Assistance Available at Discharge: Current Outpatient/Agency/Support Group: clinic(s), DME Availability of Care Givers (#Hours): 24 hours Family/Cash Applications Coordinator(s) Willingness Assessed to care for patient at home: Yes Family/Cash Applications Coordinator(s) Readiness Assessed to care for patient at [...] dept hours please page evening/weekend cm at [phone]. Pedro De La Cruz RN * Care Plan - Rea Gallegos RN - 04/27/2025 11:39 AM EDT Problem: Adult Inpatient Plan of Care Goal: Plan of Care Review Outcome: Ongoing, Progressing Flowsheets Taken 04/27/2025 0357 by Osmar Bryan, RN Outcome Evaluation: Pt [...] RN Body Position: weight shifting Taken 04/26/2025 05 by Osmar Bryan, RN Skin Protection: pulse oximeter probe site changed transparent dressing maintained incontinence pads utilized Intervention: Prevent and Manage VTE (Venous Thromboembolism) Risk Flowsheets (Taken 04/27/2025 0800) VTE Prevention/Management: bilateral SCDs (sequential compression devices) off medication Intervention: Prevent Infection Flowsheets (Taken 04/26/2025 0514 by Osmar Byran, RN) Infection Prevention: hand hygiene promoted single patient room provided environmental surveillance performed rest/sleep promoted Goal: Optimal Comfort and Wellbeing Outcome: Ongoing, Progressing Intervention: Monitor Pain and Promote Comfort Flowsheets (Taken 04/26/20252106 by Osmar Bryan, RN) Pain Management Interventions: medication (see MAR) Intervention: Provide Person-Centered Care Flowsheets (Taken 04/26/2025 05 by Osmar Bryan, RN) Trust Relationship/Rapport: care explained emotional support provided questions answered questions encouraged thoughts/feelings acknowledged Goal: Readiness for Transition of Care Outcome: Ongoing, Progressing Intervention: Mutually Develop Transition Plan Flowsheets Taken 04/27/2025 035 by Osmar Bryan RN Current Outpatient/Agency/Support Group: clinic(s) DME Taken 04/26/2025 1512 by Pedro De La Cruz RN Discharge Facility/Level of Care Needs: 1-Home or [...] and Manage Cardiac Rhythm Effect Flowsheets (Taken 04/27/2025356 by Osmar Bryan RN) Dysrhythmia Management: other (see comments) Goal: Optimal Functional Ability Outcome: Ongoing, Progressing Intervention: Optimize Functional Ability Flowsheets Taken 04/26/2025 193 by Osmar Bryan RN Activity Management: activity [...] cough encouraged airway clearance techniques utilized Taken 04/26/2025 193 by Osmar Bryan RN Activity Management: activity [...] Contributors Flowsheets Taken 04/27/2025 0357 by Osmar Bryan director strategy Review/Management: medications reviewed Taken 04/26/2025 0534 by [...] Ongoing, Progressing Flowsheets Taken 04/27/2025356 by Osmar Bryan RN Outcome Evaluation: Pt [...] 04/27/2025 0200 Body Position: weight shifting Taken 04/26/2025513 Skin Protection: pulse oximeter probe site changed transparent dressing maintained incontinence pads utilized Intervention: Prevent and Manage VTE (Venous Thromboembolism) Risk Flowsheets (Taken 04/27/2025356) VTE Prevention/Management: other (see comments) Note: ambulating Intervention: Prevent Infection Flowsheets (Taken 04/26/2025513) Infection [...] Group: clinic(s) DME Taken 04/26/2025 1512 by De La Cruz, Pedro M, program rep Facility/Level of Care Needs: 1-Home or Self [...] the attending physician. Please page the on-call relaster with any further questions. I spent 60 minutes performing the following components of the encounter (on the day of the encounter): reviewing history, examining the patient, reviewing imaging and/or labs, independently interpreting echocardiogram, ECG and/or other imaging results, counseling the patient and family/caregiver, communicating with other health daycare manager, and entering clinical information in the EHR. Less than 50% of the time spent on the encounter was face to face providing direct patient care, counseling for the patient/caregiver, and care coordination. Moiz Bran DO General Financial Services Professional PGY-4 [1] No past medical history on [...] Note Marleny Covarrubias 89 y.o. female CSN: [id number] Admission: 04/25/2025 9:48 AM Primary Problem: Aortic stenosis Payroll And Benefits Specialist reviewed chart and spoke with patient to complete this Initial Case Management Assessment. PCP: Jim Lopez MD Emergency Contact: Extended Emergency Contact Information Primary Emergency Contact: Junaid Covarrubias Mobile Relation: Son Insurance: Primary Visit Coverage Payer Plan Sponsor Code Group Number Group Name HUMANA MEDICARE HU[employer]NA MEDICARE [id number] [employer] Primary Visit Coverage Subscriber Subscriber ID Subscriber Name Subscriber SSN Subscriber Address [id number] Marleny Covarrubias [id number] [place] [address] Patient information: Primary Caregiver: Self Support System: Immediate family, Extended family Daily Living Activities: Functional Status: Minimum assistance Living Arrangements: Children Type of Residence: Private residence [address] [place] [address] Current DME: Equipment Currently Used at Home: [...] Family/Friend will Provide Living Will/Advance Directive/Power of Marketing Executive /Guardian: Have you reviewed your Advance Directive and is it valid for this stay?: No Advance Directive: Not applicable Information Provided on Healthcare Directives: No Pre-existing DNR/DNI Order: No Patient Requests Assistance: No Additional Comments: Cm spoke to patient at bedside about Cm role in discharge planning. Cm verified patient emergency contact and the Patient address is [address] [place] [address] in [place], [place]. Patient is independent with ADLs prior to admission. Patient denies use of any HH, DME other than a cane and rollingwalker, dialysis or home oxygen prior to admission. Patient has Medicare A and B insurance and has prescription coverage. Patient PCP is Jim Lopez MD. [facility] [place], [place]. Patient lives with family and they are agreeable and able to provide support if needed. Family will transport at discharge when medically ready. Cm will follow. No RN CM/SW needs identified. Will continue to follow and assist. Patient was agreeable to answer SDOH questions and no help is needed at this time. Pedro De La Cruz, RN * Progress Notes - Sameer Marleni A, FLARE MAKER - 04/26/2025 11:38 AM EDT Images from [...] Abnormal Ventricular Rate 58 Atrial Rate 58 WV Interval 216 QRSD Interval 134 QT Interval 446 QTC Interval 437 P Montezuma 74 R Montezuma -46 T Wave Montezuma 0 Diagnosis Sinus bradycardia with 1st degree [...] is no recent study available for direct [id number] comparison. 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 - [...] Dr. Kendrick, Cardiology Attending Marleni Estrella APRN [phone] [1] insulin lispro, 0-5 Units, Subcutaneous, TID [...] Intervention: Optimize Oxygenation and Ventilation Flowsheets (Taken 04/26/20251006) Head of Bed (HOB) Positioning: HOB elevated Problem: Fall Injury Risk Goal: Absence of Fall and Fall-Related Injury Intervention: Promote Injury-Free Environment Flowsheets (Taken 04/26/20251006) Safety Promotion/Fall Prevention: activity supervised lighting adjusted [...] Prevention: activity supervised assistive device/personal items within [facility] fall prevention program maintained nonskid shoes/slippers when out of bed toileting scheduled lighting adjusted clutter-free environment maintained mobility aid in [facility] room organization consistent safety round/check completed Intervention: [...] Operative note TAVR : Date: 04/25/2025 Location: [place] OR Name: Marleny Covarrubias, : 1935, Pre-operative Diagnosis: Problem List[1] Post-operative Diagnosis: Problem List[2] Surgeons: This procedure was performed jointly by Cardiothoracic Surgery physicians and Interventional Cardiology. The primary Cardiothoracic Surgery telegraph and teletype operator was Dr. Jillian Dickson. The primary Interventional Cardiology telegraph and teletype operator was Dr Herminio Perez Operation: Transcatheter [...] right femoral artery, then we crossed the cantwell aortic valve with J-wire exchanged over pigtail [...] Fatigue Leg edema Bilateral carotid artery disease ([facility]) BMI 33.0-33.9,adult Nonrheumatic aortic valve stenosis * [...] will be extracted and entered into the NCD Clinical Registry/[facility] Research as required by the National Coverage Decision.? NCT Identifier [id number]. Cardiac Diagnostics: Echo - 04/19/2025: LVEF 54%, [...] 1 tablet by mouth daily. Yes Lukasz Lnadis MD meclizine (Antivert) 25 MG tablet Take [...] regurgitation. Pericardium: There is a trace localized p ericardial effusion around the left ventricle. There is no echocardiographic evidence of cardiac tamponade. There is no recent study available for direct [id number] comparison. Physical Exam GENERAL: Well nourished. Well [...] with Dr. Kendrick, Cardiology Attending Marleni Estrella, FLARE MAKER [phone] [1] No past medical history on file. [...] AND sodium chloride * Hospital Course - Nba Oseiconor Pendleton APRN - 04/23/2025 4:46 PM EDT Marleny [...] will be extracted and entered into the NCDR Clinical Registry/[facility] Research as required by the National Coverage Decision.? NCT Identifier [id number]. Cardiac Diagnostics: Echo - 04/19/2025: LVEF 54%, [...] 23 mm Evolut Pro+ (04/25/25, Dr. Kendrick, [facility]) - Routine pre and post-op care. Bilateral [...] indicated at this time Recommend 30 day research compliance specialist on discharge-ordered STOP bisoprolol. Avoid any AV [...] Medical Office Building Echo Lab [address], [address] [place] [address] 06/27/2025 10:30 AM EDT Office Visit [facility] [address], [address] [place] [address] Beckie Marshall PA [address] [place] [address] 05/01/2026 1:30 PM EDT Appointment Medical Office Building Cardiac Diagnostic Testing Medical Office Building Echo Lab [address], [address] [place] [phone] 05/01/2026 3:00 PM EDT Office Visit [facility] [address], [address] [place] [address] Beckie Marshall PA [address] [place] [phone] Pending Results Name Type Priority Associated Diagnoses [...] POCT glucose meter (04/27/2025 11:15 AM EDT) POCT Glucose 136(H) 74 - 99 mg/dL [...] Comment 04/27/2025 11:16 AM EDT HEALTHCARE LAB Electronics Computer Mechanic ID FREDY Tapia 04/27/2025 11:16 AM EDT HEALTHCARE LAB Device ID [id number] 04/27/2025 11:16 AM EDT HEALTHCARE LAB Specimen Type POC Capillary 04/27/2025 11:16 AM EDT [facility] Blood Capillary blood specimen / Unknown 04/27/2025 11:15 AM EDT 04/27/2025 11:16 AM EDT Herminio Kendrick MD LAB POINT OF CARE TEST DOCKED DEVICE UNSOLICITED RESULTS Final Result [facility] [address] [place] [address] * (ABNORMAL) POCT glucose meter (04/27/2025 7:53 AM EDT) [facility] POCT Glucose 114(H) 74 - 99 mg/dL 04/27/2025 7:55 AM EDT HEALTHCARE LAB Comment:Accuracy of a [...] Comment 04/27/2025 7:55 AM EDT HEALTHCARE LAB Electronics Computer Mechanic ID FREDY Tapia 04/27/2025 7:55 AM EDT HEALTHCARE LAB Device ID [id number] 04/27/2025 7:55 AM EDT HEALTHCARE LAB Specimen Type POC Capillary 04/27/2025 7:55 AM EDT [facility]ARE LAB Blood Capillary blood specimen / Unknown 04/27/2025 7:53 AM EDT 04/27/2025 7:55 AM EDT Herminio Kendrick MD LAB POINT OF CARE TEST DOCKED DEVICE UNSOLICITED RESULTS Final Result [facility] [address] [place] [address] * ECG Adult (04/27/2025 6:12 AM EDT) EKG DIAGNOSIS CLASS Abnormal MUSE ECG Ventricular Rate 68 BPM MUSE ECG Atrial Rate 68 BPM MUSE ECG WV Interval 268 ms MUSE ECG QRSD Interval 150 ms MUSE ECG QT Interval 426 ms MUSE ECG QTC Interval 452 ms MUSE ECG P Montezuma 64 degrees MUSE ECG R Montezuma -43 degrees MUSE ECG T Wave [place] 0 degrees MUSE ECG Diagnosis Sinus rhythm with 1st degree AV block MUSE ECG Diagnosis Left axis deviation MUSE ECG Diagnosis Right bundle branch block MUSE ECG Diagnosis Abnormal ECG MUSE ECG Diagnosis MUSE ECG Diagnosis Confirmed by Codey Multani ([id number]) on 04/27/2025 4:01:21 PM MUSE ECG 04/27/2025 6:12 AM EDT 04/27/2025 4:01 PM EDT Marleni Estrella FLARE MAKER ECG ORDERABLES Final Result Performing Organization Address [facility]/ZIP Co de Phone Number MUSE ECG * Magnesium, Plasma (04/27/2025 5:03 AM EDT) Pathologist [facility] Magnesium, Plasma 2.0 1.9 - 2.4 mg/dL 04/27/2025 6:16 AM EDT [facility] Blood Venous blood specimen / Unknown Venipuncture / Unknown 04/27/2025 5:03 AM EDT 04/27/2025 5:44 AM EDT Marleni Estrella APRN LAB BLOOD ORDERABLES Final R esult Performing Organization Address City/[facility]/ZIP Co de Phone Number [facility] [address] [place] [address] * (ABNORMAL) Basic Metabolic Panel, Plasma (04/27/2025 5:03 AM EDT) Glucose, Plasma 107(H) 74 - 99 mg/dL 04/27/2025 6:16 AM EDT [facility] BUN, Plasma 24(H) 8 - 23 mg/dL 04/27/2025 6:16 AM EDT [facility] Creatinine, Plasma 1.39(H) 0.60 - 1.10 mg/dL 04/27/2025 6:16 AM EDT [facility] BUN/Creatinine Ratio 17 04/27/2025 6:16 AM EDT [facility] Sodium, Plasma 139 136 - 145 mmol/L 04/27/2025 6:16 AM EDT [facility] Potassium, Plasma 4.0 3.6 - 4.9 mmol/L 04/27/2025 6:16 AM EDT [facility] Chloride, Plasma 109(H) 97 - 107 mmol/L 04/27/2025 6:16 AM EDT [facility] CO2, Plasma 19(L) 22 - 29 mmol/L 04/27/2025 6:16 AM EDT [facility] Anion Gap 11 6 - 16 mmol/L 04/27/2025 6:16 AM EDT [facility] Total Calcium, Plasma 8.6(L) 8.9 - 10.2 mg/dL 04/27/2025 6:16 AM EDT [facility] eGFRcr 36.3 mL/min/1.7 3m*2 04/27/2025 6:16 AM EDT [facility] Comment:Reported eGFRcr in m L/min/1.73m2 is based the CKD-EPI 2020 equation that does not use a race coefficient. Blood Venous blood specimen / Unknown Venipuncture / Unknown 04/27/2025 5:03 AM EDT 04/27/2025 5:44 AM EDT us Marleni Estrella APRN LAB BLOOD ORDERABLES Final R esult [facility] [address] [place] [address] * (ABNORMAL) CBC W/O Differential (04/27/2025 5:03 AM EDT) WBC Count 6.68 3.70 - 10.30 10*3/uL LAB HEMATOLOGY METHOD 04/27/2025 5:55 AM EDT [facility] RBC Count 2.99(L) 3.90 - 5.20 10*6/uL LAB HEMATOLOGY METHOD 04/27/2025 5:55 AM EDT [facility] HGB 9.7(L) 11.2 - 15.7 g/dL LAB HEMATOLOGY METHOD 04/27/2025 5:55 AM EDT [facility] HCT 29.9(L) 34.0 - 45.0 % LAB HEMATOLOGY METHOD 04/27/2025 5:55 AM EDT [facility] Platelet Count 95(L) 155 - 369 10*3/uL LAB HEMATOLOGY METHOD 04/27/2025 5:55 AM EDT [facility] MCV 100(H) 79 - 98 fL LAB HEMATOLOGY METHOD 04/27/2025 5:55 AM EDT [facility] MCH 32.4(H) 26.0 - 32.0 pg LAB HEMATOLOGY METHOD 04/27/2025 5:55 AM EDT [facility] MCHC 32.4 30.7 - 35.5 g/dL LAB HEMATOLOGY METHOD 04/27/2025 5:55 AM EDT [facility] RDW 15.0(H) 11.5 - 14.5 % LAB HEMATOLOGY METHOD 04/27/2025 5:55 AM EDT [facility] MPV 12.2 8.8 - 12.5 fL LAB HEMATOLOGY METHOD 04/27/2025 5:55 AM EDT [facility] nRBC 0.0 <=0.0 per 100 WBCs LAB HEMATOLOGY METHOD 04/27/2025 5:55 AM EDT [facility] Blood Venous blood specimen / Unknown Venipuncture / Unknown 04/27/2025 5:03 AM EDT 04/27/2025 5:44 AM EDT us Marleni Estrella FLARE MAKER LAB BLOOD ORDERABLES Final R esult [facility] [address] [place] [address] * (ABNORMAL) POCT glucose meter (04/26/2025 7:28 PM EDT) [facility] POCT Glucose 170(H) 74 - 99 mg/dL 04/26/2025 7:30 PM EDT [facility] Comment:Accuracy of [...] for testing. Comment 04/26/2025 7:30 PM EDT [facility]ALTH[facility]ARE LAB Electronics Computer Mechanic ID ArpitNeju 04/26/2025 7:30 PM EDT HEALTHCARE LAB Device ID [id number] 04/26/2025 7:30 PM EDT [facility] Specimen Type POC Capillary 04/26/2025 7:30 PM EDT [facility] Blood Capillary blood specimen / Unknown 04/26/2025 7:28 PM EDT 04/26/2025 7:30 PM EDT Herminio Kendrick MD LAB POINT OF CARE TEST DOCKED DEVICE UNSOLICITED RESULTS Final Result [facility] [address] [place] [address] * POCT glucose meter (04/26/2025 5:30 PM EDT) [facility] POCT Glucose 91 74 - 99 mg/dL [...] for testing. Comment 04/26/2025 5:32 PM EDT [facility] Electronics Computer Mechanic ID Diana Villarreal 04/26/2025 5:32 PM EDT [facility] Device ID [id number] 04/26/2025 5:32 PM EDT [facility]ALTH[facility]ARE LAB Specimen Type POC Capillary 04/26/2025 5:32 PM EDT [facility] Blood Capillary blood specimen / Unknown 04/26/2025 5:30 PM EDT 04/26/2025 5:32 PM EDT Herminio Kendrick MD LAB POINT OF CARE TEST DOCKED DEVICE UNSOLICITED RESULTS Final Result Performing Organization Address City/[facility] Co de Phone Number [facility]ALTH[facility]ARE LAB [address] [place] [address] * (ABNORMAL) POCT glucose meter (04/26/2025 12:19 PM EDT) POCT Glucose 101(H) 74 - 99 mg/dL [...] Comment 04/26/2025 12:21 PM EDT [facility]ALTH[facility]ARE LAB Electronics Computer Mechanic ID Diana Villarreal 04/26/2025 12:21 PM EDT HEALTHCARE LAB Device ID [id number] 04/26/2025 12:21 PM EDT [facility]ALTH[facility]ARE LAB Specimen Type POC Capillary 04/26/2025 12:21 PM EDT [facility] Blood Capillary blood specimen / Unknown 04/26/2025 12:19 PM EDT 04/26/2025 12:21 PM EDT Herminio Kendrick MD LAB POINT OF CARE TEST DOCKED DEVICE UNSOLICITED RESULTS Final Result Performing Organization Address City/[facility] Co de Phone Number [facility] [address] [place] [address] * (ABNORMAL) POCT glucose meter (04/26/2025 7:52 AM EDT) POCT Glucose 106(H) 74 - 99 mg/dL [...] Comment 04/26/2025 7:55 AM EDT [facility]ALTH[facility]ARE LAB Electronics Computer Mechanic ID Diana Villarreal 04/26/2025 7:55 AM EDT [facility]ALTH[facility]ARE LAB Device ID [id number] 04/26/2025 7:55 AM EDT [facility]ALTH[facility]ARE LAB Specimen Type POC Capillary 04/26/2025 7:55 AM EDT [facility] Blood Capillary blood specimen / Unknown 04/26/2025 7:52 AM EDT 04/26/2025 7:55 AM EDT us Herminio Kendrick MD LAB POINT OF CARE TEST DOCKED DEVICE UNSOLICITED RESULTS Final Result Performing Organization Address City/State/[facility] Co de Phone Number [facility] [address] [place] [address] * ECHO, ADULT TRANSTHORACIC LIMITED W/ COLOR AND DOPPLER (04/26/2025 7:39 AM EDT) BSA 1.87 m2 JESUS ISCV Height 152.4 [...] significant interval change noted. us Marleni Estrella FLARE MAKER CV ECHO PROCEDURES Final Res ult * ECG Adult (04/26/2025 6:25 AM EDT) EKG DIAGNOSIS CLASS Abnormal MUSE ECG Ventricular Rate 58 BPM MUSE ECG Atrial Rate 58 BPM MUSE ECG WV Interval 216 ms MUSE ECG QRSD Interval 134 ms MUSE ECG QT Interval 446 ms MUSE ECG QTC Interval 437 ms MUSE ECG P Montez[place] 74 degrees MUSE ECG R Monte[place] -46 degrees MUSE ECG T Wave [place] 0 degrees MUSE ECG Diagnosis Sinus bradycardia with 1st degree AV block MUSE ECG Diagnosis Right bundle branch block MUSE ECG Diagnosis Left anterior fascicular block MUSE ECG Diagnosis Bifascicular block MUSE ECG Diagnosis Abnormal ECG MUSE ECG Diagnosis MUSE ECG Diagnosis Confirmed by Ricardo Santana ([id number]) on 04/26/2025 11:52:51 AM MUSE ECG 04/26/2025 6:25 AM EDT 04/26/2025 11:52 AM EDT us Herminio Kendrick MD ECG ORDERABLES [...] MD on 04/26/2025 7:37 AM Marleni Estrella FLARE MAKER IMG XR PROCEDURES Final Resu lt * Magnesium (04/26/2025 12:50 AM EDT) Magnesium, Plasma 2.0 1.9 - 2.4 mg/dL 04/26/2025 1:55 AM EDT [facility] Blood Venous blood specimen / Unknown Venipuncture / Unknown 04/26/2025 12:50 AM EDT 04/26/2025 1:27 AM EDT Marleni Estrella FLARE MAKER LAB BLOOD ORDERABLES Final R esult [facility] [address] [place] [address] * (ABNORMAL) Basic metabolic panel (04/26/2025 12:50 AM EDT) Glucose, Plasma 91 74 - 99 mg/dL 04/26/2025 1:55 AM EDT [facility] BUN, Plasma 27(H) 8 - 23 mg/dL 04/26/2025 1:55 AM EDT [facility] Creatinine, Plasma 1.32(H) 0.60 - 1.10 mg/dL 04/26/2025 1:55 AM EDT [facility] BUN/Creatinine Ratio 20 04/26/2025 1:55 AM EDT [facility] Sodium, Plasma 138 136 - 145 mmol/L 04/26/2025 1:55 AM EDT [facility] Potassium, Plasma 5.0(H) 3.6 - 4.9 mmol/L 04/26/2025 1:55 AM EDT [facility] Chloride, Plasma 110(H) 97 - 107 mmol/L 04/26/2025 1:55 AM EDT [facility] CO2, Plasma 19(L) 22 - 29 mmol/L 04/26/2025 1:55 AM EDT [facility] Anion Gap 9 6 - 16 mmol/L 04/26/2025 1:55 AM EDT [facility] Total Calcium, Plasma 8.6(L) 8.9 - 10.2 mg/dL 04/26/2025 1:55 AM EDT [facility] eGFRcr 38.7 mL/min/1.7 3m*2 04/26/2025 1:55 AM EDT [facility] Comment:Reported eGFRcr in m L/min/1.73m2 is based the CKD-EPI 2020 equation that does not use a race coefficient. Blood Venous blood specimen / Unknown Venipuncture / Unknown 04/26/2025 12:50 AM EDT 04/26/2025 1:27 AM EDT us Marleni Estrella FLARE MAKER LAB BLOOD ORDERABLES Final R esult [facility] [address] [place] [address] * (ABNORMAL) CBC (04/26/2025 12:50 AM EDT) WBC Count 7.24 3.70 - 10.30 10*3/uL LAB HEMATOLOGY METHOD 04/26/2025 2:06 AM EDT [facility] RBC Count 3.10(L) 3.90 - 5.20 10*6/uL LAB HEMATOLOGY METHOD 04/26/2025 2:06 AM EDT [facility] HGB 10.0(L) 11.2 - 15.7 g/dL LAB HEMATOLOGY METHOD 04/26/2025 2:06 AM EDT [facility] HCT 31.4(L) 34.0 - 45.0 % LAB HEMATOLOGY METHOD 04/26/2025 2:06 AM EDT [facility] Platelet Count 97(L) 155 - 369 10*3/uL LAB HEMATOLOGY METHOD 04/26/2025 2:06 AM EDT [facility] MCV 101(H) 79 - 98 fL LAB HEMATOLOGY METHOD 04/26/2025 2:06 AM EDT [facility] MCH 32.3(H) 26.0 - 32.0 pg LAB HEMATOLOGY METHOD 04/26/2025 2:06 AM EDT [facility] MCHC 31.8 30.7 - 35.5 g/dL LAB HEMATOLOGY METHOD 04/26/2025 2:06 AM EDT [facility] RDW 15.1(H) 11.5 - 14.5 % LAB HEMATOLOGY METHOD 04/26/2025 2:06 AM EDT [facility] MPV 12.3 8.8 - 12.5 fL LAB HEMATOLOGY METHOD 04/26/2025 2:06 AM EDT [facility] nRBC 0.0 <=0.0 per 100 WBCs LAB HEMATOLOGY METHOD 04/26/2025 2:06 AM EDT [facility] Blood Venous blood specimen / Unknown Venipuncture / Unknown 04/26/2025 12:50 AM EDT 04/26/2025 1:26 AM EDT us Marleni Estrella [employer] LAB BLOOD ORDERABLES Final R esult [facility] [address] [place] [address] * ECG Adult (04/25/2025 10:06 PM EDT) EKG DIAGNOSIS CLASS Abnormal MUSE ECG Ventricular Rate 56 BPM MUSE ECG Atrial Rate 56 BPM MUSE ECG WV Interval 186 ms MUSE ECG QRSD Interval 112 ms MUSE ECG QT Interval 462 ms MUSE ECG QTC Interval 445 ms MUSE ECG P [place] 66 degrees MUSE ECG R [place] -47 degrees MUSE ECG T Wave [place] 8 degrees MUSE ECG Diagnosis Sinus bradycardia MUSE ECG Diagnosis Left anterior fascicular block MUSE ECG Diagnosis Abnormal ECG MUSE ECG Diagnosis MUSE ECG Diagnosis Confirmed by Ricardo Santana ([id number]) on 04/26/2025 11:17:18 AM MUSE ECG 04/25/2025 10:0 6 PM EDT 04/26/2025 11:17 AM EDT us Herminio Kendrick MD ECG ORDERABLES Final Resu lt MUSE ECG * (ABNORMAL) POCT glucose meter [...] Comment 04/25/2025 8:13 PM EDT [facility] Electronics Computer Mechanic ID James Goldberg II 04/25/2025 8:13 PM EDT [facility] Device ID [id number] 04/25/2025 8:13 PM EDT [facility] Specimen Type POC Capillary 04/25/2025 8:13 PM EDT [facility] Blood Capillary blood specimen / Unknown 04/25/2025 8:11 PM EDT 04/25/2025 8:13 PM EDT us Herminio Kendrick MD LAB POINT OF CARE TEST DOCKED DEVICE UNSOLICITED RESULTS Final Result Performing Organization Address [facility] Co de Phone Number [facility] [address] [place] [address] * (ABNORMAL) POCT Glucose (if patient NPO, on TPN or continuous nutrition) (04/25/2025 5:24 PM EDT) POCT Glucose 140(A) 74 - 99 mg/dL [facility] Blood Venous blood specimen / Unknown 04/25/2025 5:24 PM EDT us Marleni Estrella APRN POINT OF CARE TEST ENTER/SALUD T ORDERABLES Final Result Performing Organization Address City/[facility] Co de Phone Number [facility] [address] [place] [address] * (ABNORMAL) POCT glucose meter (04/25/2025 5:23 [...] Comment 04/25/2025 5:24 PM EDT [facility] Electronics Computer Mechanic ID Lynnette Pulliam 04/25/2025 5:24 PM EDT [facility] Device ID [id number] 04/25/2025 5:24 PM EDT [facility] Specimen Type POC Capillary 04/25/2025 5:24 PM EDT [facility] Blood Capillary blood specimen / Unknown 04/25/2025 5:23 PM EDT 04/25/2025 5:24 PM EDT us Herminio Kendrick MD LAB POINT OF CARE TEST DOCKED DEVICE UNSOLICITED RESULTS Final Result Performing Organization Address City/State/[facility] Co de Phone Number [facility] [address] [place] [address] * (ABNORMAL) Basic metabolic panel (04/25/2025 5:09 PM EDT) Pathologist [facility] [place] Glucose, Plasma 149(H) 74 - 99 mg/dL 04/25/2025 5:47 PM EDT [facility] BUN, Plasma 31(H) 8 - 23 mg/dL 04/25/2025 5:47 PM EDT [facility] Creatinine, Plasma 1.35(H) 0.60 - 1.10 mg/dL 04/25/2025 5:47 PM EDT [facility] BUN/Creatinine Ratio 23 04/25/2025 5:47 PM EDT [facility] Sodium, Plasma 138 136 - 145 mmol/L 04/25/2025 5:47 PM EDT [facility] Potassium, Plasma 5.1(H) 3.6 - 4.9 mmol/L 04/25/2025 5:47 PM EDT [facility] Chloride, Plasma 108(H) 97 - 107 mmol/L 04/25/2025 5:47 PM EDT [facility] CO2, Plasma 21(L) 22 - 29 mmol/L 04/25/2025 5:47 PM EDT [facility] Anion Gap 9 6 - 16 mmol/L 04/25/2025 5:47 PM EDT [facility] Total Calcium, Plasma 8.9 8.9 - 10.2 mg/dL 04/25/2025 5:47 PM EDT [facility] eGFRcr 37.6 mL/min/1.7 3m*2 04/25/2025 5:47 PM EDT [facility] Comment:Reported eGFRcr in m L/min/1.73m2 is based the CKD-EPI 2020 equation that does not use a race coefficient. Blood Venous blood specimen / Unknown Venipuncture / Unknown 04/25/2025 5:09 PM EDT 04/25/2025 5:16 PM EDT us Marleni Estrella [employer] LAB BLOOD ORDERABLES Final R esult [facility] [address] [place] [address] * (ABNORMAL) CBC (04/25/2025 5:09 PM EDT) WBC Count 7.20 3.70 - 10.30 10*3/uL LAB HEMATOLOGY METHOD 04/25/2025 5:26 PM EDT [facility] RBC Count 3.34(L) 3.90 - 5.20 10*6/uL LAB HEMATOLOGY METHOD 04/25/2025 5:26 PM EDT [facility] HGB 10.7(L) 11.2 - 15.7 g/dL LAB HEMATOLOGY METHOD 04/25/2025 5:26 PM EDT [facility] HCT 33.2(L) 34.0 - 45.0 % LAB HEMATOLOGY METHOD 04/25/2025 5:26 PM EDT [facility] Platelet Count 102(L) 155 - 369 10*3/uL LAB HEMATOLOGY METHOD 04/25/2025 5:26 PM EDT [facility] MCV 99(H) 79 - 98 fL LAB HEMATOLOGY METHOD 04/25/2025 5:26 PM EDT [facility] MCH 32.0 26.0 - 32.0 pg LAB HEMATOLOGY METHOD 04/25/2025 5:26 PM EDT [facility] MCHC 32.2 30.7 - 35.5 g/dL LAB HEMATOLOGY METHOD 04/25/2025 5:26 PM EDT [facility] RDW 14.9(H) 11.5 - 14.5 % LAB HEMATOLOGY METHOD 04/25/2025 5:26 PM EDT [facility] MPV 11.9 8.8 - 12.5 fL LAB HEMATOLOGY METHOD 04/25/2025 5:26 PM EDT [facility] nRBC 0.0 <=0.0 per 100 WBCs LAB HEMATOLOGY METHOD 04/25/2025 5:26 PM EDT [facility] Blood Venous blood specimen / Unknown Venipuncture / Unknown 04/25/2025 5:09 PM EDT 04/25/2025 5:17 PM EDT us Marleni Estrella FLARE [employer] LAB BLOOD ORDERABLES Final R esult [facility] [address] [place] [address] * ECG Adult (04/25/2025 3:58 PM EDT) EKG DIAGNOSIS CLASS Abnormal MUSE ECG Ventricular Rate 59 BPM MUSE ECG Atrial Rate 59 BPM MUSE ECG WV Interval 250 ms MUSE ECG QRSD Interval 150 ms MUSE ECG QT Interval 462 ms MUSE ECG QTC Interval 457 ms MUSE ECG P [place] 76 degrees MUSE ECG R [place] -51 degrees MUSE ECG T Wave [place] 13 degrees MUSE ECG Diagnosis Sinus bradycardia with 1st degree AV block MUSE ECG Diagnosis Right bundle branch block MUSE ECG Diagnosis Left anterior fascicular block MUSE ECG Diagnosis Bifascicular block MUSE ECG Diagnosis Abnormal ECG MUSE ECG Diagnosis MUSE ECG Diagnosis Confirmed by Alistair Morales ([id number]) on 04/25/2025 4:28:48 PM MUSE ECG [...] mm JESUS ISCV LVOT AREA 2.5 cm2 JESUS ISCV SV(LVOT) 96 mL JESUS ISCV KANE(I,D) [...] was obtained: 1) Left common femoral artery: 7-Lithuanian short Terumo sheath 2) Right common femoral vein: 8-Lithuanian short Terumo sheath 3) Right common femoral artery: 6-Lithuanian short Terumo sheath The 6-Lithuanian right common femoral arterial sheath was upsized to an 8-Lithuanian sheath after 2 Preclose sutures were deployed. The 8-Lithuanian sheath was then upsized to a 14-Lithuanian x 33 cm Ansley Dry Seal Flex sheath over a Safari wire. Heparin was given for a goal ACT>250. Antibiotics were given. A temporary pacemaker wire was advanced from the venous sheath to the right ventricular apex. Thresholds were tested and confirmed to be adequate. A 6-Lithuanian angled pigtail catheter was inserted from the left common femoral arterial sheath to the non-coronary cusp. An aortogram was performed to confirm the correct coplanar angle. The aortic valve was crossed from the femoral arterial sheath using an exchange-length J-tip wire and a 6-Lithuanian AL1 diagnostic catheter. The AL1 catheter was removed and a 6-Lithuanian angled pigtail catheter was advanced over the [...] Phase: Resting Aortic AO: 157/83 (116) mmHg Herminio Kendrick MD CV CARDIAC CATH PROCEDURES Final Result * (ABNORMAL) POCT creatinine (04/25/2025 10:29 AM EDT) [facility] Creatinine, Point of Care 1.7(H) 0.6 - 1.1 mg/dL 04/25/2025 10:32 AM EDT [facility] POCT eGFR 28 mL/min/1. 73m*2 04/25/2025 10:32 AM EDT [facility] Electronics Computer Mechanic ID Stanley Rahman 04/25/2025 10:32 AM EDT HEALTHCARE LAB Device ID [id number] 04/25/2025 10:32 AM EDT [facility] Comment 04/25/2025 10:32 AM EDT [facility] Comment:Testing performed on i-STAT at the point of care. Reported eGFRcr in mL/min/1.73m2 is based the CKD-EPI 2020 equation that does not use a race coefficient. Blood Venous blood specimen / Unknown 04/25/2025 10:29 AM EDT 04/25/2025 10:32 AM EDT Herminio Kendrick MD LAB POINT OF CARE TEST DOCKED DEVICE UNSOLICITED RESULTS Final Result [facility] [address] [facility] [address] [place] [address] * Type and Screen (04/25/2025 10:26 AM [...] BLOOD BANK TEST ORDERA BLES Final Result Performing Organization Address [facility]/ZIP Co de Phone Number BLOOD BANK [address] * N-Terminal Probnp (04/25/2025 10:24 AM EDT) N-Terminal, PROBNP, Plasma 1,693 0 - 1,799 pg/mL 04/25/2025 11:11 AM EDT [facility] Blood Venous blood specimen / Unknown Venipuncture / Unknown 04/25/2025 10:24 AM EDT 04/25/2025 10:41 AM EDT Kirstie Mora APRN LAB BLOOD ORDERABLES Kerry l Result Performing Organization Address City/[facility]/ZIP Co de Phone Number [facility] [address] [place] [address] * (ABNORMAL) Basic metabolic panel (04/25/2025 10:24 AM EDT) Glucose, Plasma 124(H) 74 - 99 mg/dL 04/25/2025 11:11 AM EDT [facility] BUN, Plasma 36(H) 8 - 23 mg/dL 04/25/2025 11:11 AM EDT [facility] Creatinine, Plasma 1.60(H) 0.60 - 1.10 mg/dL 04/25/2025 11:11 AM EDT [facility] BUN/Creatinine Ratio 23 04/25/2025 11:11 AM EDT [facility] Sodium, Plasma 138 136 - 145 mmol/L 04/25/2025 11:11 AM EDT [facility] Potassium, Plasma 4.4 3.6 - 4.9 mmol/L 04/25/2025 11:11 AM EDT [facility] Chloride, Plasma 105 97 - 107 mmol/L 04/25/2025 11:11 AM EDT [facility] CO2, Plasma 20(L) 22 - 29 mmol/L 04/25/2025 11:11 AM EDT [facility] Anion Gap 13 6 - 16 mmol/L 04/25/2025 11:11 AM EDT [facility] Total Calcium, Plasma 10.0 8.9 - 10.2 mg/dL 04/25/2025 11:11 AM EDT [facility] eGFRcr 30.7 mL/min/1.7 3m*2 04/25/2025 11:11 AM EDT [facility] Comment:Reported eGFRcr in m L/min/1.73m2 is based the CKD-EPI 2020 equation that does not use a race coefficient. Blood Venous blood specimen / Unknown Venipuncture / Unknown 04/25/2025 10:24 AM EDT 04/25/2025 10:41 AM EDT us Kirstie Mora APRN LAB BLOOD ORDERABLES Kerry chiang Result [facility] [address] [place] [address] * (ABNORMAL) Hemogram (CBC) (04/25/2025 10:24 AM EDT) WBC Count 6.51 3.70 - 10.30 10*3/uL LAB HEMATOLOGY METHOD 04/25/2025 10:52 AM EDT [facility] RBC Count 3.86(L) 3.90 - 5.20 10*6/uL LAB HEMATOLOGY METHOD 04/25/2025 10:52 AM EDT [facility] HGB 12.4 11.2 - 15.7 g/dL LAB HEMATOLOGY METHOD 04/25/2025 10:52 AM EDT [facility] HCT 38.2 34.0 - 45.0 % LAB HEMATOLOGY METHOD 04/25/2025 10:52 AM EDT [facility] Platelet Count 120(L) 155 - 369 10*3/uL LAB HEMATOLOGY METHOD 04/25/2025 10:52 AM EDT [facility] MCV 99(H) 79 - 98 fL LAB HEMATOLOGY METHOD 04/25/2025 10:52 AM EDT [facility] MCH 32.1(H) 26.0 - 32.0 pg LAB HEMATOLOGY METHOD 04/25/2025 10:52 AM EDT [facility] MCHC 32.5 30.7 - 35.5 g/dL LAB HEMATOLOGY METHOD 04/25/2025 10:52 AM EDT [facility] RDW 14.8(H) 11.5 - 14.5 % LAB HEMATOLOGY METHOD 04/25/2025 10:52 AM EDT [facility] MPV 11.7 8.8 - 12.5 fL LAB HEMATOLOGY METHOD 04/25/2025 10:52 AM EDT [facility] nRBC 0.0 <=0.0 per 100 WBCs LAB HEMATOLOGY METHOD 04/25/2025 10:52 AM EDT [facility] Blood Venous blood specimen / Unknown Venipuncture / Unknown 04/25/2025 10:24 AM EDT 04/25/2025 10:36 AM EDT Kirstie Mora APRN LAB BLOOD ORDERABLES Kerry l Result [facility] [address] [place] [address] * ECG Adult (04/25/2025 10:07 AM EDT) EKG DIAGNOSIS CLASS Abnormal MUSE ECG Ventricular Rate 56 BPM MUSE ECG Atrial Rate 56 BPM MUSE ECG WV Interval 190 ms MUSE ECG QRSD Interval 116 ms MUSE ECG QT Interval 422 ms MUSE ECG QTC Interval 407 ms MUSE ECG P [place] 68 degrees MUSE ECG R [place] -39 degrees MUSE ECG T Wave [place] 22 degrees MUSE ECG Diagnosis Sinus bradycardia MUSE ECG Diagnosis Left axis deviation MUSE ECG Diagnosis Left ventricular hypertrophy with QRS widening ( R in aVL , [place] product ) MUSE ECG Diagnosis Abnormal ECG MUSE ECG Diagnosis MUSE ECG Diagnosis Confirmed by Alistair Morales ([id number]) on 04/25/2025 12:13:36 PM MUSE ECG 04/25/2025 10:0 7 AM EDT 04/25/2025 12:13 PM EDT us Kirstie Mora FLARE MAKER ECG ORDERABLES Final Res ult MUSE ECG documented in this encounter Visit Diagnoses Diagnosis Aortic stenosis- Primary Aortic valve disorders Nonrheumatic aortic valve stenosis Severe aortic stenosis Aortic valve disorders Nonrheumatic aortic valve [...] Given 04/26/2025 8:09 AM EDT 650 mg dextrose 10 % (D10W) bolus 125 [...] sugar, per Hypoglycemia Prevention and Treatment protocol levothyroxine (Synthroid, Levoxyl) tablet 88 mcg 88 mcg, Oral, Daily before breakfast, First dose on Wed04/26/25 at 0730, Until Discontinued, Routine Given 04/27/2025 9:02 AM EDT 88 mcg Given 04/26/2025 8:09 AM EDT 88 mcg lidocaine (Xylocaine) 2 % injection As needed, Starting on Wed04/25/25 at 1400, Until Wed04/25/25 at 1513, Routine, Intraprocedure Given 04/25/2025 2:06 PM EDT 10 mL Left Femoral Given 04/25/2025 2:00 PM EDT 10 mL Ri ght Femoral losartan (Cozaar) tablet 50 mg 50 mg, [...] Given 04/25/2025 8:40 PM EDT 20 mg spironolactone (Aldactone) tablet 25 mg 25 mg, [...] Given 04/25/2025 8:41 PM EDT 50 mg documented in this encounter Active and Recently [...] Bryan RN - Reason: Order parameters not met)204 (Not Given - Provider: Osmar Bryan RN [...] Patricia Wallace - Comment: marli KEL[facility] of [facility], ordered to give) losartan (Cozaar) tablet 50 [...] 1258 (Given - Provider: Lynnette Pulliam RN) spironolactone (Aldactone) tablet 25 mg 25 mg, Oral, Daily, First dose on Wed04/27/25 at 0900, Until Discontinued, Routine 901 (Given - Provider: Rea Gallegos RN) vancomycin in NS (Vancocin) IVPB 1,250 mg (COMPLETED) 1,250 mg (rounded from 1,258.5 mg = 15 mg/kg 83.9 kg Order-specific weight), Intravenous, Once, 1 dose, On Wed04/25/25 at 1100, at 200 mL/hr, STAT 1258 (New Bag - Provider: Lynnette Pulliam RN)1336 (Bolus - Provider: Goldy Paige MD)1536 (Stopped [...] at 1710, Routine, severe pain, moderate pain 2040 (Given - Provider: Osmar Bryan, LISANDRA) 0454 (Given - Provider: Osmar Bryan RN) Linked Groups Order Group 1: Insert peripheral [...] documented as of this encounter Care Teams Strategic Account Director Relationship Specialty Start Date End Date Jim Lopez MD [address] [place] [address] [address] [id number] PCP - General 04/11/25 documented as of this encounter
--- OUTSIDE RECORDS SUMMARY | 2025-04-25 13:36 | XMS_ITS | Encounter Summary ---
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 [I35.0] Procedures MO REPLACE AORTIC VALVE PERQ FEMORAL ARTRY APPROACH TAVR IMPLANTATION, AORTIC VALVE, TRANSCATHETER Herminio Kendrick MD [address] [place] [phone] Phone: tel: fax: Cardiac Mill Set Up [address] [place] [phone] Phone: tel: Referral ID Status Reason Start Date Expiration Date Visits Re quested Visits Authorized [id number] 1 1 Encounter Details Date Type Department Care Team (Late st Contact Info) Description 04/25/2025 1:36 PM EDT Anesthesia Event Cardiac Mill Set Up [address] [place] [phone] Letty Hurd MD [address] [place] [phone] Fransico Carter MD [address] [place], [place] [id number] Anesthesia Record Procedure Summary Procedure Name Responsible Anesthesiologist Anesthesia Start Time Anesthesia Stop Time TAVR Letty Hurd MD 04/25/25 1336 07/07/12 1517 Events Date Time Event Comment 04/25/2025 1336 An Start The patient was reevaluated immediately before sedation and remains eligible for anesthesia plan. 1336 In Room 1336 An Start Data 1341 Perfusion Start 1350 Anesthesia Ready 1400 Proc Start 1422 ACT Performed 355 1443 Perfusion Standby 1443 Perfusion Stop 1445 Proc Fin 1507 an stop data 1513 Out of Room 1517 Handoff to Receiving I compl eted my handoff to the receiving clinician during which we: 1. Identified the patient 2. Identified the responsible provider 3. Reviewed the pertinent medical history 4. Discussed the surgical course 5. Reviewed intra-op anesthesia management and issues during anesthesia 6. Set expectations for post-procedure period 7. Allowed opportunity for questions and acknowledgement of understanding. 1517 An Stop Meds Name Total fentaNYL (Sublimaze) injection 50 mcg/mL 25 mcg ondansetron (Zofran) injection 2 mg/mL 4 mg dexmedetomidine (Precedex) infusion in N aCl 4 mcg/mL 8 mcg vancomycin in NS (Vancocin) IVPB 1,250 m g 1.25 g ceFAZolin (Ancef) injection 2 g 2 g heparin injection 1,000 units/mL 8,000 U nits phenylephrine (Renan-Synephrine) prefilled syringe 1 mg/10 mL 250 mcg protamine injection 50 mg sodium chloride 0.9 % infusion 0 mL * Agents No agents on file. * Blood No blood administrations on file. Lines, Drains, and Airways Type Details Placement Removal Peripheral IV Placement Date: 07/12; Placement Time: 1023; Catheter Size: 20 G; Orientation: Anterior, Proximal, Right; Location: Forearm; Site Prep: Alcohol; Insertion Attempts: 1; Patient Tolerance: Tolerated well; Removal Date: 04/28/25; Removal Time: 15104/25/25 1023 by Lynnette Pulliam RN 04/28/25 1510 by Discharge Provider, Automatic Peripheral IV Placement Date: 07/12; Placement Time: 1023; Catheter Size: 20 G; Orientation: Left; Location: Antecubital; Site Prep: Alcohol; Insertion Attempts: 1; Patient Tolerance: Tolerated well; Removal Date: 04/28/25; Removal Time: 1510 04/25/25 1023 by Lynnette Pulliam RN 04/28/25 1510 by Discharge Provider, Automatic Arterial Sheath 04/25/25; 1405; No; Yes; 6 Fr.; Right; Femoral; No; Mireille KELLEY; Injectable; Chlorhexidine ; Yes; 04/25/25; 1448; Per protocol; No complications, Catheter intact 04/25/25 1405 by Karen Jimenez RN 04/25/25 1448 by Karen Jimenez RN Venous Sheath 04/25/25; 1406; No; Yes; 8 Fr.; Right; Femoral; No; Mireille KELLEY; Injectable; Chlorhexidine ; Yes; 04/25/25; 1448; Per protocol; No complications, Catheter intact 04/25/25 1406 by Karen Jimenez RN 04/25/25 1448 by Karen Jimenez RN Arterial Sheath 04/25/25; 1408; No; Yes; 7 Fr.; Left; Femoral; No; Mireille KELLEY; Injectable; Chlorhexidine ; Yes; 04/25/25; 1449; Per protocol; No complications, Catheter intact 04/25/25 1408 by Karen Jimenez RN 04/25/25 1449 by Karen Jimenez RN documented in this encounter Social History Tobacco [...] any time in the past 12 m [facility], were you homeless or living in a nursing home (including now)? No 04/26/2025 Utilities Answer Date [...] as of this encounter Functional Status * Calculated C-SSRS [...] Bryan RN documented as of this encounter Miscellaneous Notes * Anesthesia Postprocedure Evaluation - Goldy Paige MD - 04/25/2025 3:17 PM EDT Patient: Marleny Covarrubias Anesthesia Type: MAC Vitals Value Taken Time BP 112/67 04/25/25 15:17 Temp See flowsheet 04/25/25 15:17 Pulse 65 04/25/25 15:17 Resp 12 04/25/25 15:17 SpO2 100 04/25/25 15:17 Anesthesia Post Evaluation Patient location during evaluation: PACU Patient participation: complete - patient participated Level of consciousness: awake Pain management: adequate (pain score 0-3) Airway patency: natural airway Cardiovascular status: acceptable and hemodynamically stable Respiratory status: acceptable and nasal cannula Hydration status: acceptable Nausea/Vomiting: No There were no known notable events for this encounter. Cosigned by Letty Hurd MD at 04/26/2025 7:08 AM EDT Associated attestation - Letty Hurd MD - 04/26/2025 7:08 AM EDT I agree with the findings and care plan documented in the postprocedure evaluation note. * Anesthesia Preprocedure Evaluation - Letty Hurd MD - 04/25/2025 6:18 AM EDT Images from the original note were not included. Anesthesiologist: (Unknown) SALES DEPARTMENT CLERK: (Unknown) Procurement Representative: (Unknown) Patient: Marleny Covarrubias is a 89 y.o. female with body mass index is unknown because there is no height orweight on file. who presents with Aortic stenosis, now for TAVR (N/A), IMPLANTATION, AORTIC VALVE, TRANSCATHETER (N/A) Marleny Covarrubias is an 89 year old [...] Transcatheter Aortic Valve Replacement, according to the [facility] National Coverage Decision.?Case data will be extracted and entered into the [facility] Clinical Registry/[facility] Research as required by the National Coverage Decision.? NCT Identifier [id number]. Cardiac Diagnostics: Echo - 04/19/2025: LVEF 54%, Grade I DD, no RWMA, moderate peak gradient 66 mmHg, mean gradient 36 mmHg, and KANE 1.2 cm2 Past Medical History [Past Medical History] [Past Medical History] No past medical history on file. Surgical History [Surgical History] [Surgical History] Past Surgical History Procedure Laterality Date ANKLE SURGERY CARDIAC STENT CARPAL TUNNEL RELEASE both wrists CHOLECYSTECTOMY COLONOSCOPY TOTAL KNEE ARTHROPLASTY Family History Reviewed and non-contributory. Social History Tobacco use: Former Alcohol use: Denies any significant recent usage. Other: Denies any recent illicit drug use. Allergies: [Allergies] [Allergies] No Known Allergies Procedure Information Date/Time: 04/25/25 1005 Procedures: TAVR IMPLANTATION, AORTIC VALVE, TRANSCATHETER Location: DOCUMENTATION SUPERVISOR 03 / [place] DOCUMENTATION SUPERVISOR Providers: Herminio Kendrick MD; Fouzia Tillman MD Relevant Problems Cardio (+) Bilateral carotid artery disease (CMS/[facility]) (+) CAD (coronary artery disease) (+) Essential hypertension ALLERGIES Allergies[1] NPO STATUS Past Medical History[2] AIRWAY HISTORY Airway Detailed Review Displaying the 20 most recent records No records found. MEDICATIONS Outpatient Current Outpatient Medications Medication Instructions apixaban (ELIQUIS) 2.5 mg, 2 times daily bisoprolol (ZEBETA) 5 mg, Daily levothyroxine (SYNTHROID, LEVOXYL) 88 mcg, Daily before breakfast losartan-hydroCHLOROthiazide (Hyzaar) 50-12.5 MG tablet 1 tablet, Daily meclizine (ANTIVERT) 25 mg, 2 times daily (1200 & 2000) omeprazole (PRILOSEC) 40 mg pioglitazone (ACTOS) 15 mg, Daily rosuvastatin (CRESTOR) 20 mg, Nightly spironolactone (ALDACTONE) 50 mg, Daily traMADol (ULTRAM) 50 mg, Every 6 hours PRN Scheduled Current Scheduled Medications[3] PRNs Current PRN Medications[4] SURGICAL HX: Surgical History[5] SOCIAL HX: Social History[6] OBJECTIVE DATA LABS No results found for: WBC , HGB , HCT , MCV , PLT No results found for: CALCIUM , BUN , CREATININE , BCR , NA , K , CL , CO2 , AG , CA Type and Screen No results found for: ABO No results found for: HGBA1C No results found for: PGLU , GLUCOSE ABG No results found for: PHART , ATL2AHF , PO2ART , SO2ART , BEART , CNB9KCX , HCTART , SODIUMART , POTASSIUMART , POCTCL , POCGLU , IONCALART , LACTATE No results found for: PH , PCO2 , PO2 , H9MHSSLX , BASEEXC , HCTSYR , KSYR , CLSYR , GLUSYR , CAION , LACTATE ECHO Echo, Adult Transthoracic Complete Result Date: 04/19/2025 [...] is no recent study available for direct tvwl-hn-patf comparison. PFTs No results found for: EQS8UMN , VHC0ULZW , UYQ6BMB , FVCPRED BP Readings from Last 5 Encounters: 04/19/25 (!) 151/77 04/11/25 (!) 146/68 04/02/25 127/75 Physical Exam Airway Mallampati: II Mouth opening: normal Neck ROM: full Cardiovascular Rhythm: regular Rate: normal (+) murmur (-) carotid bruits, peripheral edema, JVD The dorsalis pedis pulses are 3+ bilaterally. The radial pulses are 3+ bilaterally. Dental - normal exam Pulmonary Breath sounds clear to auscultation Neurological Oriented: normal to time, normal to place and normal to person and oriented to person, place and time Skin Musculoskeletal Extremities Anesthesia Plan ASA 4 Plan was reviewed with: resident Anesthesia technique(s) discussed with the patient/family: MAC and general Anesthesia plan agreed upon was: MAC Anesthetic plan and risks discussed with patient. Use of blood products discussed with patient who consented to blood products. ROS Cardiovascular: Does not have peripheral edema or peripheral edema. [1] No Known Allergies [2] No past medical history on file. [3] [4] [5] Past Surgical History: Procedure Laterality Date ANKLE SURGERY CARDIAC STENT CARPAL TUNNEL RELEASE both wrists CHOLECYSTECTOMY COLONOSCOPY TOTAL KNEE ARTHROPLASTY [6] Social History Tobacco Use Smoking status: Former Types: Cigarettes Smokeless tobacco: Never Vaping Use Vaping status: Never Used Substance Use Topics Alcohol use: Never Drug use: Never documented in this encounter Plan of Treatment Upcoming Encounters Date Type Department Care Team ([facility] st Contact Info) Description 06/27/2025 9:00 AM EDT Appointment Medical Office Building Cardiac Diagnostic Testing Medical Office Building Echo Lab [address], [address] [place] [address] 06/27/2025 10:30 AM EDT Office Visit [facility] [place] [address], [address] [place] [phone] Beckie Marshall PA [address] [place] [phone] 05/01/2026 1:30 PM EDT Appointment Medical Office Building Cardiac Diagnostic Testing Medical Office Building Echo Lab [address] [facility] [facility], [address] [place] [address] 05/01/2026 3:00 PM EDT Office Visit [facility] [place] [address] [facility] [address], [address] [place] [address] Beckie Marshall, [place] [address] [place] [phone] documented as of this encounter Visit Diagnoses Not on filedocumented in this encounter Administered Medications Inactive Administered Medications - up to 3 most recent administrations Medication Order MAR Action Action Date Dose Rate Site ceFAZolin (Ancef) injection 2 g 2 g, Intravenous, Once, 1 dose, On Wed04/25/25 at 1100, Routine, Holding - Preprocedure Given 04/25/2025 1:59 PM EDT 2 g dexmedetomidine in NS (Precedex) 4 mcg/mL infusion Intravenous, As needed, Starting on Wed04/25/25 at 1348, Until Wed04/25/25 at 1517, Routine Given 04/25/2025 2:00 PM EDT 4 mcg Given 04/25/2025 1:48 PM EDT 4 mcg fentaNYL (Sublimaze) injection Intravenous, As needed, Starting on Wed04/25/25 at 1348, Until Wed04/25/25 at 1517, Routine, Anesthesia Intraprocedure Given 04/25/2025 1:48 PM EDT 25 mcg heparin (porcine) injection Intravenous, As needed, Starting on Wed04/25/25 at 1410, Until Wed04/25/25 at 1517, Routine, Anesthesia Intraprocedure Given 04/25/2025 2:10 PM EDT 8,000 Units ondansetron (Zofran) injection Intravenous, As needed, Starting on Wed04/25/25 at 1504, Until Wed04/25/25 at 1517, Routine, Anesthesia Intraprocedure Given 04/25/2025 3:04 PM EDT 4 m g phenylephrine in NS (Renan-Synephrine) 100 mcg/mL prefilled syringe Intravenous, As needed, Starting on Wed04/25/25 at 1430, Until Wed04/25/25 at 1517, Routine, Anesthesia Intraprocedure Given 04/25/2025 2:33 PM EDT 100 mcg Given 04/25/2025 2:28 PM EDT 150 mcg protamine injection Intravenous, As needed, Starting on Wed04/25/25 at 1445, Until Wed04/25/25 at 1517, Routine, Anesthesia Intraprocedure Given 04/25/2025 2:45 PM EDT 50 mg sodium chloride 0.9 % infusion Intravenous, Continuous PRN, Starting on Wed04/25/25 at 1336, Until Wed04/25/25 at 1517, Routine New Bag 04/25/2025 1:36 PM EDT vancomycin in NS (Vancocin) IVPB 1,250 mg 1,250 mg (rounded from 1,258.5 mg = 15 mg/kg 83.9 kg Order-specific weight), Intravenous, Once, 1 dose, On Wed04/25/25 at 1100, at 200 mL/hr, STAT Bolus 04/25/2025 1:36 PM EDT 1.25 g New Bag 04/25/2025 12:58 PM EDT 1,250 mg 200 mL/hr documented in this encounter Additional Health Concerns Assessment Noted Time A fall risk assessment has been complete d for the patient 04/11/2025 9:59 AM EDT A Body Mass Index follow-up plan has been documented for the patient 04/27/2025 1:18 PM EDT documented as of this encounter Care Teams Factory Laborer Relationship Specialty Start Date End Date Jim Lopez MD [address] [place] [address] [place] [address] PCP - General 04/11/25 documented as of this encounter
[2025-04-29 23:41] VITALS: BP 148/66; PULSE 72; RESP 34; O2SAT 97
[2025-04-29 23:42] VITALS: BMI 34.3
--- NOTE | 2025-04-29 23:43 | XR_ITS ---
PROCEDURE INFORMATION: Exam: XR Chest Exam date and time: 04/29/2025 11:55 PM Age: 89 years old Clinical indication: Device placement; Ett placement (vent status); Additional info: Bradycardia TECHNIQUE: Imaging protocol: Radiologic exam of the chest. Views: 1 view. COMPARISON: CR CXR2V XR chest 2V 11/01/2018 11:25 AM FINDINGS: Tubes, catheters and devices: Endotracheal tube tip position estimated 22 mm above matthieu. Esophageal catheter in the stomach Lungs: Low lung volumes Pleural spaces: Unremarkable. No pleural effusion. No pneumothorax. Heart/Mediastinum: Unremarkable. No cardiomegaly. Vasculature: Central vascular crowding. Interval transcatheter aortic valve repair Bones/joints: Unremarkable. IMPRESSION: 1. Tubes and lines as above. 2. Severe hypoventilation.
[2025-04-29 23:46] VITALS: BP 213/80; PULSE 60; RESP 28; O2SAT 97
--- OUTSIDE RECORDS SUMMARY | 2025-04-29 23:47 | XMS_ITS | Encounter Summary ---
Author Organization Healthcare Address [address] [place] [address] Care Team Providers Care Crankshaft Grinder Name Role Phone Jim Lopez MD Primary Care Provider [phone] Encounter Details Date Type Department Care Team (Latest Contact Info) Description 04/26/2025 Travel Social History Tobacco Use Types Packs/Day Years [...] any time in the past 12 m [facility], were you homeless or living in a snf (including now)? No 04/26/2025 Utilities Answer Date Recorded In the past 12 months has e electric, gas, oil, or water company [...] Date of Assessment Author No Risk Indicated 04/26/2025 7:30 PM EDT Osmar Lacey RN * Question Answer Date of Assessment Author 1. Wish to be (Past 1 Month) No 025 7:30 PM EDT Osmar Bryan RN 2. Non-Specific Active Suici shelton Thoughts (Past 1 Month) No 04/26/2025 7:30 PM EDT Sa jeanmarie Bryan RN 6. Suicidal Behavior (Lifetime) No 7:30 PM EDT Osmar Bryan RN documented as of this encounter Plan of Treatment Upcoming Encounters Date Type Department Care Team (Late st Contact Info) Description 06/27/2025 9:00 AM EDT Appointment Medical Office Building Cardiac Diagnostic Testing Medical Office Building Echo Lab [address], [address] [place] [address] 06/27/2025 10:30 AM EDT Office Visit [facility] [place] [address], [address] [place] [address] Beckie Marshall PA [address] [place] [phone] 05/01/2026 1:30 PM EDT Appointment Medical Office Building Cardiac Diagnostic Testing Medical Office Building Echo Lab [address] [facility], [address] [place] [address] 05/01/2026 3:00 PM EDT Office Visit [facility] [place] [address], [address] [place] [address] Beckie Marshall PA [address] [place] [phone] documented as of this encounter Visit Diagnoses Not on filedocumented in this encounter Additional Health Concerns Assessment Noted Time A fall risk assessment has been complete d for the patient 04/11/2025 9:59 AM EDT A Body Mass Index follow-up plan has been documented for the patient 04/27/2025 1:18 PM EDT documented as of this encounter Care Teams Crankshaft Grinder Relationship Specialty Start Date End Date Jim Lopez MD [address] [place] [address] [address] [place] [address] PCP - General 04/11/25 documented as of this encounter
--- OUTSIDE RECORDS SUMMARY | 2025-04-29 23:47 | XMS_ITS | Encounter Summary ---
Author Organization Healthcare Address [address] [place] [address] Care Team Providers Care Armed Security Professional Name Role Phone Jim Lopez MD Primary Care Provider [phone] Encounter Details Date Type Department Care Team (Latest Contact Info) Description 04/19/2025 Travel Social History Tobacco Use Types Packs/Day [...] on file documented as of this encounter Plan of Treatment Upcoming Encounters Date Type Department Care Team (Late st Contact Info) Description 06/27/2025 9:00 AM EDT Appointment Medical Office Building Cardiac Diagnostic Testing Medical Office Building Echo Lab [address] [facility], [address] [place] [address] 06/27/2025 10:30 AM EDT Office Visit [facility] [place] [address] [address], [address] [place] [address] Beckie Marshall PA [facility] [place] [address] 05/01/2026 1:30 PM EDT Appointment Medical Office Building Cardiac Diagnostic Testing Medical Office Building Echo Lab [address] [facility] [facility], [address] [place] [address] 05/01/2026 3:00 PM EDT Office Visit [facility] [place] [address] [facility], [address] [place] [phone] Beckie Marshall PA [address] [place] [phone] documented as of this encounter Visit Diagnoses Not on filedocumented in this encounter Additional Health Concerns Assessment Noted Time A fall risk assessment has been complete d for the patient 04/11/2025 9:59 AM EDT A Body Mass Index follow-up plan has been documented for the patient 04/11/2025 12:25 PM EDT documented as of this encounter Care Teams Armed Security Professional Relationship Specialty Start Date End Date Jim Lopez MD [address] [place] [address] PCP - General 04/11/25 documented as of this encounter
--- OUTSIDE RECORDS SUMMARY | 2025-04-29 23:47 | XMS_ITS ---
Author Organization Unknown Vital Signs BpStanding BpSitting BpSupine Date Temperature HeartRate Weight Hei ght Spo2 Respiration Bmi HeadCircumference FieldCount TimeRecorded NeckCircumferen ce WaistCircumference Pulse 132/72 03/28 00:00 :00 97.3 50 189,0 5,5 97 16 31.4 5 8 04/27/2025 13:45:00 180/90 01/30 00:00 :00 98.7 199,0 5,5 33.1 1 5 04/27/2025 10:45:00 122/68 07/19 00:00 :00 98.6 58 197,0 5,5 92 32.7 8 7 04/27/2025 09:00:00
--- OUTSIDE RECORDS SUMMARY | 2025-04-29 23:47 | XMS_ITS | Clinical Summary ---
Author Organization [facility] Address [address] [place] [address] Care Team Providers Care Optical Engineer Name Role Phone Jim Lopez MD Primary Care Provider [phone] Allergies No known active allergies Medications levothyroxine (Synthroid, Levoxyl) 88 MCG tablet Take 1 tablet by mouth daily before breakfast. Active losartan-hydro CHLOROthiazide (Hyzaar) 50-12.5 MG tablet Take 1 tablet by mouth daily. Active meclizine (Antivert) 25 MG tablet Take 1 tablet by mouth daily as needed for dizziness. Active omeprazole (PriLOSEC) [address] capsule Take 1 capsule by mouth. Do not crush or chew. Active pioglitazone (Actos) 15 MG tablet Take 1 tablet by mouth daily. Active rosuvastatin (Crestor) 20 MG tablet Take 1 tablet by mouth nightly. Active spironolactone (Aldactone) 50 MG tablet Take 0.5 tablets by mouth daily. Active traMADol (Ultram) 50 MG tablet Take 1 tablet by mouth every 6 hours as needed for severe pain. Active nitroglycerin (Nitrostat) 0.[address] 1 tablet under the tongue every 5 minutes as needed for chest pain. Active apixaban (Eliquis) 2.5 MG tablet Take 1 tablet by mouth 2 times a day. 60 tablet 3 04/27/20 25 025 Active bisoprolol (Zebeta) 5 MG tablet Take 0.5 tablets by mouth daily. 025 Discontinued(St op Taking at Discharge) apixaban (Eliquis) 2.5 MG tablet Take 1 tablet by mouth 2 times a day. 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) 04/27/2025 First degree heart block 04/27/2025 CKD (chronic kidney disease) 04/27/2025 Nonrheumatic aortic valve stenosis 04/25/2025 BMI 33.0-33.9,adult 04/11/2025 Aortic stenosis 03/29/2025 Essential hypertension 03/29/2025 Dyslipidemia 03/29/2025 CAD (coronary artery disease) 03/29/2025 Fatigue 03/29/2025 Leg edema 03/29/2025 Bilateral carotid artery disease 03/29/2025 Resolved Problems Problem Noted Date Diagnosed Date Resolved Date Other chest pain 03/29/2025 03/29/2025 Encounters Date Type Department Care Team Description 04/26/2025 Travel 04/25/2025 1:36 PM EDT Anesthesia Event [facility] [address] [place] [address] Letty Hurd MD Marshall, Bryce M, MD 04/25/2025 10:05 AM EDT - 04/25/2025 12:35 PM EDT Surgery [facility] [address] [place] [phone] Herminio Kendrick MD TAVR [[id number] (CPT )] 04/25/2025 9:48 AM EDT - 04/27/2025 3:10 PM EDT Hospital Encounter [facility] Inpatient [address] [place] [address] Herminio Kendrick MD Severe aortic stenosis (Primary Dx); Nonrheumatic aortic valve stenosis Discharge Disposition: Home or Self Care 04/25/2025 Travel 04/19/2025 1:00 PM EDT - 04/19/2025 11:59 PM EDT Hospital Encounter Cardiac Imaging [address] [place] [address] Nonrheumatic aortic valve stenosis Discharge Disposition: Home or Self Care 04/19/2025 Travel 04/13/2025 Telephone [facility] [address] [facility] [place] [address] Evgeny Brower RN 04/11/2025 10:00 AM EDT Consult [facility] Cardiothoracic [address], [address] [place] [address] Fouzia Tillman MD Nonrheumatic aortic valve stenosis (Primary Dx) 04/11/2025 8:16 AM EDT - 04/11/2025 11:59 PM EDT Hospital Encounter [facility] Radiology [address] [place] [address] Nonrheumatic aortic valve stenosis Discharge Disposition: Home or Self Care 04/11/2025 Travel 04/03/2025 Telephone [facility] [address] [facility] [place] [address] Adeola Coronado 04/02/2025 12:30 PM EDT Office Visit [facility] [address] [place] [address] Herminio Kendrick MD Nonrheumatic aortic valve stenosis (Primary Dx) 04/02/2025 Travel 03/29/2025 Abstract [facility] [address] [place] [address] Lisy Hunter 03/26/2025 Telephone [facility] [address] [facility] [place] [address] Adeola Coronado 02/23/2025 Orders Only [facility] [address] [place] [address] Mamta Garcia RN Aortic valve stenosis, etiology of cardiac valve disease unspecified (Primary Dx) 02/16/2025 Orders Only External Location [address] [place] [address] Luciano Soto MD from Last 3 Months Family History Medical History Relation Name Comments Diabetes type II Father Heart disease Father Diabetes type II Mother Heart disease Mother Relation Name Status Comments Father Mother Social History Tobacco Use Types Packs/Day Years [...] any time in the past 12 m [facility], were you homeless or living in a [...] on file Sexual Orientation Not on file Last Filed Vital Signs Vital Sign Reading [...] Mass Index 38.41 04/25/2025 10:16 AM EDT Plan of Treatment Upcoming Encounters Date Type Department Care Team (Late st Contact Info) Description 06/27/2025 9:00 AM EDT Appointment Medical Office Building Cardiac Diagnostic Testing Medical Office Building Echo Lab [address], [address] [place] [address] 06/27/2025 10:30 AM EDT Office Visit [facility] [address], [address] [place] [address] Becike Marshall PA [address] [place] [address] 05/01/2026 1:30 PM EDT Appointment Medical Office Building Cardiac Diagnostic Testing Medical Office Building Echo Lab [address], [address] [place] [address] 05/01/2026 3:00 PM EDT Office Visit [facility] [address], [address] [place] [address] Beckie Marshall PA [address] [place] [address] Health Maintenance Due Date Last Done Comments [facility]-Bone Density Scan 1935 [facility]-Medicare Annual Wellness (AWV) 1935 [facility]-Infant/Child/Adol SDOH Screenings 1935 [facility]- SDOH Screenings 1953 [facility]-Adult SDOH Screenings 1953 [facility]-DTaP,Tdap,and Td Vaccines (1 - Tdap) 1954 [facility]-Hepatitis A Vaccines (1 of 2 - Risk 2-dose series) 1954 [facility]-Zoster Vaccines (1 of 2) 1985 [facility]-RSV Vaccine: 60+ Years or (1 - 1-dose 75+ series) 2010 [facility]-Pneumococcal Vaccine: 50+ Years (2 of 2 - PPSV23) 12/12/2019 10/17/2019, 07/06/2019, 07/18/2018 [id number] Vaccine (4 - season) 2024 10/15/2021, 12/25/2020, 11/27/2020 [facility]-Influenza Vaccine (#1) 06/18/202507/01, 07/06/2019, 07/28/2018, Additional history exists [facility]-Depression Screening 04/11/2026 04/11/2025 [facility]-Obesity Intervention Completed 025, 04/11/2025, 04/02/2025 HPV Vaccines Aged Out No longer eligi ble based on patient's age to complete this topic [facility]-HIB Vaccines Aged Out No longer e ligible based on patient's age to complete this topic [facility]-IPV Vaccines Aged Out No longer e ligible based on patient's age to complete this topic [facility]-Rotavirus Vaccines Aged Out No lo nger eligible based on patient's age to complete this topic Medical Devices Implanted Type Area Data Modeler Device Identifier Shelf Expiration Date Model / Serial / Lot Valve Evolut Fx Tavr 23mm - [id number] - [id number] Implanted:Qty: 1 on 04/25/2025 by Herminio Kendrick MD at [facility] Medtronic-[id number] 03/05/2026 EVOLUTFX -23 / [id number] / [id number] Procedures Procedure Name Priority Date/Time Associated Diagnosis Comments POCT GLUCOSE METER UNSOLICITED RESULTS Routine 04/27/2025 11:15 AM EDT POCT GLUCOSE METER UNSOLICITED RESULTS Routine 04/27/2025 7:53 AM EDT ECG ADULT Routine 04/27/2025 6:12 AM EDT MAGNESIUM, PLASMA Routine 04/27/2025 5:0 3 AM EDT BASIC METABOLIC PANEL, PLASMA Routine 04/27/2025 5:03 AM EDT CBC W/O DIFFERENTIAL Routine 04/27/2025 5:03 AM EDT POCT GLUCOSE [...] 1 VIEW Routine 04/26/2025 1:34 AM EDT MAGNESIUM, PLASMA Routine 04/26/2025 12: 50 AM EDT BASIC METABOLIC PANEL, PLASMA Routine 04/26/2025 12:50 AM EDT CBC W/O DIFFERENTIAL Routine 04/26/2025 12:50 AM EDT ECG ADULT STAT 04/25/2025 10:06 PM EDT POCT GLUCOSE METER UNSOLICITED RESULTS Routine 04/25/2025 8:11 PM EDT POCT GLUCOSE Routine 04/25/2025 5:24 PM EDT POCT GLUCOSE METER UNSOLICITED RESULTS Routine 04/25/2025 5:23 PM EDT BASIC METABOLIC PANEL, PLASMA STAT 04/25/2025 5:09 PM EDT CBC W/O DIFFERENTIAL STAT 04/25/2025 5:09 PM EDT ECG ADULT [...] PROBNP, PLASMA STAT 04/25/2025 10:24 AM EDT BASIC METABOLIC PANEL, PLASMA STAT 04/25/2025 10:24 AM EDT CBC W/O DIFFERENTIAL STAT 04/25/2025 10:24 AM EDT ECG ADULT Routine 04/25/2025 10:07 AM EDT ECHO, ADULT TRANSTHORACIC COMPLETE Routine 04/19/2025 2:24 PM EDT Nonrheumatic aortic valve stenosis CT ANGIO CHEST Routine 04/11/2025 9:00 AM EDT Nonrheumatic aortic valve stenosis CT ANGIO ABDOMEN PELVIS Routine 04/11/2025 9:00 AM EDT Nonrheumatic aortic valve stenosis US OUTSIDE IMAGES 02/16/2025 8:1 3 AM EDT from Last 3 Months Results * (ABNORMAL) POCT glucose meter (04/27/2025 11:15 AM EDT) Only the most recent of8 resultswithin the time period is included. [facility] POCT Glucose 136(H) 74 - 99 mg/dL [...] Comment 04/27/2025 11:16 AM EDT HEALTHCARE LAB Cath Lab ID Brooke Mir Fabienne, FNU 04/27/2025 11:16 AM EDT HEALTHCARE LAB Device ID [id number] 04/27/2025 11:16 AM EDT HEALTHCARE LAB Specimen Type POC Capillary 04/27/2025 11:16 AM EDT HEALTHCARE LAB Blood Capillary blood specimen / Unknown 04/27/2025 11:15 AM EDT 04/27/2025 11:16 AM EDT Herminio Kendrick MD LAB POINT OF CARE TEST DOCKED DEVICE UNSOLICITED RESULTS Final Result Performing Organization Address City/State/[facility] Co de Phone Number HEALTHCARE LAB [address] [place] [address] * ECG Adult (04/27/2025 6:12 AM EDT) Only the most recent of5 resultswithin the time period is included. [facility] EKG DIAGNOSIS CLASS Abnormal MUSE ECG Ventricular Rate 68 BPM MUSE ECG Atrial Rate 68 BPM MUSE ECG PA Interval 268 ms MUSE ECG QRSD Interval 150 ms MUSE ECG QT Interval 426 ms MUSE ECG QTC Interval 452 ms MUSE ECG P Amity 64 degrees MUSE ECG R Amity -43 degrees MUSE ECG T Wave Amity 0 degrees MUSE ECG Diagnosis Sinus rhythm with 1st degree AV block MUSE ECG Diagnosis Left axis deviation MUSE ECG Diagnosis Right bundle branch block MUSE ECG Diagnosis Abnormal ECG MUSE ECG Diagnosis MUSE ECG Diagnosis Confirmed by Codey Multani ([id number]) on 04/27/2025 4:01:21 PM MUSE ECG 04/27/2025 6:12 AM EDT 04/27/2025 4:01 PM EDT us Marleni Estrella FRONT DESK TEAM MEMBER ECG ORDERABLES Final Result MUSE ECG * (ABNORMAL) CBC W/O Differential (04/27/2025 5:03 AM EDT) Only the most recent of4 resultswithin the time period is included. WBC Count 6.68 3.70 - 10.30 10*3/uL LAB HEMATOLOGY METHOD 04/27/2025 5:55 AM EDT [facility] RBC Count 2.99(L) 3.90 - 5.20 10*6/uL LAB HEMATOLOGY METHOD 04/27/2025 5:55 AM EDT [facility] HGB 9.7(L) 11.2 - 15.7 g/dL LAB HEMATOLOGY METHOD 04/27/2025 5:55 AM EDT [facility] HCT 29.9(L) 34.0 - 45.0 % LAB HEMATOLOGY METHOD 04/27/2025 5:55 AM EDT [facility] Platelet Count 95(L) 155 - 369 10*3/uL LAB HEMATOLOGY METHOD 04/27/2025 5:55 AM EDT [facility] MCV 100(H) 79 - 98 fL LAB HEMATOLOGY METHOD 04/27/2025 5:55 AM EDT [facility] MCH 32.4(H) 26.0 - 32.0 pg LAB HEMATOLOGY METHOD 04/27/2025 5:55 AM EDT [facility] MCHC 32.4 30.7 - 35.5 g/dL LAB HEMATOLOGY METHOD 04/27/2025 5:55 AM EDT [facility] RDW 15.0(H) 11.5 - 14.5 % LAB HEMATOLOGY METHOD 04/27/2025 5:55 AM EDT [facility] MPV 12.2 8.8 - 12.5 fL LAB HEMATOLOGY METHOD 04/27/2025 5:55 AM EDT [facility] nRBC 0.0 <=0.0 per 100 WBCs LAB HEMATOLOGY METHOD 04/27/2025 5:55 AM EDT [facility] Blood Venous blood specimen / Unknown Venipuncture / Unknown 04/27/2025 5:03 AM EDT 04/27/2025 5:44 AM EDT Marleni Estrella FRONT DESK TEAM MEMBER LAB BLOOD ORDERABLES Final R esult Performing Organization Address [facility] Co de Phone Number [facility] [address] [place] [address] * Magnesium, Plasma (04/27/2025 5:03 AM EDT) Only the most recent of2 resultswithin the time period is included. Magnesium, Plasma 2.0 1.9 - 2.4 mg/dL 04/27/2025 6:16 AM EDT [facility] Blood Venous blood specimen / Unknown Venipuncture / Unknown 04/27/2025 5:03 AM EDT 04/27/2025 5:44 AM EDT Marleni Estrella APRN LAB BLOOD ORDERABLES Final R formerly [facility], [facility] Performing Organization Address [facility] de Phone Number [facility] [address] [place] [address] * (ABNORMAL) Basic Metabolic Panel, Plasma (04/27/2025 5:03 AM EDT) Only the most recent of4 resultswithin the time period is included. Glucose, Plasma 107(H) 74 - 99 mg/dL 04/27/2025 6:16 AM EDT [facility] BUN, Plasma 24(H) 8 - 23 mg/dL 04/27/2025 6:16 AM EDT [facility] Creatinine, Plasma 1.39(H) 0.60 - 1.10 mg/dL 04/27/2025 6:16 AM EDT [facility] BUN/Creatinine Ratio 17 04/27/2025 6:16 AM EDT [facility] Sodium, Plasma 139 136 - 145 mmol/L 04/27/2025 6:16 AM EDT [facility] Potassium, Plasma 4.0 3.6 - 4.9 mmol/L 04/27/2025 6:16 AM EDT [facility] Chloride, Plasma 109(H) 97 - 107 mmol/L 04/27/2025 6:16 AM EDT [facility] CO2, Plasma 19(L) 22 - 29 mmol/L 04/27/2025 6:16 AM EDT [facility] Anion Gap 11 6 - 16 mmol/L 04/27/2025 6:16 AM EDT [facility] Total Calcium, Plasma 8.6(L) 8.9 - 10.2 mg/dL 04/27/2025 6:16 AM EDT [facility] eGFRcr 36.3 mL/min/1.7 3m*2 04/27/2025 6:16 AM EDT [facility] Comment:Reported eGFRcr in m L/min/1.73m2 is based the CKD-EPI 2020 equation that does not use a race coefficient. Blood Venous blood specimen / Unknown Venipuncture / Unknown 04/27/2025 5:03 AM EDT 04/27/2025 5:44 AM EDT us Marleni Estrella APRN LAB BLOOD ORDERABLES Final R esult [facility] [address] [place] [address] * ECHO, ADULT TRANSTHORACIC LIMITED W/ COLOR [...] significant interval change noted. us Marleni Estrella APRN CV ECHO PROCEDURES Final Res ult * XR Chest 1 View (04/26/2025 1:34 [...] Gus Hawkins MD on 04/26/2025 7:37 AM us Marleni Estrella APRN IMG XR PROCEDURES Final Resu lt * (ABNORMAL) POCT Glucose (if patient NPO, on TPN or continuous nutrition) (04/25/2025 5:24 PM EDT) POCT Glucose 140(A) 74 - 99 mg/dL [facility] Blood Venous blood specimen / Unknown 04/25/2025 5:24 PM EDT Marleni Montiel Sameer FRONT DESK TEAM MEMBER POINT OF CARE TEST ENTER/SALUD T ORDERABLES Final Result [facility] [address] [place] [address] * ECHO, ADULT TRANSTHORACIC LIMITED (04/25/2025 2:53 [...] was obtained: 1) Left common femoral artery: 7-Kazakh short Terumo sheath 2) Right common femoral vein: 8-Kazakh short Terumo sheath 3) Right common femoral artery: 6-Kazakh short Terumo sheath The 6-Kazakh right common femoral arterial sheath was upsized to an 8-Kazakh sheath after 2 Preclose sutures were deployed. The 8-Kazakh sheath was then upsized to a 14-Kazakh x 33 cm Johnson Dry Seal Flex sheath over a Safari wire. Heparin was given for a goal ACT>250. Antibiotics were given. A temporary pacemaker wire was advanced from the venous sheath to the right ventricular apex. Thresholds were tested and confirmed to be adequate. A 6-Kazakh angled pigtail catheter was inserted from the left common femoral arterial sheath to the non-coronary cusp. An aortogram was performed to confirm the correct coplanar angle. The aortic valve was crossed from the femoral arterial sheath using an exchange-length J-tip wire and a 6-Kazakh AL1 diagnostic catheter. The AL1 catheter was removed and a 6-Kazakh angled pigtail catheter was advanced over the [...] (ABNORMAL) POCT creatinine (04/25/2025 10:29 AM EDT) [facility] Creatinine, Point of Care 1.7(H) 0.6 - 1.1 mg/dL 04/25/2025 10:32 AM EDT HEALTHCARE LAB POCT eGFR 28 mL/min/1. 73m*2 04/25/2025 10:32 AM EDT HEALTHCARE LAB Cath Lab ID Stanley Rahman 04/25/2025 10:32 AM EDT [facility] Device ID [id number] 04/25/2025 10:32 AM EDT [facility] Comment 04/25/2025 10:32 AM EDT [facility] Comment:Testing performed on i-STAT at the point of care. Reported eGFRcr in mL/min/1.73m2 is based the CKD-EPI 2020 equation that does not use a race coefficient. Blood Venous blood specimen / Unknown 04/25/2025 10:29 AM EDT 04/25/2025 10:32 AM EDT us Herminio Kendrick MD LAB POINT OF CARE TEST DOCKED DEVICE UNSOLICITED RESULTS Final Result [facility] [address] LAB [address] [place] [address] * Type and Screen (04/25/2025 10:26 AM [...] ORDERA BLES Final Result Performing Organization Address City/[facility]/ZIP Co de Phone Number BLOOD BANK [address] * N-Terminal Probnp (04/25/2025 10:24 AM EDT) N-Terminal, PROBNP, Plasma 1,693 0 - 1,799 pg/mL 04/25/2025 11:[address] [facility] Blood Venous blood specimen / Unknown Venipuncture / Unknown 04/25/2025 10:24 AM EDT 04/25/2025 10:41 AM EDT Kirstie Mora APRN LAB BLOOD ORDERABLES Kerry l Result [facility] [address] [place] [address] * ECHO, ADULT TRANSTHORACIC COMPLETE (04/19/2025 2:24 [...] msec JESUS ISCV AI P1/2t 157 msec JESSU ISCV LV V1 Vmax 175.0 cm/s JESUS [...] JESUS ISCV Ao V2 Vmax 407.4 cm/s JESUS ISCV Ao max PG 66 mmHg JESUS [...] is no recent study available for direct cizi-pb-vudf comparison. Left Ventricle The left ventricle is [...] is no recent study available for direct exnl-gv-bhmf comparison. us Beckie ADKINS CV ECHO PROCEDURES Kerry l Result * CT Angio Abdomen Pelvis (04/11/2025 [...] TOTAL DLP (Dose-Length Product): 2104.82 mGy.cm (accession [id number]), 2104.82 mGy.cm (accession [id number]). Please note: The reported value represents the total of one or more individual components during the CT acquisition on this date and at this time, and as such, the same value may appear in more than one CT report depending on the interpreting/reporting physicians. FINDINGS: Quantification of Aortic Valve Calcium Score: 1395 Volume: 1123 Aortic Root Measurements 3-Cusp view: BOTSWANAN 34 degrees; CAU 1 degrees Annulus area: [...] TOTAL DLP (Dose-Length Product): 2104.82 mGy.cm (accession [id number]),2104.82 mGy.cm (accession [id number]). Please note: The reported valuerepresents the total of one or more individual components during the CTacquisition on this date and at this time, and as such, the same value mayappear in more than one CT report depending on the interpreting/reportingphysicians. FINDINGS: Quantification of Aortic Valve Calcium Score: 1395 Volume: 1123 Aortic Root Measurements 3-Cusp view:BOTSWANAN 34 degrees; CAU 1 degrees Annulus area: [...] on 04/11/2025 6:33 PM us Beckie ADKINS IMJuan M CT PROCEDURES Final Result * CT Angio Chest (04/11/2025 9:00 AM [...] TOTAL DLP (Dose-Length Product): 2104.82 mGy.cm (accession [id number]), 2104.82 mGy.cm (accession [id number]). Please note: The reported value represents the total of one or more individual components during the CT acquisition on this date and at this time, and as such, the same value may appear in more than one CT report depending on the interpreting/reporting physicians. FINDINGS: Quantification of Aortic Valve Calcium Score: 1395 Volume: 1123 Aortic Root Measurements 3-Cusp view: BOTSWANAN 34 degrees; CAU 1 degrees Annulus area: [...] TOTAL DLP (Dose-Length Product): 2104.82 mGy.cm (accession [id number]),2104.82 mGy.cm (accession [id number]). Please note: The reported valuerepresents the total of one or more individual components during the CTacquisition on this date and at this time, and as such, the same value mayappear in more than one CT report depending on the interpreting/reportingphysicians. FINDINGS: Quantification of Aortic Valve Calcium Score: 1395 Volume: 1123 Aortic Root Measurements 3-Cusp view:BOTSWANAN 34 degrees; CAU 1 degrees Annulus area: [...] ADKINS IMG CT PROCEDURES Final Result * US OUTSIDE IMAGES (02/16/2025 8:13 AM EDT) Anatomical Region Laterality Modality Ultrasound 02/16/2025 8:13 AM EDT us Luciano Soto MD IMG US PROCEDURES Final Res ult from Last 3 Months [place] [address] Advance Directives * Full Code (Latest Code Status on File) Date Activated Date Inactivated Comments 04/25/2025 3:25 PM 04/27/2025 5:15 PM Question Answer Comments I have reviewed the capacity from the link above and, if needed, have updated to appropriate status: Yes Care Teams Optical Engineer Relationship Specialty Start Date End Date Jim Lopez MD [address] [place] [id number] PCP - General 04/11/25
--- OUTSIDE RECORDS SUMMARY | 2025-04-29 23:47 | XMS_ITS | Data Portability ---
Author Organization [facility] & [place] [facility] ADMIN Address [address] [place] [address] Care Team Providers Care Support Services Manager Name Role Phone MERCED NELSON Primary Care Provider Assessment No assessment recorded. Plan of Treatment Reminders Order Date Submit Date Provider Last Modified By Organization Details Last Modified Time Details Appointments OV EST 15 2024 02:30P M Helder Soto MD Not available Not available Not available Lab None recorded. Referral None recorded. Procedures None recorded. Surgeries None recorded. Imaging US, duplex, carotid artery 2024 025 [facility], [address], [place], [address], 02/16/2025 14:26:23 electroca rdiogram 2024 025 [facility], [address], [place], [address], 02/07/2025 15:30:18 US, echocardi ogram, transthor acic, complete, w/ color flow 2024 025 [facility], [address], [place], [address], 02/20/2025 11:24:19 Medication Orders bisoprolo l fumarate 5 mg tablet 2024 025 [facility], [address] [place] [address] [address], [place], [place], [id number], 02/21/2025 15:50:55 bisoprolo l fumarate 5 mg tablet 2024 025 [facility], [address] [place] [address] [address] [facility], [place], [place], [id number], 02/07/2025 14:30:38 Patient TargetsNo targets recorded. Patient InstructionsNo instructions recorded. Reason for Referral None Reported. Results Created Date Observation Date Name Description Value Unit Range Abnormal Flag Note LastModifiedBy Organization Detail LastModifiedTime 02/08/20 25 02/07/2025 elect rocar diogr am No observ ation record ed. [facility] [address], [place], [address], 02/07/2025 15:30:27 02/08/20 25 02/07/2025 elect rocar diogr am No observ ation record ed. [address], [place], [address], 02/07/2025 15:30:18 02/17/20 25 02/16/2025 US, francine anderson id [facility] [address] [place] [address] Phone: Fax: Name: MARLENY DELGADO Exam Date: 02/17/20 : [birth year] Age 89 years Gender : F Access ion: [id number] Physic jeff: JAYJAY FARFAN Facili ty: [facility] Facili ty HSV: Outpat ient Exam: CAROTI D DUPLEX US DOPLR US CAROTI D DOPPLE R BILATE RAL, 02/17/20 8:01 AM CDT INDICA TION: other specif ied sympto ms and sighne involv ing the circul ator Graysc ross, color flow Dopple r, and spectr al Dopple r analys is was perfor med of the cervic al caroti d and verteb ral arteri es bilate rally. Valida sabina veloci ty measur ements with angiog raphic measur ements , veloci ty criter ia or extrap olated from [facility] er data as define d by the Societ y of Radiol ogist in Ultras ound Consen wen Confer ence Radiol ogy 2003; 229; 340-34 6. RIGHT CAROTI D ARTERY CCA PSV 69 cm/sec . ICA PSV 69 cm/sec . ECA PSV 57 cm/sec . ICA/CC A PSV Ratio 0.9 Verteb ral Artery Flow: 94 LEFT CAROTI D ARTERY CCA PSV 59 cm/sec . ICA PSV 48 cm/sec . ECA PSV 48 cm/sec . ICA/CC A PSV Ratio 0.62 Verteb ral Artery Flow: Antegr gabe flow Flow within both common , campus recruiting intern al, and corporate traffic manager al caroti d arteri es. Please note, accord ing to techno logist 's note, limite d exam. IMPRES KRISTI: No hemody namica lly signif icant stenos is in the extrac ranial campus recruiting intern al caroti d arteri es. Electr onical ly signed by: Med suh MD 2024 10:58 AM EDT RP Workst ation: [id number] Dictat ed By: Med Casas Transc ribed By: Transc ribed On: 02/17/20 9:01 AM Electr onical ly signed by: Med Casas 02/17/20 Thank you for referr ing [facility] to [facility]. Legall y authen ticate d by GABRIELE CASTANO 02-16 09:01: 18 CC'ed Logic: Orderi ng Provid er: JANETH Osborn Attend ing Provid er: JANETH Osborn Referr ing Provid er: JANETH Osborn Admitt ing Provid er: JANETH Osborn [facility] [address], [place], [address], 02/16/2025 14:26:23 02/21/20 25 02/16/2025 US, echoc ardio gram, trans thora cic, compl ete, w/ color flow [facility] [address] [place] [address] Phone: Fax: Name: MARLENY DELGADO Exam Date: 02/17/20 : [birth year] Age 89 years Gender : F Access ion: [id number] Physic jeff: JAYJAY FARFAN Facili ty: [facility] Facili ty HSV: Outpat ient Exam: ECHO W SPEC COLOR FLOW SUMMAR Y Normal LV size with normal functi on. The ejecti on fracti on is 60-65% . Left ventri cular fillin g patter n c/w diasto lic dysfun ction. There is modera te to severe aortic stenos is (Mean grad=3 8mmHg, KANE=0. 98cmA ) and mild aortic regurg itatio n. The aortic valve i s calcif ied. There is mild mitral regurg itatio n. There is mild-m oderat e tricus pid regurg itatio n. Mildly increa sed PASP (38 mmHg). Small aboriginal ceremonial celebrant ior perica rdial effusi on. No cardia c tampon gabe. The ascend ing aorta is enlarg ed. INTERP RETATI ON DETAIL Fair qualit y study. Left ventri nusrat: The left ventri nusrat is normal in size with normal systol ic functi on. The ejecti on fracti on is 60-65% . There is normal LV wall thickn ess. LV geomet ry is normal . The left ventri cular wall motion is normal . The left ventri cular fillin g patter n sugges ts diasto lic dysfun ction. Left atrium : The left atrium is normal . LA volume : 62.8mL , LA volume index: 31.2mL /mA . Right ventri nusrat: The right ventri nusrat is normal in size with normal functi on. Right atrium : The right atrium is normal . Mitral valve: The mitral valve is normal . There is no mitral stenos is. There is mild mitral regurg itatio n. Aortic valve: The aortic valve is modera tely calcif ied. There is modera te to severe aortic stenos is with a valve area of 0.98 haul driver (Peak grad=5 2mmHg, Mean grad=3 8mmHg, LVOT manuel=2. 00cm, LVOT TVI=37 .9cm, Ao TVI=12 1.0cm) . The dimens ionles s index is 0.31. AV peak veloci vk=486 cm/sec . There is mild aortic regurg itatio n. (AR Decel= 1.893 m/secA ). AR pressu re half time=5 86ms. Tricus pid valve: The tricus pid valve is normal . There is mild to modera te tricus pid regurg itatio n. PASP= 38 mmHg, RAP=7m mHg. Pulmon ic valve: The pulmon ic valve is normal . There is mild pulmon ic regurg itatio n. Perica rdium: The perica rdium is normal . Small aboriginal ceremonial celebrant ior perica rdial effusi on measur ing 0.5 cm in diasto le. No cardia c tampon gabe. Intera trial septum : The intera trial septum is normal . Aorta: The aorta is normal . The aortic root is normal . The ascend ing aorta is enlarg ed. Aortic dimens ions - Ao M-mode = 2.60cm , Ascend ing=3. 90cm. Vena Cava: The inferi or vena cava is normal . MEASUR EMENTS Left Ventri nusrat IVSd: 0.85cm (0.6-1 .1cm) PWd: 0.95cm (0.6-1 .1cm) Mass Rissa: 167g LVMI: 83g/mA (>50-9 5g/m) LVIDd: 5.17cm (3.7-5 .6 cm) LVIDdI : 2.57cm /m2 LVIDs: 3.30cm (1.8-4 .2 cm) LVIDsI : 1.64cm /m2 Legall y authen ticate d by JANETH Osborn 02-20 09:19: 57 RWT: 0.37 (<0.42 ) E to A: 1.01 (0.6-2 ) E-e prime med: 24.25 E-e prime lat: 16.17 Decel: 132.00 ms (168-2 32ms) Right Ventri nusrat Mid RV Manuel: 3.4cm (2.7-3 .3cm) Max Valve Veloci ties AV peak sai: 394cm/ sec LVOT: 155.00 cm/sec Pulmon agnes RAP: 7mmHg PASP: 38mmHg Atria LA AP: 3.3cm LA vol: 62.8mL GAVIN: 31.2mL /mA (16-28 ml/m^2 ) Electr onical ly signed by Dr. Jayjay johnson on 2024 at 9:19 AM Dictat ed By: JAYJAY FARFAN Transc ribed By: Transc ribed On: 02/21/20 9:19 AM Electr onical ly signed by: JAYJAY FARFAN 02/21/20 Thank you [facility] Legall y authen ticate d by JANETH Osborn 02-20 09:19: 57 CC'ed Logic: Orderi ng Provid er: JANETH Osborn Attend ing Provid er: JANETH Osborn Referr ing Provid er: JANETH Osborn Admitt ing Provid er: JANETH Osborn [facility] [address], [place], [address], 02/20/2025 11:24:19 Result Notes None recorded. Medical Equipment None Reported. Medications Name Sig Start Date Stop Date Status Note LastModified by Organization Details LastModified Time losartan 50 mg tablet TAKE ONE TABLET BY MOUTH EVERY DAY FOR BLOOD PRESSURE 02/07 completed Not Available Not Available Not Available pioglitazon e 15 mg tablet TAKE ONE TABLET BY MOUTH EVERY DAY active Not Available Not Available No t Available omeprazole 40 mg capsule,del ayed release TAKE ONE CAPSULE BY MOUTH EVERY MORNING 30 minutes BEFORE morning meal active Not Available Not Available No t Available tramadol 50 mg tablet TAKE ONE TABLET BY MOUTH EVERY 6 HOURS NEEDED active Not Available Not Available No t Available bisoprolol fumarate 5 mg tablet Take 0.5 tablets every day by oral route. 2024 active Not Available Not Available Not Avai angelika levothyroxi ne 88 mcg tablet TAKE ONE TABLET BY MOUTH EVERY DAY active Not Available Not Available No t Available meclizine 25 mg tablet TAKE ONE TABLET BY MOUTH EVERY TWELVE HOURS NEEDED MAY CAUSE DROWSINES S active Not Available Not Available No t Available losartan 50 mg-hydrochl orothiazide 12.5 mg tablet TAKE ONE TABLET BY MOUTH EVERY DAY active Not Available Not Available No t Available spironolact one 50 mg tablet TAKE 1/2 TABLET BY MOUTH EVERY DAY active Not Available Not Available No t Available rosuvastati n 10 mg tablet TAKE ONE TABLET BY MOUTH EVERY DAY AT BEDTIME 02/07 completed Not Available Not Available Not Available rosuvastati n 20 mg tablet TAKE ONE TABLET BY MOUTH EVERY DAY AT BEDTIME active Not Available Not Available No t Available diclofenac 1 % topical gel apply 4 grams topically FOUR TIMES DAILY NEEDED FOR PAIN DIRECTED 02/07 completed Not Available Not Available Not Available Eliquis 5 mg tablet TAKE ONE TABLET BY MOUTH TWICE DAILY 02/07 completed Not Available Not Available Not Available Eliquis 2.5 mg tablet TAKE ONE TABLET BY MOUTH TWICE DAILY active Not Available Not Available No t Available Vitals Date Recorded Body weight Body mass index (BMI) Body height Oxygen saturation Oxygen saturation in Arterial blood by Pulse oximetry Heart rate Systolic And Diastolic Provider Name and Address Organization Details Last Updated DateTime 5 67578.7 1 g 31.7 kg/m2 165.1 cm 98 % 98 % 67 /min 139/69 mm[Hg] Marleni SCANLON [facility] [place] 5 14:03:03 Date Recorded Body height Body mass index (BMI) Body weight Oxygen saturation Oxygen saturation in Arterial blood by Pulse oximetry Heart rate Systolic And Diastolic Provider Name and Address Organization Details Last Updated DateTime 5 165.1 cm 31.3 kg/m2 69584.3 7 g 97 % 97 % 57 /min 138/65 mm[Hg] Marleni SCANLON [facility] [place] 15:30:07 Social History None recorded. Functional Status None recorded. Mental Status None recorded. Family History Nothing Reported. Medical History No medical history recorded. Gynecological HistoryNo gynecological history recorded. Obstetrics History GPAL:G 0 P 0 0 0 0 Past Encounters Encounter ID Performer Location Encounter Start Date Encounter Closed Date Diagnosis/Indication Diagnosis SNOMED-CT Code Diagnosis ICD10 Code Diagnosis Note [id number] Luciano Soto MD [address] [place] [address] 02/07/2025 13:47:35 02/07/2025 14:30:46 Essential hypertension 77643514 I10 Hypertensi on controlled continue medication s. Patient would like to refill her bisoprolol . Dyslipidemia 709686727 E 78.5 On statin controlled continue medication . Dyspnea on exertion 6084 5006 R06.09 Exertional shortness of breath with ejection systolic murmur in an 89-year-ol d. Follow up echocardio gram. Ex-smoker 2839454 Z87.89 1 Quit smoking several years ago. Carotid bruit 742280825 R09.89 Carotid bruit follow up carotid ultrasound bilaterall y. No history of CVA. History of heart disorder 688856376 Z86.79 history of coronary artery disease in an 89-year-ol d female with risk factors. With a history of coronary stents twice. Records not available to us yet. We [facility]. Continue medical treatment no chest pain. [id number] Luciano Soto MD [address] [place] [address] 02/21/2025 15:22:29 02/21/2025 15:55:19 History of heart disorder 798974484 Z86.79 History of coronary artery disease in an 89-year-ol d female with risk factors. With a history of coronary stents twice. Records not available to us yet. Continue medical treatment no chest pain. Dyspnea on exertion 6084 5006 R06.09 Exertional shortness of breath with ejection systolic murmur in an 89-year-ol d. likely secondary to aortic stenosis. will need to rule out ischemic causes after the structural heart disease evaluation . Essential hypertension 63118760 I10 Hypertensi on controlled continue medication s. refill was given. Dyslipidemia 273195674 E 78.5 On statin controlled continue medication . Ex-smoker 8294671 Z87.89 1 Quit smoking several years ago. Severe aor tic valve stenosis 712115869 I35.0 Aortic stenosis, moderate to severe by doppler gradient, mean gradient was 38 mmHg but on echo looked severe. patient decided that she wanted to proceed with structural heart team evaluation . referral was given. will follow up. Health Concerns Section Related Observation LastModified by Organization Detai ls LastModified Time None Recorded Concern Status LastModified by Organization Details LastModified Time None Recorded Advance Directives Directive None Recorded Payers Insurance Date Sequence Insurance Name Policy Number Policy Pham Covered Member ID Pham Member ID Guarantor Name 02/18/2025 1 [employer] (MEDICARE REPLACEMENT/ ADVANTAGE - HMO) Marleny Covarrubias [id number] Marleny Covarrubias Notes Date Note Type Note Provider Name and Address Organization Details Recorded Time 02/07/2025 text/html 89 year old keila bird with past medical history significant for hypertension dyslipidemia history of coronary artery disease with a history of coronary stent twice as per the patient the last 1 was 10 years ago.Patient came today with her son to establish care with the [facility]. She denied any chest pain but she has some exertional shortness of breath and leg swelling and she is on diuretic for that. She has ejection systolic murmur. No palpitation dizziness falling down or passing out. No chest pain. No orthopnea or PND. No bleeding anywhere.I reviewed and discussed with the patient the results of the blood work that was done 01/30/2025 including complete metabolic panel CBC TSH and lipid profile.EKG done today results were discussed with the patient. EK02/07/25 Normal sinus rhythm, normal EKG. Luciano Soto MD [address] [facility], [place], [address], [facility] [place] & [place] 02/08/2025 10:34:25 02/21/2025 text/html 89 year old keila bird with past medical history significant for hypertension dyslipidemia history of coronary artery disease with a history of coronary stent twice as per the patient the last one was 10 years ago.Patient initially evaluated for shortness of breath with exertion. She denied any chest pain but she has exertional shortness of breath and leg swelling and she is on diuretic for that. She has ejection systolic murmur. No palpitation dizziness falling down or passing out. No chest pain. No orthopnea or PND. No bleeding anywhere.I reviewed and discussed with the patient the results of the blood work that was done 01/30/2025 including complete metabolic panel CBC TSH and lipid profile. Patient came today with her son to follow up on the results of the echo and carotid US. Her echocardiogram showed that the patient has normal systolic function but her aortic valve is moderately to severely stenosed. the AV mean gradient was 38 mmHg. with mild regurgitations. I had a lengthy discussion with the patient regarding the diagnoses of aortic stenosis, prognosis, natural history and the available management options. Patient decided to would like to have evaluation by the structural heart disease program. will refer the patient to Dr. Kendrick at . ischemic work up will be done if the patient decided to proceed with AV procedure. Echocardiogram: 02/16/25Normal LV size with normal function. The ejection fraction is60-65%. Left ventricular filling pattern c/w diastolic dysfunction.There is moderate to severe aortic stenosis (Mean grad=38mmHg,KANE=0.98c mA ) and mild aortic regurgitation. The aortic valve is calcified.There is mild mitral regurgitation.There is mild-moderate tricuspid regurgitation. Mildly increased PASP (38 mmHg).Small posterior pericardial effusion. No cardiac tamponade.The ascending aorta is enlarged. US duplex carotid artery: 02/16/25No hemodynamically significant stenosis in the extracranial internal carotid arteries. EK02/07/25 Normal sinus rhythm, normal EKG. Luciano Soto MD [address], [place], [address], [place] [facility] [place] & [place] 02/22/2025 08:25:51 OBGyn Episode No OBEpisode recorded.
--- OUTSIDE RECORDS SUMMARY | 2025-04-29 23:47 | XMS_ITS | Encounter Summary ---
Author Organization Healthcare Address [address] [place] [address] Care Team Providers Care Pay Station Department Manager Name Role Phone Jim Lopez MD Primary Care Provider [phone] Encounter Details Date Type Department Care Team (Latest Contact Info) Description 04/25/2025 Travel Social History Tobacco Use Types Packs/Day [...] were you homeless or living in a detention (including now)? No 04/26/2025 Utilities Answer Date [...] Building Echo Lab [address] [facility], [address] [place] [address] 06/27/2025 10:30 AM EDT Office Visit [facility] [place] [address] [facility] [address], [address] [place] [address] Beckie Marshall PA [address] [place] [address] 05/01/2026 1:30 PM EDT Appointment Medical Office Building Cardiac Diagnostic Testing Medical Office Building Echo Lab [address] [facility], [address] [place] [address] 05/01/2026 3:00 PM EDT Office Visit [facility] [place] [address] [facility], [address] [place] [address] Beckie Marshall PA [address] [place] [address] documented as of this encounter Visit Diagnoses Not on filedocumented in this encounter Additional Health Concerns Assessment Noted Time A fall risk assessment has been complete d for the patient 04/11/2025 9:59 AM EDT A Body Mass Index follow-up plan has been documented for the patient 04/27/2025 1:18 PM EDT documented as of this encounter Care Teams Pay Station Department Manager Relationship Specialty Start Date End Date Jim Lopez MD [address] [place] [address] [address] [place] [address] PCP - General 04/11/25 documented as of this encounter
--- OUTSIDE RECORDS SUMMARY | 2025-04-29 23:48 | XMS_ITS | Encounter Summary ---
Author Organization Healthcare Address [address] [place] [address] Care Team Providers Care Deburring Machine Operator Name Role Phone Pcp, No Primary Care Provider Unavailabl e Encounter Details Date Type Department Care Team (Latest Contact Info) Description 04/02/2025 Travel Social History Tobacco Use Types Packs/Day Years Used Date Smoking Tobacco: Never Assessed PHQ-2 Answer Date Recorded Patient Health Questionnaire-2 Score 0 04/02/2025 Comments Unknown Sex and Gender Information Value Date Recorded Sex Assigned at Not on file Legal Sex Female 8:50 PM EDT Gender Identity Not on file Sexual Orientation Not on file documented as of this encounter Functional Status * Over the [...] Armani Hunter documented as of this encounter Plan of Treatment Upcoming Encounters Date Type Department Care Team (Late st Contact Info) Description 06/27/2025 9:00 AM EDT Appointment Medical Office Building Cardiac Diagnostic Testing Medical Office Building Echo Lab [address] [facility], [address] [place] [address] 06/27/2025 10:30 AM EDT Office Visit [facility] [place] [facility] [address] [facility], [address] [place] [address] Beckie Marshall PA [address] [place] [address] 05/01/2026 1:30 PM EDT Appointment Medical Office Building Cardiac Diagnostic Testing Medical Office [facility] [address] [facility], [address] [place] [address] 05/01/2026 3:00 PM EDT Office Visit [facility] [place] [facility] [address] [facility], [address] [place] [address] Beckie Marshall PA [address] [place] [address] documented as of this encounter Visit Diagnoses Not on filedocumented in this encounter Additional Health Concerns Assessment Noted Time A fall risk assessment has been complete d for the patient 04/02/2025 12:26 PM EDT A Body Mass Index follow-up plan has been documented for the patient 04/02/2025 1:42 PM EDT documented as of this encounter Care Teams Deburring Machine Operator Relationship Specialty Start Date End Date Pcp, [place] [address] PCP - General Family Medicine 04/02/25 04/10/25 documented as of this encounter
--- OUTSIDE RECORDS SUMMARY | 2025-04-29 23:48 | XMS_ITS | Encounter Summary ---
Author Organization Healthcare Address [address] [place] [address] Care Team Providers Care Stereoplotter Operator Name Role Phone Jim Lopez MD Primary Care Provider [phone] Encounter Details Date Type Department Care Team (Late st Contact Info) Description 04/13/2025 Telephone [facility] [place] [address] [place] [address] Evgeny Brower, RN Social History Tobacco Use Types Packs/Day Years [...] on file documented as of this encounter Miscellaneous Notes * Telephone Encounter - Evgeny Brower RN - 04/13/2025 10:15 AM EDT Outside echo was reviewed at multi-disciplinary valve conference on 04/12/2025. Images were unclear to evaluate the severity of aortic stenosis. Dr. Kendrick wanted the Mrs. Covarrubias to have a repeat echo to determine the severity. We will re-discus her after her echo is complete. Patient is aware of her echo appointment. documented in this encounter Plan of Treatment Upcoming Encounters Date Type Department Care Team (Late st Contact Info) Description 06/27/2025 9:00 AM EDT Appointment Medical Office Building Cardiac Diagnostic Testing Medical Office Building Echo Lab [address], [address] [place] [address] 06/27/2025 10:30 AM EDT Office Visit [facility] [place] [address], [address] [place] [address] Beckie Marshall PA [address] [place] [address] 05/01/2026 1:30 PM EDT Appointment Medical Office Building Cardiac Diagnostic Testing Medical Office Building Echo Lab [address], [address] [place] [address] 05/01/2026 3:00 PM EDT Office Visit [facility] [address], [address] [place] [address] Beckie Marshall PA [address] [place] [address] documented as of this encounter Visit Diagnoses Not on filedocumented in this encounter Additional Health Concerns Assessment Noted Time A fall risk assessment has been complete d for the patient 04/11/2025 9:59 AM EDT A Body Mass Index follow-up plan has been documented for the patient 04/11/2025 12:25 PM EDT documented as of this encounter Care Teams Stereoplotter Operator Relationship Specialty Start Date End Date Jim Lopez MD [address] [place] [address] PCP - General 04/11/25 documented as of this encounter
--- OUTSIDE RECORDS SUMMARY | 2025-04-29 23:48 | XMS_ITS ---
Author Organization [facility] Care Team Providers Care Socket Puller Name Role Phone James Leon III ble Allergies and adverse reactions Code CodeSystem Substance Reaction Severity StartDate Concern Status 7804 RXNORM Oxycodone Unknown 10/13/2019 active Care Team Name Role Address Phone Organization Dates James Leon III PCP [address] [facility], [place], [place], [facility], [place] States (Office): : [place] 10/13/2019 - 11/12/2019 Immunizations Immunization Status Vaccine Details Vaccine Code CodeSystem Date Notes Influenza completed Influenza, high-dose, split virus, quadrivalent, injectable, preservative free 197 CVX created date: 9 administe red date: 9 Given at [facility] 2 Step Mantoux Skin Test completed tuberculin skin test; unspecified formulation lotNumber: [id number] Given 0.1 ml Left Forearm intradermally Step 2 of Multi-step with next step required 98 CVX created date: 0 consent date: 0 administe red date: 0 read by [facility] 2 Step Mantoux Skin Test completed tuberculin skin test; unspecified formulation lotNumber: [id number] expiry: 03/10/2021 Given 0.1 ml Left Forearm intradermally Step 1 of Multi-step with next step required 98 CVX created date: 9 consent date: 9 administe red date: 9 Pneumococcal PCV13 completed pneumococcal conjugate vaccine, 13 valent Given 0.5 ml Left Deltoid intramuscularly 133 CVX created date: 9 consent date: 9 administe red date: 9 Pneumococcal - Historical Type Unknown completed pneumococcal conjugate vaccine, 13 valent 133 CVX created date: 9 administe red date: 8 Historical per [facility] Mental Status Section Date Assessment Total Score Description 11/12/2019 BIMS 14 cognitively int act CAM 0 No delirium ind icated PHQ-9 00 10/25/2019 BIMS 14 cognitively int act CAM 0 No delirium ind icated PHQ-9 00 Problems Problem # Description Date of onset Resolved Date Code CodeSystem Concern Status 1 ALLERGIC RHINITIS, UNSPECIFIED 11/06/[address] active 2 ANGINA PECTORIS, UNSPECIFIED 10/13/[address] active 3 ATHEROSCLEROTIC HEART DISEASE OF [place] CORONARY ARTERY WITHOUT ANGINA PECTORIS 10/13/[address] active 4 CONSTIPATION, UNSPECIFIED 10/13/[address] active 5 DISPLACED TRIMALLEOLAR FRACTURE OF RIGHT LOWER LEG, SUBSEQUENT ENCOUNTER FOR CLOSED FRACTURE WITH ROUTINE HEALING 10/13/[address] active 6 EDEMA, UNSPECIFIED 10/13/[address] active 7 ESSENTIAL (PRIMARY) HYPERTENSION 10/13/[address] active 8 GASTRO-ESOPHAGEAL REFLUX DISEASE WITHOUT ESOPHAGITIS 10/13/[address] active 9 HISTORY OF FALLING 10/13/[address] active 10 HYPERLIPIDEMIA, UNSPECIFIED 10/13/[address] active 11 HYPOTHYROIDISM, UNSPECIFIED 10/13/[address] active 12 MUSCLE WEAKNESS (GENERALIZED) 10/13/[address] active 13 SECONDARY PULMONARY ARTERIAL HYPERTENSION 10/13/[address] active 14 TYPE 2 DIABETES MELLITUS WITHOUT COMPLICATIONS 10/13/[address] active 15 UNSPECIFIED ABNORMALITIES OF GAIT AND MOBILITY 10/13/[address] active 16 UNSTEADINESS ON FEET 10/13/[address] active Reason for Referral No Reasons for Referral Entered Social History Social History Observation Description Start Date End Date Code Code System Current Smoking Status Tobacco smoking consumption unknown 261012122 SNOMED CT Sex Assigned At Female 1935 70479-8 [facility] Gender Identity Vital Signs Code Code System Vitals Name Values and Units Timing Information 9279-1 [facility] Respiratory Rate Value=18.0 Units=/m in 11/12/2019 8462-4 [facility] Blood Pressure-Diastolic Value=64 Un its=mmHg 11/12/2019 8480-6 [facility] Blood Pressure-Systolic Qubnm=688 Un its=mmHg 11/12/2019 8310-5 [facility] Body Temperature Value=97.8 Units= F 11/12/2019 8867-4 [facility] Heart rate Value=72.0 Units=/min 79511-1 [facility] O2 % BldC Oximetry Value=95.0 Units= % 11/12/2019 22940-1 [facility] Pain Level Value=0.0 11/11/2019 28840-4 [facility] Weight Drlus=266.4 Units=Lbs 2339-0 [facility] Blood Sugar Yjcwu=104.0 Units=mg/dL 10/15/2019 8302-2 [facility] Height Value=64.0 Units=Inches 10/13/2019
--- OUTSIDE RECORDS SUMMARY | 2025-04-29 23:48 | XMS_ITS | Encounter Summary ---
Author Organization Healthcare Address [address] [place] [address] Care Team Providers Care District Claims Manager Name Role Phone Pcp, No Primary Care Provider Unavailabl e Encounter Details Date Type Department Care Team (Late st Contact Info) Description 03/29/2025 Abstract [facility] [place] [address] [place] [address] [place] [address] Social History Tobacco Use Types Packs/Day Years [...] Office Building Echo Lab [address] , [address] [place] [address] 06/27/2025 10:30 AM EDT Office Visit [facility] [address] , [address] [place] [address] Beckie Marshall PA [address] [place] [address] 05/01/2026 1:30 PM EDT Appointment Medical Office Building Cardiac Diagnostic Testing Medical Office Building [facility] [address] , [address] [place] [address] 05/01/2026 3:00 PM EDT Office Visit [facility] [place] [address] [facility] [address] [facility], [address] [place] [address] Beckie Marshall PA [address] [place] [address] documented as of this encounter Visit Diagnoses Not on filedocumented in this encounter Care Teams District Claims Manager Relationship Specialty Start Date End Date Pcp, No [address] [place] [address] PCP - General Family Medicine 04/02/25 04/10/25 documented as of this encounter
--- OUTSIDE RECORDS SUMMARY | 2025-04-29 23:48 | XMS_ITS | Encounter Summary ---
Author Organization Healthcare Address [address] [place] [address] Care Team Providers Care Signaling Design Engineer Name Role Phone Jim Lopez MD Primary Care Provider [phone] Encounter Details Date Type Department Care Team (Latest Contact Info) Description 04/11/2025 Travel Social History Tobacco Use Types Packs/Day [...] Patient does not drink 04/11/2025 9:58 AM JEFFT Rosy Bishop Q3: How often do you have six or more drinks on one occasion? Never 04/11/2025 9:58 AM EDT Rosy Bishop * Over the past 2 weeks, how often have you been bothered by any of the following problems? Question Answer Date of Assessment Author Little interest or pleasure in doing things Not at all 04/11/2025 9:59 AM EDT Rosy Bishop Feeling down, depressed, or hopeless Not at all 04/11/2025 9:59 AM EDT Rosy Bishop Patient Health Questionnaire -2 Score 0 04/11/2025 9:59 AM EDT Rosy Bishop documented as of this encounter Plan of Treatment Upcoming Encounters Date Type Department Care Team (Late st Contact Info) Description 06/27/2025 9:00 AM EDT Appointment Medical Office Building Cardiac Diagnostic Testing Medical Office Building Echo [facility] [address] [facility] [facility] [address] [facility], [address] [place] [address] 06/27/2025 10:30 AM EDT Office Visit [facility] [address] [facility] [facility] [address] [facility], [address] [place] [address] Beckie Marshall PA [address] [place] [address] 05/01/2026 1:30 PM EDT Appointment Medical Office Building Cardiac Diagnostic Testing Medical Office Building Echo [facility] [address] [facility], [address] [place] [address] 05/01/2026 3:00 PM EDT Office Visit [facility] [address] [facility], [address] [place] [address] Beckie Marshall PA [address] [place] [address] documented as of this encounter Visit Diagnoses Not on filedocumented in this encounter Additional Health Concerns Assessment Noted Time A fall risk assessment has been complete d for the patient 04/11/2025 9:59 AM EDT A Body Mass Index follow-up plan has been documented for the patient 04/11/2025 12:25 PM EDT documented as of this encounter Care Teams Signaling Design Engineer Relationship Specialty Start Date End Date Jim Lopez MD [address] [place] [address] [address] [place] [id number] PCP - General 04/11/25 documented as of this encounter
--- OUTSIDE RECORDS SUMMARY | 2025-04-29 23:48 | XMS_ITS | Encounter Summary ---
Author Organization [facility] Address [address] [place] [address] Care Team Providers Care Radiology Director Name Role Phone Unavailable Primary Care Provider Unavailabl e Encounter Details Date Type Department Care Team (Late st Contact Info) Description 03/26/2025 Telephone [facility] [place] [address] [place] [address] [place] [address] Social History Tobacco Use Types Packs/Day Years Used Date Smoking Tobacco: Never Assessed Comments Unknown Sex and Gender Information Value Date Recorded Sex Assigned at Not on file Legal Sex Female 8:50 PM EDT Gender Identity Not on file Sexual Orientation Not on file documented as of this encounter Miscellaneous Notes * Telephone Encounter - Adeola Coronado - 03/26/2025 1:23 PM EDT Patient Name: Marleny Covarrubias :1935 Date:@DATE@ [facility] site: Referring Physician: Education/ Information provided: This Nurse Liaison left voicemail for Marleny Covarrubias prior to an appointment on 04/02/2025. Liaison contact information and encouraged patient to call with any questions, concerns or assistance needs. Will follow up with patient after appointment. Adeola Coronado [facility] Nurse Liaison [phone] documented in this encounter Plan of Treatment Upcoming Encounters Date Type Department Care Team (Late st Contact Info) Description 06/27/2025 9:00 AM EDT Appointment Medical Office Building Cardiac Diagnostic Testing Medical Office Building Echo [facility] [address] [facility], [address] [place] [address] 06/27/2025 10:30 AM EDT Office Visit [facility] [address] [facility], [address] [place] [address] Beckie Marshall PA [address] [place] [address] 05/01/2026 1:30 PM EDT Appointment Medical Office Building Cardiac Diagnostic Testing Medical Office Building Echo [facility] [address] [facility], [address] [place] [address] 05/01/2026 3:00 PM EDT Office Visit [facility] [address] [facility], [address] [place] [address] Beckie Marshall PA [address] [place] [address] documented as of this encounter Visit Diagnoses Not on filedocumented in this encounter
--- OUTSIDE RECORDS SUMMARY | 2025-04-29 23:48 | XMS_ITS | Encounter Summary ---
Author Organization [facility] Address [address] [place] [address] Care Team Providers Care Cytotechnologist Supervisor Name Role Phone Pcp, No Primary Care Provider Unavailabl e Encounter Details Date Type Department Care Team (Late st Contact Info) Description 04/03/2025 Telephone [facility] [place] [address] [place] [address] [place] [address] Social History Tobacco Use Types Packs/Day Years [...] * Telephone Encounter - Adeola Coronado - 04/03/2025 11:19 AM EDT Patient Name:Marleny Covarrubias : 1935 Date:04/03/2025 Affiliate Site:[place] Referring Physician:[facility]/ Seen:Cardiology/Dr. Kendrick Future scheduling/testing needs: This [facility] Nurse Liaison left voicemail for Marleny Covarrubias following their appointment on 04/02/2025. Liaison contact information provided. Will follow up to ensure continuum of care. Adeola Rios [facility] Nurse Liaison [phone] documented in this encounter Plan of Treatment Upcoming Encounters Date Type Department Care Team (Late st Contact Info) Description 06/27/2025 9:00 AM EDT Appointment Medical Office Building Cardiac Diagnostic Testing Medical Office Building Echo [facility] [address] [facility] [facility], [address] [place] [address] 06/27/2025 10:30 AM EDT Office Visit [facility] [place] [address], [address] [place] [address] Beckie Marshall PA [address] [place] [address] 05/01/2026 1:30 PM EDT Appointment Medical Office Building Cardiac Diagnostic Testing Medical Office Building Echo [facility] [address] [facility], [address] [place] [address] 05/01/2026 3:00 PM EDT Office Visit [facility] [address] [facility], [address] [place] [address] Beckie Marshall PA [address] [place] [address] documented as of this encounter Visit Diagnoses Not on filedocumented in this encounter Additional Health Concerns Assessment Noted Time A fall risk assessment has been complete d for the patient 04/02/2025 12:26 PM EDT A Body Mass Index follow-up plan has been documented for the patient 04/02/2025 1:42 PM EDT documented as of this encounter Care Teams Cytotechnologist Supervisor Relationship Specialty Start Date End Date [place], Pat[place] [address] [place] [address] PCP - General Family Medicine 04/02/25 04/10/25 documented as of this encounter
[2025-04-29] MEDS: NOREPINEPHRINE BITARTRATE/D5W 8 MG/250 ML PLAST..BAG 15 MG IV (23:49)
[2025-04-29] MEDS: FENTANYL 100MCG/2ML VIAL 25 MCG IV ×2 (23:50)
[2025-04-29] MEDS: ATROPINE 1MG/10ML SYRINGE (CRASH CART) 1 MG IV (23:50)
[2025-04-29 23:52] VITALS: BP 207/64; PULSE 70; RESP 35; O2SAT 96
[2025-04-29 23:56] VITALS: BP 178/81; PULSE 70; RESP 37; O2SAT 96
[2025-04-29 23:56] LABS: Lactate Venous 1.5 mmol/L (0.4-2.0); VBG HCO3 20.2 mmol/L (23-30); VBG PCO2 37.9 mmol/L (35-51); VBG PH 7.35 mmol/L (7.31-7.41); VBG PO2 50.6 mmol/L (28-40)
--- NOTE | 2025-04-29 23:56 | [facility].EDCP ---
Discharge Plan Disposition Patient Disposition: Xfer Short-Term Hosp Condition: Critical Prescriptions Prescriptions: No Action omeprazole 40 mg capsule,delayed release(DR/EC) 40 mg PO DAILY nitroglycerin 0.4 mg tablet, sublingual 0.4 mg SUBLINGUAL Q5M PRN (Reason: Chest Pain) multivitamin tablet 1 tab PO DAILY levothyroxine [Synthroid] 88 mcg tablet 88 mcg PO DAILY meclizine 25 mg tablet 25 mg PO TID PRN (Reason: Dizziness) diclofenac sodium 1 % gel 4 g topical QID PRN (Reason: pain ) 30 Days Qty: 100 2RF Rx Instructions: apply to single, ankle, foot; for foot includes sole/toes/top of foot tramadol 50 mg tablet 50 mg PO Q6H PRN (Reason: Sleep) Patient Comments: TAKE ONE TABLET BY MOUTH EVERY 6 HOURS NEEDED rosuvastatin 10 mg tablet PO Patient Comments: TAKE ONE TABLET BY MOUTH EVERY DAY AT BEDTIME losartan 50 mg tablet 50 mg PO DAILY Qty: 90 3RF isosorbide mononitrate 30 mg tablet extended release 24 hr See Rx Instructions .ROUTE .COMPLEX Qty: 90 3RF Dose Instruction: TAKE ONE TABLET BY MOUTH EVERY DAY FOR HEART/BLOOD PRESSURE Rx Instructions: TAKE ONE TABLET BY MOUTH EVERY DAY FOR HEART/BLOOD PRESSURE apixaban 2.5 mg tablet 2.5 mg PO BID Qty: 60 5RF bisoprolol fumarate 5 mg tablet 2.5 mg PO DAILY Qty: 30 2RF Rx Instructions: half a tablet daily pioglitazone 15 mg tablet 30 mg PO DAILY Referrals Follow up/Referrals: Provider,Referral, MD [Primary Care Provider, Medical] - See instructions Clinical Impressions Clinical Impression: Symptomatic bradycardia, Third degree heart block Print Language Print Language: Danish Discharge ED Provider: Emi Gomez HPI General Stated Complaint: bradycardia/hypotension Time Seen by Provider: 04/29/25 23:40 History of Present Illness HPI narrative: 89-year-old female presents to the ER with EMS for concerns of lightheadedness, low blood pressure. Patient had aortic valve replacement with Dr. Kendrick at on Wednesday. EMS reports they found the patient bradycardic, administered atropine, she would transiently become more bradycardic, heart rates were in the 20s to 50s, they started pacing in route with capture around 75 mA. They gave 2.5 of IV Versed prior to arrival for sedation while pacing. Patient presented weak, she was able to tell me her name, pale appearing with weak but palpable pulses while being paced. She was not complaining of any abdominal pain, nausea, vomiting, or other associated symptoms. Related Data Home Medications ?Medication ?Instructions ?Recorded ?Confirmed multivitamin 1 tab PO DAILY Supplement 11/01/17 01/10/25 nitroglycerin 0.4 mg sublingual 0.4 mg sublingual Q5M PRN Chest 11/01/17 01/10/25 tablet Pain levothyroxine 88 mcg tablet 88 mcg PO DAILY THYROID 12/16/18 01/10/25 (Synthroid) meclizine 25 mg tablet 25 mg PO TID PRN Dizziness 12/16/18 01/10/25 pioglitazone 15 mg tablet 30 mg PO DAILY Diabetes 12/12/20 01/10/25 omeprazole 40 mg capsule,delayed 40 mg PO DAILY 09/02/22 01/10/25 release tramadol 50 mg tablet 50 mg PO Q6H PRN Sleep 12/13/23 01/10/25 rosuvastatin 10 mg tablet mg PO 03/20/24 01/10/25 Previous Rx's ?Medication ?Instructions ?Recorded isosorbide mononitrate 30 mg See Rx Instructions .Route 10/26/22 tablet,extended release 24 hr .COMPLEX #90 tabs diclofenac sodium 1 % topical gel 4 g topical QID PRN pain 30 days 12/09/23 #100 grams losartan 50 mg tablet 50 mg PO DAILY #90 tabs 03/21/24 apixaban 2.5 mg tablet 2.5 mg PO BID #60 tabs 10/02/24 bisoprolol fumarate 5 mg tablet 2.5 mg (1/2 x 5 mg) PO DAILY #30 11/23/24 tabs Allergies Allergy/AdvReac Type Severity Reaction Status Date / Time No Known Allergies Allergy Verified 01/10/25 13:54 [facility] Disclaimer: The information contained in this section may have been updated after the patient was seen, as this information can be updated by other users. Medical History Crescendo angina Aortic insufficiency Aortic stenosis Social History Smoking Status: Former smoker tobacco type: cigarettes second hand exposure: No alcohol intake: never substance use type: denies use current occupational status: retired Travel in the last 8 weeks?: None housing: house current occupational exposures/hazards: No Other Medical History Have you received the Flu Vaccine for this season: Yes Have you received the Pneumonia Vaccine: Yes ROS Obtained: Yes Systems reviewed as appropriate & no additional complaints except as documented Physical Exam General General appearance: obese Comment: Ill-appearing, pale Head Head exam: atraumatic and normocephalic Eye Eye exam: Present PERRL and EOMI ENT ENT exam: Present mucous membranes dry Neck Neck exam: Present normal inspection and full ROM Chest Chest inspection: Present symmetric chest wall rise Respiratory Respiratory exam: Present normal lung sounds bilaterally; Absent respiratory distress, wheezes or stridor Cardiovascular Cardiovascular exam: Present regular rate and normal rhythm Abdominal Exam Abdominal exam: Present soft; Absent distention or tenderness Extremities Exam Extremities exam: Present full ROM; Absent edema (mild nonpitting) Neurological Exam Neurological exam: Present alert (Sleepy but easily arousable), oriented X3 and other (GCS 14); Absent motor sensory deficit Skin Skin exam: Present other (cool, dry) HEART Score HEART Score HEART Score assessment performed?: Yes History (anamnesis): Slightly suspicious ECG: Non-specific disturbance Age: >65 years Risk factors: 3 or more risk factors Troponin: 1-3x normal limit HEART Score: 6 Procedures Risk/Benefits of Procedure(s) Were Explained: Yes Intubation Mallampati Score:: Class III Time out performed: Yes sedative: Etomidate Mg Given: 20 paralytic: Succinylcholine Mg Given: 100 Laryngoscope: other (Video laryngoscopy with MAC 3 blade) ET Tube Size: 7 ET Tube Uncuffed: No Tube Secured Depth (cm): 21 Tube Secured Location: teeth Tube Placement Confirmation: visualized tube passing through cords, equal breath sounds bilaterally, no breath sounds over epigastrium and confirmation by capnometry Patient Tolerated Procedure: well and no complications Intubation Complications: none Arterial Line Time Out Performed: No (emergent) Size (Gauge): 20 Technique Used: other (ultrasound guided) Post-Procedure: line sutured into place Patient Tolerated Procedure: well and no complications Complications: none Site: right and radial Miscellaneous Procedure Procedure Performed: Limited Cardiac Ultrasound Indication: Weakness Identified cardiac views: Apical four-chamber, subxiphoid, the other views were not obtained secondary to poor acoustic windows with pacing pads in place Findings: Cardiac activity present with no gross wall motion abnormality, small pericardial effusion without tamponade, no right heart strain Impression: Cardiac activity present with no gross wall motion abnormality, small pericardial effusion without tamponade, no right heart strain Images were saved to permanent archive The study was technically adequate CPT: 79615 This study was performed by me, and I personally interpreted all images/videos. Based on my clinical judgement, these images were adequate and did not necessitate further imaging. Critical Care Critical Care Time Critical Care Time: Yes Attestation: On 04/29/25, the high probability of a clinically significant, sudden or life threatening deterioration of the following system(s) required my full and direct attention, intervention and personal management. The time I documented below is in addition to time spent performing reported procedures but includes the following listed in this critical care notation. Total Time Total Critical Care Time: 65 Medical Decision Making Medical Records Medical records reviewed: Yes I reviewed the patient's medical records. MR Comment: Long history of aortic stenosis followed by cardiology here [place] Inquiry Pt receiving controlled substance: No Lab Data Labs: Lab Results 04/29/25 23:40: WBC 6.5, RBC 3.19 L, Hgb 10.3 L, Hct 31.6 L, MCV 99.1 H, MCH 32.3 H, MCHC 32.6, RDW 14.6, Plt Count 136 L, MPV 12.1 H, Neut % (Auto) 70.6, Lymph % (Auto) 14.9, Floyd % (Auto) 11.9 H, Eos % (Auto) 1.6, Baso % (Auto) 0.5, Neut # (Auto) 4.6, Lymph # (Auto) 1.0, Floyd # (Auto) 0.8, Eos # (Auto) 0.1, Baso # (Auto) 0.0, Sodium 136, Potassium 4.4, Chloride 105, Carbon Dioxide 22, Anion Gap 13.4, BUN 30 H, Creatinine 1.60 H, Estimated Creat Clear 34, Estimated GFR 30 L, Est GFR ( Amer) 37 L, Glucose 151 H, Calcium 9.0, Total Bilirubin 0.3, AST 44 H, ALT 30, Alkaline Phosphatase 136 H, Troponin I 0.07 H, Total Protein 6.6, Albumin 4.0, Globulin 2.6, Albumin/Globulin Ratio 1.5 04/29/25 23:41: NT-Pro-B Natriuret Pep 3970 H 04/29/25 23:43: VBG pH 7.35, VBG pCO2 37.9, VBG pO2 50.6 H, VBG HCO3 20.2 L, VBG Total CO2 21.4 L, VBG O2 Saturation 83.7 H, VBG Base Excess -5.5 L, VBG Lactic Acid 1.5 04/30/25 00:01: Magnesium 1.9 04/29/25 23:40 04/29/25 23:40 Response Orders (Tests/Meds): ED MEDICATIONS Generic Name Dose Route Start Last Admin Trade Name Freq PRN Reason Stop Dose Admin Norepinephrine/Dextrose 8 mg in 250 mls @ 15 mls/hr 04/29/25 23:32 04/29/25 23:49 Levophed 8mg/250ml-D5w Premix IV 05/29/25 23:31 8 mcg/min .[id number] HANK 15 mls/hr Protocol Administration 8 MCG/MIN Fentanyl Citrate 1,000 mcg/ 100 mls @ 1 mls/hr 04/30/25 00:11 Sodium Chloride IV 05/30/25 00:10 .Q24H HANK Protocol 10 MCG/HR Midazolam/Sodium Chloride 50 mg in 50 mls @ 1.814 mls/hr 04/30/25 00:30 Midazolam 50 Mg/50 Ml-0.9%Nacl IV 05/30/25 00:29 .Q24H HANK Protocol 0.02 MG/KG/HR Discontinued Medications Generic Name Dose Route Start Last Admin Trade Name Freq PRN Reason Stop Dose Admin Atropine Sulfate 1 mg 04/29/25 23:36 04/29/25 23:50 Atropine 1mg/10ml Syringe (Crash Cart) IV 04/29/25 23:37 1 mg ONCE ONE Administration Etomidate 20 mg 04/30/25 00:28 Etomidate 40mg/20ml Vial IV 04/30/25 00:29 ONCE ONE Fentanyl Citrate 25 mcg 04/29/25 23:36 04/29/25 23:50 Fentanyl 100mcg/2ml Vial IV 04/29/25 23:37 25 mcg [id number] ONE Administration Fentanyl Citrate 25 mcg 04/29/25 23:40 04/29/25 23:50 Fentanyl 100mcg/2ml Vial IV 04/29/25 23:41 25 mcg [id number] ONE Administration Lactated Ringer's 500 mls @ 999 mls/hr 04/30/25 00:00 Lactated Ringer's 500ml IV 04/30/25 00:30 .Q31M ONE Succinylcholine Chloride 100 mg 04/30/25 00:28 Succinylcholine 20mg/Ml 10 Ml Mdv IV 04/30/25 00:29 ONCE ONE ORDERS Category Date Time Status POCUS Point of Care (ER Only) Stat Exams 04/30/25 00:41 Ordered XR chest portable Stat Exams 04/29/25 23:43 Taken BNP [NT Pro Brain Natriuretic Pep.] Stat Lab 04/29/25 23:41 Completed Complete Blood Count Auto Diff Stat Lab 04/29/25 23:40 Completed Comprehensive Metabolic Panel Stat Lab 04/29/25 23:40 Completed Magnesium Stat Lab 04/30/25 00:01 Completed Troponin I Q3H Lab 04/30/25 02:45 Ordered Troponin I Q3H Lab 04/30/25 05:45 Ordered Troponin I Stat Lab 04/29/25 23:40 Completed VBG [Venous Blood Gas] Stat RT 04/29/25 23:43 Completed MDM Narrative Medical Decision Narrative: In summary, this 89-year-old female presents to the emergency department today with low blood pressure, bradycardia, symptomatic with generalized weakness. On initial evaluation patient is bradycardic, hypotensive, atropine administered and started transcutaneous pacing with IV fentanyl pushes for comfort. Norepinephrine ordered and started for pressor support. Differential diagnosis includes but is not limited to high-grade heart block, pericardial effusion, ACS, PE, ID, electrolyte abnormality, postoperative complication, among others. Ruling out multiple recondition stroke my assessment. Based on these concerns, I ordered cardiac workup, serum labs, chest x-ray. Pacing was paused just long enough to obtain an EKG which at this time personally interpreted demonstrates what appears to be a very long FL first-degree heart block, rate 54, right bundle branch block, normal QTc, no STEMI. Bedside ultrasound personally performed and interpreted demonstrates trace pericardial effusion. Arterial line placed. Patient is tolerating pacing well at this time and mentation is good even with small push doses of fentanyl to maintain pain control. Started IV fluids. She is also on the nor epi which is being titrated down since she is perfusing well now with a regular rhythm. Before labs resulted, I spoke with transfer center Dr. Graham about this patient requesting transfer since she just had a procedure there a few days ago. He agrees that she should come to , he actually looped in the plumbing and heating contractor, Dr. Avila and they accepted the patient to the CCU for further management. Dr. Avila also recommends epinephrine if needed to help improve capture on the transcutaneous pacing. After discussion with Dr. Graham he does recommend intubation prior to transfer with which I agree. I appreciate the recommendations. Patient is agreeable to transfer. I believe she is slightly too sedated to make her own decisions so I spoke with patient's adult son Ricardo who ultimately provided consent for intubation. Patient was intubated, see procedure note for details. She tolerated this procedure well. Initial labs reviewed demonstrate no leukocytosis, mild anemia with hemoglobin 10.3, mild thrombocytopenia, CMP with slight kidney dysfunction, patient is receiving a small amount of IV fluids though I do not want to fluid overload her with the potential for cardiac dysfunction. Troponin pending. Chest x-ray personally interpreted demonstrates appropriately placed endotracheal tube, large cardiac silhouette, no pneumothorax, no lobar infiltrate. See radiology read for final interpretation which is pending at this time. Patient was stable on the ventilator with fentanyl and Versed drips for sedation. Family and patient both understand that she will be transferred to for further management and are comfortable with this plan. Unfortunately due to weather she is not able to be flown to so EMS has been called. Additional labs resulted demonstrating elevated BNP, troponin mildly elevated at 0.07, I suspect this is secondary to recent operation however could be NSTEMI given patient's new third-degree heart block. Prior to transfer called back and spoke with Dr. Graham and reviewed this. We discussed that patient just had a cardiac surgery which could cause troponin elevation and that she was not complaining of chest pain. Her EKG does show a new right bundle branch block compared to our previous ECGs, however I reviewed this with Dr. Graham and he states she had a right bundle at the time of discharge, she also had a small pericardial effusion at that time. The pericardial effusion makes me hesitate to fully anticoagulate this patient at this moment despite the elevated troponin because of this is a bloody pericardial effusion it could become worse. He stated she did have small effusion at the time of discharge as well. Since the patient only has very subtle inferior changes without reciprocal changes, after discussion with him we agreed to not pursue additional anticoagulation since patient is already prescribed Eliquis and to just expedite the patient's transfer. Ambulance is waiting here at this time to take the patient. She will go via [facility] ambulance with an RN to manage arterial line and titratable drips. Patient was reassessed immediately prior to transfer and continues to be stable on the ventilator and drips as described. Oxygenating well. Comfortably sedated. Transferred by [facility] ambulance in critical condition.
[2025-04-30] VITALS (24 sets, daily range): BP systolic 75–186; BP diastolic 51–97; PULSE 27–76; RESP 10–37; TEMP 34–36.7; O2SAT 94–100; BMI 34.3
[2025-04-30] LABS: Albumin Level 4.0 g/dl (3.5-5.0); Chloride 105 mmol/L (98-107); Potassium 4.4 mmoL/L (3.5-5.1); Sodium 136 mmol/L (136-145)
--- NOTE | 2025-04-30 00:01 | PC.NURSE ---
[facility] is checking for weather and supposed to call back to notify if flying or not. Stated would be a 22 min ETA if they do accept.
[2025-04-30 00:04] LABS: Alanine Aminotransferase 30 U/L (12-78); Albumin/Globulin Ratio 1.5 (1.1-1.8); Alkaline Phosphatase 136 U/L (38-126); Anion Gap 13.4 mEq/L (5-15); Aspartate Amino Transferase 44 U/L (14-36); Bilirubin,Total 0.3 mg/dl (0.2-1.3); Blood Urea Nitrogen 30 mg/dl (7-17); Calcium 9.0 mg/dl (8.4-10.2); Carbon Dioxide 22 mmol/L (22.0-30.0); Creatinine Clearance Estimated 34 mL/min (50-200); Creatinine,Serum 1.60 mg/dl (0.52-1.04); Estimated Glomerular Filt Rate 30 ml/min (>60); GFR (African American) 37 ML/MIN (>60); Globulin 2.6 g/dL (1.3-3.2); Glucose 151 mg/dl (74-100); Total Protein,Serum 6.6 g/dl (6.3-8.2)
[2025-04-30] MEDS: FENTANYL 100MCG/2ML VIAL 25 MCG IV (00:04)
--- NOTE | 2025-04-30 00:04 | PC.NURSE ---
[facility] declined.
[2025-04-30 00:15] LABS: Troponin I 0.07 ng/ml (0.00-0.034)
[2025-04-30 00:20] LABS: Magnesium 1.9 mg/dl (1.6-2.3)
[2025-04-30 00:30] LABS: NT Pro Brain Natriuretic Pep. 3970 pg/mL (0-450)
[2025-04-30 00:34] LABS: Hematocrit 31.6 % (37.0-47.0); Hemoglobin 10.3 g/dL (12.2-16.2); Immature Granulocytes % 0.5 %; Mean Corpuscular HGB Conc 32.6 g/dL (31.8-35.4); Mean Corpuscular Hemoglobin 32.3 pg (27.0-31.2); Mean Corpuscular Volume 99.1 fl (81-99); Nucleated Red Blood Cells % 0 %; Platelet Count 136 K/mm3 (142-424); Red Blood Count 3.19 M/mm3 (4.20-5.40); Red Cell Distribution Width-SD 53.7 fL; White Blood Count 6.5 K/mm3 (4.8-10.8)
[2025-04-30] MEDS: ETOMIDATE 40MG/20ML VIAL 20 MG IV (00:36)
[2025-04-30] MEDS: SUCCINYLCHOLINE 20MG/ML 10 ML MDV 100 MG IV (00:36)
--- NOTE | 2025-04-30 01:18 | PC.NURSE ---
report called to Mamta FRY at CCU
--- NOTE | 2025-04-30 01:25 | PC.NURSE ---
2330: pt arrived to the ED by EMS being externally paced at a rate of 70 @75amps 2332: Levophed started @8mcg/min, paced at 100 amps 2336: 1 amp of atropine given 2336: 25mcg of fentanyl given 2339: levophed titrated to 10mcg/min 2340: 25mcg of fentanyl 0004: 25mcg of fentanyl 0030: EMS arrived for transport 0036: 20mg etomidate give for intubation 0336: 100mg os succinate given 0037: 7.5 tube placed with positive color change, 21cm @teeth, bilateral breath confirmed by MD 0037: fentanyl 12.5mcg started, versed 0.02mg/kg/hr started
[2025-04-30] MEDS: MIDAZOLAM HCL IN 0.9 % NACL/PF 50 MG/50 ML PLAST..BAG IV (01:44)
[2025-04-30] MEDS: FENTANYL CITRATE/PF 1,000 MCG in 0.9 % SODIUM CHLORIDE 80 ML 1 MCG IV (01:46)
[2025-04-30] MEDS: RINGERS SOLUTION,LACTATED 500 ML 999 ML IV (01:50)
--- NOTE | 2025-04-30 23:43 | ECG_ITS ---
APPROVED REPORT Exam: Resting ECG HR:54 bpm ECG Measurements Heart Rate 54 AXES QRSd 153 QRS -51 QT 426 T 7 QTc 412 Conclusion UNCERTAIN REGULAR RHYTHM RIGHT BUNDLE BRANCH BLOCK [120+ ms QRS DURATION, UPRIGHT V1, 40+ ms S IN I/aVL/V4/V5/V6] LEFT ANTERIOR FASCICULAR BLOCK [QRS AXIS <= -45, QR IN I, RS IN II] No STEMI Electronically signed by : DEON OZUNA, 04/30/2025 23:01:30
== END 2025-04-30 02:35 | disposition short-term general hospital (02) ==
PROVIDERS: Emergency Provider Emergency Medicine
DX: R00.1 Bradycardia, unspecified (principal); I44.2 Atrioventricular block, complete; R42 Dizziness and giddiness; I48.0 Paroxysmal atrial fibrillation; I27.21 Secondary pulmonary arterial hypertension; I35.0 Nonrheumatic aortic (valve) stenosis; E78.5 Hyperlipidemia, unspecified; I11.9 Hypertensive heart disease without heart failure; I25.10 Atherosclerotic heart disease of native coronary artery without angina pectoris
CPT/HCPCS: 31500; 71045; 80053; 82803; 83735; 83880; 84484; 85025; 93005; 96365; 96366; 96375; 96376; 99291; J0330; J0461; J2251; J3010; J7120